=== PATIENT | male | born 1955 | race Caucasian/White ===

== ENCOUNTER → 2020-06-27 10:02 | Outpatient (BNVA) | payer MEDICARE, OTHER, SELFPAY | PROVIDERS: PCP Internal Medicine; Referring Provider Internal Medicine; Visit Provider Internal Medicine Gastroenterology | DX: K21.9 Gastro-esophageal reflux disease without esophagitis (principal); K76.0 Fatty (change of) liver, not elsewhere classified; R13.10 Dysphagia, unspecified; K59.09 Other constipation; Z79.899 Other long term (current) drug therapy; Z86.010 Personal history of colon polyps | CPT/HCPCS: 99213; Q3014 ==

== ENCOUNTER → 2020-07-24 10:26 | Outpatient (BNVA) | payer MEDICARE, OTHER, SELFPAY | PROVIDERS: PCP Internal Medicine; Referring Provider Internal Medicine; Visit Provider Internal Medicine | DX: R07.2 Precordial pain (principal); R42 Dizziness and giddiness; R06.02 Shortness of breath; F17.210 Nicotine dependence, cigarettes, uncomplicated; Z88.8 Allergy status to other drugs, medicaments and biological substances; Z79.899 Other long term (current) drug therapy | CPT/HCPCS: 93005; 99202 ==

== ENCOUNTER 2020-07-30 13:02 | Emergency (ER) | payer OTHER, MEDICARE, MEDICAID, SELFPAY ==
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
[2020-07-30 13:13] VITALS: BP 114/66; BP 120/80; PULSE 80; PULSE 94; RESP 19; TEMP 36.6; O2SAT 97; BMI 31.6
--- NOTE | 2020-07-30 13:40 | XR_ITS ---
EXAMINATION: XR KNEE, RIGHT CLINICAL INFORMATION: Pain. COMPARISON: None TECHNIQUE: Four views of the right knee. FINDINGS: There is a comminuted intra-articular fracture of the patella. There is mild distraction/displacement at the fracture planes. Joint spaces are maintained. Moderate joint effusion. XR/XR knee RT 4V IMPRESSION: Comminuted intra-articular patellar fracture, with mild distraction/displacement. Moderate knee joint effusion.
[2020-07-30] MEDS: ondansetron HCL 4 MG/2 ML VIAL IVPUSH (13:46)
[2020-07-30] MEDS: Morphine Sulfate 4 MG/ML CARTRIDGE IVPUSH (13:47)
[2020-07-30 13:56] VITALS: BP 114/81; RESP 18
[2020-07-30 14:04] LABS: MANUAL DIFF FLAG NO
[2020-07-30 14:07] LABS: Basophils Absolute Auto 0.1 X10*3/uL (0.0-0.2); Basophils Percent Auto 0.4 % (0-2); Eosinophils Absolute Auto 0.2 X10*3/uL (0.0-0.4); Eosinophils Percent Auto 1.6 % (0-4); Hemoglobin 12.3 g/dl (14.0-18.0); Imm Gran Abs Auto 0.16 X10*3/uL (0.00-0.03); Imm Gran Pct Auto 1.1 % (0.0-0.4); Lymphocytes Absolute Auto 4.2 X10*3/uL (1.2-4.9); Lymphocytes Percent Auto 28.9 % (20-40); Mean Corpuscular HGB Conc 31.5 g/dl (31.0-36.0); Mean Corpuscular Hemoglobin 29.4 pg (27.0-33.0); Mean Corpuscular Volume 93.3 fL (80-98); Mean Platelet Volume 9.8 fL (9.4-12.4); Monocytes Absolute Auto 1.4 X10*3/uL (0.1-1.2); Monocytes Percent Auto 9.5 % (2-11); Neutrophils Absolute Auto 8.4 X10*3/uL (2.0-8.3); Neutrophils Percent Auto 58.5 % (45-73); Platelet Count 318 X10*3/uL (160-400); Red Blood Count 4.18 X10*6/uL (4.60-5.80); Red Cell Distribution Width 17.8 % (11.0-16.0); White Blood Count 14.4 X10*3/uL (4.8-10.8)
[2020-07-30 15:33] VITALS: TEMP 36.7; O2SAT 98
[2020-07-30 16:09] LABS: Alanine Aminotransferase 27 U/L (0-40); Albumin Level 3.9 g/dL (3.5-5.0); Alkaline Phosphatase 64 U/L (39-117); Anion Gap 17 (12-20); Aspartate Amino Transferase 25 U/L (5-37); Bilirubin Direct 0.2 mg/dL (0.0-0.5); Bilirubin Total 0.7 mg/dL (0.0-1.0); Blood Urea Nitrogen 14 mg/dL (9-16); Calcium 8.2 mg/dL (8.4-10.2); Carbon Dioxide 23 mmol/L (22-29); Chloride 106 mmol/L (96-108); Creatinine Clr Calc Pharmacy 100.4; Estimated Glomerular Filt Rate > 60; Glucose Random 109 mg/dL (60-115); Lipase 52 U/L (8-78); Potassium 4.3 mmol/l (3.3-5.1); Sodium 142 mmol/L (135-145); Total Protein 6.5 g/dL (6.5-8.0)
--- NOTE | 2020-07-30 16:51 | PC.NURSE ---
CRUTCHES WAS GIVEN TO PATIENT .
== END 2020-07-30 17:33 | disposition home or self-care (01) ==
PROVIDERS: Emergency Provider Emergency Medicine; PCP Internal Medicine
DX: S82.041A Displaced comminuted fracture of right patella, initial encounter for closed fracture (principal); S20.213A Contusion of bilateral front wall of thorax, initial encounter; R07.89 Other chest pain; M79.604 Pain in right leg; M54.2 Cervicalgia; M54.5 Low back pain; V43.52XA Car driver injured in collision with other type car in traffic accident, initial encounter; Y93.9 Activity, unspecified; Y92.9 Unspecified place or not applicable; Y99.9 Unspecified external cause status; Z79.899 Other long term (current) drug therapy; F17.210 Nicotine dependence, cigarettes, uncomplicated; Z71.6 Tobacco abuse counseling
CPT/HCPCS: 29505; 36415; 70450; 71250; 72125; 73564; 74176; 80048; 80076; 83690; 85025; 96374; 96375; 99284; J2270; J2405

== ENCOUNTER → 2020-08-05 13:45 | Outpatient (BNVA) | payer OTHER, MEDICARE, MEDICAID, SELFPAY | PROVIDERS: PCP Internal Medicine; Referring Provider Internal Medicine; Visit Provider Physician Assistant | DX: Z76.89 Persons encountering health services in other specified circumstances (principal) ==

== ENCOUNTER 2020-08-21 09:21 | Outpatient (REF) | payer MEDICARE, MEDICAID, SELFPAY ==
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
== END 2020-08-21 09:22 | disposition home or self-care (01) ==
LOC: HO.HOSX 09:21
PROVIDERS: Visit Provider Physician Assistant
DX: S82.009A Unspecified fracture of unspecified patella, initial encounter for closed fracture (principal)
CPT/HCPCS: 73560; 99212

== ENCOUNTER → 2020-08-26 15:10 | Outpatient (BNVA) | payer MEDICARE, MEDICAID, SELFPAY | PROVIDERS: PCP Internal Medicine; Referring Provider Internal Medicine; Visit Provider Internal Medicine | DX: Z76.89 Persons encountering health services in other specified circumstances (principal) ==

== ENCOUNTER 2020-09-09 08:31 | Outpatient (REF) | payer MEDICARE, MEDICAID, SELFPAY ==
--- NOTE | 2020-09-09 09:07 | XR_ITS ---
EXAMINATION: XR KNEE, RIGHT CLINICAL INFORMATION: Pain COMPARISON: Previous x-ray 08/21/2020 TECHNIQUE: 2 views of the right knee. FINDINGS: There is a comminuted nondisplaced transverse fracture of the patella. This is unchanged from previous exam. No other fracture is seen. Joint spaces are normal. There is a joint effusion. XR/XR knee RT 2V IMPRESSION: No change in the patella fracture.
== END 2020-09-09 08:32 | disposition home or self-care (01) ==
LOC: HO.HOSX 08:31
PROVIDERS: Visit Provider Physician Assistant
DX: S82.009A Unspecified fracture of unspecified patella, initial encounter for closed fracture (principal); M25.569 Pain in unspecified knee
CPT/HCPCS: 73560; 99212

== ENCOUNTER 2020-10-22 08:51 | Outpatient (REF) | payer MEDICARE, SELFPAY | END 2020-10-22 08:52 | disposition home or self-care (01) | LOC: HO.HOSX 08:51 | PROVIDERS: Visit Provider Physician Assistant | DX: Z13.89 Encounter for screening for other disorder (principal) ==

== ENCOUNTER 2020-10-24 10:00 | Outpatient (RCR) | payer OTHER, MEDICARE, MEDICAID, SELFPAY ==
--- NOTE | 2020-09-17 09:59 | MHC.PT.EP ---
[facility] [place] Office [place] [facility] [place] Office [address] Richi Ramos 140 [facility] [phone] F: [phone] F: [phone] F: [phone] F: [phone] Physical Therapy Plan of Care Date of Evaluation: 09/17/20 Date of Surgery: Diagnosis: unspecified fracture of the knee Assessment: The patient arrived reporting minimal knee pain. His ROM was actually better on his painful side compared to his bilateral leg. His ROM is WNL. He has some decreased strength that is pain limited. The patient was given an initial HEP to address quad strength. We will work on improving his gait pattern. Frequency and Duration: The patient will be seen 2x/week x 4 weeks Short Term Goals: 1. Pt to be able to walk with a heel to toe reciprocal gait pattern. Halfway Goals: 4 weeks - the patient will have no limiting pain in her knees during gait with community ambulation to show improved activity tolerance. 4 weeks - pt will have more quad control with TKE demonstrated by no medial collapse during a curb height step. 4 weeks -patient to be able to return to all functional movements and ADL's without limiting knee pain to show return to PLOF. Treatment Plan: Modalities to reduce pain, spasms and effusion. Manual therapy to restore motion and function. Therapeutic exercise to improve strength and flexibility. Neuromuscular re-education for posture and balance. Therapeutic activities to return to functional activities of daily living. Electronically signed by: Christa Rodríguez PT DPT Please sign and return to therapist. Thank you for your referral.
== END 2020-12-31 07:42 | disposition other institution (70) ==
LOC: HO.PT 10:00
PROVIDERS: Visit Provider Physician Assistant
DX: S82.009D Unspecified fracture of unspecified patella, subsequent encounter for closed fracture with routine healing (principal)
CPT/HCPCS: 97110; 97116; 97140; 97162; 97530

== ENCOUNTER 2020-11-28 09:27 | Outpatient (REF) | payer MEDICARE, SELFPAY | END 2020-11-28 09:28 | disposition home or self-care (01) | LOC: HO.LAB 09:27 | PROVIDERS: Visit Provider Internal Medicine | DX: Z20.822 Contact with and (suspected) exposure to COVID-19 (principal) | CPT/HCPCS: 36415; C9803; U0003; U0005 ==

== ENCOUNTER → 2020-12-11 13:13 | Outpatient (BNVA) | payer MEDICARE, MEDICAID, SELFPAY | PROVIDERS: PCP Internal Medicine; Referring Provider Internal Medicine; Visit Provider Internal Medicine Gastroenterology | DX: R13.10 Dysphagia, unspecified (principal); K21.9 Gastro-esophageal reflux disease without esophagitis; K76.0 Fatty (change of) liver, not elsewhere classified; Z86.010 Personal history of colon polyps | CPT/HCPCS: 99212 ==

== ENCOUNTER → 2020-12-16 14:06 | Outpatient (REF) | payer MEDICARE, MEDICAID, SELFPAY ==
--- NOTE | 2020-12-16 14:11 | CA_ITS ---
Transthoracic Echocardiogram Patient (Last, First, Middle): Sekou Lombardo E Gender: Male Date of : 1955 Age: 65 Procedure Date: 12/16/2020 Procedure Type: Transthoracic Echocardiogram Location: OP Height: 167.64 cm Weight: 90.72 kg BSA: 2.00 m2 Heart Rate: bpm BP: 128 / 80 mmHg Fur Nailer: Referring MD: Gonzalo Roman MD Symptoms: I25.10 - Atherosclerotic heart disease of [place] coronary artery without angina pectoris Study Quality: Fair ECG Rhythm: Sinus Conclusions: - The left ventricular systolic function is normal. The visually estimated ejection fraction is between 65-70%. - No obvious valvular pathology seen on this study. Findings Left Ventricle Normal left ventricular cavity size. There is mildly increased left ventricular wall thickness. The left ventricular systolic function is normal. The visually estimated ejection fraction is between 65-70%. Diastolic function is normal for age. There is mild septal asymmetric hypertrophy. Right Ventricle Normal right ventricular cavity size and systolic function. Atria The left atrium is normal in size. The right atrium is normal in size. Aortic Valve The aortic valve was not well visualized. There is a normal trileaflet aortic valve. There is no aortic valve stenosis. There is no aortic valve regurgitation. Mitral Valve The mitral valve appears normal. There is no mitral valve regurgitation. There is no mitral valve stenosis. Pulmonic Valve The pulmonic valve was not well visualized. Tricuspid Valve There is trace tricuspid valve regurgitation. The pulmonary artery systolic pressure is normal. Great Vessels The aortic annulus, sinuses of valsalva, and asc aorta are normal in size. Venous The inferior vena cava is normal in size and collapses greater than 50% with inspiration. Pericardium/Pleural There is no evidence of pericardial effusion. Prior Study Comparison No significant change compared to prior study dated: 08/07/2014. Recommendations, Care & Conclusions No obvious valvular pathology seen on this study. Measurements 2D Linear Measurements IVSd: 1.44 0.6-0.9/0.6-1.0 cm LVIDd: 4.17 3.9-5.3/4.2-5.9 cm LVIDd Index: 2.09 2.4-3.2/2.2-3.1 cm/m2 LVIDs: 2.85 2.0-3.6 cm LVPWd: 1.41 0.7-1.1 cm Ao Root: 3.80 2.1-3.5 cm LA Diam: 3.50 2.7-3.8/3.0-4.0 cm LAIDs Index: 1.75 1.5-2.3 cm/m2 LV Mass: 284.37 67-162/88-224 g LV Mass Index: 142.19 43-95/49-115 g/m2 LVOT Diam: 2.10 3.0+(-)1.3 cm Mitral Valve MV Pk E: 0.50 MV PK A: 0.72 MV Decel Time: 169.00 E/A: 0.70 E'Lateral: 11.10 E'Medial: 7.35 E/E' Med: 6.90 E/E' Lat: 4.50 PHT: 50.00 MVA PHT: 4.40 Decel [place]: 2.98 Aortic Valve AoV Pk Levi: 1.33 AoV Mn Levi: 0.92 AoV VTI: 0.26 AoV Pk Grad: 7.00 Aov Mn Grad: 4.00 ZELDA Cont.VTI: 2.74 LVOT LVOT Pk Levi: 1.15 LVOT Mn Levi: 0.83 LVOT VTI: 0.21 LVOT Pk Grad: 5.00 LVOT Mn Grad: 3.00 LVOT Diam: 2.10 LVOT Area: 3.46 Diastolic Function MV Pk E: 0.50 MV Pk A: 0.72 E/A: 0.70 E'Medial: 7.35 E/E' Med: 6.90 E' Laterial: 11.10 E/E' Lat: 4.50 Tricuspid Valve TR Pk Levi: 2.03 TR Pk Grad: 16.00 RA Press: 3.00 RVSP: 19.00 Great Vessels Aorta Ao Root-2D: 3.80 2.0-3.7 cm Ao Asc: 3.50 2.1-3.4 cm Pulmonary Valve PV Pk Levi: 1.03 Peak PV Grad: 4.00 Updated in Other Vendor System with Status of Final Gonzalo Roman MD electronically signed on 12/16/2020 5:01:34 PM with status of Final
== END ==
LOC: HO.CARD 14:06
PROVIDERS: Visit Provider Internal Medicine
DX: R07.2 Precordial pain (principal); I25.10 Atherosclerotic heart disease of native coronary artery without angina pectoris
CPT/HCPCS: 93306

== ENCOUNTER 2020-12-23 18:54 | Inpatient (IN) | payer MEDICARE, MEDICAID, SELFPAY ==
--- NOTE | ~2020-12-23 | XR_ITS ---
EXAMINATION: XR CHEST CLINICAL INFORMATION: Follow-up. COMPARISON: Chest 01/01/2021 TECHNIQUE: Frontal view of the chest was obtained. FINDINGS: There are patchy groundglass opacities seen throughout both lungs, stable. Position of right jugular central line, enteric tube and endotracheal tube are in satisfactory position. The heart size is normal. The subcutaneous emphysema has improved in the neck region no visible pneumothorax. No gross bony abnormality. XR/XR chest 1V IMPRESSION: Diffuse patchy airspace disease is stable. Support lines and catheters are stable. Subcutaneous emphysema in the neck appears improved.
--- NOTE | ~2020-12-23 | XR_ITS ---
EXAMINATION: PORTABLE CHEST 1 VIEW CLINICAL INFORMATION: sob . COMPARISON: 01/06/2020. TECHNIQUE: Portable frontal view of the chest was obtained. FINDINGS: Lungs are hypoexpanded with patchy bilateral airspace disease left more so the right. Atypical infectious etiology versus asymmetric edema could have overlapping appearance. Clinical correlation recommended. No effusion or pneumothorax. Cardiac and mediastinal silhouettes within normal limits for size. Vascular calcification in aorta XR/XR chest 1V IMPRESSION: Patchy bilateral airspace disease seen possibly representing atypical or viral infectious etiology. Asymmetric edema would be considered less likely. Lungs are hypoexpanded
--- NOTE | ~2020-12-23 | XR_ITS ---
EXAMINATION: XR CHEST CLINICAL INFORMATION: ETT cuff leak COMPARISON: Previous chest x-ray most recent 01/11/2021 TECHNIQUE: Frontal view of the chest was obtained. FINDINGS: There is an endotracheal tube with tip 3.4 cm above the gio. There is a Dobbhoff feeding tube that projects over the stomach. The tip is not seen. There is a right jugular line with tip projecting over the cavoatrial junction. The cardiac and mediastinal contours are stable. There is pneumomediastinum. There is subcutaneous emphysema seen in the bilateral neck and left upper chest. This does not appear appreciably changed. There is bilateral diffuse airspace disease. This does not appear appreciably changed. There is no pleural effusion. There is no pneumothorax. XR/XR chest 1V IMPRESSION: Satisfactory position of endotracheal tube and right jugular line. Feeding tube projects over the stomach. The tip is not seen. Pneumomediastinum and subcutaneous emphysema in the bilateral neck. This does not appear appreciably changed from previous exam 01/11/2021. Bilateral diffuse airspace disease also unchanged. No pneumothorax. Findings were communicated to ICU nurse Louisa by telephone on 01/07/2021 at 2:00 PM.
--- NOTE | ~2020-12-23 | XR_ITS ---
EXAMINATION: XR CHEST CLINICAL INFORMATION: Covid follow-up COMPARISON: December 31, 2020 and December 27, 2020 TECHNIQUE: AP portable view of the chest was obtained. FINDINGS: There is again noted to be bilateral regions of patchy groundglass opacity as well as more confluent disease in the left lower lung but which appears to be somewhat improved from previous day's study. Patient has developed subcutaneous emphysema without definite pneumothorax or pneumomediastinum appreciated. Right internal jugular central venous catheter seen with tip in the region of the cavoatrial junction. Endotracheal tube tip is approximately 3 cm above the gio. Enteric tube seen traversing to the stomach. There is an old healed left rib fracture present. XR/XR chest 1V IMPRESSION: Development of subcutaneous emphysema without definite pneumothorax. No significant change in support catheters. Mild improvement in airspace disease left lower lung.
--- NOTE | ~2020-12-23 | XR_ITS ---
EXAMINATION: XR CHEST CLINICAL INFORMATION: Correlate. Follow-up. COMPARISON: Chest 01/03/2021 TECHNIQUE: Frontal view of the chest was obtained. FINDINGS: The lungs are well-expanded with patchy opacity seen in right midlung and both lung bases. The heart size and pulmonary vascularity is normal. Pneumomediastinum is unchanged. Subcutaneous emphysema in the neck appears improved. There is a right jugular central catheter with tip in the distal SVC. There is an endotracheal tube with its tip 3.8 cm above the gio. Endotracheal tube tip is in the stomach is an old just below the GE junction. No gross bony abnormality. XR/XR chest 1V IMPRESSION: No change in support lines and catheters. There is diffuse airspace opacity throughout both lungs slightly worsening in the left upper lobe and right parahilar regions. No change in pneumomediastinum. The subcutaneous emphysema in the neck has improved.
--- NOTE | ~2020-12-23 | US_ITS ---
EXAMINATION: US VENOUS ULTRASOUND WITH DOPPLER LOWER EXTREMITY, BILATERAL CLINICAL INFORMATION: Increased d-dimer COMPARISON: None TECHNIQUE: Ultrasound of the deep veins is performed from the hip to the calf with compression sonography and color and pulse Doppler assessment. Spectral analysis with color-flow imaging is performed. FINDINGS: RIGHT: There is normal venous compression and respiratory variation and augmented flow. The visualized common femoral vein, superficial femoral vein, profunda femoral vein, popliteal vein, and the trifurcation region shows no evidence of deep venous thrombosis. There is no significant popliteal fossa cyst. LEFT: There is normal venous compression and respiratory variation and augmented flow. The visualized common femoral vein, superficial femoral vein, profunda femoral vein, popliteal vein, and the trifurcation region shows no evidence of deep venous thrombosis. There is no significant popliteal fossa cyst. If the patient's symptoms persist, followup ultrasound in 5 days 7 days might be of value to exclude proximal propagation from a non-visualized calf vein. US/US venous duplex LE BI IMPRESSION: No DVT demonstrated in the bilateral lower extremities.
--- NOTE | ~2020-12-23 | XR_ITS ---
EXAMINATION: XR CHEST CLINICAL INFORMATION: Status post nasogastric tube placement. COMPARISON: 01/10/2021 chest radiograph. TECHNIQUE: Frontal view of the chest was obtained. FINDINGS: Support devices: Interval placement of nasogastric tube with tip not included on the study, but seen below the left hemidiaphragm. An endotracheal tube is seen with tip terminating approximately 4 cm proximal to gio. The right-sided internal jugular catheter seen with tip terminating at the cavoatrial junction. Bilateral diffuse airspace opacities are again seen without significant change. Consolidation with air bronchograms is seen at the left lung base. The heart and mediastinal structures are unremarkable. XR/XR chest 1V IMPRESSION: 1. Nasogastric tube tip is not included on the study but is seen below the left hemidiaphragm, likely within the stomach. 2. No significant change in bilateral diffuse airspace opacities.
--- NOTE | ~2020-12-23 | XR_ITS ---
EXAMINATION: XR CHEST CLINICAL INFORMATION: Reintubation COMPARISON: 01/15/2021 at 1:18 PM TECHNIQUE: Frontal view of the chest was obtained at 2:07 PM. FINDINGS: New endotracheal tube is seen with tip 4 cm above the gio. Enteric tube again noted, descending the esophagus into the stomach with the tip not seen. Right internal jugular approach central venous catheter seen with tip in the right atrium. Again seen are diffuse bilateral airspace opacities with more dense focal consolidation and air bronchograms at the left lung base, silhouetting the left hemidiaphragm. Subcutaneous emphysema of the upper chest and neck again seen. No definite pleural effusion or pneumothorax. Pneumomediastinum is present, better seen on prior studies. XR/XR chest 1V IMPRESSION: Endotracheal tube again seen with tip 4 cm above the gio. Additional tubes and lines are similarly positioned to the prior study less than one hour earlier. Similar appearance of extensive airspace opacity consistent with multifocal infection. Persistent pneumomediastinum and subcutaneous emphysema.
--- NOTE | ~2020-12-23 | XR_ITS ---
EXAMINATION: XR CHEST CLINICAL INFORMATION: Hypoxia COMPARISON: 01/04/2021 TECHNIQUE: Frontal view of the chest was obtained. FINDINGS: Endotracheal tube terminates approximately 2 cm above the gio. Enteric tube extends into the stomach. Right internal jugular central venous catheter remains in place. Cardiac leads overlie the chest. Lung volumes are low. Persistent patchy bilateral airspace opacities diffusely. Comparing to prior, there may be slightly improved aeration. No significant pleural effusion. No pneumothorax. There is pneumomediastinum again noted, with persistent gas in the right chest wall extending into the neck. Mediastinal contours are unchanged. XR/XR chest 1V IMPRESSION: Endotracheal tube terminates approximately 2 cm above the gio. Low lung volumes with persistent bilateral airspace opacities. There is likely partial improvement from prior. Persistent pneumomediastinum with soft tissue gas.
--- NOTE | ~2020-12-23 | XR_ITS ---
EXAMINATION: XR CHEST CLINICAL INFORMATION: Endotracheal tube COMPARISON: 01/06/2021 TECHNIQUE: Frontal view of the chest was obtained. FINDINGS: The endotracheal tube terminates 3 cm above the gio. Right internal jugular central venous catheter is unchanged. Cardiac leads overlie the chest. Lung volumes are low. Patchy bilateral airspace opacities are present. This is similar to the recent prior. No pneumothorax. The cardiomediastinal silhouette is unchanged with pneumomediastinum again noted. Subcutaneous emphysema of the right chest wall into the neck. XR/XR chest 1V IMPRESSION: Endotracheal tube terminates 3 cm above the gio. Similar appearance of the lungs with bilateral opacities.
--- NOTE | ~2020-12-23 | XR_ITS ---
EXAMINATION: XR CHEST CLINICAL INFORMATION: OG tube and ET tube placement. Central line placement. COMPARISON: Chest done on 12/23/2020. TECHNIQUE: Frontal view of the chest was obtained. FINDINGS: Interval placement of endotracheal tube is noted with its tip seen projecting approximately 4.3 cm above the level of the gio. Interval placement of right IJ central line is present with its tip seen projecting within the right atrium. Interval placement of OG tube is noted with its tip seen projecting below the level of the diaphragm with the proximal most sidehole also below the diaphragm. Previously documented bilateral patchy airspace disease appear unchanged. The cardiomediastinal silhouette is within normal limit. No evidence of any pleural effusion or pneumothorax. XR/XR chest 1V IMPRESSION: 1. Stable radiographic appearance of the lung galvan since the prior study dated 12/23/2020. 2. Interval placement of tubes and catheters showing satisfactory position, as described above. No evidence of any right-sided pneumothorax.
--- NOTE | ~2020-12-23 | XR_ITS ---
EXAMINATION: XR CHEST CLINICAL INFORMATION: Hypoxia COMPARISON: 01/06/2021 TECHNIQUE: Frontal view of the chest was obtained. FINDINGS: The endotracheal tube terminates 4.5 cm above the gio. Cardiac leads overlie the chest. Right internal jugular central venous catheter terminates near the cavoatrial junction. The lungs are well expanded. Bilateral diffuse airspace opacities are again noted, similar to prior. No pleural effusion. No pneumothorax. The cardiomediastinal silhouette is unchanged. Cannot exclude pneumomediastinum with this appearance. Improvement of the subcutaneous emphysema seen on prior. XR/XR chest 1V IMPRESSION: Endotracheal tube terminating 4.5 cm above the gio. Persistent bilateral airspace opacities. This is similar to prior. Cannot exclude pneumomediastinum with this appearance.
--- NOTE | ~2020-12-23 | XR_ITS ---
EXAMINATION: XR CHEST CLINICAL INFORMATION: No sufficiently improved COMPARISON: 01/15/2021 TECHNIQUE: Frontal view of the chest was obtained. FINDINGS: Endotracheal tube terminates 4.1 cm above the gio. Enteric tube terminates within the stomach. Right internal jugular central venous catheter terminates within the superior right atrium. Similar appearing extensive interstitial and airspace opacity present bilaterally. No large pleural effusion. No appreciable pneumothorax. Persistent pneumomediastinum and chest wall emphysema, the latter having increased since the prior exam. XR/XR chest 1V IMPRESSION: * Stable airspace disease. * Stable pneumomediastinum. * No pneumothorax. * Increasing chest wall emphysema.
--- NOTE | ~2020-12-23 | XR_ITS ---
EXAMINATION: XR CHEST CLINICAL INFORMATION: OG-tube COMPARISON: Chest x-ray 01/06/2021, 3:56 AM TECHNIQUE: Frontal portable view of the chest was obtained. 8:17 PM FINDINGS: Patient rotated to left. Tubes and lines: 1. Right IJ catheter tip in right atrium unchanged position since prior study. 2. Endotracheal tube catheter tip about 2 cm above the gio. 3. Orogastric tube passes below diaphragm into the upper abdomen. The sidehole is below the diaphragm. The catheter tip itself is below the lower margin of the film. There is subcutaneous air along the right neck and right lateral chest wall. No pneumothorax or pneumomediastinum. There is persistent extensive bilateral airspace opacities similar prior chest x-ray. Surgical clips left upper quadrant of abdomen. XR/XR chest 1V IMPRESSION: 1. Right IJ catheter tip in right atrium unchanged position since prior study. 2. Endotracheal tube catheter tip about 2 cm above the gio. 3. Orogastric tube passes below diaphragm into the upper abdomen. The sidehole is below the diaphragm. The catheter tip itself is below the lower margin of the film. 4. Subcutaneous emphysema right side of the chest and neck. 5. Persistent extensive bilateral airspace disease.
--- NOTE | ~2020-12-23 | CT_ITS ---
EXAMINATION: CT ANGIOGRAM OF THE CHEST WITH AND WITHOUT CONTRAST (CT PULMONARY ANGIOGRAM FOR PE) CLINICAL INFORMATION: Reason for Exam ?covid positive, PE COMPARISON: CT chest 07/30/2020 TECHNIQUE: Prior to contrast administration, noncontrast localization images were obtained. Subsequently, multidetector volumetric imaging was performed from the thoracic inlet to below the diaphragms following the administration of 65 mL Omnipaque 350 intravenous contrast. No contrast reaction reported Sagittal, coronal, and MIP oblique sagittal reformatted images were obtained on the CT workstation, uploaded to PACS, and reviewed. This CT examination was performed using dose optimization techniques as appropriate, variously including the following: *Automated exposure control *Adjustment of mA and/or kV according to patient size (this includes techniques or standardized protocols for targeted exams where dose is matched to indication/reason for exam; i.e. extremities or head) *Use of iterative reconstruction technique Total exam dose-length product 359 mGy-cm FINDINGS: QUALITY OF STUDY/CONTRAST BOLUS: Satisfactory. PULMONARY ARTERIES: No central or segmental pulmonary emboli. THORACIC AORTA: No aneurysm or dissection. LUNG: Extensive multifocal groundglass infiltrates are present throughout the lungs. There is baseline emphysema and bronchiectasis present in the lower lobes that was seen on the 07/30/2020 study. PLEURA: No pleural effusion or pneumothorax. MEDIASTINUM: Normal heart size. No pericardial effusion. Small mediastinal nodes are present likely reactive but no gross hilar or mediastinal lymphadenopathy is seen. No evidence of septal bowing or right heart strain. CHEST WALL/AXILLA: No axillary or internal mammary lymphadenopathy. OSSEOUS STRUCTURES: Degenerative changes are present in the spine. There is fusion of what appears to be T8 and T9 with anterior wedging. UPPER ABDOMEN: Status post splenectomy and cholecystectomy. I suspect there is hepatic steatosis present. No reflux of contrast into the hepatic veins to suggest elevated right heart pressures. CT/CT angio chest PE protocol IMPRESSION: 1. No evidence of pulmonary emboli 2. Commonly reported imaging features of Covid 19 or viral pneumonia are present with multifocal extensive groundglass infiltrates. Other processes such as influenza pneumonia or organizing pneumonia, as can be seen with drug toxicity and connective tissue disease, can cause a similar imaging pattern. 3. Other incidental findings as described above including small reactive mediastinal lymph nodes, degenerative changes in the spine with fusion at T8 and T9, splenectomy and cholecystectomy VTE: negative
--- NOTE | ~2020-12-23 | XR_ITS ---
EXAMINATION: XR CHEST CLINICAL INFORMATION: Hypoxia COMPARISON: Chest 01/18/2021 TECHNIQUE: Frontal view of the chest was obtained. FINDINGS: Both lungs are hypoexpanded with patchy opacity. The heart size and pulmonary vascularity is normal. There is likely small pneumomediastinum, improved since the last study. Position of right central catheter, endotracheal tube and enteric tube are in satisfactory position. No gross bony abnormality. XR/XR chest 1V IMPRESSION: Stable airspace disease. No change in support lines and catheters. Improved pneumomediastinum.
--- NOTE | ~2020-12-23 | XR_ITS ---
EXAMINATION: XR CHEST CLINICAL INFORMATION: Pneumothorax assessment COMPARISON: 01/03/2011 at 7:09 AM TECHNIQUE: Portable 2:40 PM view of the chest was obtained. FINDINGS: Similar pneumomediastinum and subcutaneous emphysema extending to the base of neck. ET tube central line NG tube remains satisfactory. Low lung volumes with diffuse infiltration similar to baseline. No measurable pneumothorax. XR/XR chest 1V IMPRESSION: Pneumomediastinum and significant is emphysema. Bilateral extensive airspace disease similar. No pneumothorax and there are no any new findings.
--- NOTE | ~2020-12-23 | XR_ITS ---
EXAMINATION: XR CHEST CLINICAL INFORMATION: Follow-up Covid pneumonia COMPARISON: Chest 12/27/2020 TECHNIQUE: Frontal view of the chest was obtained. FINDINGS: Again visualized are hypoexpanded lungs with bilateral airspace opacity. There is a right jugular central catheters tip in right atrium. Endotracheal tube tip is 3.12 cm above the gio. Enteric tube tip is below diaphragm in the stomach. Heart size and the great vessels are normal caliber. XR/XR chest 1V IMPRESSION: Expanded lungs with stable bilateral patchy airspace disease. Support lines and catheters are stable as well.
[2020-12-23 19:00] VITALS: BP 100/72; BP 105/65; PULSE 73; PULSE 98; RESP 23; TEMP 37; O2SAT 90; O2SAT 96; BMI 30.2
--- NOTE | 2020-12-23 19:03 | ED_ITS ---
HPI - SOB/Dyspnea General Chief Complaint: Dyspnea Stated Complaint: DIFF BREATHING X 1 WEEK,CP Time Seen by Provider: 12/23/20 19:02 Source: patient and EMS Mode of arrival: EMS Limitations: no limitations History of Present Illness HPI Narrative: Patient with no history of COPD or asthma in the past on hydroxychloroquine methotrexate and prednisone for WHITNYE comes here for increased shortness of breath for last 1 week feels chest tight was saturating 70% at room air when EMS reached and in the ER also on 100% non-rebreather saturating 92% drops to 70% when tried nebulizing treatment patient been coughing a lot without any phlegm no fever feel body ache tired especially for last 1 week. Nobody at home positive for COVID patient has not received any vaccination year MD elicited complaint: shortness of breath, cough and pain with inspiration Onset (ago): week(s) (1) Timing: constant Severity: severe Related Data Home Medications Medication Instructions Recorded Confirmed calcium carbonate 600 mg (1,500 1 tab PO BID 06/27/20 12/23/20 mg)-vitamin D3 400 unit tablet folic acid 1 mg tablet 1 mg PO DAILY 06/27/20 12/23/20 hydroxychloroquine 200 mg tablet 200 mg PO BID 06/27/20 12/23/20 sennosides 8.6 mg tablet 17.2 mg PO BEDTIME PRN 06/27/20 12/23/20 albuterol sulfate 90 mcg/actuation 1 puff INHALATION Q4H PRN 07/15/20 12/23/20 aerosol inhaler alendronate 70 mg tablet 70 mg PO QWEEK 11/17/20 12/23/20 aspirin 81 mg tablet,delayed 81 mg PO DAILY 12/11/20 12/23/20 release diclofenac sodium 2 g TOPICAL QID PRN 12/23/20 12/23/20 methotrexate sodium (PF) 25 mg QWEEK 12/23/20 12/23/20 oxycodone-acetaminophen 1 tab PO QID PRN 12/23/20 12/23/20 pantoprazole 40 mg PO BID@0630,1630 12/23/20 12/23/20 prednisone 1 tab PO DAILY 12/23/20 12/23/20 sarilumab [Kevzara] 200 mg SUBCUT Q2W 12/23/20 12/23/20 sucralfate [Carafate] 10 ml PO BID 12/23/20 12/23/20 Previous Rx's Medication Instructions Recorded zolpidem 10 mg tablet 10 mg PO BEDTIME PRN #90 tab 08/01/20 linaclotide 145 mcg capsule 145 mcg PO QAM 30 Days #30 cap 09/01/20 lorazepam 1 mg tablet 1 mg PO BID #60 tab 12/16/20 Allergies Allergy/AdvReac Type Severity Reaction Status Date / Time rituximab [From RITUXAN] Allergy Severe RASH Verified 12/16/20 11:01 Review of Systems Review of Systems: Constitutional : No Weight loss, No Fever, No Chills ENT/Mouth : No sore throat, No Rhinorrhea Eyes: No Eye Pain, No Swelling Cardiovascular : No Chest Pain, no palpitations Respiratory :+Cough, No Sputum, ++shortness of breath Gastrointestinal : no Nausea, No Vomiting, No Diarrhea, No abdominal Pain, no black stools Genitourinary : No Dysuria, No Urinary Frequency Musculoskeletal : No joint pain, No Myalgias, No Joint Swelling Skin : No Skin Lesions, No rash Neuro : No Weakness, No Numbness, No Dizziness, No Headache Psych : No Anxiety/Panic, No Depression Heme/Lymph: No Bruising, No Lymphadenopathy Endocrine : No Polyuria, No Polydipsia All other systems reviewed and are negative FOR[facility]LY [facility] Past Medical History Medical History Antiphospholipid antibody positive Anxiety BPH (benign prostatic hyperplasia) Chest pain Depression Dysphagia GERD (gastroesophageal reflux disease) Hemolytic anemia History of adenomatous polyp of colon Lumbar degenerative disc disease Lupus MCTD (mixed connective tissue disease) NAFL (nonalcoholic fatty liver) Osteomyelitis of thoracic region Osteopenia Overlap syndrome Pain management Psoriasis Surgical History History of cholecystectomy History of colonoscopy Hx of endoscopy (~2004) Status post splenectomy Family History Family History Father No problems noted. Mother Arthritis Brother No problems noted. Brother No problems noted. Brother No problems noted. Sister No problems noted. Sister No problems noted. Son No problems noted. Social History Social History Alcohol intake: never Smoking Status: Current every day smoker Tobacco Type: Cigarette Cigarettes Per Day: 3 Smoked in Last 30 Days: No Use of substances other than those prescribed or required for medical reasons: No Advance Directives: No Advance Directives Information Provided: Yes Current occupational status: retired Physical Exam Vital Signs: Vital Signs: Last Vital Signs Temp 98.6 F 12/23/20 19:00 Pulse 98 12/23/20 19:00 Resp 18 12/24/20 00:48 BP 100/72 12/23/20 19:00 Pulse Ox 91 L 12/23/20 21:00 Body Mass Index 30.2 Const: General: well developed, in distress and ill appearing Nutritional Appearance: average body habitus Orientation/consciousness: patient oriented x3 Limitations: no limitations HENMT: Head: Yes normocephalic and Yes atraumatic Ears: hearing grossly normal bilaterally General nose exam: Normal external nose present Mouth: Normal oral and palatal mucosa present Eyes: General: appearance normal, both eyes and all related structures Neck: Neck: Yes normal visual inspection, Yes full ROM, Yes no lymphadenopathy and No midline deformity Chest: Chest palpation & inspection: normal palpation of entire chest wall Resp: Effort & Inspection: labored, tachypneic, uses accessory muscles and prolonged expiratory phase Auscultation: crackles, rales, no rhonchi and no wheezes Cardio: Jugular venous distension: no JVD Palpation: normal PMI Rate: regular rate Rhythm: regular rhythm Heart sounds: S1 normal heart sound present and S2 normal heart sound present Peripheral pulses: Peripheral pulses 2+ throughout GI: Inspection: Yes normal to inspection Palpation (GI): Soft to palpation and nontender Auscultation: normal bowel sounds : General: Yes no CVA tenderness Back/Spine/Pelvis: Back: no CVA tenderness Thoracic/Lumbar Spine: thoracic and lumbar spine normal to inspection Skin: General skin exam: no rashes or lesions noted Neuro: General: patient oriented x3 and no focal motor deficits Extrem: General: Yes normal to inspection, Yes no calf tenderness and No pedal edema MDM - SOB/Dyspnea MDM Narrative Medical decision making narrative: Patient with COVID-19 pneumonia status post splenectomy immunocompromised CT chest is negative for PE but showed extensive multifocal ground-glass infiltrate very high risk for acute inflammatory response patient received prophylactic antibiotics IV Decadron at this time per protocol. On high-flow oxygen 55 L 100% saturating 94% awake alert and speaking. Will admit patient for further evaluation and management for COVID-19 pneumonia with hypoxia Differential Diagnosis Differential diagnosis: Likely pneumonia Lab Data Attestation: I reviewed the patient's lab results. Result diagrams: 12/23/20 20:10 12/23/20 20:10 Labs: Lab Results 12/23/20 12/23/20 12/23/20 Range/Units 19:46 20:10 20:10 WBC 12.0 H (4.8-10.8) X10*3/uL RBC 4.60 (4.60-5.80) X10*6/uL Hgb 13.4 L (14.0-18.0) g/dl Hct 41.8 L (42-52) % MCV 90.9 (80-98) fL MCH 29.1 (27.0-33.0) pg MCHC 32.1 (31.0-36.0) g/dl RDW 18.3 H (11.0-16.0) % Plt Count 255 (160-400) X10*3/uL MPV 10.5 (9.4-12.4) fL Immature Gran % (Auto) 0.9 H (0.0-0.4) % Neut % (Auto) 80.4 H (45-73) % Lymph % (Auto) 15.4 L (20-40) % [place] % (Auto) 2.9 (2-11) % Eos % (Auto) 0.3 (0-4) % Baso % (Auto) 0.1 (0-2) % Lymph # (Auto) 1.8 (1.2-4.9) X10*3/uL [place] # (Auto) 0.4 (0.1-1.2) X10*3/uL Eos # (Auto) 0.0 (0.0-0.4) X10*3/uL Baso # (Auto) 0.0 (0.0-0.2) X10*3/uL Abs Immat Gran (auto) 0.11 H (0.00-0.03) X10*3/uL Absolute Neuts (auto) 9.6 H (2.0-8.3) X10*3/uL Absolute Nucleated RBC 0.060 H (0.0-0.012) X10*3/uL Nucleated RBC % (auto) 0.5 H (0.0-0.2) /100WBC PT 12.3 (10.8-13.0) SEC INR 1.0 (0.9-1.1) APTT 30.1 (24.1-38.0) SEC Sodium (135-145) mmol/L Potassium (3.3-5.1) mmol/L Chloride (96-108) mmol/L Carbon Dioxide (22-29) mmol/L Anion Gap (12-20) BUN (9-16) mg/dL Creatinine (0.5-1.4) mg/dL Estim Creat Clear Calc Estimated GFR Random Glucose (60-115) mg/dL Lactic Acid (0.5-2.0) mmol/L Calcium (8.4-10.2) mg/dL Total Bilirubin (0.0-1.0) mg/dL Direct Bilirubin (0.0-0.5) mg/dL AST (5-37) U/L ALT (0-40) U/L Alkaline Phosphatase (39-117) U/L Troponin I High Sens (<3.5-35.0) ng/L B-Natriuretic Peptide (<100) pg/mL Total Protein (6.5-8.0) g/dL Albumin (3.5-5.0) g/dL COVID-19 (TAVIA) Positive A (Negative) COVID-19 Clin Com See Note 12/23/20 12/23/20 12/23/20 Range/Units 20:10 20:10 20:10 WBC (4.8-10.8) X10*3/uL RBC (4.60-5.80) X10*6/uL Hgb (14.0-18.0) g/dl Hct (42-52) % MCV (80-98) fL MCH (27.0-33.0) pg MCHC (31.0-36.0) g/dl RDW (11.0-16.0) % Plt Count (160-400) X10*3/uL MPV (9.4-12.4) fL Immature Gran % (Auto) (0.0-0.4) % Neut % (Auto) (45-73) % Lymph % (Auto) (20-40) % [place] % (Auto) (2-11) % Eos % (Auto) (0-4) % Baso % (Auto) (0-2) % Lymph # (Auto) (1.2-4.9) X10*3/uL [place] # (Auto) (0.1-1.2) X10*3/uL Eos # (Auto) (0.0-0.4) X10*3/uL Baso # (Auto) (0.0-0.2) X10*3/uL Abs Immat Gran (auto) (0.00-0.03) X10*3/uL Absolute Neuts (auto) (2.0-8.3) X10*3/uL Absolute Nucleated RBC (0.0-0.012) X10*3/uL Nucleated RBC % (auto) (0.0-0.2) /100WBC PT (10.8-13.0) SEC INR (0.9-1.1) APTT (24.1-38.0) SEC Sodium 141 (135-145) mmol/L Potassium 4.1 (3.3-5.1) mmol/L Chloride 107 (96-108) mmol/L Carbon Dioxide 23 (22-29) mmol/L Anion Gap 15 (12-20) BUN 23 H D (9-16) mg/dL Creatinine 0.75 (0.5-1.4) mg/dL Estim Creat Clear Calc 101.7 Estimated GFR > 60 Random Glucose 128 H (60-115) mg/dL Lactic Acid 2.0 (0.5-2.0) mmol/L Calcium 8.2 L (8.4-10.2) mg/dL Total Bilirubin 0.4 (0.0-1.0) mg/dL Direct Bilirubin 0.2 (0.0-0.5) mg/dL AST 104 H (5-37) U/L ALT 49 H (0-40) U/L Alkaline Phosphatase 80 D (39-117) U/L Troponin I High Sens < 3.5 (<3.5-35.0) ng/L B-Natriuretic Peptide 19 (<100) pg/mL Total Protein 6.8 (6.5-8.0) g/dL Albumin 4.0 (3.5-5.0) g/dL COVID-19 (TAVIA) (Negative) COVID-19 Clin Com Imaging Data CT scan - chest: Radiologist's impression: [id number] [place], [place] [id number] Scan ReportSigned Patient: Sekou Lombardo EMR#: [id number]: 6Acct:[id number]/Sex: 65 / MADM Date: 12/23/20Loc: .[id number] Dr: Zari Ayala MD Ordering Physician: Miguel Garcia MD Date of Service: 12/23/20 Procedure(s): CT angio chest PE protocol Accession Number(s): [id number] cc: Miguel Garcia MD~ EXAMINATION: CT ANGIOGRAM OF THE CHEST WITH AND WITHOUT CONTRAST (CT PULMONARY ANGIOGRAM FOR PE) CLINICAL INFORMATION: Reason for Exam ?covid positive, PE COMPARISON: CT chest 07/30/2020 TECHNIQUE: Prior to contrast administration, noncontrast localization images were obtained. Subsequently, multidetector volumetric imaging was performed from the thoracic inlet to below the diaphragms following the administration of 65 mL Omnipaque 350 intravenous contrast. No contrast reaction reported Sagittal, coronal, and MIP oblique sagittal reformatted images were obtained on the CT workstation, uploaded to PACS, and reviewed. This CT examination was performed using dose optimization techniques as appropriate, variously including the following: *Automated exposure control *Adjustment of mA and/or kV according to patient size (this includes techniques or standardized protocols for targeted exams where dose is matched to indication/reason for exam; i.e. extremities or head) *Use of iterative reconstruction technique Total exam dose-length product 359 mGy-cm FINDINGS: QUALITY OF STUDY/CONTRAST BOLUS: Satisfactory. PULMONARY ARTERIES: No central or segmental pulmonary emboli. THORACIC AORTA: No aneurysm or dissection. LUNG: Extensive multifocal groundglass infiltrates are present throughout the lungs. There is baseline emphysema and bronchiectasis present in the lower lobes that was seen on the 07/30/2020 study. PLEURA: No pleural effusion or pneumothorax. MEDIASTINUM: Normal heart size. No pericardial effusion. Small mediastinal nodes are present likely reactive but no gross hilar or mediastinal lymphadenopathy is seen. No evidence of septal bowing or right heart strain. CHEST WALL/AXILLA: No axillary or internal mammary lymphadenopathy. OSSEOUS STRUCTURES: Degenerative changes are present in the spine. There is fusion of what appears to be T8 and T9 with anterior wedging. UPPER ABDOMEN: Status post splenectomy and cholecystectomy. I suspect there is hepatic steatosis present. No reflux of contrast into the hepatic veins to suggest elevated right heart pressures. CT/CT angio chest PE protocol IMPRESSION: 1. No evidence of pulmonary emboli 2. Commonly reported imaging features of Covid 19 or viral pneumonia are present with multifocal extensive groundglass infiltrates. Other processes such as influenza pneumonia or organizing pneumonia, as can be seen with drug toxicity and connective tissue disease, can cause a similar imaging pattern. 3. Other incidental findings as described above including small reactive mediastinal lymph nodes, degenerative changes in the spine with fusion at T8 and T9, splenectomy and cholecystectomy VTE: negative ECG Data Attestation: I personally reviewed and interpreted this ECG as follows: Interpretation: Rhythm heart rate 99 beats per minute normal intervals normal axis no acute ST T wave changes impression no acute ischemia Critical Care Time Critical Care Time Critical Care Time: Yes Total Critical Care Time: 40 Attestation: I spent 40 minutes of critical care, with interventions, assessments, speaking to patient, consultants, and family. Discharge Plan Discharge Clinical Impression: Pneumonia due to 2019-nCoV, Hypoxia Patient Disposition: Admitted As Inpatient
--- NOTE | 2020-12-23 19:03 | ECG_ITS ---
Test Reason : SOB Blood Pressure : / mmHG Vent. 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
[2020-12-23] MEDS: dexAMETHasone sod phosphate 4 MG/ML VIAL 6 MG IVPUSH (20:00)
--- NOTE | 2020-12-23 20:10 | PC.NURSE ---
patient a&ox3, pt speaks in broken sentences due to dyspnea, cxr performed, ekg performed, quality assurance monitor chassis applied, covid swab performed, labs drawn, pt on NRB mask and desats to 70s noted while changing patient to hospital attire, medicated per order, pt being moved to covid section
[2020-12-23 20:12] LABS: COVID-19 Test Positive (Negative)
[2020-12-23 20:18] LABS: MANUAL DIFF FLAG NO
[2020-12-23 20:40] LABS: Prothrombin Time 12.3 SEC (10.8-13.0)
[2020-12-23 20:41] LABS: Basophils Percent Auto 0.1 % (0-2); Eosinophils Percent Auto 0.3 % (0-4); Hematocrit 41.8 % (42-52); Hemoglobin 13.4 g/dl (14.0-18.0); Imm Gran Abs Auto 0.11 X10*3/uL (0.00-0.03); Imm Gran Pct Auto 0.9 % (0.0-0.4); Lymphocytes Absolute Auto 1.8 X10*3/uL (1.2-4.9); Lymphocytes Percent Auto 15.4 % (20-40); Mean Corpuscular HGB Conc 32.1 g/dl (31.0-36.0); Mean Corpuscular Hemoglobin 29.1 pg (27.0-33.0); Mean Corpuscular Volume 90.9 fL (80-98); Mean Platelet Volume 10.5 fL (9.4-12.4); Monocytes Absolute Auto 0.4 X10*3/uL (0.1-1.2); Monocytes Percent Auto 2.9 % (2-11); NRBC Pct Auto 0.5 /100WBC (0.0-0.2); Neutrophils Absolute Auto 9.6 X10*3/uL (2.0-8.3); Neutrophils Percent Auto 80.4 % (45-73); Platelet Count 255 X10*3/uL (160-400); Red Cell Distribution Width 18.3 % (11.0-16.0)
[2020-12-23 20:43] LABS: Partial Thromboplastin Time 30.1 SEC (24.1-38.0)
[2020-12-23 21:00] VITALS: O2SAT 91
[2020-12-23] MEDS: cefTRIAXone sodium 1 GM in 0.9 % Sodium Chloride 50 ML IV (21:01)
[2020-12-23] MEDS: Albuterol/Iprat 2.5/0.5MG 3 ML AMPUL.NEB INHALE (21:02)
[2020-12-23 21:03] LABS: B Type Natriuretic Peptide 19 pg/mL (<100); Troponin-I High Sensitivity < 3.5 ng/L (<3.5-35.0)
[2020-12-23 21:13] LABS: Alanine Aminotransferase 49 U/L (0-40); Alkaline Phosphatase 80 U/L (39-117); Anion Gap 15 (12-20); Aspartate Amino Transferase 104 U/L (5-37); Bilirubin Direct 0.2 mg/dL (0.0-0.5); Bilirubin Total 0.4 mg/dL (0.0-1.0); Blood Urea Nitrogen 23 mg/dL (9-16); Calcium 8.2 mg/dL (8.4-10.2); Carbon Dioxide 23 mmol/L (22-29); Chloride 107 mmol/L (96-108); Creatinine Clr Calc Pharmacy 101.7; Estimated Glomerular Filt Rate > 60; Glucose Random 128 mg/dL (60-115); Potassium 4.1 mmol/L (3.3-5.1); Sodium 141 mmol/L (135-145); Total Protein 6.8 g/dL (6.5-8.0)
[2020-12-23 21:50] VITALS: PULSE 85; RESP 22; O2SAT 95
--- NOTE | 2020-12-23 21:57 | PC.NURSE ---
patient is being placed on highflow 02 at this time per Dr Garcia and Respiratory therapy.
[2020-12-23 22:00] VITALS: BP 117/71; PULSE 84; RESP 25; O2SAT 94
[2020-12-23] MEDS: Doxycycline Hyclate 100 MG in 0.9 % Sodium Chloride 250 ML 166.67 MG IV (22:34)
[2020-12-24] VITALS (16 sets, daily range): BP systolic 103–127; BP diastolic 38–81; PULSE 72–94; RESP 18–35; TEMP 35.9–36.7; O2SAT 89–98
[2020-12-24] MEDS: iohexoL 350 MG/ML 75 ML INFUS..BTL IV (00:05)
--- NOTE | 2020-12-24 00:45 | PC.NURSE ---
patients sp02 on high flow at 55Lpm was 89-91, per respiratory to placed the patien on the non rebreather leaving him on the highflow, sp02 increased to 98%
[2020-12-24 01:05] LABS: D Dimer 12185 NG/ML
[2020-12-24 01:40] LABS: C Reactive Protein 3.69 mg/dL (< or = 0.50); Lactate Dehydrogenase 907 U/L (118-273)
[2020-12-24 02:01] LABS: Ferritin 246 ng/mL (20-250)
[2020-12-24] MEDS: Heparin Sodium,Porcine 5,000 UNIT/ML VIAL 5000 UNIT SUBCUT ×2 (04:59→13:44)
--- NOTE | 2020-12-24 05:15 | PC.NURSE ---
report was given to ANIKA López on [facility]
--- NOTE | 2020-12-24 05:49 | P.HPHOSP_ITS ---
History of Present Illness Date of Service: 12/23/20 Chief Complaint: Shortness of breath This is a 65-year-old male with a extensive past medical history that includes mixed connective tissue disease among others who presents to the hospital with complaints of shortness of breath and cough for the past 1 week. Patient reports contact with COVID patient his family, reports no fever but chills, reports no nausea vomiting but loss of appetite, no loss of smell or sense of taste, he has no chest pain, no abdominal pain, no diarrhea constipation, no urinary symptoms and no lower extremity edema. On arrival of EMS found to have O2 of 70% on room air. On arrival to the ED patient was placed on high-flow, currently satting 95-90%. Other vitals are significant for temp of 98.6?, heart rate of 98, respiratory r ate of 23, blood pressure of about 100/72, 96% on high-flow oxygen Labs are significant for, hemoglobin of 13.4, hematocrit of 41.8, sodium of 141, potassium 4.1, BUN of 23, creatinine 0.75, AST of 104, ALT of 49, LDH of 907, CRP of 3.69, COVID-[address] angiogram shows no evidence of PE, commonly reported imaging feature of COVID-19 or viral pneumonia. With multifocal extensive ground-glass infiltrates. Past medical history as below on confirm with patient Review of Systems Review of Systems: Yes all other systems are reviewed and are negative [facility] Medical History Antiphospholipid antibody positive Anxiety BPH (benign prostatic hyperplasia) Chest pain Depression Dysphagia GERD (gastroesophageal reflux disease) Hemolytic anemia History of adenomatous polyp of colon Lumbar degenerative disc disease Lupus MCTD (mixed connective tissue disease) NAFL (nonalcoholic fatty liver) Osteomyelitis of thoracic region Osteopenia Overlap syndrome Pain management Psoriasis Family History Father No problems noted. Mother Arthritis Brother No problems noted. Brother No problems noted. Brother No problems noted. Sister No problems noted. Sister No problems noted. Son No problems noted. Surgical History History of cholecystectomy History of colonoscopy Hx of endoscopy (~2004) Status post splenectomy Social History Alcohol intake: never Smoking Status: Current every day smoker Tobacco Type: Cigarette Cigarettes Per Day: 3 Smoked in Last 30 Days: No Use of substances other than those prescribed or required for medical reasons: No Advance Directives: No Advance Directives Information Provided: Yes Current occupational status: retired Meds Allergies Allergy/AdvReac Type Severity Reaction Status Date / Time rituximab [From RITUXAN] Allergy Severe RASH Verified 12/16/20 11:01 Active Medications: Current Medications Generic Name Dose Route Start Last Admin Trade Name Freq PRN Reason Stop Dose Admin Acetaminophen 650 mg 12/24/20 01:35 Acetaminophen 325 Mg Tablet PO Q6H PRN Pain, Mild (Pain Scale 1-3) Albuterol/Ipratropium 3 ml 12/24/20 01:35 Albuterol/Iprat 2.5/0.5mg 3 Ml Ampul.Neb INHALE RQ4H PRN Shortness of Breath/Wheezing Alendronate Sodium 70 mg 12/24/20 01:35 Alendronate Sodium 70 Mg Tablet PO QWEEK [facility] Aspirin 81 mg 12/24/20 09:00 Aspirin Enteric Coated 81 Mg Tablet.Dr PO DAILY [facility] Dexamethasone Sodium Phosphate 6 mg 12/24/20 09:00 Dexamethasone Sod Phosphate 4 Mg/Ml Vial IVPUSH DAILY [facility] Docusate Sodium 100 mg 12/24/20 01:35 Docusate Sodium 100 Mg Capsule PO DAILY PRN Constipation Folic Acid 1 mg 12/24/20 09:00 Folic Acid 1 Mg Tablet PO DAILY [facility] Heparin Sodium (Porcine) 5,000 unit 12/24/20 02:00 12/24/20 04:59 Heparin Sodium,Porcine 5,000 Unit/Ml Vial SUBCUT 5,000 unit Q12H RAQUEL Administration Hydroxychloroquine Sulfate 200 mg 12/24/20 09:00 Hydroxychloroquine Sulfate 200 Mg Tablet PO BID RAQUEL Iohexol 75 ml 12/24/20 00:04 12/24/20 00:05 Iohexol 350 Mg/Ml 75 Ml Infus..Btl IV 12/24/20 00:05 75 ml ONCE ONE Administration Lorazepam 1 mg 12/24/20 09:00 Lorazepam 1 Mg Tablet PO BID [facility] Non-Formulary Medication 145 mcg 12/24/20 09:00 Linaclotide [Linzess] PO DAILY [facility] Non-Formulary Medication 1 tab 12/24/20 01:35 Oxycodone-Acetaminophen PO QID PRN Pain (Scale Score 4-6) Non-Formulary Medication 200 mg 12/24/20 01:35 Sarilumab [Kevzara] SUBCUT Q14D [facility] Omeprazole 20 mg 12/24/20 06:30 Omeprazole 20 Mg Capsule.Dr PO BID@0630,1630 [facility] Ondansetron HCl 4 mg 12/24/20 01:35 Ondansetron Hcl 4 Mg/2 Ml Vial IVPUSH Q8H PRN Nausea and Vomiting Pharmacy Consult 1 each 12/23/20 19:53 Consult Rx Perform Med Rec MISCELLANE ONCE PRN Consult order Senna 17.2 mg 12/24/20 01:35 Sennosides 8.6 Mg Tablet PO BEDTIME PRN Constipation Sucralfate 1 gm 12/24/20 09:00 Sucralfate Oral Suspension 1 Gm/10 Ml Oral.Susp PO BID [facility] Zolpidem Tartrate 10 mg 12/24/20 01:35 Zolpidem Tartrate 5 Mg Tablet PO BEDTIME PRN insomnia Home Medications Medication Instructions Recorded Confirmed Last Taken Type calcium carbonate 600 mg (1,500 1 tab PO BID 06/27/20 12/23/20 Unknown History mg)-vitamin D3 400 unit tablet folic acid 1 mg tablet 1 mg PO DAILY 06/27/20 12/23/20 Unknown History hydroxychloroquine 200 mg tablet 200 mg PO BID 06/27/20 12/23/20 Unknown History sennosides 8.6 mg tablet 17.2 mg PO BEDTIME PRN 06/27/20 12/23/20 Unknown History albuterol sulfate 90 mcg/actuation 1 puff INHALATION Q4H PRN 07/15/20 12/23/20 Unknown History aerosol inhaler alendronate 70 mg tablet 70 mg PO QWEEK 11/17/20 12/23/20 Unknown History aspirin 81 mg tablet,delayed 81 mg PO DAILY 12/11/20 12/23/20 Unknown History release diclofenac sodium 2 g TOPICAL QID PRN 12/23/20 12/23/20 Unknown History methotrexate sodium (PF) 25 mg QWEEK 12/23/20 12/23/20 Unknown History oxycodone-acetaminophen 1 tab PO QID PRN 12/23/20 12/23/20 Unknown History pantoprazole 40 mg PO BID@0630,1630 12/23/20 12/23/20 Unknown History prednisone 1 tab PO DAILY 12/23/20 12/23/20 Unknown History sarilumab [Kevzara] 200 mg SUBCUT Q2W 12/23/20 12/23/20 Unknown History sucralfate [Carafate] 10 ml PO BID 12/23/20 12/23/20 Unknown History Physical Exam Vital Signs and Narrative: Vital Signs: Last Vital Signs Temp 98.6 F 12/23/20 19:00 Pulse 74 12/24/20 05:05 Resp 30 H 12/24/20 05:05 BP 105/38 L 12/24/20 05:05 Pulse Ox 97 12/24/20 05:05 Body Mass Index 30.2 Const: General: cooperative, no acute distress and ill appearing Orientation/consciousness: patient oriented x3 Eyes: General: appearance normal, both eyes and all related structures Resp: Other: on high flow Effort & Inspection: able to speak in complete sentences Cardio: Rate: regular rate Rhythm: regular rhythm GI: Palpation (GI): Soft to palpation Auscultation: normal bowel sounds Skin: General skin exam: no rashes or lesions noted Neuro: General: patient oriented x3 Cognition (Neuro): normal cognition Extrem: General: Yes normal to inspection and Yes no pedal edema Results Labs CBC and Chem 7: 12/23/20 20:10 12/23/20 20:10 Labs: Laboratory Results - last 24 hr 12/23/20 12/23/20 12/23/20 19:46 20:10 20:10 MCV 90.9 MCH 29.1 MCHC 32.1 RDW 18.3 H Plt Count 255 MPV 10.5 Immature Gran % (Auto) 0.9 H Neut % (Auto) 80.4 H Lymph % (Auto) 15.4 L [place] % (Auto) 2.9 Eos % (Auto) 0.3 Baso % (Auto) 0.1 Lymph # (Auto) 1.8 [place] # (Auto) 0.4 Eos # (Auto) 0.0 Baso # (Auto) 0.0 Abs Immat Gran (auto) 0.11 H Absolute Neuts (auto) 9.6 H Absolute Nucleated RBC 0.060 H Nucleated RBC % (auto) 0.5 H PT 12.3 INR 1.0 APTT 30.1 D-Dimer Cancelled Anion Gap Estim Creat Clear Calc Estimated GFR Random Glucose Lactic Acid Calcium Ferritin Total Bilirubin Direct Bilirubin AST ALT Alkaline Phosphatase Lactate Dehydrogenase Troponin I High Sens C-Reactive Protein B-Natriuretic Peptide Total Protein Albumin COVID-19 ([facility]IA) Positive A COVID-19 Clin Com See Note 12/23/20 12/23/20 12/23/20 20:10 20:10 20:10 MCV MCH MCHC RDW Plt Count MPV Immature Gran % (Auto) Neut % (Auto) Lymph % (Auto) [place] % (Auto) Eos % (Auto) Baso % (Auto) Lymph # (Auto) [place] # (Auto) Eos # (Auto) Baso # (Auto) Abs Immat Gran (auto) Absolute Neuts (auto) Absolute Nucleated RBC Nucleated RBC % (auto) PT INR APTT D-Dimer Anion Gap 15 Estim Creat Clear Calc 101.7 Estimated GFR > 60 Random Glucose 128 H Lactic Acid 2.0 Calcium 8.2 L Ferritin 246 Total Bilirubin 0.4 Direct Bilirubin 0.2 AST 104 H ALT 49 H Alkaline Phosphatase 80 D Lactate Dehydrogenase 907 H Troponin I High Sens < 3.5 C-Reactive Protein 3.69 H B-Natriuretic Peptide 19 Total Protein 6.8 Albumin 4.0 COVID-19 ([facility]IA) COVID-19 [facility] Com 12/23/20 23:03 MCV MCH MCHC RDW Plt Count MPV Immature Gran % (Auto) Neut % (Auto) Lymph % (Auto) [place] % (Auto) Eos % (Auto) Baso % (Auto) Lymph # (Auto) [place] # (Auto) Eos # (Auto) Baso # (Auto) Abs Immat Gran (auto) Absolute Neuts (auto) Absolute Nucleated RBC Nucleated RBC % (auto) PT INR APTT D-Dimer [id number] Anion Gap Estim Creat Clear Calc Estimated GFR Random Glucose Lactic Acid Calcium Ferritin Total Bilirubin Direct Bilirubin AST ALT Alkaline Phosphatase Lactate Dehydrogenase Troponin I High Sens C-Reactive Protein B-Natriuretic Peptide Total Protein Albumin COVID-19 ([facility]) COVID-19 Clin Com Imaging Radiologist's Impressions: Impressions Chest X-Ray 12/23/20 19:03 IMPRESSION: Patchy bilateral airspace disease seen possibly representing atypical or viral infectious etiology. Asymmetric edema would be considered less likely. Lungs are hypoexpanded Chest CTA 12/23/20 21:22 IMPRESSION: 1. No evidence of pulmonary emboli 2. Commonly reported imaging features of Covid 19 or viral pneumonia are present with multifocal extensive groundglass infiltrates. Other processes such as influenza pneumonia or organizing pneumonia, as can be seen with drug toxicity and connective tissue disease, can cause a similar imaging pattern. 3. Other incidental findings as described above including small reactive mediastinal lymph nodes, degenerative changes in the spine with fusion at T8 and T9, splenectomy and cholecystectomy VTE: negative Assessment and Plan (1) Acute respiratory failure with hypoxia: Status: Acute (2) Pneumonia due to 2019-nCoV: Status: Acute This 65-year-old male with past medical history of connective tissue disease, lupus, BPH, anxiety, antiphospholipid antibody positive presents to the hospital with complaints of shortness of breath and cough found to be hypoxic, with COVID-19 positive # acute hypoxic respiratory failure - secondary to COVID-19 pneumonia versus bacterial less likely versus PE unlikely - CT angiogram negative for PE, shows evidence of cord 19 infiltrates - will start him on Decadron given his hypoxia - will consult ID for any other alternative treatment - O2 as required - will monitor respiratory status # pneumonia due COVID-19 - COVID-19 PCR positive - will start patient on Decadron - follow blood cultures - infectious disease consult - O2 as required # mixed connective tissue disease - continue home regimen of hydroxychloroquine, methotrexate, on baseline prednisone; will be held as he will be on Decadron # anxiety - continue zolpidem, Ativan DVT prophylaxis: Heparin subQ
[2020-12-24] MEDS: Omeprazole 20 MG CAPSULE.DR PO ×2 (06:15→17:17)
[2020-12-24] MEDS: dexAMETHasone sod phosphate 4 MG/ML VIAL 6 MG IVPUSH (08:55)
[2020-12-24] MEDS: Aspirin Enteric Coated 81 MG TABLET.DR PO (08:56)
[2020-12-24] MEDS: Folic Acid 1 MG TABLET PO (08:56)
[2020-12-24] MEDS: Hydroxychloroquine Sulfate 200 MG TABLET PO (08:56)
[2020-12-24] MEDS: Acetaminophen 325 MG TABLET 650 MG PO (08:56)
[2020-12-24] MEDS: LORazepam 1 MG TABLET PO ×2 (08:56→21:12)
[2020-12-24] MEDS: Sucralfate Oral Suspension 1 GM/10 ML ORAL.SUSP PO ×2 (08:56→21:12)
[2020-12-24 09:12] LABS: Anion Gap 17 (12-20); Blood Urea Nitrogen 20 mg/dL (9-16); Calcium 8.2 mg/dL (8.4-10.2); Carbon Dioxide 19 mmol/L (22-29); Chloride 109 mmol/L (96-108); Creatinine Clr Calc Pharmacy 112.1; Estimated Glomerular Filt Rate > 60; Glucose Random 126 mg/dL (60-115); Potassium 4.4 mmol/L (3.3-5.1); Sodium 141 mmol/L (135-145)
--- NOTE | 2020-12-24 09:55 | MHC.CM.PN ---
CM attempted to reach Patient via phone but was unable to. Patient has Covid; CM spoke with /Haleigh over the phone at [phone]. Patient lives in an apartment with his and adult Son and he uses a cane at times to assist with mobility. Patient's goal is to return home and CM has initiated and will follow for dc planning. IMM addressed with Haleigh and the original is being mailed certified letter to her and a copy has been placed on the chart. Haleigh is unsure of the name of Patient's PCP.
--- NOTE | 2020-12-24 12:47 | MHC.CM.PN ---
Patient is not yet medically cleared for dc (IV Decadron and high flow O2. Home is the goal for dc and CM will follow for possible need to adjust the dc plan.
[2020-12-24] MEDS: oxyCODONE HCl Immed Release 5 MG TABLET 10 MG PO ×2 (13:42→21:12)
--- NOTE | 2020-12-24 14:24 | HO.PM.IMPN ---
Subjective Subjective Date of Service: 12/24/20 Interval History: the patient was seen and evaluated this morning Laying in bed, feels tired overall , increased oxygen requirement to high-flow and non-rebreather Denies any fever, chills but feels shortness of breath with minimal exertion No reported other overnight events. Systemic review: No fever, chills or weakness No chest pain, palpitation Exertional shortness of breath or coughing No abdominal pain, nausea or vomiting No urinary symptoms No any rash or wounds Physical Exam Vital Signs: Vital Signs: Last Vital Signs Temp 98.0 F 12/24/20 12:00 Pulse 82 12/24/20 12:00 Resp 20 12/24/20 12:19 BP 127/81 12/24/20 12:00 Pulse Ox 95 12/24/20 12:00 Body Mass Index 30.2 Const: Other: Constitutional : Alert, oriented, not in distress Neck : Normal inspection, Supple Cardiovascular : RRR, S1 S2, no lower extremity edema Respiratory : Fair bilateral air entry, no crackles, wheezes or rhonchi, on oxygen supplement of high-flow and non-rebreather mask Gastrointestinal: soft, lax, Normal bowel sounds, Non tender Skin : Warm/Dry, No rash Neurological : Alert & oriented x3, No focal deficit Objective Data Current Medications Generic Name Dose Route Start Last Admin Trade Name Genaroq PRN Reason Stop Dose Admin Acetaminophen 650 mg 12/24/20 01:35 12/24/20 08:56 Acetaminophen 325 Mg Tablet PO 650 mg Q6H PRN Administration Pain, Mild (Pain Scale 1-3) Albuterol/Ipratropium 3 ml 12/24/20 01:35 Albuterol/Iprat 2.5/0.5mg 3 Ml Ampul.Neb INHALE RQ4H PRN Shortness of Breath/Wheezing Aspirin 81 mg 12/24/20 09:00 12/24/20 08:56 Aspirin Enteric Coated 81 Mg Tablet. PO 81 mg DAILY RAQUEL Administration Dexamethasone Sodium Phosphate 6 mg 12/24/20 09:00 12/24/20 08:55 Dexamethasone Sod Phosphate 4 Mg/Ml Vial IVPUSH 6 mg DAILY RAQUEL Administration Docusate Sodium 100 mg 12/24/20 01:35 Docusate Sodium 100 Mg Capsule PO DAILY PRN Constipation Folic Acid 1 mg 12/24/20 09:00 12/24/20 08:56 Folic Acid 1 Mg Tablet PO 1 mg DAILY RAQUEL Administration Heparin Sodium (Porcine) 5,000 unit 12/24/20 02:00 12/24/20 13:44 Heparin Sodium,Porcine 5,000 Unit/Ml Vial SUBCUT 5,000 unit Q12H RAQUEL Administration Hydroxychloroquine Sulfate 200 mg 12/24/20 09:00 12/24/20 08:56 Hydroxychloroquine Sulfate 200 Mg Tablet PO 200 mg BID RAQUEL Administration Lorazepam 1 mg 12/24/20 09:00 12/24/20 08:56 Lorazepam 1 Mg Tablet PO 1 mg BID RAQUEL Administration Non-Formulary Medication 145 mcg 12/24/20 09:00 Linaclotide [Linzess] PO DAILY RAQUEL Non-Formulary Medication 200 mg 12/24/20 01:35 Sarilumab [Kevzara] SUBCUT Q14D RAQUEL Omeprazole 20 mg 12/24/20 06:30 12/24/20 06:15 Omeprazole 20 Mg Capsule.Dr PO 20 mg BID@8237,2066 RAQUEL Administration Ondansetron HCl 4 mg 12/24/20 01:35 Ondansetron Hcl 4 Mg/2 Ml Vial IVPUSH Q8H PRN Nausea and Vomiting Oxycodone HCl 10 mg 12/24/20 06:38 12/24/20 13:42 Oxycodone Hcl Immed Release 5 Mg Tablet PO 10 mg QID PRN Administration Pain (Scale Score 4-6) Pharmacy Consult 1 each 12/23/20 19:53 Consult Rx Perform Med Rec MISCELLANE ONCE PRN Consult order Senna 17.2 mg 12/24/20 01:35 Sennosides 8.6 Mg Tablet PO BEDTIME PRN Constipation Sucralfate 1 gm 12/24/20 09:00 12/24/20 08:56 Sucralfate Oral Suspension 1 Gm/10 Ml Oral.Susp PO 1 gm BID RAQUEL Administration Zolpidem Tartrate 10 mg 12/24/20 01:35 Zolpidem Tartrate 5 Mg Tablet PO BEDTIME PRN insomnia Labs CBC & Chem 7: 12/23/20 20:10 12/24/20 08:21 Assessment and Plan (1) Acute respiratory failure with hypoxia: Status: Acute (2) Pneumonia due to 2019-nCoV: Status: Acute Assessment and Plan: This 65-year-old male with past medical history of connective tissue disease, lupus, BPH, anxiety, antiphospholipid antibody positive presents to the hospital with complaints of shortness of breath and cough found to be hypoxic, with COVID-19 positive acute hypoxic respiratory failure secondary to COVID-[address] angiogram negative for PE, shows evidence of cord 19 infiltrates Continue Decadron given his hypoxia D2 consult ID for any other alternative treatment O2 as required will monitor respiratory status mixed connective tissue disease continue home regimen of hydroxychloroquine, methotrexate, on baseline prednisone; will be held as he will be on Decadron anxiety continue zolpidem, Ativan DVT prophylaxis: Heparin subQ
--- NOTE | 2020-12-24 15:42 | W.PM.IDCN ---
History of Present Illness Data of Consult Service Date: 12/24/20 Requesting physician: Rosaura Byers Primary Care Provider: Unknown Physician HPI Reason for consult: COVID He presents with shortness of breath for a week He is hypoxic on nonbreather He has who has been ill He is COVID positive Review of Systems Review of Systems: Yes all other systems are reviewed and are negative PMFSH Past Medical History Medical History Antiphospholipid antibody positive Anxiety BPH (benign prostatic hyperplasia) Chest pain Depression Dysphagia GERD (gastroesophageal reflux disease) Hemolytic anemia History of adenomatous polyp of colon Lumbar degenerative disc disease Lupus MCTD (mixed connective tissue disease) NAFL (nonalcoholic fatty liver) Osteomyelitis of thoracic region Osteopenia Overlap syndrome Pain management Psoriasis Family History Family History Father No problems noted. Mother Arthritis Brother No problems noted. Brother No problems noted. Brother No problems noted. Sister No problems noted. Sister No problems noted. Son No problems noted. Family history: reviewed and not pertinent Surgical History Surgical History History of cholecystectomy History of colonoscopy Hx of endoscopy (~2004) Status post splenectomy Social History Social History Household Members: Spouse Housing: Apartment Alcohol intake: never Smoking Status: Unknown if ever smoked Tobacco Type: Cigarette Cigarettes Per Day: 3 Smoked in Last 30 Days: No Patient Interested in Nicotine Replacement: No Patient Given Instructions on How to Stop Smoking: No Second Hand Smoke Exposure: No Use of substances other than those prescribed or required for medical reasons: No Currently Displaying Signs/Symptoms of Drug Intoxication Withdrawal: No Have you been hit, kicked, punched, or otherwise hurt by someone within the past year? If so, by whom?: No Do you feel safe in your current relationship?: No Is there a partner from a previous relationship who is making you feel unsafe now?: No Are you made to feel afraid or neglected: No Advance Directives: No Advance Directives Information Provided: Yes Do you have thoughts of harming others: None Do you have a plan to hurt others: No Plan Recently lost weight without trying: No service: No Current occupational status: retired Meds Allergies Allergy/AdvReac Type Severity Reaction Status Date / Time rituximab [From RITUXAN] Allergy Severe RASH Verified 12/16/20 11:01 Active Medications: Current Medications Generic Name Dose Route Start Last Admin Trade Name Freq PRN Reason Stop Dose Admin Acetaminophen 650 mg 12/24/20 01:35 12/24/20 08:56 Acetaminophen 325 Mg Tablet PO 650 mg Q6H PRN Administration Pain, Mild (Pain Scale 1-3) Albuterol/Ipratropium 3 ml 12/24/20 01:35 Albuterol/Iprat 2.5/0.5mg 3 Ml Ampul.Neb INHALE RQ4H PRN Shortness of Breath/Wheezing Aspirin 81 mg 12/24/20 09:00 12/24/20 08:56 Aspirin Enteric Coated 81 Mg Tablet. PO 81 mg DAILY RAQUEL Administration Dexamethasone Sodium Phosphate 6 mg 12/24/20 09:00 12/24/20 08:55 Dexamethasone Sod Phosphate 4 Mg/Ml Vial IVPUSH 6 mg DAILY RAQUEL Administration Docusate Sodium 100 mg 12/24/20 01:35 Docusate Sodium 100 Mg Capsule PO DAILY PRN Constipation Folic Acid 1 mg 12/24/20 09:00 12/24/20 08:56 Folic Acid 1 Mg Tablet PO 1 mg DAILY RAQUEL Administration Heparin Sodium (Porcine) 5,000 unit 12/24/20 02:00 12/24/20 13:44 Heparin Sodium,Porcine 5,000 Unit/Ml Vial SUBCUT 5,000 unit Q12H RAQUEL Administration Hydroxychloroquine Sulfate 200 mg 12/24/20 09:00 12/24/20 08:56 Hydroxychloroquine Sulfate 200 Mg Tablet PO 200 mg BID RAQUEL Administration Lorazepam 1 mg 12/24/20 09:00 12/24/20 08:56 Lorazepam 1 Mg Tablet PO 1 mg BID RAQUEL Administration Non-Formulary Medication 145 mcg 12/24/20 09:00 Linaclotide [Linzess] PO DAILY RAQUEL Non-Formulary Medication 200 mg 12/24/20 01:35 Sarilumab [Kevzara] SUBCUT Q14D RAQUEL Omeprazole 20 mg 12/24/20 06:30 12/24/20 06:15 Omeprazole 20 Mg Capsule. PO 20 mg BID@0630,0930 RAQUEL Administration Ondansetron HCl 4 mg 12/24/20 01:35 Ondansetron Hcl 4 Mg/2 Ml Vial IVPUSH Q8H PRN Nausea and Vomiting Oxycodone HCl 10 mg 12/24/20 06:38 12/24/20 13:42 Oxycodone Hcl Immed Release 5 Mg Tablet PO 10 mg QID PRN Administration Pain (Scale Score 4-6) Pharmacy Consult 1 each 12/23/20 19:53 Consult Rx Perform Med Rec MISCELLANE ONCE PRN Consult order Senna 17.2 mg 12/24/20 01:35 Sennosides 8.6 Mg Tablet PO BEDTIME PRN Constipation Sucralfate 1 gm 12/24/20 09:00 12/24/20 08:56 Sucralfate Oral Suspension 1 Gm/10 Ml Oral.Susp PO 1 gm BID RAQUEL Administration Zolpidem Tartrate 10 mg 12/24/20 01:35 Zolpidem Tartrate 5 Mg Tablet PO BEDTIME PRN insomnia Home Medications Medication Instructions Recorded Confirmed Last Taken Type calcium carbonate 600 mg (1,500 1 tab PO BID 06/27/20 12/23/20 Unknown History mg)-vitamin D3 400 unit tablet folic acid 1 mg tablet 1 mg PO DAILY 06/27/20 12/23/20 Unknown History hydroxychloroquine 200 mg tablet 200 mg PO BID 06/27/20 12/23/20 Unknown History sennosides 8.6 mg tablet 17.2 mg PO BEDTIME PRN 06/27/20 12/23/20 Unknown History albuterol sulfate 90 mcg/actuation 1 puff INHALATION Q4H PRN 07/15/20 12/23/20 Unknown History aerosol inhaler alendronate 70 mg tablet 70 mg PO QWEEK 11/17/20 12/23/20 Unknown History aspirin 81 mg tablet,delayed 81 mg PO DAILY 12/11/20 12/23/20 Unknown History release diclofenac sodium 2 g TOPICAL QID PRN 12/23/20 12/23/20 Unknown History methotrexate sodium (PF) 25 mg QWEEK 12/23/20 12/23/20 Unknown History oxycodone-acetaminophen 1 tab PO QID PRN 12/23/20 12/23/20 Unknown History pantoprazole 40 mg PO BID@0630,1630 12/23/20 12/23/20 Unknown History prednisone 1 tab PO DAILY 12/23/20 12/23/20 Unknown History sarilumab [Kevzara] 200 mg SUBCUT Q2W 12/23/20 12/23/20 Unknown History sucralfate [Carafate] 10 ml PO BID 12/23/20 12/23/20 Unknown History Physical Exam Vital Signs: Vital Signs: Last Vital Signs Temp 96.8 F 12/24/20 15:18 Pulse 80 12/24/20 15:18 Resp 22 H 12/24/20 15:36 BP 111/60 12/24/20 15:18 Pulse Ox 90 L 12/24/20 15:18 Body Mass Index 30.2 Const: General: cooperative HENMT: Head: Yes normal to inspection Mouth: Normal oral and palatal mucosa present Resp: Effort & Inspection: abnormal respiratory pattern Cardio: Rate: regular rate Rhythm: regular rhythm GI: Palpation (GI): Soft to palpation and nontender Skin: General skin exam: no rashes or lesions noted Results Labs CBC & Chem 7: 12/23/20 20:10 12/24/20 08:21 Labs: Short CBC 12/23/20 Range/Units 20:10 WBC 12.0 H (4.8-10.8) X10*3/uL Hgb 13.4 L (14.0-18.0) g/dl Hct 41.8 L (42-52) % Plt Count 255 (160-400) X10*3/uL BMP 12/23/20 12/24/20 20:10 08:21 Sodium 141 141 Potassium 4.1 4.4 Chloride 107 109 H Carbon Dioxide 23 19 L BUN 23 H D 20 H Creatinine 0.75 0.68 Calcium 8.2 L 8.2 L Liver Function 12/23/20 Range/Units 20:10 Total Bilirubin 0.4 (0.0-1.0) mg/dL Direct Bilirubin 0.2 (0.0-0.5) mg/dL AST 104 H (5-37) U/L ALT 49 H (0-40) U/L Alkaline Phosphatase 80 D (39-117) U/L Albumin 4.0 (3.5-5.0) g/dL Assessment and Plan (1) Acute respiratory failure with hypoxia: Problem details: He is hypoxic He has COVID within one week Status: Acute Would give Remdesivir and hold hydroxychloroquine for now as decreases effectiveness Continue steroids Continue oxygen.
[2020-12-24] MEDS: Remdesivir 200 MG in 0.9 % Sodium Chloride 210 ML 105 MG IV (17:16)
[2020-12-25] VITALS (13 sets, daily range): BP systolic 108–145; BP diastolic 56–80; PULSE 63–90; RESP 18–30; TEMP 36.1–37.1; O2SAT 85–93
[2020-12-25] MEDS: Heparin Sodium,Porcine 5,000 UNIT/ML VIAL 5000 UNIT SUBCUT (03:22)
[2020-12-25 06:07] LABS: Hematocrit 39.9 % (42-52); Hemoglobin 12.9 g/dl (14.0-18.0); Mean Corpuscular HGB Conc 32.3 g/dl (31.0-36.0); Mean Corpuscular Hemoglobin 29.1 pg (27.0-33.0); Mean Corpuscular Volume 89.9 fL (80-98); Mean Platelet Volume 11.1 fL (9.4-12.4); NRBC Pct Auto 0.6 /100WBC (0.0-0.2); Platelet Count 273 X10*3/uL (160-400); Red Blood Count 4.44 X10*6/uL (4.60-5.80); Red Cell Distribution Width 18.1 % (11.0-16.0); White Blood Count 14.1 X10*3/uL (4.8-10.8)
[2020-12-25] MEDS: Omeprazole 20 MG CAPSULE.DR PO ×2 (06:18→17:00)
[2020-12-25 06:32] LABS: Anion Gap 17 (12-20); Blood Urea Nitrogen 22 mg/dL (9-16); Calcium 8.3 mg/dL (8.4-10.2); Carbon Dioxide 20 mmol/L (22-29); Chloride 109 mmol/L (96-108); Creatinine Clr Calc Pharmacy 129.3; Estimated Glomerular Filt Rate > 60; Glucose Random 98 mg/dL (60-115); Potassium 4.6 mmol/L (3.3-5.1); Sodium 141 mmol/L (135-145)
[2020-12-25] MEDS: oxyCODONE HCl Immed Release 5 MG TABLET 10 MG PO ×3 (06:41→17:57)
[2020-12-25] MEDS: Sucralfate Oral Suspension 1 GM/10 ML ORAL.SUSP PO ×2 (07:55→20:02)
[2020-12-25] MEDS: LORazepam 1 MG TABLET PO ×2 (07:55→20:02)
[2020-12-25] MEDS: Aspirin Enteric Coated 81 MG TABLET.DR PO (07:56)
[2020-12-25] MEDS: Folic Acid 1 MG TABLET PO (07:56)
[2020-12-25] MEDS: dexAMETHasone sod phosphate 4 MG/ML VIAL 6 MG IVPUSH (07:56)
[2020-12-25] MEDS: Enoxaparin Sodium 40 MG/0.4 ML SYRINGE SUBCUT (10:04)
--- NOTE | 2020-12-25 15:05 | HO.PM.IMPN ---
Subjective Subjective Date of Service: 12/25/20 Interval History: the patient was seen and evaluated this morning Laying in bed, feels tired overall but not in distress , increased oxygen requirement to high-flow and non-rebreather almost maxed Denies any fever, chills but feels shortness of breath with minimal exertion No reported other overnight events. Systemic review: No fever, chills or weakness No chest pain, palpitation Exertional shortness of breath or coughing No abdominal pain, nausea or vomiting No urinary symptoms No any rash or wounds Physical Exam Vital Signs: Vital Signs: Last Vital Signs Temp 97.6 F 12/25/20 15:02 Pulse 78 12/25/20 15:02 Resp 20 12/25/20 15:02 BP 145/80 H 12/25/20 15:02 Pulse Ox 93 12/25/20 15:02 Body Mass Index 30.2 Const: Other: Constitutional : Alert, oriented, not in distress Neck : Normal inspection, Supple Cardiovascular : RRR, S1 S2, no lower extremity edema Respiratory : Fair bilateral air entry, no crackles, wheezes or rhonchi, on oxygen supplement of high-flow and non-rebreather mask Gastrointestinal: soft, lax, Normal bowel sounds, Non tender Skin : Warm/Dry, No rash Neurological : Alert & oriented x3, No focal deficit Objective Data Current Medications Generic Name Dose Route Start Last Admin Trade Name Freq PRN Reason Stop Dose Admin Acetaminophen 650 mg 12/24/20 01:35 12/24/20 08:56 Acetaminophen 325 Mg Tablet PO 650 mg Q6H PRN Administration Pain, Mild (Pain Scale 1-3) Albuterol/Ipratropium 3 ml 12/24/20 01:35 Albuterol/Iprat 2.5/0.5mg 3 Ml Ampul.Neb INHALE RQ4H PRN Shortness of Breath/Wheezing Aspirin 81 mg 12/24/20 09:00 12/25/20 07:56 Aspirin Enteric Coated 81 Mg Tablet. PO 81 mg DAILY RAQUEL Administration Dexamethasone Sodium Phosphate 6 mg 12/24/20 09:00 12/25/20 07:56 Dexamethasone Sod Phosphate 4 Mg/Ml Vial IVPUSH 6 mg DAILY RAQUEL Administration Docusate Sodium 100 mg 12/24/20 01:35 Docusate Sodium 100 Mg Capsule PO DAILY PRN Constipation Enoxaparin Sodium 40 mg 12/25/20 09:00 12/25/20 10:04 Enoxaparin Sodium 40 Mg/0.4 Ml Syringe SUBCUT 40 mg Q24H RAQUEL Administration Folic Acid 1 mg 12/24/20 09:00 12/25/20 07:56 Folic Acid 1 Mg Tablet PO 1 mg DAILY RAQUEL Administration Hydroxychloroquine Sulfate 200 mg 12/24/20 09:00 12/24/20 08:56 Hydroxychloroquine Sulfate 200 Mg Tablet PO 200 mg BID RAQUEL Administration Remdesivir 100 mg/ Sodium 230 mls @ 115 mls/hr 12/25/20 16:00 Chloride IV 12/28/20 17:59 Q24H RAQUEL Lorazepam 1 mg 12/24/20 09:00 12/25/20 07:55 Lorazepam 1 Mg Tablet PO 1 mg BID RAQUEL Administration Non-Formulary Medication 145 mcg 12/24/20 09:00 Linaclotide [Linzess] PO DAILY RAQUEL Non-Formulary Medication 200 mg 12/24/20 01:35 Sarilumab [Kevzara] SUBCUT Q14D RAQUEL Omeprazole 20 mg 12/24/20 06:30 12/25/20 06:18 Omeprazole 20 Mg Capsule. PO 20 mg BID@0630,1630 RAQUEL Administration Ondansetron HCl 4 mg 12/24/20 01:35 Ondansetron Hcl 4 Mg/2 Ml Vial IVPUSH Q8H PRN Nausea and Vomiting Oxycodone HCl 10 mg 12/24/20 06:38 12/25/20 11:56 Oxycodone Hcl Immed Release 5 Mg Tablet PO 10 mg QID PRN Administration Pain (Scale Score 4-6) Pharmacy Consult 1 each 12/23/20 19:53 Consult Rx Perform Med Rec MISCELLANE ONCE PRN Consult order Senna 17.2 mg 12/24/20 01:35 Sennosides 8.6 Mg Tablet PO BEDTIME PRN Constipation Sucralfate 1 gm 12/24/20 09:00 12/25/20 07:55 Sucralfate Oral Suspension 1 Gm/10 Ml Oral.Susp PO 1 gm BID RAQUEL Administration Zolpidem Tartrate 10 mg 12/24/20 01:35 Zolpidem Tartrate 5 Mg Tablet PO BEDTIME PRN insomnia Labs CBC & Chem 7: 12/25/20 05:25 12/25/20 05:25 Microbiology Microbiology Results: Microbiology 12/23/20 20:10 Blood - Venous Blood Culture - Preliminary No growth after 24 hours. 12/23/20 19:46 Blood - Venous Blood Culture - Preliminary No growth after 24 hours. Assessment and Plan (1) Acute respiratory failure with hypoxia: Status: Acute (2) Pneumonia due to 2019-nCoV: Status: Acute Assessment and Plan: This 65-year-old male with past medical history of connective tissue disease, lupus, BPH, anxiety, antiphospholipid antibody positive presents to the hospital with complaints of shortness of breath and cough found to be hypoxic, with COVID-19 positive acute hypoxic respiratory failure secondary to COVID-[address] angiogram negative for PE, shows evidence of cord 19 infiltrates Continue Decadron given his hypoxia D3 Started on Remdesivir D2 Id input appreciated O2 as required will monitor respiratory status, discussed with ICU for transferred he continues to worsen for mixed connective tissue disease continue home regimen of hydroxychloroquine, methotrexate, on baseline prednisone; will be held as he will be on Decadron anxiety continue zolpidem, Ativan DVT prophylaxis Heparin subQ
[2020-12-25] MEDS: Remdesivir 100 MG in 0.9 % Sodium Chloride 230 ML 115 MG IV (16:47)
--- NOTE | 2020-12-25 21:19 | W.PM.CCCN ---
History of Present Illness Data of Consult Service Date: 12/25/20 Requesting physician: Rosaura Byers Primary Care Provider: Unknown Physician HPI Reason for consult: hypoxia Dr Jimenez evaluated pt earlier today, requests I assess him tonight. RN called me to check on pt as he was desatting to the low 80's. Upon my arrival, pt was placed on his side and O2sat went up to 91%. With the interpretor, I spoke with the pt, he was alert and oriented x3, he endorses sob and chest pain as well as fatigue. We discussed intubation and he agreed it it if necessary. Review of Systems Review of Systems: Yes all other systems are reviewed and are negative [facility] Past Medical History Medical History Antiphospholipid antibody positive Anxiety BPH (benign prostatic hyperplasia) Chest pain Depression Dysphagia GERD (gastroesophageal reflux disease) Hemolytic anemia History of adenomatous polyp of colon Lumbar degenerative disc disease Lupus MCTD (mixed connective tissue disease) NAFL (nonalcoholic fatty liver) Osteomyelitis of thoracic region Osteopenia Overlap syndrome Pain management Psoriasis Family History Family History Father No problems noted. Mother Arthritis Brother No problems noted. Brother No problems noted. Brother No problems noted. Sister No problems noted. Sister No problems noted. Son No problems noted. Family history: reviewed and not pertinent Surgical History Surgical History History of cholecystectomy History of colonoscopy Hx of endoscopy (~2004) Status post splenectomy Social History Social History Household Members: Spouse Housing: Apartment Alcohol intake: never Smoking Status: Unknown if ever smoked Tobacco Type: Cigarette Cigarettes Per Day: 3 Smoked in Last 30 Days: No Patient Interested in Nicotine Replacement: No Patient Given Instructions on How to Stop Smoking: No Second Hand Smoke Exposure: No Use of substances other than those prescribed or required for medical reasons: No Currently Displaying Signs/Symptoms of Drug Intoxication Withdrawal: No Have you been hit, kicked, punched, or otherwise hurt by someone within the past year? If so, by whom?: No Do you feel safe in your current relationship?: No Is there a partner from a previous relationship who is making you feel unsafe now?: No Are you made to feel afraid or neglected: No Advance Directives: No Advance Directives Information Provided: Yes Do you have thoughts of harming others: None Do you have a plan to hurt others: No Plan Recently lost weight without trying: No service: No Current occupational status: retired Meds Allergies Allergy/AdvReac Type Severity Reaction Status Date / Time rituximab [From RITUXAN] Allergy Severe RASH Verified 12/16/20 11:01 Active Medications: Current Medications Generic Name Dose Route Start Last Admin Trade Name Freq PRN Reason Stop Dose Admin Acetaminophen 650 mg 12/24/20 01:35 12/24/20 08:56 Acetaminophen 325 Mg Tablet PO 650 mg Q6H PRN Administration Pain, Mild (Pain Scale 1-3) Albuterol/Ipratropium 3 ml 12/24/20 01:35 Albuterol/Iprat 2.5/0.5mg 3 Ml Ampul.Neb INHALE RQ4H PRN Shortness of Breath/Wheezing Aspirin 81 mg 12/24/20 09:00 12/25/20 07:56 Aspirin Enteric Coated 81 Mg Tablet. PO 81 mg DAILY [facility] Administration Dexamethasone Sodium Phosphate 6 mg 12/24/20 09:00 12/25/20 07:56 Dexamethasone Sod Phosphate 4 Mg/Ml Vial IVPUSH 6 mg DAILY [facility] Administration Docusate Sodium 100 mg 12/24/20 01:35 Docusate Sodium 100 Mg Capsule PO DAILY PRN Constipation Enoxaparin Sodium 40 mg 12/25/20 09:00 12/25/20 10:04 Enoxaparin Sodium 40 Mg/0.4 Ml Syringe SUBCUT 40 mg Q24H [facility] Administration Folic Acid 1 mg 12/24/20 09:00 12/25/20 07:56 Folic Acid 1 Mg Tablet PO 1 mg DAILY [facility] Administration Hydroxychloroquine Sulfate 200 mg 12/24/20 09:00 12/24/20 08:56 Hydroxychloroquine Sulfate 200 Mg Tablet PO 200 mg BID [facility] Administration Remdesivir 100 mg/ Sodium 230 mls @ 115 mls/hr 12/25/20 16:00 12/25/20 16:47 Chloride IV 12/28/20 17:59 115 mls/hr Q24H [facility] Administration Lorazepam 1 mg 12/24/20 09:00 12/25/20 20:02 Lorazepam 1 Mg Tablet PO 1 mg BID [facility] Administration Non-Formulary Medication 145 mcg 12/24/20 09:00 Linaclotide [Linzess] PO DAILY [facility] Non-Formulary Medication 200 mg 12/24/20 01:35 Sarilumab [Kevzara] SUBCUT Q14D [facility] Omeprazole 20 mg 12/24/20 06:30 12/25/20 17:00 Omeprazole 20 Mg Capsule. PO 20 mg BID@0630,1630 [facility] Administration Ondansetron HCl 4 mg 12/24/20 01:35 Ondansetron Hcl 4 Mg/2 Ml Vial IVPUSH Q8H PRN Nausea and Vomiting Oxycodone HCl 10 mg 12/24/20 06:38 12/25/20 17:57 Oxycodone Hcl Immed Release 5 Mg Tablet PO 10 mg QID PRN Administration Pain (Scale Score 4-6) Pharmacy Consult 1 each 12/23/20 19:53 Consult Rx Perform Med Rec MISCELLANE ONCE PRN Consult order Senna 17.2 mg 12/24/20 01:35 Sennosides 8.6 Mg Tablet PO BEDTIME PRN Constipation Sucralfate 1 gm 12/24/20 09:00 12/25/20 20:02 Sucralfate Oral Suspension 1 Gm/10 Ml Oral.Susp PO 1 gm BID [facility] Administration Zolpidem Tartrate 10 mg 12/24/20 01:35 Zolpidem Tartrate 5 Mg Tablet PO BEDTIME PRN insomnia Home Medications Medication Instructions Recorded Confirmed Last Taken Type calcium carbonate 600 mg (1,500 1 tab PO BID 06/27/20 12/23/20 Unknown History mg)-vitamin D3 400 unit tablet folic acid 1 mg tablet 1 mg PO DAILY 06/27/20 12/23/20 Unknown History hydroxychloroquine 200 mg tablet 200 mg PO BID 06/27/20 12/23/20 Unknown History sennosides 8.6 mg tablet 17.2 mg PO BEDTIME PRN 06/27/20 12/23/20 Unknown History albuterol sulfate 90 mcg/actuation 1 puff INHALATION Q4H PRN 07/15/20 12/23/20 Unknown History aerosol inhaler alendronate 70 mg tablet 70 mg PO QWEEK 11/17/20 12/23/20 Unknown History aspirin 81 mg tablet,delayed 81 mg PO DAILY 12/11/20 12/23/20 Unknown History release diclofenac sodium 2 g TOPICAL QID PRN 12/23/20 12/23/20 Unknown History methotrexate sodium (PF) 25 mg QWEEK 12/23/20 12/23/20 Unknown History oxycodone-acetaminophen 1 tab PO QID PRN 12/23/20 12/23/20 Unknown History pantoprazole 40 mg PO BID@0630,1630 12/23/20 12/23/20 Unknown History prednisone 1 tab PO DAILY 12/23/20 12/23/20 Unknown History sarilumab [Kevzara] 200 mg SUBCUT Q2W 12/23/20 12/23/20 Unknown History sucralfate [Carafate] 10 ml PO BID 12/23/20 12/23/20 Unknown History Physical Exam Vital Signs: Vital Signs: Last Vital Signs Temp 97.0 F 12/25/20 18:57 Pulse 76 12/25/20 20:49 Resp 20 12/25/20 19:21 BP 108/57 L 12/25/20 20:49 Pulse Ox 86 L 12/25/20 20:49 Body Mass Index 30.2 Const: Other: Pt laying on right side, breathing comfortably on highflow and NRB. General: cooperative, comfortable and no acute distress Orientation/consciousness: patient oriented x3 Limitations: language barrier (interpretor present as pt is Brazilian speaking) HENMT: Head: Yes normal to inspection and Yes atraumatic Eyes: General: appearance normal, both eyes and all related structures EOM: EOMs intact bilaterally Neck: Neck: Yes normal visual inspection, Yes full ROM and Yes supple Chest: Chest palpation & inspection: abnormal palpation of chest wall (reproducible chest pain as TTP) Resp: Effort & Inspection: able to speak in complete sentences, no grunting, not labored, no nasal flaring, no pursed lip breathing, no respiratory distress, no stridor, tachypneic and no tripod positioning Auscultation: no crackles, no rales, no rhonchi and no wheezes Cardio: Rate: regular rate Rhythm: regular rhythm GI: Inspection: Yes obesity Palpation (GI): Soft to palpation Skin: Other: not diaphoretic General skin exam: no mottling and no pallor Neuro: General: patient oriented x3 Results Labs CBC & Chem 7: 12/25/20 05:25 12/25/20 05:25 Labs: Short CBC 12/25/20 Range/Units 05:25 WBC 14.1 H (4.8-10.8) X10*3/uL Hgb 12.9 L (14.0-18.0) g/dl Hct 39.9 L (42-52) % Plt Count 273 (160-400) X10*3/uL BMP 12/25/20 05:25 Sodium 141 Potassium 4.6 Chloride 109 H Carbon Dioxide 20 L BUN 22 H Creatinine 0.59 Calcium 8.3 L Microbiology Microbiology Results: Microbiology 12/23/20 20:10 Blood - Venous Blood Culture - Preliminary No growth after 24 hours. 12/23/20 19:46 Blood - Venous Blood Culture - Preliminary No growth after 24 hours. Assessment and Plan (1) Acute respiratory failure with hypoxia: Status: Acute Advised RN to regularly (every 2-3 hours) monitor mental status, if any changes, please notify ICU and it support manager YESENIA. Get an ABG as well. (2) SOB (shortness of breath): Status: Acute Continue on high flow with NRB, pt currently maxxed out but on his side, keep rotating, side, prone, side, as tolerated to maintain acceptable O2 saturation. If unable to maintain over mid 80's, please notify ICU and let it support manager. (3) Chest pain: Qualifiers: Chest pain type: unspecified Qualified Code(s): R07.9 - Chest pain, unspecified Status: Acute Get EKG and Troponins however was reproducible so likely not cardiac in nature.
[2020-12-25 22:47] LABS: Troponin-I High Sensitivity < 3.5 ng/L (<3.5-35.0)
[2020-12-26] VITALS (13 sets, daily range): BP systolic 95–120; BP diastolic 51–63; PULSE 71–91; RESP 19–26; TEMP 35.8–36.3; O2SAT 87–95
[2020-12-26 01:22] LABS: ABG Refer to POC result
[2020-12-26 01:22] LABS: ABG Base Excess -1.2 mmol/L; ABG HCO3 21 mmol/L (22-26); ABG pCO2 31 mmHg (32-45); ABG pCO2 TC 30 mmHg (32-45); ABG pH 7.45 (7.35-7.45); ABG pH TC 7.46 (7.35-7.45); ABG pO2 59 mmHg (83-108); ABG pO2 TC 55 (83-108)
[2020-12-26] MEDS: oxyCODONE HCl Immed Release 5 MG TABLET 10 MG PO ×2 (03:20→10:17)
[2020-12-26] MEDS: Omeprazole 20 MG CAPSULE.DR PO ×2 (05:59→16:01)
[2020-12-26 06:45] LABS: Hematocrit 38.1 % (42-52); Hemoglobin 12.2 g/dl (14.0-18.0); Mean Corpuscular Hemoglobin 28.6 pg (27.0-33.0); Mean Corpuscular Volume 89.4 fL (80-98); Mean Platelet Volume 10.5 fL (9.4-12.4); NRBC Pct Auto 0.7 /100WBC (0.0-0.2); Platelet Count 304 X10*3/uL (160-400); Red Blood Count 4.26 X10*6/uL (4.60-5.80); Red Cell Distribution Width 17.9 % (11.0-16.0); White Blood Count 14.6 X10*3/uL (4.8-10.8)
[2020-12-26 06:58] LABS: Anion Gap 13 (12-20); Blood Urea Nitrogen 22 mg/dL (9-16); Calcium 8.1 mg/dL (8.4-10.2); Carbon Dioxide 23 mmol/L (22-29); Chloride 109 mmol/L (96-108); Creatinine Clr Calc Pharmacy 133.8; Estimated Glomerular Filt Rate > 60; Glucose Random 98 mg/dL (60-115); Potassium 4.1 mmol/L (3.3-5.1); Sodium 141 mmol/L (135-145)
[2020-12-26] MEDS: dexAMETHasone sod phosphate 4 MG/ML VIAL 6 MG IVPUSH (08:36)
[2020-12-26] MEDS: Aspirin Enteric Coated 81 MG TABLET.DR PO (08:36)
[2020-12-26] MEDS: Sucralfate Oral Suspension 1 GM/10 ML ORAL.SUSP PO ×2 (08:36→20:38)
[2020-12-26] MEDS: Enoxaparin Sodium 40 MG/0.4 ML SYRINGE SUBCUT (08:36)
[2020-12-26] MEDS: LORazepam 1 MG TABLET PO (08:36)
[2020-12-26] MEDS: Folic Acid 1 MG TABLET PO (08:36)
[2020-12-26] MEDS: Acetaminophen 325 MG TABLET 650 MG PO (08:55)
--- NOTE | 2020-12-26 10:14 | MHC.CM.PN ---
Per MD, Patient is not yet medically cleared for dc (IV Remdesivir, IV Decadron, Non rebreather/Venturi mask). Home is the goal for dc and CM will follow for possible need to adjust the dc plan.
--- NOTE | 2020-12-26 15:11 | HO.PM.IMPN ---
Subjective Subjective Date of Service: 12/26/20 Interval History: the patient was seen and evaluated this morning Laying in bed, feels tired and looks more exhausted than yesterday still requiring oxygen requirement to high-flow and non-rebreather which were maxed Denies any fever, chills but feels shortness of breath with minimal exertion Evaluated by ICU team yesterday during nighttime for increased work of breathing No reported other overnight events. Systemic review: No fever, chills but has worsening generalized weakness No chest pain, palpitation Reporting shortness of breath or coughing No abdominal pain, nausea or vomiting No urinary symptoms No any rash or wounds Physical Exam Vital Signs: Vital Signs: Last Vital Signs Temp 97.3 F 12/26/20 12:00 Pulse 91 12/26/20 12:43 Resp 22 H 12/26/20 12:43 BP 100/54 L 12/26/20 12:43 Pulse Ox 90 L 12/26/20 12:43 Body Mass Index 30.2 Const: Other: Constitutional : Alert, oriented, looks lethargic and tired Neck : Normal inspection, Supple Cardiovascular : RRR, S1 S2, no lower extremity edema Respiratory : Fair bilateral air entry, no crackles, wheezes or rhonchi, on oxygen supplement of high-flow and non-rebreather mask Gastrointestinal: soft, lax, Normal bowel sounds, Non tender Skin : Warm/Dry, No rash Neurological : Alert & oriented x3, No focal deficit Objective Data Current Medications Generic Name Dose Route Start Last Admin Trade Name Freq PRN Reason Stop Dose Admin Acetaminophen 650 mg 12/24/20 01:35 12/26/20 08:55 Acetaminophen 325 Mg Tablet PO 650 mg Q6H PRN Administration Pain, Mild (Pain Scale 1-3) Albuterol/Ipratropium 3 ml 12/24/20 01:35 Albuterol/Iprat 2.5/0.5mg 3 Ml Ampul.Neb INHALE RQ4H PRN Shortness of Breath/Wheezing Aspirin 81 mg 12/24/20 09:00 12/26/20 08:36 Aspirin Enteric Coated 81 Mg Tablet. PO 81 mg DAILY [facility] Administration Dexamethasone Sodium Phosphate 6 mg 12/24/20 09:00 12/26/20 08:36 Dexamethasone Sod Phosphate 4 Mg/Ml Vial IVPUSH 6 mg DAILY [facility] Administration Docusate Sodium 100 mg 12/24/20 01:35 Docusate Sodium 100 Mg Capsule PO DAILY PRN Constipation Enoxaparin Sodium 40 mg 12/25/20 09:00 12/26/20 08:36 Enoxaparin Sodium 40 Mg/0.4 Ml Syringe SUBCUT 40 mg Q24H [facility] Administration Folic Acid 1 mg 12/24/20 09:00 12/26/20 08:36 Folic Acid 1 Mg Tablet PO 1 mg DAILY [facility] Administration Hydroxychloroquine Sulfate 200 mg 12/24/20 09:00 12/24/20 08:56 Hydroxychloroquine Sulfate 200 Mg Tablet PO 200 mg BID [facility] Administration Remdesivir 100 mg/ Sodium 230 mls @ 115 mls/hr 12/25/20 16:00 12/25/20 21:49 Chloride IV 12/28/20 17:59 Infused Q24H [facility] Infusion Lorazepam 1 mg 12/24/20 09:00 12/26/20 08:36 Lorazepam 1 Mg Tablet PO 1 mg BID [facility] Administration Non-Formulary Medication 145 mcg 12/24/20 09:00 Linaclotide [Linzess] PO DAILY [facility] Non-Formulary Medication 200 mg 12/24/20 01:35 Sarilumab [Kevzara] SUBCUT Q14D [facility] Omeprazole 20 mg 12/24/20 06:30 12/26/20 05:59 Omeprazole 20 Mg Capsule. PO 20 mg BID@0630,1630 [facility] Administration Ondansetron HCl 4 mg 12/24/20 01:35 Ondansetron Hcl 4 Mg/2 Ml Vial IVPUSH Q8H PRN Nausea and Vomiting Oxycodone HCl 10 mg 12/24/20 06:38 12/26/20 10:17 Oxycodone Hcl Immed Release 5 Mg Tablet PO 10 mg QID PRN Administration Pain (Scale Score 4-6) Pharmacy Consult 1 each 12/23/20 19:53 Consult Rx Perform Med Rec MISCELLANE ONCE PRN Consult order Senna 17.2 mg 12/24/20 01:35 Sennosides 8.6 Mg Tablet PO BEDTIME PRN Constipation Sucralfate 1 gm 12/24/20 09:00 12/26/20 08:36 Sucralfate Oral Suspension 1 Gm/10 Ml Oral.Susp PO 1 gm BID [facility] Administration Zolpidem Tartrate 10 mg 12/24/20 01:35 Zolpidem Tartrate 5 Mg Tablet PO BEDTIME PRN insomnia Labs CBC & Chem 7: 12/26/20 05:28 12/26/20 05:28 Microbiology Microbiology Results: Microbiology 12/23/20 20:10 Blood - Venous Blood Culture - Preliminary No growth after 48 hours. 12/23/20 19:46 Blood - Venous Blood Culture - Preliminary No growth after 48 hours. Assessment and Plan (1) Acute respiratory failure with hypoxia: Status: Acute (2) Pneumonia due to 2019-nCoV: Status: Acute Assessment and Plan: This 65-year-old male with past medical history of connective tissue disease, lupus, BPH, anxiety, antiphospholipid antibody positive presents to the hospital with complaints of shortness of breath and cough found to be hypoxic, with COVID-19 positive acute hypoxic respiratory failure secondary to COVID-[address] angiogram negative for PE, shows evidence of cord 19 infiltrates Continue Decadron given his hypoxia D4 on Remdesivir D3 Id input appreciated To wean oxygen down as tolerated will monitor respiratory status, discussed with ICU for transferred he continues to worsen for mixed connective tissue disease continue home regimen of methotrexate, Hold Plaquenil on baseline prednisone; will be held as he will be on Decadron anxiety continue zolpidem, Ativan DVT prophylaxis Heparin subQ
[2020-12-26] MEDS: Remdesivir 100 MG in 0.9 % Sodium Chloride 230 ML 115 MG IV (16:01)
[2020-12-26] MEDS: oxyCODONE HCl Immed Release 5 MG TABLET PO ×2 (16:04→21:28)
[2020-12-26] MEDS: LORazepam 0.5 MG TABLET 0.25 MG PO (21:29)
[2020-12-27] VITALS (23 sets, daily range): BP systolic 86–164; BP diastolic 47–102; PULSE 52–164; RESP 18–40; TEMP -3.8–38.5; O2SAT 88–97
[2020-12-27] MEDS: Zolpidem Tartrate 5 MG TABLET 10 MG PO (00:23)
[2020-12-27 02:21] LABS: Venous Blood Gas Refer to POC result
[2020-12-27 02:23] LABS: VBG Base Excess -3.1 mmol/L; VBG HCO3 19 mmol/L (22-26); VBG pCO2 29 mmHg; VBG pH 7.43 (7.32-7.43); VBG pO2 81 mmHg
[2020-12-27] MEDS: Omeprazole 20 MG CAPSULE.DR PO (06:27)
[2020-12-27 07:06] LABS: Hematocrit 40.9 % (42-52); Hemoglobin 13.2 g/dl (14.0-18.0); Mean Corpuscular HGB Conc 32.3 g/dl (31.0-36.0); Mean Corpuscular Hemoglobin 28.6 pg (27.0-33.0); Mean Corpuscular Volume 88.7 fL (80-98); Mean Platelet Volume 11.4 fL (9.4-12.4); NRBC Pct Auto 0.8 /100WBC (0.0-0.2); Platelet Count 322 X10*3/uL (160-400); Red Blood Count 4.61 X10*6/uL (4.60-5.80); Red Cell Distribution Width 18.1 % (11.0-16.0); White Blood Count 19.1 X10*3/uL (4.8-10.8)
[2020-12-27 07:40] LABS: Anion Gap 17 (12-20); Blood Urea Nitrogen 20 mg/dL (9-16); Calcium 8.7 mg/dL (8.4-10.2); Carbon Dioxide 18 mmol/L (22-29); Chloride 109 mmol/L (96-108); Creatinine Clr Calc Pharmacy 131.5; Estimated Glomerular Filt Rate > 60; Glucose Random 105 mg/dL (60-115); Potassium 4.1 mmol/L (3.3-5.1); Sodium 140 mmol/L (135-145)
[2020-12-27] MEDS: dexAMETHasone sod phosphate 4 MG/ML VIAL 6 MG IVPUSH (08:13)
[2020-12-27] MEDS: Enoxaparin Sodium 40 MG/0.4 ML SYRINGE SUBCUT (08:14)
--- NOTE | 2020-12-27 08:20 | HO.PM.IMPN ---
Subjective Subjective Date of Service: 12/27/20 Interval History: the patient was seen and evaluated this morning Laying in bed, feels tired and looks more exhausted and short of breath with increased respiratory rate and lethargy still requiring oxygen requirement to high-flow and non-rebreather which were maxed Denies any fever, chills but feels shortness of breath with minimal exertion Evaluated by ICU team yesterday during nighttime for increased work of breathing No reported other overnight events. Systemic review: No fever, chills but has worsening generalized weakness, feels tired and exhausted No chest pain, palpitation Reporting shortness of breath or coughing No abdominal pain, nausea or vomiting No urinary symptoms No any rash or wounds Physical Exam Vital Signs: Vital Signs: Last Vital Signs Temp 97.3 F 12/27/20 04:00 Pulse 97 12/27/20 04:00 Resp 35 H 12/27/20 07:49 BP 119/65 12/27/20 04:00 Pulse Ox 88 L 12/27/20 04:00 Body Mass Index 30.2 Const: Other: Constitutional : Alert, oriented, looks lethargic and tired Neck : Normal inspection, Supple Cardiovascular : RRR, S1 S2, no lower extremity edema Respiratory : Fair bilateral air entry, no crackles, wheezes or rhonchi, on oxygen supplement of high-flow and non-rebreather mask Gastrointestinal: soft, lax, Normal bowel sounds, Non tender Skin : Warm/Dry, No rash Neurological : Alert & oriented x3, No focal deficit Objective Data Current Medications Generic Name Dose Route Start Last Admin Trade Name Freq PRN Reason Stop Dose Admin Acetaminophen 650 mg 12/24/20 01:35 12/26/20 08:55 Acetaminophen 325 Mg Tablet PO 650 mg Q6H PRN Administration Pain, Mild (Pain Scale 1-3) Albuterol/Ipratropium 3 ml 12/24/20 01:35 Albuterol/Iprat 2.5/0.5mg 3 Ml Ampul.Neb INHALE RQ4H PRN Shortness of Breath/Wheezing Aspirin 81 mg 12/24/20 09:00 12/26/20 08:36 Aspirin Enteric Coated 81 Mg Tablet. PO 81 mg DAILY [facility] Administration Dexamethasone Sodium Phosphate 6 mg 12/24/20 09:00 12/26/20 08:36 Dexamethasone Sod Phosphate 4 Mg/Ml Vial IVPUSH 6 mg DAILY [facility] Administration Docusate Sodium 100 mg 12/24/20 01:35 Docusate Sodium 100 Mg Capsule PO DAILY PRN Constipation Enoxaparin Sodium 40 mg 12/25/20 09:00 12/26/20 08:36 Enoxaparin Sodium 40 Mg/0.4 Ml Syringe SUBCUT 40 mg Q24H [facility] Administration Folic Acid 1 mg 12/24/20 09:00 12/26/20 08:36 Folic Acid 1 Mg Tablet PO 1 mg DAILY [facility] Administration Hydroxychloroquine Sulfate 200 mg 12/24/20 09:00 12/24/20 08:56 Hydroxychloroquine Sulfate 200 Mg Tablet PO 200 mg BID [facility] Administration Remdesivir 100 mg/ Sodium 230 mls @ 115 mls/hr 12/25/20 16:00 12/26/20 18:22 Chloride IV 12/28/20 17:59 Infused Q24H [facility] Infusion Lorazepam 0.25 mg 12/26/20 15:55 12/26/20 21:29 Lorazepam 0.5 Mg Tablet PO 0.25 mg Q8H PRN Administration anxiety/restlessness Non-Formulary Medication 145 mcg 12/24/20 09:00 Linaclotide [Linzess] PO DAILY [facility] Non-Formulary Medication 200 mg 12/24/20 01:35 Sarilumab [Kevzara] SUBCUT Q14D [facility] Omeprazole 20 mg 12/24/20 06:30 12/27/20 06:27 Omeprazole 20 Mg Capsule. PO 20 mg BID@0630,1630 [facility] Administration Ondansetron HCl 4 mg 12/24/20 01:35 Ondansetron Hcl 4 Mg/2 Ml Vial IVPUSH Q8H PRN Nausea and Vomiting Oxycodone HCl 5 mg 12/26/20 15:55 12/26/20 21:28 Oxycodone Hcl Immed Release 5 Mg Tablet PO 5 mg QID PRN Administration Pain (Scale Score 4-6) Pharmacy Consult 1 each 12/23/20 19:53 Consult Rx Perform Med Rec MISCELLANE ONCE PRN Consult order Senna 17.2 mg 12/24/20 01:35 Sennosides 8.6 Mg Tablet PO BEDTIME PRN Constipation Sucralfate 1 gm 12/24/20 09:00 12/26/20 20:38 Sucralfate Oral Suspension 1 Gm/10 Ml Oral.Susp PO 1 gm BID [facility] Administration Labs CBC & Chem 7: 12/27/20 06:36 12/27/20 06:36 Microbiology Microbiology Results: Microbiology 12/23/20 20:10 Blood - Venous Blood Culture - Preliminary No growth after 48 hours. 12/23/20 19:46 Blood - Venous Blood Culture - Preliminary No growth after 48 hours. Assessment and Plan (1) Acute respiratory failure with hypoxia: Status: Acute (2) Pneumonia due to 2019-nCoV: Status: Acute Assessment and Plan: This 65-year-old male with past medical history of connective tissue disease, lupus, BPH, anxiety, antiphospholipid antibody positive presents to the hospital with complaints of shortness of breath and cough found to be hypoxic, with COVID-19 positive acute hypoxic respiratory failure secondary to COVID-[address] angiogram negative for PE, shows evidence of cord 19 infiltrates Continue Decadron given his hypoxia D5 on Remdesivir D4 Id input appreciated Transferred to ICU for intubation after discussing with the patient mixed connective tissue disease continue home regimen of methotrexate, Hold Plaquenil on baseline prednisone; will be held as he will be on Decadron anxiety continue zolpidem, Ativan DVT prophylaxis Heparin subQ
[2020-12-27] MEDS: LORazepam 0.5 MG TABLET 0.25 MG PO (08:25)
[2020-12-27] MEDS: Rocuronium Bromide 50 MG/5 ML VIAL IVPUSH (08:52)
[2020-12-27] MEDS: propofoL 200 MG/20 ML VIAL 100 MG IVPUSH (08:52)
[2020-12-27] MEDS: propofoL 1,000 MG/100 ML VIAL 10.2 MG IVCONT ×2 (08:55→23:41)
--- NOTE | 2020-12-27 09:38 | W.PM.CCHP ---
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 and apparently despite maximum noninvasive support work of breathing became overwhelming developed altered mental status much more profound hypoxemia clearly tiring and transferred emergently in need of intubation and intubation to place within seconds very quickly good bilateral breath sounds and excellent end-tidal CO2 response utilizing IV propofol and 50 mg of rocuronium addend placed his OG tube and then turned my attention to central line After sterile preparation and draping utilizing the right internal jugular vein under ultrasound guidance gained easy quick access to his internal jugular vein passing retrograde with Seldinger technique AJ tipped guidewire over which triple-lumen 20 cm central venous pressure catheter was passed to the right atrium without complication secured and sterilely dressed and chest x-ray confirmed excellent position in the right atrium with no pneumothorax excellent position of the endotracheal tube 2 cm above the gio and OG tube in the stomach Consent for Procedure: Emergent-no informed consent obtained Time out performed: Yes Sterile Technique Used: Yes Patient placed on monitor/pulse ox: Yes MD prep: mask, gown and gloves Central line prep: Chlorhexidine scrub Ultrasound used for placement: Yes Central line lumen inserted: triple Post procedure: sutured in place, good blood return, all ports aspirated, flushed, capped and sterile dressing applied Post procedure x-ray: tip of catheter in good position and no pneumothorax seen Patient tolerated procedure: well and no complications Complications: none
--- NOTE | 2020-12-27 09:42 | P.PCNCC_ITS ---
Procedures Intubation Intubation Comments: Emergent intubation for acute hypoxemic respiratory failure without complication Utilized glide scope visualization and 8. Endotracheal tube clearly seen to pass through the vocal cords with good bilateral breath sounds and excellent end- tidal CO2 response and chest x-ray confirming tip of 2 cm above the gio Consent for Procedure: Emergent-no informed consent obtained Time out performed: Yes Sedative: propofol Paralytic: rocuronium Laryngoscope: fiber optic video scope ET tube size: 8 ET tube uncuffed: No Tube secured depth (cm): 26 Tube placement confirmation: visualized tube passing through cords, equal breath sounds bilaterally, no breath sounds over epigastrium and confirmation by capnometry Patient tolerated procedure: well and no complications Intubation complications: none
--- NOTE | 2020-12-27 09:44 | P.CONCC_ITS ---
History of Present Illness Data of Consult Service Date: 12/27/20 Requesting physician: Rosaura Byers Primary Care Provider: Unknown Physician HPI Reason for consult: Hypoxemic respiratory failure 65-year-old male with mixed connective tissue disease and antiphospholipid antibody on a monoclonal antibody, sarilumab, as well as methotrexate and hydroxychloroquine presented with acute bilateral COVID-19 pneumonitis with hypoxemic respiratory failure and today he failed on maximum noninvasive support and had to be transferred emergently In addition he is surgically a splenic as well renal so clearly has significant immune system compromise Review of Systems Review of Systems: Yes Unobtainable due to mental status [facility] Past Medical History Medical History (Updated 12/27/20 @ 09:53 by Milad Jimenez MD) Antiphospholipid antibody positive Antiphospholipid antibody positive Anxiety Asplenia after surgical procedure BPH (benign prostatic hyperplasia) Chest pain Depression Dysphagia GERD (gastroesophageal reflux disease) Hemolytic anemia History of adenomatous polyp of colon Lumbar degenerative disc disease Lupus MCTD (mixed connective tissue disease) Mixed connective tissue disease NAFL (nonalcoholic fatty liver) Osteomyelitis of thoracic region Osteopenia Overlap syndrome Pain management Psoriasis Family History Family History Father No problems noted. Mother Arthritis Brother No problems noted. Brother No problems noted. Brother No problems noted. Sister No problems noted. Sister No problems noted. Son No problems noted. Family history: reviewed and not pertinent Surgical History Surgical History History of cholecystectomy History of colonoscopy Hx of endoscopy (~2004) Status post splenectomy Social History Social History Household Members: Spouse Housing: Apartment Alcohol intake: never Smoking Status: Unknown if ever smoked Tobacco Type: Cigarette Cigarettes Per Day: 3 Smoked in Last 30 Days: No Patient Interested in Nicotine Replacement: No Patient Given Instructions on How to Stop Smoking: No Second Hand Smoke Exposure: No Use of substances other than those prescribed or required for medical reasons: No Currently Displaying Signs/Symptoms of Drug Intoxication Withdrawal: No Have you been hit, kicked, punched, or otherwise hurt by someone within the past year? If so, by whom?: No Do you feel safe in your current relationship?: No Is there a partner from a previous relationship who is making you feel unsafe now?: No Are you made to feel afraid or neglected: No Advance Directives: No Advance Directives Information Provided: Yes Do you have thoughts of harming others: None Do you have a plan to hurt others: No Plan Recently lost weight without trying: No service: No Current occupational status: retired Meds Allergies Allergy/AdvReac Type Severity Reaction Status Date / Time rituximab [From RITUXAN] Allergy Severe RASH Verified 12/16/20 11:01 Active Medications: Current Medications Generic Name Dose Route Start Last Admin Trade Name Freq PRN Reason Stop Dose Admin Acetaminophen 650 mg 12/24/20 01:35 12/26/20 08:55 Acetaminophen 325 Mg Tablet PO 650 mg Q6H PRN Administration Pain, Mild (Pain Scale 1-3) Albuterol/Ipratropium 3 ml 12/24/20 01:35 Albuterol/Iprat 2.5/0.5mg 3 Ml Ampul.Neb INHALE RQ4H PRN Shortness of Breath/Wheezing Aspirin 81 mg 12/24/20 09:00 12/26/20 08:36 Aspirin Enteric Coated 81 Mg Tablet. PO 81 mg DAILY RAQUEL Administration Dexamethasone Sodium Phosphate 6 mg 12/24/20 09:00 12/27/20 08:13 Dexamethasone Sod Phosphate 4 Mg/Ml Vial IVPUSH 6 mg DAILY RAQUEL Administration Docusate Sodium 100 mg 12/24/20 01:35 Docusate Sodium 100 Mg Capsule PO DAILY PRN Constipation Enoxaparin Sodium 40 mg 12/25/20 09:00 12/27/20 08:14 Enoxaparin Sodium 40 Mg/0.4 Ml Syringe SUBCUT 40 mg Q24H RAQUEL Administration Folic Acid 1 mg 12/24/20 09:00 12/26/20 08:36 Folic Acid 1 Mg Tablet PO 1 mg DAILY RAQUEL Administration Hydroxychloroquine Sulfate 200 mg 12/24/20 09:00 12/24/20 08:56 Hydroxychloroquine Sulfate 200 Mg Tablet PO 200 mg BID RAQUEL Administration Remdesivir 100 mg/ Sodium 230 mls @ 115 mls/hr 12/25/20 16:00 12/26/20 18:22 Chloride IV 12/28/20 17:59 Infused Q24H RAQUEL Infusion Lorazepam 0.25 mg 12/26/20 15:55 12/27/20 08:25 Lorazepam 0.5 Mg Tablet PO 0.25 mg Q8H PRN Administration anxiety/restlessness Non-Formulary Medication 145 mcg 12/24/20 09:00 Linaclotide [Linzess] PO DAILY [facility] Non-Formulary Medication 200 mg 12/24/20 01:35 Sarilumab [Kevzara] SUBCUT Q14D [facility] Omeprazole 20 mg 12/24/20 06:30 12/27/20 06:27 Omeprazole 20 Mg Capsule. PO 20 mg BID@0630,1630 [facility] Administration Ondansetron HCl 4 mg 12/24/20 01:35 Ondansetron Hcl 4 Mg/2 Ml Vial IVPUSH Q8H PRN Nausea and Vomiting Oxycodone HCl 5 mg 12/26/20 15:55 12/26/20 21:28 Oxycodone Hcl Immed Release 5 Mg Tablet PO 5 mg QID PRN Administration Pain (Scale Score 4-6) Pharmacy Consult 1 each 12/23/20 19:53 Consult Rx Perform Med Rec MISCELLANE ONCE PRN Consult order Senna 17.2 mg 12/24/20 01:35 Sennosides 8.6 Mg Tablet PO BEDTIME PRN Constipation Sucralfate 1 gm 12/24/20 09:00 12/26/20 20:38 Sucralfate Oral Suspension 1 Gm/10 Ml Oral.Susp PO 1 gm BID [facility] Administration Home Medications Medication Instructions Recorded Confirmed Last Taken Type calcium carbonate 600 mg (1,500 1 tab PO BID 06/27/20 12/23/20 Unknown History mg)-vitamin D3 400 unit tablet folic acid 1 mg tablet 1 mg PO DAILY 06/27/20 12/23/20 Unknown History hydroxychloroquine 200 mg tablet 200 mg PO BID 06/27/20 12/23/20 Unknown History sennosides 8.6 mg tablet 17.2 mg PO BEDTIME PRN 06/27/20 12/23/20 Unknown History albuterol sulfate 90 mcg/actuation 1 puff INHALATION Q4H PRN 07/15/20 12/23/20 Unknown History aerosol inhaler alendronate 70 mg tablet 70 mg PO QWEEK 11/17/20 12/23/20 Unknown History aspirin 81 mg tablet,delayed 81 mg PO DAILY 12/11/20 12/23/20 Unknown History release diclofenac sodium 2 g TOPICAL QID PRN 12/23/20 12/23/20 Unknown History methotrexate sodium (PF) 25 mg QWEEK 12/23/20 12/23/20 Unknown History oxycodone-acetaminophen 1 tab PO QID PRN 12/23/20 12/23/20 Unknown History pantoprazole 40 mg PO BID@0630,1630 12/23/20 12/23/20 Unknown History prednisone 1 tab PO DAILY 12/23/20 12/23/20 Unknown History sarilumab [Kevzara] 200 mg SUBCUT Q2W 12/23/20 12/23/20 Unknown History sucralfate [Carafate] 10 ml PO BID 12/23/20 12/23/20 Unknown History Physical Exam Vital Signs: Vital Signs: Last Vital Signs Temp 97.1 F 12/27/20 08:00 Pulse 106 H 12/27/20 08:00 Resp 26 H 12/27/20 08:00 BP 118/68 12/27/20 08:00 Pulse Ox 92 12/27/20 08:00 Body Mass Index 30.2 Patient was in an agitated delirium very combative we had to emergently give him 70 mg of propofol which created a calm and then the 50 mg of rocuronium and were able to easily intubate but moving all 4 extremities no focal issues simply encephalopathy and he was clearly hypoxic His skin is no cellulitis but he is covered with these healed and what looked to be subcutaneous necrotic lesions are not in of these are injection sites or if this is like healed E nodosum Chest with the extensive bilateral rales Cardiac exam with normal S1 normal S2 with no gallops or murmurs Abdomen soft with no organomegaly and no evidence of peripheral edema Results Labs CBC & Chem 7: 12/27/20 06:36 12/27/20 06:36 Labs: Short CBC 12/27/20 Range/Units 06:36 WBC 19.1 H (4.8-10.8) X10*3/uL Hgb 13.2 L (14.0-18.0) g/dl Hct 40.9 L (42-52) % Plt Count 322 (160-400) X10*3/uL BMP 12/27/20 06:36 Sodium 140 Potassium 4.1 Chloride 109 H Carbon Dioxide 18 L BUN 20 H Creatinine 0.58 Calcium 8.7 D Microbiology Microbiology Results: Microbiology 12/23/20 20:10 Blood - Venous Blood Culture - Preliminary No growth after 48 hours. 12/23/20 19:46 Blood - Venous Blood Culture - Preliminary No growth after 48 hours. Assessment and Plan (1) Acute respiratory failure with hypoxia: Status: Acute (2) Precordial chest pain: Status: Acute (3) SOB (shortness of breath): Status: Acute (4) Pneumonia due to 2019-nCoV: Status: Acute (5) Dysphagia: Status: Acute (6) History of adenomatous polyp of colon: Problem details: Five adenomatous colon polyps were removed during last colonoscopy in [place] [address] Mary. Repeat colonoscopy is advised in 3 years and will be due in September 2020. Status: Acute (7) GERD (gastroesophageal reflux disease): Problem details: on pantoprazole 40 mg twice daily Status: Acute (8) NAFL (nonalcoholic fatty liver): Status: Acute (9) Mixed connective tissue disease: Status: Acute (10) Antiphospholipid antibody positive: Status: Acute (11) Asplenia after surgical procedure: Status: Acute So 65-year-old male with severe compromise of his immune system by virtue of 3 immune suppressing drugs and of course being functionally asplenic so he must be on guard for sit secondary infection issues and the other concern of course is any potential complicate K ly such as hypersensitivity pneumonitis possibly contributed to and not just by his collagen vascular disease but by his drug such as methotrexate and so I will keep him on the steroid for now but hold his methotrexate and we might need to do a quick be AL via bronchoscopy looking for mycobacterial disease as well as certain bacteria and and fungal issues
[2020-12-27] MEDS: fentaNYL citrate/NS 1,000 MCG/100 ML PLAST..BAG 5 MCG IVCONT (10:28)
--- NOTE | 2020-12-27 10:58 | PC.NURSE ---
Upon assessment of patient after receiving report from overnight RN pt noted to have continued increased work of breathing with use of accessory muscles and appears very fatigued. moaning and restless frequently removing nonrebreather mask. sao2 in the low 90's while maxed out on highflow and nonrebreather. medicated with prn po ativan and iv decadron. Hospitalist notified to come evaluate patient immediately for concern of further decompensation. transfer to icu in place. nursing delivery department supervisor and respiratory called stat for assistance with transfer. Pt previously agreed to intubation with full explanation via hospitalist and this RN at bedside.Belongings including cellphone sent down with patient.
[2020-12-27] MEDS: propofoL 1,000 MG/100 ML VIAL 25.5 MG IVCONT ×2 (12:00→15:45)
--- NOTE | 2020-12-27 14:55 | PC.NURSE ---
Pt arrived to ICU with IMC RN and ZOLL, pt confused/restless/ pulling off oxygen/ combative/ o2 sat when attached to monitor 40s with resp rate in the 30s, breathing labored,MD called stat at bedside, being bagged via ambu by RT, HR 140s and BPS 160s systollically, o2 sat up to 60s while being bagged, continues to be restless/agitated, stat propofol given and luis given, pt intubated with size 8 et tube at 25cm, o2 sat up to 90s when placed on vent, on AC settings with peep of 10, able to titrate fio2 down to 60%, restraints in place for patient safety. pt fighting vent, not synchronus, rr up to 40s, propofol titrated to max and fentanyl drip ordered and titrated for vent synchrony booth placed, 350 of aisha urine out this shift temp initially up to 101.5 via core booth probe, down to 100.0 this shift, bp trending down to 80s systollically with sedation, md aware, awaiting levophed order ada (Carmita) updated by this RN
--- NOTE | 2020-12-27 16:08 | W.PM.CCHP ---
Procedures Bronchoscopy Bronchoscopy Comments: Bedside bronchoscopy utilizing a 6. Disposable bronchoscope samples were obtained utilizing sterile saline flushes from both the right and left mainstem bronchi without complication and the lining of the bronchi on both sides actually look pretty good normal mucosa no evidence of any blood certainly no significant secretions samples were sent for AFB fungus PJP Legionella and standard culture Consent for Procedure: Elective - informed consent obtained Indication: other Procedure: The glide scope device was was used with easy visualization maintenance of oxygen saturation by turning up the FiO2 to 100% and sterile saline flushes approximately 30 cc on each side with suction retrieval Route: endotracheal tube Sedation/Analgesia: other Monitor: EKG and pulse oximetry Findings: Clean bronchial mucosa throughout no significant secretions no bleeding Complications: none
[2020-12-27] MEDS: fentaNYL citrate/NS 1,000 MCG/100 ML PLAST..BAG 10 MCG IVCONT (17:46)
--- NOTE | 2020-12-27 18:29 | PC.NURSE ---
BEDSIDE BRONCH PERFORMED WITH SAMPLES SENT TO LAB. FI02 INCREASED TO 75% TO MAINTAIN 02 > 90% PER MD. TUBE FEEDS STARTED AT 1825. OSMOLITE 1.5 AT 20 ML/HR AND FWF 120 ML GIVEN. WILL PASS ON IN REPORT WHEN THE NEXT INCREASE TO TUBE FEEDS WITH BE.
[2020-12-27] MEDS: propofoL 1,000 MG/100 ML VIAL 20.4 MG IVCONT (20:13)
[2020-12-27] MEDS: cefEPime HCl 2 GM in 0.9 % Sodium Chloride 50 ML IV (20:16)
[2020-12-27] MEDS: Doxycycline Hyclate 100 MG in 0.9 % Sodium Chloride 250 ML 166.67 MG IV (20:18)
[2020-12-27] MEDS: Chlorhexidine Gluc Oral Rinse 15 ML MOUTHWASH BUCCAL (20:18)
--- NOTE | 2020-12-27 21:10 | PM.IDPN ---
Subjective Subjective Date of Service: 12/27/20 Interval History: he has been intubated overnight he is on 100%FiO2 and PEEP 16, TV 650 and AC 22 he is off Methotrexate and on Sirolimuas and Plaquenil he continues on Remdesivir Objective Data Labs CBC & Chem 7: 12/27/20 06:36 12/27/20 06:36 Labs: Laboratory Results - last 24 hr 12/27/20 12/27/20 12/27/20 02:15 06:36 06:36 WBC 19.1 H RBC 4.61 Hgb 13.2 L Hct 40.9 L MCV 88.7 MCH 28.6 MCHC 32.3 RDW 18.1 H Plt Count 322 MPV 11.4 Absolute Nucleated RBC 0.160 H Nucleated RBC % (auto) 0.8 H VBG pH 7.43 VBG pCO2 29 VBG pO2 81 VBG HCO3 19 L VBG O2 Saturation 95.0 VBG Base Excess -3.1 Sodium 140 Potassium 4.1 Chloride 109 H Carbon Dioxide 18 L Anion Gap 17 BUN 20 H Creatinine 0.58 Estim Creat Clear Calc 131.5 Estimated GFR > 60 Random Glucose 105 Calcium 8.7 D Microbiology Microbiology Results: Microbiology 12/23/20 20:10 Blood - Venous Blood Culture - Preliminary No growth after 48 hours. 12/23/20 19:46 Blood - Venous Blood Culture - Preliminary No growth after 48 hours. Physical Exam Vital Signs: Vital Signs: Last Vital Signs Temp 99.9 F 12/27/20 20:00 Pulse 66 12/27/20 20:13 Resp 26 H 12/27/20 20:00 BP 109/68 12/27/20 20:13 Pulse Ox 94 12/27/20 20:00 Body Mass Index 30.2 Const: General: cooperative HENMT: Head: Yes normal to inspection Mouth: Normal oral and palatal mucosa present Eyes: General: appearance normal, both eyes and all related structures Resp: Effort & Inspection: normal respiratory effort Cardio: Rate: regular rate Rhythm: regular rhythm GI: Palpation (GI): Soft to palpation and not firm Assessment and Plan Assessment and plan (1) Asplenia after surgical procedure: Status: Acute (2) Antiphospholipid antibody positive: Status: Acute (3) Mixed connective tissue disease: Status: Acute (4) Acute respiratory failure with hypoxia: Problem details: He has mixed connective tissue disease and antiphospholipid antibody syndrome and asplenia He is on Remdesivir He has worsening pneumonia,possible atypical or opportunistic infection and also COVID Status: Acute Assessment and Plan: Check bronch for PJP,fungus ,AFB ,Legionella and culture Continue Remdesivir Continue ventilation May continue off Methotrexate and on Sirolimus and Plaquenil Give Cefepime and Doxycycline for possible pneumonia (5) Pneumonia due to 2019-nCoV: Status: Acute Time Spent With Patient Time: Total time spent is greater than 50% in coordination of care (as documented) at patient's floor/unit and/or counseling patient: Time with patient: 15 - 24 minutes
[2020-12-27] MEDS: fentaNYL citrate/NS 1,000 MCG/100 ML PLAST..BAG 20 MCG IVCONT (23:40)
[2020-12-28] VITALS (32 sets, daily range): BP systolic 98–126; BP diastolic 40–69; PULSE 52–114; RESP 21–28; TEMP 37.7–38.3; O2SAT 87–97
[2020-12-28] MEDS: fentaNYL citrate/NS 1,000 MCG/100 ML PLAST..BAG 30 MCG IVCONT ×2 (03:51→06:16)
[2020-12-28] MEDS: propofoL 1,000 MG/100 ML VIAL 25.5 MG IVCONT ×7 (03:51→23:50)
[2020-12-28] MEDS: cefEPime HCl 2 GM in 0.9 % Sodium Chloride 50 ML IV ×3 (04:13→19:58)
[2020-12-28 05:49] LABS: VBG HCO3 20 mmol/L (22-26); VBG pCO2 35 mmHg; VBG pH 7.37 (7.32-7.43); VBG pO2 53 mmHg
[2020-12-28 06:31] LABS: Anion Gap 18 (12-20); Blood Urea Nitrogen 26 mg/dL (9-16); Calcium 8.1 mg/dL (8.4-10.2); Carbon Dioxide 20 mmol/L (22-29); Chloride 109 mmol/L (96-108); Creatinine Clr Calc Pharmacy 113.8; Estimated Glomerular Filt Rate > 60; Glucose Random 196 mg/dL (60-115); Magnesium 2.5 mg/dL (1.6-2.6); Phosphorus 3.4 mg/dL (2.7-4.5); Potassium 4.6 mmol/L (3.3-5.1); Sodium 142 mmol/L (135-145)
[2020-12-28 06:58] LABS: Basophils Absolute Auto 0.1 X10*3/uL (0.0-0.2); Basophils Percent Auto 0.3 % (0-2); Eosinophils Percent Auto 0.1 % (0-4); Hematocrit 38.6 % (42-52); Imm Gran Abs Auto 0.47 X10*3/uL (0.00-0.03); Imm Gran Pct Auto 2.6 % (0.0-0.4); Lymphocytes Absolute Auto 2.2 X10*3/uL (1.2-4.9); Lymphocytes Percent Auto 12.2 % (20-40); MANUAL DIFF FLAG SCAN; Mean Corpuscular HGB Conc 31.1 g/dl (31.0-36.0); Mean Corpuscular Hemoglobin 28.8 pg (27.0-33.0); Mean Corpuscular Volume 92.6 fL (80-98); Mean Platelet Volume 11.1 fL (9.4-12.4); Monocytes Absolute Auto 1.3 X10*3/uL (0.1-1.2); Monocytes Percent Auto 7.1 % (2-11); Neutrophils Absolute Auto 13.9 X10*3/uL (2.0-8.3); Neutrophils Percent Auto 77.7 % (45-73); Platelet Count 317 X10*3/uL (160-400); Red Blood Count 4.17 X10*6/uL (4.60-5.80); Red Cell Distribution Width 18.2 % (11.0-16.0); SCAN SMEAR FLAG 1; White Blood Count 17.9 X10*3/uL (4.8-10.8)
[2020-12-28 06:59] LABS: SLIDE REVIEW VERIFIED
[2020-12-28 07:01] LABS: Venous Blood Gas Refer to POC result
[2020-12-28 08:00] LABS: INTERNATIONAL NORM RATIO 1.1 (0.9-1.1); Prothrombin Time 12.6 SEC (10.8-13.0)
[2020-12-28 08:05] LABS: Partial Thromboplastin Time 25.5 SEC (24.1-38.0)
[2020-12-28] MEDS: dexAMETHasone sod phosphate 4 MG/ML VIAL 6 MG IVPUSH (08:09)
[2020-12-28] MEDS: Chlorhexidine Gluc Oral Rinse 15 ML MOUTHWASH BUCCAL ×3 (08:10→19:58)
[2020-12-28] MEDS: Doxycycline Hyclate 100 MG in 0.9 % Sodium Chloride 250 ML 166.67 MG IV ×2 (08:10→19:58)
[2020-12-28] MEDS: Enoxaparin Sodium 40 MG/0.4 ML SYRINGE SUBCUT (08:11)
[2020-12-28 08:32] LABS: D Dimer 11800 NG/ML
[2020-12-28] MEDS: fentaNYL citrate/NS 1,000 MCG/100 ML PLAST..BAG 20 MCG IVCONT ×3 (11:00→19:58)
--- NOTE | 2020-12-28 12:24 | PC.NURSE ---
0912 pt satting 85-87% consistency. increased FIO2 to 80%. Pt satting 90%+. Md and respiratory aware
--- NOTE | 2020-12-28 14:07 | PM.CCPN ---
Subjective Subjective Date of Service: 12/28/20 Interval History: 65-year-old male with significant background disease which is mixed connective tissue with features of lupus on 3 immunosuppressive drugs including hydroxychloroquine and methotrexate and an anti IL 6 monoclonal antibody and I only held methotrexate DM because he came in with COVID-19 bilateral pneumonitis with ARDS and hypoxic respiratory failure and yesterday saturations fell into the 30s the became highly agitated with his delirium and then he was sedated intubated easily since the no still requiring high FiO2 modest minute ventilation of about 12 liters/minute doing stably well and currently has an oxygen saturation of 95% heart rate of 60 and has blood pressure of 110/50 with respiratory rate of 24 Physical Exam Vital Signs: Vital Signs: Last Vital Signs Temp 100.8 F H 12/28/20 14:00 Pulse 61 12/28/20 14:00 Resp 24 H 12/28/20 14:00 BP 109/50 L 12/28/20 14:00 Pulse Ox 95 12/28/20 14:00 Body Mass Index 30.2 Const: Other: Sedated and intubated Skin does not have active cellulitis or open wound but many healed in brown necrotic areas which could be healed and erythemic nodosum Abdomen is benign with good bowel sounds and soft with no organomegaly and he is asplenic Chest percussed equally and with no adventitious sounds Cardiac exam with no gallops or murmurs no neck vein distension and a normal CVP and good bilateral carotid upstrokes Objective Data Labs CBC & Chem 7: 12/28/20 05:00 12/28/20 05:40 Labs: Laboratory Results - last 24 hr 12/28/20 12/28/20 12/28/20 05:00 05:00 05:40 WBC 17.9 H RBC 4.17 L Hgb 12.0 L Hct 38.6 L MCV 92.6 MCH 28.8 MCHC 31.1 RDW 18.2 H Plt Count 317 MPV 11.1 Immature Gran % (Auto) 2.6 H Neut % (Auto) 77.7 H Lymph % (Auto) 12.2 L [place] % (Auto) 7.1 Eos % (Auto) 0.1 Baso % (Auto) 0.3 Lymph # (Auto) 2.2 [place] # (Auto) 1.3 H Eos # (Auto) 0.0 Baso # (Auto) 0.1 Abs Immat Gran (auto) 0.47 H Absolute Neuts (auto) 13.9 H Absolute Nucleated RBC 0.180 H Nucleated RBC % (auto) 1.0 H Smear Tech's Comments VERIFIED PT Cancelled INR Cancelled APTT Cancelled D-Dimer Cancelled VBG pH VBG pCO2 VBG pO2 VBG HCO3 VBG O2 Saturation VBG Base Excess Sodium 142 Potassium 4.6 Chloride 109 H Carbon Dioxide 20 L Anion Gap 18 BUN 26 H Creatinine 0.67 Estim Creat Clear Calc 113.8 Estimated GFR > 60 Random Glucose 196 H D Calcium 8.1 L D Phosphorus 3.4 Magnesium 2.5 12/28/20 12/28/20 05:43 07:43 WBC RBC Hgb Hct MCV MCH MCHC RDW Plt Count MPV Immature Gran % (Auto) Neut % (Auto) Lymph % (Auto) [place] % (Auto) Eos % (Auto) Baso % (Auto) Lymph # (Auto) [place] # (Auto) Eos # (Auto) Baso # (Auto) Abs Immat Gran (auto) Absolute Neuts (auto) Absolute Nucleated RBC Nucleated RBC % (auto) Smear Tech's Comments PT 12.6 INR 1.1 APTT 25.5 D-Dimer 35045 VBG pH 7.37 VBG pCO2 35 VBG pO2 53 VBG HCO3 20 L VBG O2 Saturation 81.0 VBG Base Excess TNP Sodium Potassium Chloride Carbon Dioxide Anion Gap BUN Creatinine Estim Creat Clear Calc Estimated GFR Random Glucose Calcium Phosphorus Magnesium Microbiology Microbiology Results: Microbiology 12/27/20 15:58 Bronch, Not Specified Gram Stain - Final 12/27/20 15:58 Bronch, Not Specified - Preliminary Staphylococcus aureus 12/23/20 20:10 Blood - Venous Blood Culture - Preliminary No growth after 48 hours. 12/23/20 19:46 Blood - Venous Blood Culture - Preliminary No growth after 48 hours. Progress Note: A&P Assessment and plan (1) Asplenia after surgical procedure: Status: Acute (2) Antiphospholipid antibody positive: Status: Acute (3) Mixed connective tissue disease: Status: Acute (4) Acute respiratory failure with hypoxia: Problem details: He has mixed connective tissue disease and antiphospholipid antibody syndrome and asplenia He is on Remdesivir He has worsening pneumonia,possible atypical or opportunistic infection and also COVID Status: Acute (5) Precordial chest pain: Status: Acute (6) SOB (shortness of breath): Status: Acute (7) Patella fracture: Status: Acute (8) Pneumonia due to 2019-nCoV: Status: Acute (9) Hypoxia: Status: Acute (10) Chest pain: Status: Acute (11) Pain management: Problem details: cont current regimen; 20 min reviewing chart evaluating patient and documenting Status: Acute (12) Dysphagia: Status: Acute (13) History of adenomatous polyp of colon: Problem details: Five adenomatous colon polyps were removed during last colonoscopy in [place] [address] Mary. Repeat colonoscopy is advised in 3 years and will be due in September 2020. Status: Acute (14) GERD (gastroesophageal reflux disease): Problem details: on pantoprazole 40 mg twice daily Status: Acute (15) NAFL (nonalcoholic fatty liver): Status: Acute Assessment and Plan: So yesterday because of the multiple immune suppressing issues and of course he remains on hydroxychloroquine now with the addition of Decadron and the anti IL 6 antibody I did a bronchoscopy with lavage and sent samples off for Pneumocystis Legionella mycobacterial disease and fungal bacterial etc. all of which is pending and he is being covered with cefepime and doxycycline for now per Infectious Disease Time Spent With Patient Time: Total time spent is greater than 50% in coordination of care (as documented) at patient's floor/unit and/or counseling patient: Total time spent with greater than 50% in coordination of care (as documented) at patient's floor/unit and/or counseling patient:: 35
--- NOTE | 2020-12-28 16:36 | MHC.CM.PN ---
Pt transfered to ICU on 12/27 d/t worsening respiratory function r/t COVID: Now on ventilatory support with pending blood and sputum cx. Pt was independent prior to admission. CM will follow for determination of d/c needs based on his clinical progress
--- NOTE | 2020-12-28 19:04 | PC.NURSE ---
PTS IS COVID+ AND ADMITTED TO THE HOSPTIAL. PTS GRANDDAUGHTER ARTEMIO CALLED AND UPDATE GIVEN. PHONE NUMBER ADDED TO CONTACT LIST.
--- NOTE | 2020-12-28 19:27 | PC.NURSE ---
Pt sedated with Fentanyl and Propofol per emar. Pt has positive cough/gag. T Max 100.9, VSS on levophed per emar for support. Increased FIO2 from 75% to 80%, pt satting 90-95%, AC rate 24, TV 500, peep 10, scant secretions inline. U/O wnl, smear of BM, tube feedings at max rate with 120ml of water flushes q4hr. Pt had multiple scabs all over body, bath given, barrier cream applied, repo q2hr, prevalon mattress, airloss bed used. Family updated by other RN.
[2020-12-28] MEDS: Midazolam HCl/NS 50 MG/50 ML PLAST..BAG IVCONT (21:56)
[2020-12-29] VITALS (30 sets, daily range): BP systolic 89–148; BP diastolic 28–74; PULSE 53–120; RESP 10–28; TEMP 37.6–38.4; O2SAT 88–98; BMI 30.2
--- NOTE | 2020-12-29 | ECG_ITS ---
Test Reason : arythmia Blood Pressure : / mmHG Vent. Rate : 067 BPM Atrial Rate : 067 BPM P-R Int : 118 ms QRS Dur : 084 ms QT Int : 438 ms P-R-T Axes : -01 007 041 degrees QTc Int : 462 ms Sinus rhythm with Premature atrial complexes Borderline ECG When compared with ECG of 23-DEC-2020 19:28, Premature atrial complexes are now Present Referred By: Joshua Bauer Electronically Signed By:SHAWN RAY
[2020-12-29] MEDS: fentaNYL citrate/NS 1,000 MCG/100 ML PLAST..BAG 20 MCG IVCONT (02:24)
[2020-12-29] MEDS: propofoL 1,000 MG/100 ML VIAL 25.5 MG IVCONT ×3 (02:58→10:53)
[2020-12-29] MEDS: cefEPime HCl 2 GM in 0.9 % Sodium Chloride 50 ML IV ×2 (02:58→12:16)
[2020-12-29 05:42] LABS: Venous Blood Gas Refer to POC result
[2020-12-29 05:50] LABS: VBG Base Excess 1.2 mmol/L; VBG HCO3 27 mmol/L (22-26); VBG pCO2 47 mmHg; VBG pH 7.36 (7.32-7.43); VBG pO2 67 mmHg
--- NOTE | 2020-12-29 06:39 | PC.NURSE ---
Addendum entered by Octavia Raya RN 12/29/20 06:42: Versed gtt started at set rate 2mg/hr. Patient remains restrained for line and tube safety. Original Note: Around 1999, patient's propofol pump alarming. Patient found with both legs out of bed on the floor, agitated, attempting to get out of bed. RR 40's. Satting in the 60's. Patient recovered quickly once sedation restarted.
[2020-12-29 06:48] LABS: Basophils Absolute Auto 0.1 X10*3/uL (0.0-0.2); Basophils Percent Auto 0.3 % (0-2); Eosinophils Absolute Auto 0.1 X10*3/uL (0.0-0.4); Eosinophils Percent Auto 0.3 % (0-4); Hematocrit 35.3 % (42-52); Imm Gran Abs Auto 0.81 X10*3/uL (0.00-0.03); Imm Gran Pct Auto 4.5 % (0.0-0.4); Lymphocytes Absolute Auto 2.2 X10*3/uL (1.2-4.9); MANUAL DIFF FLAG SCAN; Mean Corpuscular HGB Conc 31.2 g/dl (31.0-36.0); Mean Corpuscular Hemoglobin 29.2 pg (27.0-33.0); Mean Corpuscular Volume 93.6 fL (80-98); Mean Platelet Volume 11.6 fL (9.4-12.4); Monocytes Absolute Auto 1.3 X10*3/uL (0.1-1.2); Neutrophils Absolute Auto 13.7 X10*3/uL (2.0-8.3); Neutrophils Percent Auto 75.9 % (45-73); Platelet Count 279 X10*3/uL (160-400); Red Blood Count 3.77 X10*6/uL (4.60-5.80); Red Cell Distribution Width 18.5 % (11.0-16.0); SCAN SMEAR FLAG 1
[2020-12-29 06:50] LABS: NRBC Pct Auto 1.1 /100WBC (0.0-0.2)
[2020-12-29 07:08] LABS: Anion Gap 13 (12-20); Blood Urea Nitrogen 15 mg/dL (9-16); Calcium 7.5 mg/dL (8.4-10.2); Carbon Dioxide 25 mmol/L (22-29); Chloride 110 mmol/L (96-108); Creatinine Clr Calc Pharmacy 133.8; Estimated Glomerular Filt Rate > 60; Glucose Random 213 mg/dL (60-115); Magnesium 2.2 mg/dL (1.6-2.6); Potassium 4.4 mmol/L (3.3-5.1); Sodium 144 mmol/L (135-145)
[2020-12-29 07:24] LABS: Phosphorus 1.9 mg/dL (2.7-4.5)
[2020-12-29 07:48] LABS: SLIDE REVIEW VERIFIED
[2020-12-29 08:22] LABS: D Dimer 10400 NG/ML
[2020-12-29] MEDS: Doxycycline Hyclate 100 MG in 0.9 % Sodium Chloride 250 ML 166.67 MG IV (08:42)
[2020-12-29] MEDS: Aspirin 81 MG TAB.CHEW PO (08:42)
[2020-12-29] MEDS: dexAMETHasone sod phosphate 4 MG/ML VIAL 6 MG IVPUSH (08:43)
[2020-12-29] MEDS: Chlorhexidine Gluc Oral Rinse 15 ML MOUTHWASH BUCCAL ×3 (08:43→19:52)
[2020-12-29] MEDS: Enoxaparin Sodium 40 MG/0.4 ML SYRINGE SUBCUT ×2 (08:43→19:50)
[2020-12-29] MEDS: Folic Acid 1 MG TABLET PO (08:44)
--- NOTE | 2020-12-29 12:03 | P.PNCC_ITS ---
Subjective Subjective Date of Service: 12/29/20 Interval History: Mr. Lombardo was transferred to ICU on December 27 with acute respiratory failure 2? COVID pneumonia. This is a 65-year-old male with extensive past medical history that includes mixed connective tissue disease and antiphospholipid syndrome, on hydroxychloroquine, methotrexate, Sarilumab (IL6 inhibitor) and Aspirin at home. The patient is status post splenectomy. On December 23 presented to the hospital with shortness of breath and cough for the prior 1 week. Had contact with COVID patient. Sat was 70% on room air by EMS. On arrival to the ED was placed on high-flow, sat?ing 90-95%. COVID-19 positive. Renal indices normal. CT showed multifocal extensive ground-glass infiltrates consistent with COVID. CT angio showed no evidence of PE. On my reading, I thought the RV was slightly enlarged. Transthoracic echo done one week prior to admission showed normal LV function with EF 65-70%, normal right ventricular cavity size and function, no valvular pathology, normal IVC, and RVSP 19 mm. The patient was admitted to medicine and treated with Decadron. He got 3 days of remdesivir. Despite that, his oxygenation deteriorated, and he was transferred to the ICU on December 27 and intubated. He spiked a temperature that day. He was started on empiric cefepime and doxycycline. He underwent bronchoscopy, which showed 2+ polys and 1+ Gram-positive cocci, which has since grown out less than 10,000 CFU staph aureus. He has been requiring 70-80% FiO2 on the ventilator. Bedside echo done yesterday by Dr. anette Lemus showed mild right ventricular dilatation. On exam today, he is heavily sedated on propofol 40 mcg and fentanyl at 200 mcg. He was dyssynchronous with the ventilator so we changed him from volume control to pressure support. On pressure support 12 cm, respiratory rate was about 13, with tidal volumes of a 1000 cc. We therefore turned the fentanyl off. We tried multiple vent setting adjustments to get him synchronous. He finally did best on pressure control. On PC 26, pressures 18/12, 70%, RR is 26, Vt 470cc, Ve 14L, PIP 32, Ppl 25, Sat 97%, CVBG showed 7.39/40/0. HR is 73, BP 102/45, Tmax 101.1. He?s been febrile since December 26. Pupils are equal round 3mm. No JVD at 30 degrees. Chest is clear to auscultation, with normal expiratory phase. Heart rate and rhythm are regular, with normal-sounding S1 and S2, with no murmur or gallops. Abdomen is soft and benign. There is no significant peripheral edema. Neuro exam is nonfocal/non interactive. LABORATORY DATA: As below. Notably, D-dimer is 10,000. Notably, the patient had a D-dimer level of 16,000 1 year ago. (Unclear what was happening at that time, but the patient was not admitted to the hospital.) Ferritin and CRP levels are relatively low. We IMPRESSION: 1. Underlying mixed connective tissue disease, on above meds at home, including methotrexate. Methotrexate was stopped on admission, fortunately. (Methotrexate plus high FiO2 causes pulmonary interstitial fibrosis.) 2. Underlying antiphospholipid syndrome. Anticoagulated with ASA. 3. Bilat COVID-19 pneumonia. 4. Acute respiratory failure. Secondary to above. 5. Very elevated D-dimer. Mild ventral right ventricular dilatation on Dr. Jimenez?s echo. ?need to r/o PE. The echo may be c/w the initial CT, which was negative for PE. I will duplex his legs, and send BNP and trop and initial screening. 6. Anticoagulation/DVT prophylaxis: Given clotting propensity from his antiphospholipid syndrome, now added to COVID, I will up his prophylactic anticoagulation to Lovenox ? mg/kg bid. Continue the aspirin. 7. Hyperglycemia. Started on an insulin drip. 8. Hypernatremia. Increase free water flushes. 9. ID: Febrile with leukocytosis. The leukocytosis is explainable from the steroids. With the new fever, the patient was started on empiric antibiotics. The Staph aureus is almost certainly a colonizer, may well be MRSA. I will d/c the cefepime and just continue the doxy. 10. Nutrition. On full dose tube feeds. Prognosis is guarded. But at least he only has single organ dysfxn at this moment. Critical care time (including full chart review, and hospital course summary): 75+ minutes. Physical Exam Vital Signs: Vital Signs: Last Vital Signs Temp 100.6 F H 12/29/20 10:00 Pulse 60 12/29/20 11:00 Resp 23 H 12/29/20 11:00 BP 120/56 L 12/29/20 11:00 Pulse Ox 92 12/29/20 11:00 Body Mass Index 30.2 Objective Data Labs CBC & Chem 7: 12/29/20 05:35 12/29/20 05:35 Labs: Laboratory Results - last 24 hr 12/29/20 12/29/20 12/29/20 05:35 05:35 05:35 WBC 18.0 H RBC 3.77 L Hgb 11.0 L Hct 35.3 L MCV 93.6 MCH 29.2 MCHC 31.2 RDW 18.5 H Plt Count 279 MPV 11.6 Immature Gran % (Auto) 4.5 H Neut % (Auto) 75.9 H Lymph % (Auto) 12.0 L [place] % (Auto) 7.0 Eos % (Auto) 0.3 Baso % (Auto) 0.3 Lymph # (Auto) 2.2 [place] # (Auto) 1.3 H Eos # (Auto) 0.1 Baso # (Auto) 0.1 Abs Immat Gran (auto) 0.81 H Absolute Neuts (auto) 13.7 H Absolute Nucleated RBC 0.200 H Nucleated RBC % (auto) 1.1 H Smear Tech's Comments VERIFIED D-Dimer 51086 VBG pH VBG pCO2 VBG pO2 VBG HCO3 VBG O2 Saturation VBG Base Excess Sodium 144 Potassium 4.4 Chloride 110 H Carbon Dioxide 25 Anion Gap 13 BUN 15 Creatinine 0.57 Estim Creat Clear Calc 133.8 Estimated GFR > 60 Random Glucose 213 H Calcium 7.5 L D Phosphorus 1.9 L Magnesium 2.2 12/29/20 05:44 WBC RBC Hgb Hct MCV MCH MCHC RDW Plt Count MPV Immature Gran % (Auto) Neut % (Auto) Lymph % (Auto) [place] % (Auto) Eos % (Auto) Baso % (Auto) Lymph # (Auto) [place] # (Auto) Eos # (Auto) Baso # (Auto) Abs Immat Gran (auto) Absolute Neuts (auto) Absolute Nucleated RBC Nucleated RBC % (auto) Smear Tech's Comments D-Dimer VBG pH 7.36 VBG pCO2 47 VBG pO2 67 VBG HCO3 27 H VBG O2 Saturation 92.0 VBG Base Excess 1.2 Sodium Potassium Chloride Carbon Dioxide Anion Gap BUN Creatinine Estim Creat Clear Calc Estimated GFR Random Glucose Calcium Phosphorus Magnesium Microbiology Microbiology Results: Microbiology 12/27/20 15:58 Bronch, Not Specified Gram Stain - Final 12/27/20 15:58 Bronch, Not Specified - Final Staphylococcus aureus 12/23/20 20:10 Blood - Venous Blood Culture - Final No growth after 5 days. 12/23/20 19:46 Blood - Venous Blood Culture - Final No growth after 5 days. Progress Note: A&P Time Spent With Patient Time: Total time spent is greater than 50% in coordination of care (as d ocumented) at patient's floor/unit and/or counseling patient: Total time spent with greater than 50% in coordination of care (as documented) at patient's floor/unit and/or counseling patient:: 0 Critical Care Time Critical Care Time (minutes): 90
[2020-12-29] MEDS: Sodium,Potassium Phosphates POWD.PACK 2 PACKET PO (12:15)
[2020-12-29] MEDS: fentaNYL citrate/NS 1,000 MCG/100 ML PLAST..BAG 10 MCG IVCONT (12:31)
[2020-12-29] MEDS: Ascorbic Acid 500 MG TABLET 1000 MG G-TUBE ×2 (15:11→19:55)
[2020-12-29] MEDS: methylPREDNISolone Sod Succ 125 MG/2 ML VIAL 80 MG IVPUSH (15:12)
[2020-12-29] MEDS: Cholecalciferol (Vitamin D3) 25 MCG TABLET 50 MCG NG-TUBE (15:12)
[2020-12-29] MEDS: Atorvastatin Calcium 80 MG TABLET G-TUBE (15:12)
[2020-12-29 16:01] LABS: Glucose, Whole Blood 322 mg/dL (60-115)
[2020-12-29] MEDS: Insulin Lispro 100 UNIT/ML 3 ML VIAL SUBCUT (16:06)
[2020-12-29] MEDS: propofoL 1,000 MG/100 ML VIAL 15.3 MG IVCONT ×2 (16:06→19:51)
[2020-12-29] MEDS: Insulin Regular/NS 100 UNIT/100 ML PLAST..BAG 6 UNIT IVCONT (16:41)
[2020-12-29 16:48] LABS: VBG Base Excess 0.3 mmol/L; VBG HCO3 25 mmol/L (22-26); VBG pCO2 40 mmHg; VBG pH 7.39 (7.32-7.43); VBG pO2 48 mmHg
[2020-12-29 17:58] LABS: Glucose, Whole Blood 245 mg/dL (60-115)
[2020-12-29 18:48] LABS: Venous Blood Gas Refer to POC result
[2020-12-29 19:43] LABS: Lactic Acid 2.6 mmol/L (0.5-2.0)
[2020-12-29 19:46] LABS: B Type Natriuretic Peptide 107 pg/mL (<100); Troponin-I High Sensitivity < 3.5 ng/L (<3.5-35.0)
[2020-12-29] MEDS: Doxycycline Hyclate 100 MG in 0.9 % Sodium Chloride 250 ML 125 MG IV (19:52)
[2020-12-29] MEDS: Thiamine HCL 100 MG TABLET 200 MG G-TUBE (19:55)
[2020-12-29] MEDS: Melatonin 3 MG TABLET 9 MG PO (19:55)
--- NOTE | 2020-12-29 20:27 | PC.NURSE ---
Addendum entered by Cheikh Franklin RN 12/29/20 20:46: patient had lispro ordered q6 hours, discussed with MD, and started at 1800; took POC in response to patient diaphorsis around 1600; this was 322; discussed with MD, gave 8 units lispro per sliding scale, then started insulin gtt at 6 units per hour per MD, and titrated insulin gtt subsequently per MD. MD also ordered VBGs to assess related to diaphoresis. Original Note: assumed care at 0700; patient was on versed, fentanyl, propofol gtts; the versed was discontinued by MD; the patient was very agitated with repositioning, appeared anxious, reaching for endo-tube, pulling restraints, every time he is repositioned, his monitor car operator goes from sinus bradycardia in the 50's to sinus tachycardia in the 120's. Sedation titirated per MD with good effect. vent settings titirated numerous times by MD and RT to accomodate that patient is stacking breaths. Patient did not tolerate bilevel settings, is now on pressure control; ETT #8; 26 cm padma; rate 20 (lowered from 26 this evening); pressure inspiratory is 18; peep is 12; fio2 titrated down to 60% (from 70%); SPo2 was low during vent titirations: 83-87% range, but now is in the high to mid 90's; his respiratory pattern continues to be dysynchronous but seems improved. Patient BP have been low and Levophed has been increased steadily over the course of the day, now at 0.2; MAP goal is >65. patient urine outpute about 100 cc/hour. patient TF changed today at rounds from osmolite to Promote at max 60/hour, and h2o flushes increased to 300 cc q4 hours to attend to high normal serum sodium of 144. no BM, slight chino streaking. Skin intact but has papular scarring and scabs over buttocks, legs, abdomen; which MD says is related to antiphospholipid syndrome, and these are intact; patient also has large scar on abdomen which is intact. At shift change new orders for lactic acid, BNP, US of BLE.
[2020-12-29 21:07] LABS: Reflex Lactate? Lactic Acid Added
[2020-12-29 21:49] LABS: Glucose, Whole Blood 264 mg/dL (60-115)
[2020-12-29] MEDS: Famotidine 20 MG TABLET 40 MG PO (22:10)
[2020-12-30] VITALS (31 sets, daily range): BP systolic 94–147; BP diastolic 32–75; PULSE 54–110; RESP 12–37; TEMP 37.4–38.1; O2SAT 88–98
[2020-12-30] LABS: Glucose, Whole Blood 249 mg/dL (60-115)
[2020-12-30] MEDS: methylPREDNISolone Sod Succ 125 MG/2 ML VIAL 80 MG IVPUSH ×2 (02:06→12:16)
[2020-12-30] MEDS: fentaNYL citrate/NS 1,000 MCG/100 ML PLAST..BAG 10 MCG IVCONT (02:07)
[2020-12-30] MEDS: Ascorbic Acid 500 MG TABLET 1000 MG G-TUBE ×4 (02:07→19:26)
[2020-12-30] MEDS: propofoL 1,000 MG/100 ML VIAL 15.3 MG IVCONT ×2 (02:07→08:11)
--- NOTE | 2020-12-30 02:50 | PC.NURSE ---
sedated under the influences of propofol and fentanyl for ventilator harmony. propofol was briefly turned off resulting in an abrupt emergence and agitation. pt fighting ventilator necessitating propofol being restarted at 40mcg/kg/min. currently propofol at 30mcg/min. insulin drip is being adjusted by provider and is not following icu insulin protocol. poc have been in the 200s with insulin drip being titrated upward to 4ux/hr. pt does have eye opening. no tracking or focusing. will localize hands toward invasive lines. does not obey command. maintained on pressure control ventilation of 18 with ac rate of 20 peep 12 and fio2 60%. breath sounds diminished throughout. ecg displays sb-sr with pacs. with tactile stimulation heart rate will climb into the 120-130 bpm.
[2020-12-30 03:50] LABS: Glucose, Whole Blood 239 mg/dL (60-115)
[2020-12-30 05:56] LABS: VBG Base Excess 2.8 mmol/L; VBG HCO3 27 mmol/L (22-26); VBG pCO2 40 mmHg; VBG pH 7.43 (7.32-7.43); VBG pO2 50 mmHg
[2020-12-30 06:05] LABS: MANUAL DIFF FLAG NO
[2020-12-30 06:20] LABS: Venous Blood Gas Refer to POC result
[2020-12-30 06:31] LABS: Lactic Acid 2.5 mmol/L (0.5-2.0)
[2020-12-30 06:36] LABS: Alanine Aminotransferase 43 U/L (0-40); Alkaline Phosphatase 69 U/L (39-117); Anion Gap 12 (12-20); Aspartate Amino Transferase 45 U/L (5-37); Bilirubin Total 0.8 mg/dL (0.0-1.0); Blood Urea Nitrogen 15 mg/dL (9-16); Calcium 8.1 mg/dL (8.4-10.2); Carbon Dioxide 30 mmol/L (22-29); Chloride 103 mmol/L (96-108); Creatinine Clr Calc Pharmacy 138.7; Estimated Glomerular Filt Rate > 60; Glucose Random 190 mg/dL (60-115); Potassium 4.3 mmol/L (3.3-5.1); Sodium 141 mmol/L (135-145); Total Protein 5.5 g/dL (6.5-8.0)
[2020-12-30 06:53] LABS: Procalcitonin 0.13 ng/mL
[2020-12-30 08:03] LABS: Reflex Lactate? Lactic Acid Added
[2020-12-30] MEDS: Atorvastatin Calcium 80 MG TABLET G-TUBE (08:09)
[2020-12-30] MEDS: Famotidine 20 MG TABLET 40 MG PO ×2 (08:09→21:08)
[2020-12-30] MEDS: Enoxaparin Sodium 40 MG/0.4 ML SYRINGE SUBCUT ×2 (08:09→21:11)
[2020-12-30 08:10] LABS: Basophils Percent Auto 0.2 % (0-2); Hematocrit 37.1 % (42-52); Hemoglobin 11.3 g/dl (14.0-18.0); Imm Gran Abs Auto 0.99 X10*3/uL (0.00-0.03); Lymphocytes Absolute Auto 1.9 X10*3/uL (1.2-4.9); Lymphocytes Percent Auto 9.6 % (20-40); Mean Corpuscular HGB Conc 30.5 g/dl (31.0-36.0); Mean Corpuscular Hemoglobin 28.3 pg (27.0-33.0); Mean Corpuscular Volume 92.8 fL (80-98); Neutrophils Absolute Auto 15.8 X10*3/uL (2.0-8.3); Neutrophils Percent Auto 80.2 % (45-73); Platelet Count 269 X10*3/uL (160-400); White Blood Count 19.8 X10*3/uL (4.8-10.8)
[2020-12-30] MEDS: Cholecalciferol (Vitamin D3) 25 MCG TABLET 50 MCG NG-TUBE (08:10)
[2020-12-30 08:11] LABS: NRBC Pct Auto 1.5 /100WBC (0.0-0.2)
[2020-12-30] MEDS: Aspirin 81 MG TAB.CHEW PO (08:11)
[2020-12-30] MEDS: Folic Acid 1 MG TABLET PO (08:11)
[2020-12-30] MEDS: Chlorhexidine Gluc Oral Rinse 15 ML MOUTHWASH BUCCAL ×3 (08:11→21:08)
[2020-12-30] MEDS: Doxycycline Hyclate 100 MG in 0.9 % Sodium Chloride 250 ML 166.67 MG IV ×2 (08:11→19:25)
[2020-12-30] MEDS: Thiamine HCL 100 MG TABLET 200 MG G-TUBE ×2 (09:06→21:08)
[2020-12-30 09:27] LABS: ~Lactic Acid-LAB USE ONLY 2.6 mmol/L (0.5-2.0)
[2020-12-30 09:57] LABS: Glucose, Whole Blood 271 mg/dL (60-115)
--- NOTE | 2020-12-30 10:01 | MHC.CLN ---
F/U PT RECEIVING PROMOTE AT MAX GOAL RATE 60CC/HR WITH 300CC FREE WATER FLUSHES Q 4HRS PROVIDES 1440KCALS (1844 WITH SEDATION; 26KCALS/KG BASED ON CMW), 90G PROTEIN (1.25G/KG), 3008CC FREE WATER FROM FORMULA AND FLUSHES (42CC/KG) RECOMMEND DECREASE IN FREE WATER FLUSHES TO 240CC FREE WATER FLUSHES Q 6HRS TO PROVIDE 2168CC TOTAL WATER FROM FORMULA AND FLUSHES (30CC/HR) MONITOR TOLERANCE, RESIDUALS AND LYTES
[2020-12-30 10:56] LABS: Cancel Lactic Acid Canceled
[2020-12-30] MEDS: propofoL 1,000 MG/100 ML VIAL 17.85 MG IVCONT (12:15)
[2020-12-30] MEDS: Insulin Regular/NS 100 UNIT/100 ML PLAST..BAG IVCONT (12:16)
[2020-12-30] MEDS: Hydroxychloroquine Sulfate 200 MG TABLET PO ×2 (12:16→21:09)
--- NOTE | 2020-12-30 12:26 | MHC.CDI.CONC ---
CDI Concurrent Query Service Date: 12/30/20 Documentation Clarification: BY DEFINITION, HE HAS VIRAL SEPSIS. Please clarify if you are treating a probable/suspected/likely or confirmed: Viral Sepsis POA Yes or No, not treating Please specify if known Provider Response: Pneumonia PLEASE DO NOT DELETE/MODIFY EXISTING CONTENT Additional information is needed in order to code to the highest accuracy and appropriate Severity of Illness (SOI). Please clarify the information noted below in your progress notes and discharge summary. Risk Factors/Clinical Indicators/Treatments PN: 12/29 - possible atypical pneumonia or opportunistic infection or Covid 19 ID: febrile with leukocytosis, explainable from steroids, with the new fever the patient was started on empiric antibiotics. The staph aureus is most certainly a colonizer, may well be MRSA. Tmax 101.1 febrile low since 12/26 HR 110 RR 31 LA 2.6 2.5 WBC 19.8 CDS: Chaparrita Garg, CCS, CDIS Contact Number: [phone] Please Review the information above and exercise your independent professional judgment in responding to the query. If you concur, pleas document in the PROGRESS NOTES and DISCHARGE SUMMARY. If you do not agree with the query, please document in the query above. THIS QUERY IS PART OF THE PERMANENT MEDICAL RECORD
[2020-12-30 14:10] LABS: Glucose, Whole Blood 189 mg/dL (60-115)
--- NOTE | 2020-12-30 15:05 | MHC.CM.PN ---
Pt remains intubated in ICU secondary to COVID. Per discussion in ICU rounds: Pt will have steroid med changes today and be reassessed for progress and response on 12/31. No plans for extubation or peg/trach placement. CM spoke with pt's grand dtr Carmita to give an update - of note, pt's (and HCP on file) is hospitalized here on C. She is able to make decisions on pt's behalf should she need to however, Carmita asks that she be called first to inform her so that she can be present to assist her grandmother. Pt's ultimate d/c plans will depend on his ability to wean from vent support. He was independent at home prior to admission. Will follow on 12/31
[2020-12-30] MEDS: propofoL 1,000 MG/100 ML VIAL 25.5 MG IVCONT ×3 (15:48→23:05)
[2020-12-30 18:26] LABS: Glucose, Whole Blood 271 mg/dL (60-115)
--- NOTE | 2020-12-30 20:27 | P.PNCC_ITS ---
Subjective Subjective Date of Service: 12/30/20 Interval History: Mr. Lombardo was transferred to ICU on December 27 with acute respiratory failure 2? COVID pneumonia. This is a 65-year-old male with extensive past medical history that includes mixed connective tissue disease and antiphospholipid syndrome, on hydroxychloroquine, methotrexate, Sarilumab (IL6 inhibitor) and Aspirin at home. The patient is status post splenectomy. On December 23 presented to the hospital with shortness of breath and cough for the prior 1 week. Had contact with COVID patient. Sat was 70% on room air by EMS. On arrival to the ED was placed on high-flow, sat?ing 90-95%. COVID-19 positive. Renal indices normal. CT showed multifocal extensive ground-glass infiltrates consistent with COVID. CT angio showed no evidence of PE. On my reading, I thought the RV was slightly enlarged. Transthoracic echo done one week prior to admission was read as showing normal LV function with EF 65-70%, normal right ventricular cavity size and function, no valvular pathology, normal IVC, and RVSP 19 mm. The patient was admitted to medicine and treated with Decadron. He got 3 days of remdesivir. Despite that, his oxygenation deteriorated, and he was transferred to the ICU on December 27 and intubated. He spiked a temperature that day. He was started on empiric cefepime and doxycycline. He underwent bronchoscopy, which showed 2+ polys and 1+ Gram-positive cocci, which has since grown out less than 10,000 CFU staph aureus. He has been requiring 70-80% FiO2 on the ventilator. Bedside echo done yesterday by Dr. anette Lemus showed mild right ventricular dilatation. Exam today, is unchanged from yesterday. He is sedated on propofol 40 mcg and fentanyl at 200 mcg. When we turn propofol off, he wakes up fairly quickly, eyes open, but becomes extremely agitated and dyssynchronous with the vent ilator. We have him on pressure control ventilation, Pi 10cm, 70%/10cm PEEP, Vt 480cc, Ve 14L, Sat 95%. CVBG this morning showed 7.43/40/+2. He was dyssynchronous with the ventilator, with an underlying RR of about 13, with tidal vols 1L, so we turned the fentanyl off. See Vital Signs below. He?s on Levophed 0.03ug. Tmax 100.6. Pupils are equal round 3-4mm. No JVD at 30 degrees. Chest is clear to auscultation, with normal expiratory phase. Heart rate and rhythm are regular, with normal-sounding S1 and S2, with no murmur or gallops. Abdomen is soft and benign. There is no significant peripheral edema. Neuro exam is nonfocal/non interactive. Moves all 4 spontaneously with strength when he wakes up. LABORATORY DATA: As below. Notably, POCs in 200?s, on insulin drip. Lactic ac id borderline high. PCT 0.13D-dimer is 10,000. Notably, the patient had a D- dimer level of 16,000 1 year ago. (Unclear what was happening at that time, but the patient was not admitted to the hospital.) IMPRESSION: 1. Underlying mixed connective tissue disease, on above meds at home, including methotrexate. Methotrexate was stopped on admission, fortunately. (Methotrexate plus high FiO2 causes pulmonary interstitial fibrosis.) His monoclonal ab is stopped. I restarted his hydroxychloroquine. 2. Underlying antiphospholipid syndrome. Anticoagulated with ASA. 3. Bilat COVID-19 pneumonia. Added the [facility] COVID protocol: Bumped his steroids to Solu-Medrol 80 mg bid, added the ancillary meds. I also bumped his DVT prophylaxis to ? mg/kg bid bec he?s more susceptible to clotting. 4. Acute respiratory failure. Secondary to above. 5. Very elevated D-dimer. Mild ventral right ventricular dilatation on Dr. Jimenez?s echo. ?need to r/o PE. The echo may be c/w the initial CT, which was negative for PE. Duplex scan of his legs was negagive, troponin was neg, BNP was 107. Will not pursue PE diagnosis further. 6. Anticoagulation/DVT prophylaxis: Given clotting propensity from his antiphospholipid syndrome, now added to COVID, we upped his prophylactic anticoagulation to Lovenox ? mg/kg bid. Continue the aspirin. 7. Hyperglycemia. Started on an insulin drip. 8. Hypernatremia. Resolved w ree water flushes. 9. ID: Febrile with leukocytosis. The leukocytosis is explainable from the steroids. With the new fever, the patient was started on empiric antibiotics. The Staph aureus is almost certainly a colonizer, may well be MRSA. Continuing on only doxy. 10. Nutrition. On full dose tube feeds. 11. Neuropsych. Started him on Seroquel. Prognosis is guarded. But we got the FiO2 down to 60%. At least he only has single organ dysfxn at this moment. Critical care time: 60+ minutes. Physical Exam Vital Signs: Vital Signs: Last Vital Signs Temp 100.4 F 12/30/20 19:53 Pulse 95 12/30/20 19:53 Resp 37 H 12/30/20 19:53 BP 120/64 12/30/20 19:53 Pulse Ox 98 12/30/20 19:53 Body Mass Index 30.2 Objective Data Labs CBC & Chem 7: 12/30/20 05:45 12/30/20 05:45 Labs: Laboratory Results - last 24 hr 12/29/20 12/29/20 12/30/20 21:30 23:36 03:14 WBC RBC Hgb Hct MCV MCH MCHC RDW Plt Count MPV Immature Gran % (Auto) Neut % (Auto) Lymph % (Auto) [place] % (Auto) Eos % (Auto) Baso % (Auto) Lymph # (Auto) [place] # (Auto) Eos # (Auto) Baso # (Auto) Abs Immat Gran (auto) Absolute Neuts (auto) Absolute Nucleated RBC Nucleated RBC % (auto) VBG pH VBG pCO2 VBG pO2 VBG HCO3 VBG O2 Saturation VBG Base Excess Sodium Potassium Chloride Carbon Dioxide Anion Gap BUN Creatinine Estim Creat Clear Calc Estimated GFR POC Glucose 264 H 249 H 239 H Random Glucose Lactic Acid Lactic Acid Fup @ 2Hr Calcium Total Bilirubin AST ALT Alkaline Phosphatase Total Protein Albumin Procalcitonin 12/30/20 12/30/20 12/30/20 05:45 05:45 05:45 WBC RBC Hgb Hct MCV MCH MCHC RDW Plt Count MPV Immature Gran % (Auto) Neut % (Auto) Lymph % (Auto) [place] % (Auto) Eos % (Auto) Baso % (Auto) Lymph # (Auto) [place] # (Auto) Eos # (Auto) Baso # (Auto) Abs Immat Gran (auto) Absolute Neuts (auto) Absolute Nucleated RBC Nucleated RBC % (auto) VBG pH VBG pCO2 VBG pO2 VBG HCO3 VBG O2 Saturation VBG Base Excess Sodium 141 Potassium 4.3 Chloride 103 Carbon Dioxide 30 H Anion Gap 12 BUN 15 Creatinine 0.55 Estim Creat Clear Calc 138.7 Estimated GFR > 60 POC Glucose Random Glucose 190 H Lactic Acid 2.5 H* Lactic Acid Fup @ 2Hr Calcium 8.1 L D Total Bilirubin 0.8 AST 45 H D ALT 43 H Alkaline Phosphatase 69 Total Protein 5.5 L Albumin 3.0 L D Procalcitonin 0.13 12/30/20 12/30/20 12/30/20 05:45 05:50 08:34 WBC 19.8 H RBC 4.00 L Hgb 11.3 L Hct 37.1 L MCV 92.8 MCH 28.3 MCHC 30.5 L RDW 18.0 H Plt Count 269 MPV 12.0 Immature Gran % (Auto) 5.0 H Neut % (Auto) 80.2 H Lymph % (Auto) 9.6 L [place] % (Auto) 5.0 Eos % (Auto) 0.0 Baso % (Auto) 0.2 Lymph # (Auto) 1.9 [place] # (Auto) 1.0 Eos # (Auto) 0.0 Baso # (Auto) 0.0 Abs Immat Gran (auto) 0.99 H Absolute Neuts (auto) 15.8 H Absolute Nucleated RBC 0.300 H Nucleated RBC % (auto) 1.5 H VBG pH 7.43 VBG pCO2 40 VBG pO2 50 VBG HCO3 27 H VBG O2 Saturation 77.0 VBG Base Excess 2.8 Sodium Potassium Chloride Carbon Dioxide Anion Gap BUN Creatinine Estim Creat Clear Calc Estimated GFR POC Glucose Random Glucose Lactic Acid Lactic Acid Fup @ 2Hr 2.6 H* Calcium Total Bilirubin AST ALT Alkaline Phosphatase Total Protein Albumin Procalcitonin 12/30/20 12/30/20 12/30/20 09:45 14:01 18:03 WBC RBC Hgb Hct MCV MCH MCHC RDW Plt Count MPV Immature Gran % (Auto) Neut % (Auto) Lymph % (Auto) [place] % (Auto) Eos % (Auto) Baso % (Auto) Lymph # (Auto) [place] # (Auto) Eos # (Auto) Baso # (Auto) Abs Immat Gran (auto) Absolute Neuts (auto) Absolute Nucleated RBC Nucleated RBC % (auto) VBG pH VBG pCO2 VBG pO2 VBG HCO3 VBG O2 Saturation VBG Base Excess Sodium Potassium Chloride Carbon Dioxide Anion Gap BUN Creatinine Estim Creat Clear Calc Estimated GFR POC Glucose 271 H 189 H 271 H Random Glucose Lactic Acid Lactic Acid Fup @ 2Hr Calcium Total Bilirubin AST ALT Alkaline Phosphatase Total Protein Albumin Procalcitonin Microbiology Microbiology Results: Microbiology 12/27/20 15:58 Bronch, Not Specified Fungal Identification - Preliminary No growth to date. 12/27/20 15:58 Bronch, Not Specified Gram Stain - Final 12/27/20 15:58 Bronch, Not Specified - Final Staphylococcus aureus 12/23/20 20:10 Blood - Venous Blood Culture - Final No growth after 5 days. 12/23/20 19:46 Blood - Venous Blood Culture - Final No growth after 5 days. Progress Note: A&P Time Spent With Patient Time: Total time spent is greater than 50% in coordination of care (as documented) at patient's floor/unit and/or counseling patient: Total time spent with greater than 50% in coordination of care (as documented) at patient's floor/unit and/or counseling patient:: 0 Critical Care Time Critical Care Time (minutes): 60
[2020-12-30] MEDS: QUEtiapine Fumarate 50 MG TABLET G-TUBE (21:09)
[2020-12-30] MEDS: Melatonin 3 MG TABLET 9 MG PO (21:10)
[2020-12-30 21:59] LABS: Glucose, Whole Blood 230 mg/dL (60-115)
[2020-12-30 22:14] LABS: Glucose Urine UA NEG (NEG); Leukocyte Esterase Urine NEG (NEG); Nitrite Urine NEG (NEG); PH 6.5 (5.0-8.0); Urine Blood NEG (NEG); Urine Ketones NEG (NEG); Urine Protein NEG (NEG-TRACE)
[2020-12-30 22:16] LABS: Appearance Urine CLEAR; Color Urine YELLOW
[2020-12-30] MEDS: fentaNYL citrate/NS 1,000 MCG/100 ML PLAST..BAG 5 MCG IVCONT (23:05)
[2020-12-31] VITALS (36 sets, daily range): BP systolic 91–145; BP diastolic 41–74; PULSE 60–135; RESP 20–33; TEMP 37.5–39.1; O2SAT 87–97
[2020-12-31] MEDS: propofoL 1,000 MG/100 ML VIAL 25.5 MG IVCONT ×8 (02:45→22:58)
[2020-12-31 03:20] LABS: Glucose, Whole Blood 221 mg/dL (60-115)
[2020-12-31] MEDS: Ascorbic Acid 500 MG TABLET 1000 MG G-TUBE ×4 (03:59→21:30)
[2020-12-31] MEDS: methylPREDNISolone Sod Succ 125 MG/2 ML VIAL 80 MG IVPUSH ×2 (04:00→12:33)
[2020-12-31 05:49] LABS: VBG Base Excess 5.6 mmol/L; VBG HCO3 29 mmol/L (22-26); VBG pCO2 41 mmHg; VBG pH 7.46 (7.32-7.43); VBG pO2 52 mmHg
[2020-12-31 05:58] LABS: Basophils Percent Auto 0.2 % (0-2); Eosinophils Absolute Auto 0.1 X10*3/uL (0.0-0.4); Eosinophils Percent Auto 0.4 % (0-4); Hematocrit 34.7 % (42-52); Hemoglobin 10.8 g/dl (14.0-18.0); Imm Gran Abs Auto 1.01 X10*3/uL (0.00-0.03); Imm Gran Pct Auto 4.7 % (0.0-0.4); Lymphocytes Absolute Auto 2.9 X10*3/uL (1.2-4.9); Lymphocytes Percent Auto 13.5 % (20-40); MANUAL DIFF FLAG SCAN; Mean Corpuscular HGB Conc 31.1 g/dl (31.0-36.0); Mean Corpuscular Hemoglobin 28.5 pg (27.0-33.0); Mean Corpuscular Volume 91.6 fL (80-98); Mean Platelet Volume 11.2 fL (9.4-12.4); Monocytes Absolute Auto 1.6 X10*3/uL (0.1-1.2); Monocytes Percent Auto 7.5 % (2-11); Neutrophils Absolute Auto 15.8 X10*3/uL (2.0-8.3); Neutrophils Percent Auto 73.7 % (45-73); Platelet Count 280 X10*3/uL (160-400); Red Blood Count 3.79 X10*6/uL (4.60-5.80); SCAN SMEAR FLAG 1; White Blood Count 21.5 X10*3/uL (4.8-10.8)
[2020-12-31 06:03] LABS: NRBC Pct Auto 1.8 /100WBC (0.0-0.2)
[2020-12-31 06:23] LABS: Lactic Acid 2.4 mmol/L (0.5-2.0)
[2020-12-31 06:26] LABS: SLIDE REVIEW VERIFIED
[2020-12-31 06:35] LABS: Anion Gap 10 (12-20); Blood Urea Nitrogen 18 mg/dL (9-16); C Reactive Protein 1.41 mg/dL (< or = 0.50); Calcium 8.2 mg/dL (8.4-10.2); Carbon Dioxide 29 mmol/L (22-29); Chloride 106 mmol/L (96-108); Creatinine Clr Calc Pharmacy 133.8; Estimated Glomerular Filt Rate > 60; Glucose Random 222 mg/dL (60-115); Magnesium 2.1 mg/dL (1.6-2.6); Phosphorus 2.4 mg/dL (2.7-4.5); Sodium 141 mmol/L (135-145)
[2020-12-31 06:47] LABS: Ferritin 244 ng/mL (20-250)
[2020-12-31 07:44] LABS: D Dimer 10630 NG/ML
[2020-12-31 07:48] LABS: Reflex Lactate? Lactic Acid Added
[2020-12-31] MEDS: Thiamine HCL 100 MG TABLET 200 MG G-TUBE ×2 (08:07→21:32)
[2020-12-31] MEDS: Doxycycline Hyclate 100 MG in 0.9 % Sodium Chloride 250 ML 166.67 MG IV (08:09)
[2020-12-31] MEDS: Folic Acid 1 MG TABLET PO (08:09)
[2020-12-31] MEDS: Famotidine 20 MG TABLET 40 MG PO ×2 (08:10→21:32)
[2020-12-31] MEDS: Hydroxychloroquine Sulfate 200 MG TABLET PO ×2 (08:10→21:31)
[2020-12-31] MEDS: QUEtiapine Fumarate 50 MG TABLET G-TUBE (08:10)
[2020-12-31] MEDS: Aspirin 81 MG TAB.CHEW PO (08:10)
[2020-12-31] MEDS: Enoxaparin Sodium 40 MG/0.4 ML SYRINGE SUBCUT ×2 (08:11→21:30)
[2020-12-31] MEDS: Cholecalciferol (Vitamin D3) 25 MCG TABLET 50 MCG NG-TUBE (08:11)
[2020-12-31] MEDS: Atorvastatin Calcium 80 MG TABLET G-TUBE (08:11)
[2020-12-31] MEDS: Chlorhexidine Gluc Oral Rinse 15 ML MOUTHWASH BUCCAL ×3 (08:11→21:30)
[2020-12-31 08:33] LABS: Venous Blood Gas Refer to POC result
[2020-12-31 09:12] LABS: ~Lactic Acid-LAB USE ONLY 2.2 mmol/L (0.5-2.0)
--- NOTE | 2020-12-31 09:19 | MHC.CLN ---
F/U PT RECEIVING PROMOTE AT MAX GOAL RATE 60CC/HR WITH 240CC FREE WATER FLUSHES Q 6HRS PROVIDES 1440KCALS (2113 WITH SEDATION; 29KCALS/KG BASED ON CMW), 90G PROTEIN (1.25G/KG), 2168CC FREE WATER FROM FORMULA AND FLUSHES (30CC/KG) TOLERATING WELL WITH LOW RESIDUALS MONITOR TOLERANCE, RESIDUALS AND LYTES
[2020-12-31 09:57] LABS: Cancel Lactic Acid Canceled
[2020-12-31 10:09] LABS: Glucose, Whole Blood 159 mg/dL (60-115)
[2020-12-31 10:21] LABS: Legionella Ag Urine Not Detected (Not Detected)
[2020-12-31] MEDS: fentaNYL citrate/NS 1,000 MCG/100 ML PLAST..BAG 15 MCG IVCONT (11:25)
[2020-12-31] MEDS: fentaNYL citrate/PF 100 MCG/2 ML VIAL IVPUSH ×3 (12:33→13:40)
[2020-12-31] MEDS: Acetaminophen 325 MG TABLET 650 MG PO (13:16)
[2020-12-31] MEDS: Cisatracurium Besylate 20 MG/10 ML VIAL 16 MG IVPUSH (13:57)
[2020-12-31] MEDS: Esmolol HCl/NaCl Iso 2,500 MG/250 ML IV.SOLN 12.75 MG IVCONT (14:06)
[2020-12-31 14:13] LABS: Glucose, Whole Blood 175 mg/dL (60-115)
[2020-12-31 14:40] LABS: ABG Base Excess 3.6 mmol/L; ABG HCO3 32 mmol/L (22-26); ABG pCO2 68 mmHg (32-45); ABG pCO2 TC 74 mmHg (32-45); ABG pH 7.28 (7.35-7.45); ABG pH TC 7.25 (7.35-7.45); ABG pO2 80 mmHg (83-108); ABG pO2 TC 92 (83-108)
[2020-12-31 14:45] LABS: ABG Base Excess 2.6 mmol/L; ABG HCO3 31 mmol/L (22-26); ABG pCO2 67 mmHg (32-45); ABG pCO2 TC 73 mmHg (32-45); ABG pH 7.27 (7.35-7.45); ABG pH TC 7.24 (7.35-7.45); ABG pO2 81 mmHg (83-108); ABG pO2 TC 92 (83-108)
[2020-12-31] MEDS: fentaNYL citrate/NS 1,000 MCG/100 ML PLAST..BAG 30 MCG IVCONT ×3 (15:15→22:05)
[2020-12-31] MEDS: Insulin Regular/NS 100 UNIT/100 ML PLAST..BAG IVCONT (15:15)
[2020-12-31 18:08] LABS: Glucose, Whole Blood 269 mg/dL (60-115)
[2020-12-31 18:26] LABS: VBG Base Excess 3.1 mmol/L; VBG HCO3 29 mmol/L (22-26); VBG pCO2 54 mmHg; VBG pH 7.34 (7.32-7.43); VBG pO2 56 mmHg
[2020-12-31 21:06] LABS: Venous Blood Gas Refer to POC result
--- NOTE | 2020-12-31 21:27 | P.PNCC_ITS ---
Subjective Subjective Date of Service: 12/31/20 Interval History: Mr. Lombardo was transferred to ICU on December 27 with acute respiratory failure 2? COVID pneumonia. This is a 65-year-old male with extensive past medical history that includes mixed connective tissue disease and antiphospholipid syndrome, on hydroxychloroquine, methotrexate, Sarilumab (IL6 inhibitor) and Aspirin at home. The patient is status post splenectomy. On December 23 presented to the hospital with shortness of breath and cough for the prior 1 week. Had contact with COVID patient. Sat was 70% on room air by EMS. On arrival to the ED was placed on high-flow, sat?ing 90-95%. COVID-19 positive. Renal indices normal. CT showed multifocal extensive ground-glass infiltrates consistent with COVID. CT angio showed no evidence of PE. On my reading, I thought the RV was slightly enlarged. Transthoracic echo done one week prior to admission was read as showing normal LV function with EF 65-70%, normal right ventricular cavity size and function, no valvular pathology, normal IVC, and RVSP 19 mm. The patient was admitted to medicine and treated with Decadron. He was given 3 days of remdesivir. Despite that, his oxygenation deteriorated, and he was transferred to the ICU on December 27 and intubated. He spiked a temperature that day. He was started on empiric cefepime and doxycycline. He underwent bronchoscopy, which showed 2+ polys and 1+ Gram-positive cocci, which grew out less than 10,000 CFU Staph aureus. He has been requiring 70-80% FiO2 on the ventilator. Bedside echo done December [address] Jimenez showed mild right ventricular dilatation. Exam today, is overall unchanged from yesterday. He is sedated on propofol 50 mcg and fentanyl at 100 mcg. I started him yesterday on Seroquel 50mg bid, but no effect. He still requires high dose propofol for agitation control. On PCV today, f20, pressures 10/10, he was breathing with RR in the 30?s, Ve > 18L. He was unresponsive to fentanyl. He dropped his Sat to mid 80?s. We had to give him a dose of Nimbex, and raise his FiO2 to 100% for hours. CXR shows patchy airspace dz, both lungs, sl. worse than prev film on December 27. CVBG this evening showed 7.34/54/+3. See Vital Signs. Levophed at 0.14ug. Tmax 102.4?. Pupils are equal round 3-4mm. No JVD at 30 degrees. Chest is clear to auscultation, with normal expiratory phase. Heart rate and rhythm are regular, with normal-sounding S1 and S2, with no murmur or gallops. Abdomen is soft and benign. There is no significant peripheral edema. Neuro exam is nonfocal/non interactive. Moves all 4 spontaneously. LABORATORY DATA: Below. IMPRESSION: 1. Underlying mixed connective tissue disease, on above meds at home. Methotrexate was stopped on admission, fortunately. (Methotrexate plus high FiO2 causes pulmonary interstitial fibrosis.) His monoclonal ab is stopped. I restarted his hydroxychloroquine. 2. Underlying antiphospholipid syndrome. Anticoagulated at home with ASA. 3. Bilat COVID-19 pneumonia. Added the [facility] COVID protocol: Bumped his steroids to Solu-Medrol 80 mg bid, added the ancillary meds. I also bumped his DVT prophylaxis to ? mg/kg bid bec he?s more susceptible to clotting. 4. Acute respiratory failure. Secondary to above. 5. Very elevated D-dimer. Mild right ventricular dilatation on Dr. Jimenez?s echo. ?need to r/o PE. The echo may be c/w the initial CT, which was negative for PE. Duplex scan of his legs was negative, troponin was neg, BNP was 107. Will not pursue PE diagnosis further. 6. Anticoagulation/DVT prophylaxis: Given clotting propensity from his antiphospholipid syndrome, now added to COVID, we upped his prophylactic anticoagulation to Lovenox ? mg/kg bid. Continue the aspirin. 7. Hyperglycemia. Started on an insulin drip. 8. Hypernatremia. Resolved w ree water flushes. 9. ID: Febrile with leukocytosis. The leukocytosis is explainable from the steroids. With the new fever, the patient was started on empiric antibiotics. The Staph aureus is almost certainly a colonizer, may well be MRSA. Continuing on only doxycycline 10. Nutrition. On full dose tube feeds. 11. Neuropsych. Started him on Seroquel. I?ll bump that to 100mg bid. Prognosis is grave At least he only has single organ dysfxn at this moment. Critical care time: 60 minutes. Physical Exam Vital Signs: Vital Signs: Last Vital Signs Temp 101.1 F H 12/31/20 21:00 Pulse 92 12/31/20 21:00 Resp 25 H 12/31/20 21:00 BP 112/56 L 12/31/20 21:00 Pulse Ox 92 12/31/20 21:00 Body Mass Index 30.2 Objective Data Labs CBC & Chem 7: 12/31/20 05:40 12/31/20 05:40 Labs: Laboratory Results - last 24 hr 12/27/20 12/30/20 12/30/20 07:52 05:45 21:00 WBC RBC Hgb Hct MCV MCH MCHC RDW Plt Count MPV Immature Gran % (Auto) Neut % (Auto) Lymph % (Auto) [place] % (Auto) Eos % (Auto) Baso % (Auto) Lymph # (Auto) [place] # (Auto) Eos # (Auto) Baso # (Auto) Abs Immat Gran (auto) Absolute Neuts (auto) Absolute Nucleated RBC Nucleated RBC % (auto) Smear Tech's Comments Smear Path Review SEE NOTE D-Dimer O2 Saturation ABG pH at Pt Temp ABG pH (Temp Correct) ABG pCO2 at Pt Temp ABG pCO2 (Temp Corrct ABG pO2 at Pt Temp ABG pO2 (Temp Correct ABG HCO3 ABG Base Excess (Actual) VBG pH VBG pCO2 VBG pO2 VBG HCO3 VBG O2 Saturation VBG Base Excess Sodium Potassium Chloride Carbon Dioxide Anion Gap BUN Creatinine Estim Creat Clear Calc Estimated GFR POC Glucose Random Glucose Lactic Acid Lactic Acid Fup @ 2Hr Calcium Phosphorus Magnesium Ferritin C-Reactive Protein Urine Color YELLOW Urine Appearance CLEAR Urine pH 6.5 Ur Specific [place] 1.010 Urine Protein NEG Urine Glucose (UA) NEG Urine Ketones NEG Urine Blood NEG Urine Nitrite NEG Ur Leukocyte Esterase NEG Ur L.pneumophila Ag Not Detected 12/30/20 12/31/20 12/31/20 21:33 02:51 05:40 WBC 21.5 H RBC 3.79 L Hgb 10.8 L Hct 34.7 L MCV 91.6 MCH 28.5 MCHC 31.1 RDW 18.0 H Plt Count 280 MPV 11.2 Immature Gran % (Auto) 4.7 H Neut % (Auto) 73.7 H Lymph % (Auto) 13.5 L [place] % (Auto) 7.5 Eos % (Auto) 0.4 Baso % (Auto) 0.2 Lymph # (Auto) 2.9 [place] # (Auto) 1.6 H Eos # (Auto) 0.1 Baso # (Auto) 0.0 Abs Immat Gran (auto) 1.01 H Absolute Neuts (auto) 15.8 H Absolute Nucleated RBC 0.390 H Nucleated RBC % (auto) 1.8 H Smear Tech's Comments VERIFIED Smear Path Review D-Dimer O2 Saturation ABG pH at Pt Temp ABG pH (Temp Correct) ABG pCO2 at Pt Temp ABG pCO2 (Temp Corrct ABG pO2 at Pt Temp ABG pO2 (Temp Correct ABG HCO3 ABG Base Excess (Actual) VBG pH VBG pCO2 VBG pO2 VBG HCO3 VBG O2 Saturation VBG Base Excess Sodium Potassium Chloride Carbon Dioxide Anion Gap BUN Creatinine Estim Creat Clear Calc Estimated GFR POC Glucose 230 H 221 H Random Glucose Lactic Acid Lactic Acid Fup @ 2Hr Calcium Phosphorus Magnesium Ferritin C-Reactive Protein Urine Color Urine Appearance Urine pH Ur Specific [place] Urine Protein Urine Glucose (UA) Urine Ketones Urine Blood Urine Nitrite Ur Leukocyte Esterase Ur L.pneumophila Ag 12/31/20 12/31/20 12/31/20 05:40 05:40 05:40 WBC RBC Hgb Hct MCV MCH MCHC RDW Plt Count MPV Immature Gran % (Auto) Neut % (Auto) Lymph % (Auto) [place] % (Auto) Eos % (Auto) Baso % (Auto) Lymph # (Auto) [place] # (Auto) Eos # (Auto) Baso # (Auto) Abs Immat Gran (auto) Absolute Neuts (auto) Absolute Nucleated RBC Nucleated RBC % (auto) Smear Tech's Comments Smear Path Review D-Dimer 21110 O2 Saturation ABG pH at Pt Temp ABG pH (Temp Correct) ABG pCO2 at Pt Temp ABG pCO2 (Temp Corrct ABG pO2 at Pt Temp ABG pO2 (Temp Correct ABG HCO3 ABG Base Excess (Actual) VBG pH VBG pCO2 VBG pO2 VBG HCO3 VBG O2 Saturation VBG Base Excess Sodium 141 Potassium 4.0 Chloride 106 Carbon Dioxide 29 Anion Gap 10 L BUN 18 H Creatinine 0.57 Estim Creat Clear Calc 133.8 Estimated GFR > 60 POC Glucose Random Glucose 222 H Lactic Acid 2.4 H* Lactic Acid Fup @ 2Hr Calcium 8.2 L Phosphorus 2.4 L Magnesium 2.1 Ferritin 244 C-Reactive Protein 1.41 H Urine Color Urine Appearance Urine pH Ur Specific [place] Urine Protein Urine Glucose (UA) Urine Ketones Urine Blood Urine Nitrite Ur Leukocyte Esterase Ur L.pneumophila Ag 12/31/20 12/31/20 12/31/20 05:43 08:38 09:38 WBC RBC Hgb Hct MCV MCH MCHC RDW Plt Count MPV Immature Gran % (Auto) Neut % (Auto) Lymph % (Auto) [place] % (Auto) Eos % (Auto) Baso % (Auto) Lymph # (Auto) [place] # (Auto) Eos # (Auto) Baso # (Auto) Abs Immat Gran (auto) Absolute Neuts (auto) Absolute Nucleated RBC Nucleated RBC % (auto) Smear Tech's Comments Smear Path Review D-Dimer O2 Saturation ABG pH at Pt Temp ABG pH (Temp Correct) ABG pCO2 at Pt Temp ABG pCO2 (Temp Corrct ABG pO2 at Pt Temp ABG pO2 (Temp Correct ABG HCO3 ABG Base Excess (Actual) VBG pH 7.46 H VBG pCO2 41 VBG pO2 52 VBG HCO3 29 H VBG O2 Saturation 84.0 VBG Base Excess 5.6 Sodium Potassium Chloride Carbon Dioxide Anion Gap BUN Creatinine Estim Creat Clear Calc Estimated GFR POC Glucose 159 H Random Glucose Lactic Acid Lactic Acid Fup @ 2Hr 2.2 H* Calcium Phosphorus Magnesium Ferritin C-Reactive Protein Urine Color Urine Appearance Urine pH Ur Specific [place] Urine Protein Urine Glucose (UA) Urine Ketones Urine Blood Urine Nitrite Ur Leukocyte Esterase Ur L.pneumophila Ag 12/31/20 12/31/20 12/31/20 13:51 14:34 14:38 WBC RBC Hgb Hct MCV MCH MCHC RDW Plt Count MPV Immature Gran % (Auto) Neut % (Auto) Lymph % (Auto) [place] % (Auto) Eos % (Auto) Baso % (Auto) Lymph # (Auto) [place] # (Auto) Eos # (Auto) Baso # (Auto) Abs Immat Gran (auto) Absolute Neuts (auto) Absolute Nucleated RBC Nucleated RBC % (auto) Smear Tech's Comments Smear Path Review D-Dimer O2 Saturation 92.0 91.0 ABG pH at Pt Temp 7.28 L 7.27 L ABG pH (Temp Correct) 7.25 L 7.24 L ABG pCO2 at Pt Temp 68 H* 67 H* ABG pCO2 (Temp Corrct 74 H* 73 H* ABG pO2 at Pt Temp 80 L 81 L ABG pO2 (Temp Correct 92 92 ABG HCO3 32 H 31 H ABG Base Excess (Actual) 3.6 2.6 VBG pH VBG pCO2 VBG pO2 VBG HCO3 VBG O2 Saturation VBG Base Excess Sodium Potassium Chloride Carbon Dioxide Anion Gap BUN Creatinine Estim Creat Clear Calc Estimated GFR POC Glucose 175 H Random Glucose Lactic Acid Lactic Acid Fup @ 2Hr Calcium Phosphorus Magnesium Ferritin C-Reactive Protein Urine Color Urine Appearance Urine pH Ur Specific [place] Urine Protein Urine Glucose (UA) Urine Ketones Urine Blood Urine Nitrite Ur Leukocyte Esterase Ur L.pneumophila Ag 12/31/20 12/31/20 18:04 18:19 WBC RBC Hgb Hct MCV MCH MCHC RDW Plt Count MPV Immature Gran % (Auto) Neut % (Auto) Lymph % (Auto) [place] % (Auto) Eos % (Auto) Baso % (Auto) Lymph # (Auto) [place] # (Auto) Eos # (Auto) Baso # (Auto) Abs Immat Gran (auto) Absolute Neuts (auto) Absolute Nucleated RBC Nucleated RBC % (auto) Smear Tech's Comments Smear Path Review D-Dimer O2 Saturation ABG pH at Pt Temp ABG pH (Temp Correct) ABG pCO2 at Pt Temp ABG pCO2 (Temp Corrct ABG pO2 at Pt Temp ABG pO2 (Temp Correct ABG HCO3 ABG Base Excess (Actual) VBG pH 7.34 VBG pCO2 54 VBG pO2 56 VBG HCO3 29 H VBG O2 Saturation 81.0 VBG Base Excess 3.1 Sodium Potassium Chloride Carbon Dioxide Anion Gap BUN Creatinine Estim Creat Clear Calc Estimated GFR POC Glucose 269 H Random Glucose Lactic Acid Lactic Acid Fup @ 2Hr Calcium Phosphorus Magnesium Ferritin C-Reactive Protein Urine Color Urine Appearance Urine pH Ur Specific [place] Urine Protein Urine Glucose (UA) Urine Ketones Urine Blood Urine Nitrite Ur Leukocyte Esterase Ur L.pneumophila Ag Microbiology Microbiology Results: Microbiology 12/27/20 15:57 Bronch, Not Specified Direct Acid Fast Bacilli Smear - Final 12/27/20 15:58 Bronch, Not Specified Fungal Identification - Preliminary No growth to date. 12/27/20 15:58 Bronch, Not Specified Gram Stain - Final 12/27/20 15:58 Bronch, Not Specified - Final Staphylococcus aureus 12/23/20 20:10 Blood - Venous Blood Culture - Final No growth after 5 days. 12/23/20 19:46 Blood - Venous Blood Culture - Final No growth after 5 days. Critical Care Time Critical Care Time (minutes): 60
[2020-12-31] MEDS: Doxycycline Hyclate 100 MG in 0.9 % Sodium Chloride 250 ML 166.7 MG IV (21:28)
[2020-12-31] MEDS: Melatonin 3 MG TABLET 9 MG PO (21:31)
[2020-12-31] MEDS: QUEtiapine Fumarate 50 MG TABLET 100 MG G-TUBE (21:32)
--- NOTE | 2020-12-31 22:00 | PM.IDPN ---
Subjective Subjective Date of Service: 12/31/20 Interval History: he is vented he has negative HIV and negative T-spot Legionella pending Objective Data Labs CBC & Chem 7: 12/31/20 05:40 12/31/20 05:40 Labs: Laboratory Results - last 24 hr 12/27/20 12/30/20 12/30/20 07:52 05:45 21:00 WBC RBC Hgb Hct MCV MCH MCHC RDW Plt Count MPV Immature Gran % (Auto) Neut % (Auto) Lymph % (Auto) [place] % (Auto) Eos % (Auto) Baso % (Auto) Lymph # (Auto) [place] # (Auto) Eos # (Auto) Baso # (Auto) Abs Immat Gran (auto) Absolute Neuts (auto) Absolute Nucleated RBC Nucleated RBC % (auto) Smear Tech's Comments Smear Path Review SEE NOTE D-Dimer O2 Saturation ABG pH at Pt Temp ABG pH (Temp Correct) ABG pCO2 at Pt Temp ABG pCO2 (Temp Corrct ABG pO2 at Pt Temp ABG pO2 (Temp Correct ABG HCO3 ABG Base Excess (Actual) VBG pH VBG pCO2 VBG pO2 VBG HCO3 VBG O2 Saturation VBG Base Excess Sodium Potassium Chloride Carbon Dioxide Anion Gap BUN Creatinine Estim Creat Clear Calc Estimated GFR POC Glucose Random Glucose Lactic Acid Lactic Acid Fup @ 2Hr Calcium Phosphorus Magnesium Ferritin C-Reactive Protein Urine Color YELLOW Urine Appearance CLEAR Urine pH 6.5 Ur Specific [place] 1.010 Urine Protein NEG Urine Glucose (UA) NEG Urine Ketones NEG Urine Blood NEG Urine Nitrite NEG Ur Leukocyte Esterase NEG Ur L.pneumophila Ag Not Detected 12/30/20 12/31/20 12/31/20 21:33 02:51 05:40 WBC 21.5 H RBC 3.79 L Hgb 10.8 L Hct 34.7 L MCV 91.6 MCH 28.5 MCHC 31.1 RDW 18.0 H Plt Count 280 MPV 11.2 Immature Gran % (Auto) 4.7 H Neut % (Auto) 73.7 H Lymph % (Auto) 13.5 L [place] % (Auto) 7.5 Eos % (Auto) 0.4 Baso % (Auto) 0.2 Lymph # (Auto) 2.9 [place] # (Auto) 1.6 H Eos # (Auto) 0.1 Baso # (Auto) 0.0 Abs Immat Gran (auto) 1.01 H Absolute Neuts (auto) 15.8 H Absolute Nucleated RBC 0.390 H Nucleated RBC % (auto) 1.8 H Smear Tech's Comments VERIFIED Smear Path Review D-Dimer O2 Saturation ABG pH at Pt Temp ABG pH (Temp Correct) ABG pCO2 at Pt Temp ABG pCO2 (Temp Corrct ABG pO2 at Pt Temp ABG pO2 (Temp Correct ABG HCO3 ABG Base Excess (Actual) VBG pH VBG pCO2 VBG pO2 VBG HCO3 VBG O2 Saturation VBG Base Excess Sodium Potassium Chloride Carbon Dioxide Anion Gap BUN Creatinine Estim Creat Clear Calc Estimated GFR POC Glucose 230 H 221 H Random Glucose Lactic Acid Lactic Acid Fup @ 2Hr Calcium Phosphorus Magnesium Ferritin C-Reactive Protein Urine Color Urine Appearance Urine pH Ur Specific [place] Urine Protein Urine Glucose (UA) Urine Ketones Urine Blood Urine Nitrite Ur Leukocyte Esterase Ur L.pneumophila Ag 12/31/20 12/31/20 12/31/20 05:40 05:40 05:40 WBC RBC Hgb Hct MCV MCH MCHC RDW Plt Count MPV Immature Gran % (Auto) Neut % (Auto) Lymph % (Auto) [place] % (Auto) Eos % (Auto) Baso % (Auto) Lymph # (Auto) [place] # (Auto) Eos # (Auto) Baso # (Auto) Abs Immat Gran (auto) Absolute Neuts (auto) Absolute Nucleated RBC Nucleated RBC % (auto) Smear Tech's Comments Smear Path Review D-Dimer 78233 O2 Saturation ABG pH at Pt Temp ABG pH (Temp Correct) ABG pCO2 at Pt Temp ABG pCO2 (Temp Corrct ABG pO2 at Pt Temp ABG pO2 (Temp Correct ABG HCO3 ABG Base Excess (Actual) VBG pH VBG pCO2 VBG pO2 VBG HCO3 VBG O2 Saturation VBG Base Excess Sodium 141 Potassium 4.0 Chloride 106 Carbon Dioxide 29 Anion Gap 10 L BUN 18 H Creatinine 0.57 Estim Creat Clear Calc 133.8 Estimated GFR > 60 POC Glucose Random Glucose 222 H Lactic Acid 2.4 H* Lactic Acid Fup @ 2Hr Calcium 8.2 L Phosphorus 2.4 L Magnesium 2.1 Ferritin 244 C-Reactive Protein 1.41 H Urine Color Urine Appearance Urine pH Ur Specific [place] Urine Protein Urine Glucose (UA) Urine Ketones Urine Blood Urine Nitrite Ur Leukocyte Esterase Ur L.pneumophila Ag 12/31/20 12/31/20 12/31/20 05:43 08:38 09:38 WBC RBC Hgb Hct MCV MCH MCHC RDW Plt Count MPV Immature Gran % (Auto) Neut % (Auto) Lymph % (Auto) [place] % (Auto) Eos % (Auto) Baso % (Auto) Lymph # (Auto) [place] # (Auto) Eos # (Auto) Baso # (Auto) Abs Immat Gran (auto) Absolute Neuts (auto) Absolute Nucleated RBC Nucleated RBC % (auto) Smear Tech's Comments Smear Path Review D-Dimer O2 Saturation ABG pH at Pt Temp ABG pH (Temp Correct) ABG pCO2 at Pt Temp ABG pCO2 (Temp Corrct ABG pO2 at Pt Temp ABG pO2 (Temp Correct ABG HCO3 ABG Base Excess (Actual) VBG pH 7.46 H VBG pCO2 41 VBG pO2 52 VBG HCO3 29 H VBG O2 Saturation 84.0 VBG Base Excess 5.6 Sodium Potassium Chloride Carbon Dioxide Anion Gap BUN Creatinine Estim Creat Clear Calc Estimated GFR POC Glucose 159 H Random Glucose Lactic Acid Lactic Acid Fup @ 2Hr 2.2 H* Calcium Phosphorus Magnesium Ferritin C-Reactive Protein Urine Color Urine Appearance Urine pH Ur Specific [place] Urine Protein Urine Glucose (UA) Urine Ketones Urine Blood Urine Nitrite Ur Leukocyte Esterase Ur L.pneumophila Ag 12/31/20 12/31/20 12/31/20 13:51 14:34 14:38 WBC RBC Hgb Hct MCV MCH MCHC RDW Plt Count MPV Immature Gran % (Auto) Neut % (Auto) Lymph % (Auto) [place] % (Auto) Eos % (Auto) Baso % (Auto) Lymph # (Auto) [place] # (Auto) Eos # (Auto) Baso # (Auto) Abs Immat Gran (auto) Absolute Neuts (auto) Absolute Nucleated RBC Nucleated RBC % (auto) Smear Tech's Comments Smear Path Review D-Dimer O2 Saturation 92.0 91.0 ABG pH at Pt Temp 7.28 L 7.27 L ABG pH (Temp Correct) 7.25 L 7.24 L ABG pCO2 at Pt Temp 68 H* 67 H* ABG pCO2 (Temp Corrct 74 H* 73 H* ABG pO2 at Pt Temp 80 L 81 L ABG pO2 (Temp Correct 92 92 ABG HCO3 32 H 31 H ABG Base Excess (Actual) 3.6 2.6 VBG pH VBG pCO2 VBG pO2 VBG HCO3 VBG O2 Saturation VBG Base Excess Sodium Potassium Chloride Carbon Dioxide Anion Gap BUN Creatinine Estim Creat Clear Calc Estimated GFR POC Glucose 175 H Random Glucose Lactic Acid Lactic Acid Fup @ 2Hr Calcium Phosphorus Magnesium Ferritin C-Reactive Protein Urine Color Urine Appearance Urine pH Ur Specific [place] Urine Protein Urine Glucose (UA) Urine Ketones Urine Blood Urine Nitrite Ur Leukocyte Esterase Ur L.pneumophila Ag 12/31/20 12/31/20 18:04 18:19 WBC RBC Hgb Hct MCV MCH MCHC RDW Plt Count MPV Immature Gran % (Auto) Neut % (Auto) Lymph % (Auto) [place] % (Auto) Eos % (Auto) Baso % (Auto) Lymph # (Auto) [place] # (Auto) Eos # (Auto) Baso # (Auto) Abs Immat Gran (auto) Absolute Neuts (auto) Absolute Nucleated RBC Nucleated RBC % (auto) Smear Tech's Comments Smear Path Review D-Dimer O2 Saturation ABG pH at Pt Temp ABG pH (Temp Correct) ABG pCO2 at Pt Temp ABG pCO2 (Temp Corrct ABG pO2 at Pt Temp ABG pO2 (Temp Correct ABG HCO3 ABG Base Excess (Actual) VBG pH 7.34 VBG pCO2 54 VBG pO2 56 VBG HCO3 29 H VBG O2 Saturation 81.0 VBG Base Excess 3.1 Sodium Potassium Chloride Carbon Dioxide Anion Gap BUN Creatinine Estim Creat Clear Calc Estimated GFR POC Glucose 269 H Random Glucose Lactic Acid Lactic Acid Fup @ 2Hr Calcium Phosphorus Magnesium Ferritin C-Reactive Protein Urine Color Urine Appearance Urine pH Ur Specific [place] Urine Protein Urine Glucose (UA) Urine Ketones Urine Blood Urine Nitrite Ur Leukocyte Esterase Ur L.pneumophila Ag Microbiology Microbiology Results: Microbiology 12/27/20 15:57 Bronch, Not Specified Direct Acid Fast Bacilli Smear - Final 12/27/20 15:58 Bronch, Not Specified Fungal Identification - Preliminary No growth to date. 12/27/20 15:58 Bronch, Not Specified Gram Stain - Final 12/27/20 15:58 Bronch, Not Specified - Final Staphylococcus aureus 12/23/20 20:10 Blood - Venous Blood Culture - Final No growth after 5 days. 12/23/20 19:46 Blood - Venous Blood Culture - Final No growth after 5 days. Physical Exam Vital Signs: Vital Signs: Last Vital Signs Temp 101.1 F H 12/31/20 21:00 Pulse 92 12/31/20 21:00 Resp 25 H 12/31/20 21:00 BP 112/56 L 12/31/20 21:00 Pulse Ox 92 12/31/20 21:00 Body Mass Index 30.2 Const: General: cooperative Resp: Effort & Inspection: normal respiratory effort Cardio: Rate: regular rate Rhythm: regular rhythm GI: Inspection: Yes normal to inspection Assessment and Plan Assessment and plan (1) Mixed connective tissue disease: Status: Acute (2) Acute respiratory failure with hypoxia: Problem details: He has mixed connective tissue disease and antiphospholipid antibody syndrome and asplenia He is on Remdesivir He has worsening pneumonia,possible atypical or opportunistic infection and also COVID Now day 01/26 IV Doxycycline Status: Acute Assessment and Plan: Would finish Doxycycline Await Legionella Time Spent With Patient Time: Total time spent is greater than 50% in coordination of care (as documented) at patient's floor/unit and/or counseling patient: Time with patient: 15 - 24 minutes
[2021-01-01] VITALS (29 sets, daily range): BP systolic 115–134; BP diastolic 56–70; PULSE 74–115; RESP 15–30; TEMP 37.6–38.2; O2SAT 88–98
[2021-01-01 00:29] LABS: Glucose, Whole Blood 256 mg/dL (60-115)
[2021-01-01] MEDS: propofoL 1,000 MG/100 ML VIAL 25.5 MG IVCONT ×3 (01:54→09:41)
[2021-01-01] MEDS: fentaNYL citrate/NS 1,000 MCG/100 ML PLAST..BAG 30 MCG IVCONT ×2 (01:55→06:36)
[2021-01-01] MEDS: methylPREDNISolone Sod Succ 125 MG/2 ML VIAL 80 MG IVPUSH ×2 (01:56→13:14)
[2021-01-01] MEDS: Ascorbic Acid 500 MG TABLET 1000 MG G-TUBE ×4 (01:57→21:08)
[2021-01-01] MEDS: fentaNYL citrate/PF 100 MCG/2 ML VIAL 50 MCG IVPUSH ×2 (01:57→05:30)
[2021-01-01 06:15] LABS: Glucose, Whole Blood 151 mg/dL (60-115)
[2021-01-01 06:15] LABS: VBG Base Excess 6.3 mmol/L; VBG HCO3 35 mmol/L (22-26); VBG pCO2 72 mmHg; VBG pH 7.29 (7.32-7.43); VBG pO2 79 mmHg
[2021-01-01 06:26] LABS: Hematocrit 35.3 % (42-52); Hemoglobin 10.6 g/dl (14.0-18.0); Mean Corpuscular Hemoglobin 28.6 pg (27.0-33.0); Mean Corpuscular Volume 95.1 fL (80-98); Mean Platelet Volume 11.1 fL (9.4-12.4); Platelet Count 258 X10*3/uL (160-400); Red Blood Count 3.71 X10*6/uL (4.60-5.80); Red Cell Distribution Width 18.1 % (11.0-16.0); White Blood Count 17.9 X10*3/uL (4.8-10.8)
[2021-01-01 06:41] LABS: NRBC Pct Auto 1.3 /100WBC (0.0-0.2)
[2021-01-01 06:47] LABS: Alanine Aminotransferase 51 U/L (0-40); Albumin Level 2.8 g/dL (3.5-5.0); Alkaline Phosphatase 63 U/L (39-117); Anion Gap 12 (12-20); Aspartate Amino Transferase 46 U/L (5-37); Bilirubin Total 0.5 mg/dL (0.0-1.0); Blood Urea Nitrogen 18 mg/dL (9-16); C Reactive Protein 11.01 mg/dL (< or = 0.50); Carbon Dioxide 30 mmol/L (22-29); Chloride 105 mmol/L (96-108); Creatinine Clr Calc Pharmacy 138.7; Estimated Glomerular Filt Rate > 60; Glucose Random 155 mg/dL (60-115); Potassium 5.1 mmol/L (3.3-5.1); Sodium 142 mmol/L (135-145); Total Protein 5.5 g/dL (6.5-8.0)
[2021-01-01 07:08] LABS: Ferritin 187 ng/mL (20-250)
[2021-01-01 07:11] LABS: D Dimer 10430 NG/ML
[2021-01-01 07:42] LABS: Venous Blood Gas Refer to POC result
[2021-01-01 08:51] LABS: Glucose, Whole Blood 183 mg/dL (60-115)
[2021-01-01 09:15] LABS: Band Neutrophils Percent 3 % (3-5); Lymphocytes Absolute Manual 0.7 X10*3/uL (0.6-4.8); Lymphocytes Percent Manual 4 % (20-40); Metamyelocytes Absolute 0.4 X10*3/uL; Metamyelocytes Percent 2 %; Monocytes Absolute Manual 0.7 X10*3/uL (0.0-1.2); Monocytes Percent Manual 4 % (2-11); Neutrophils Absolute Manual 16.1 X10*3/uL (2.2-7.9); Neutrophils Percent Manual 87 % (45-73); Nucleated Red Blood Cells 2 /100WBC (0-0); RBC Morphology NOTED
[2021-01-01 09:16] LABS: Acanthocytes 2+ (3-5) /OIF; Ovalocytes 1+ (5-14) /OIF; Platelet Estimate NORMAL (NORMAL); Platelet Morphology Comment NORMAL; Schistocytes 1+ (0-2) /OIF; Target Cells 1+ (5-14) /OIF
[2021-01-01] MEDS: Chlorhexidine Gluc Oral Rinse 15 ML MOUTHWASH BUCCAL ×3 (09:40→21:23)
[2021-01-01] MEDS: Doxycycline Hyclate 100 MG in 0.9 % Sodium Chloride 250 ML IV (09:41)
[2021-01-01] MEDS: Atorvastatin Calcium 80 MG TABLET G-TUBE (09:42)
[2021-01-01] MEDS: Cholecalciferol (Vitamin D3) 25 MCG TABLET 50 MCG NG-TUBE (09:42)
[2021-01-01] MEDS: Folic Acid 1 MG TABLET PO (09:42)
[2021-01-01] MEDS: Famotidine 20 MG TABLET 40 MG PO ×2 (09:42→21:08)
[2021-01-01] MEDS: Hydroxychloroquine Sulfate 200 MG TABLET PO ×2 (09:43→21:15)
[2021-01-01] MEDS: Aspirin 81 MG TAB.CHEW PO (09:43)
[2021-01-01] MEDS: QUEtiapine Fumarate 50 MG TABLET 100 MG G-TUBE (09:43)
[2021-01-01] MEDS: Thiamine HCL 100 MG TABLET 200 MG G-TUBE ×2 (09:43→21:15)
[2021-01-01] MEDS: Insulin Regular/NS 100 UNIT/100 ML PLAST..BAG 7 UNIT IVCONT ×2 (09:44→22:55)
[2021-01-01] MEDS: Enoxaparin Sodium 40 MG/0.4 ML SYRINGE SUBCUT ×2 (09:50→21:23)
[2021-01-01] MEDS: fentaNYL citrate/NS 1,000 MCG/100 ML PLAST..BAG 20 MCG IVCONT ×2 (09:56→14:02)
[2021-01-01 09:58] LABS: Glucose, Whole Blood 194 mg/dL (60-115)
[2021-01-01] MEDS: propofoL 1,000 MG/100 ML VIAL 15.3 MG IVCONT (13:57)
[2021-01-01 14:07] LABS: Glucose, Whole Blood 158 mg/dL (60-115)
[2021-01-01 14:58] LABS: VBG Base Excess 10.6 mmol/L; VBG HCO3 38 mmol/L (22-26); VBG pCO2 64 mmHg; VBG pH 7.37 (7.32-7.43); VBG pO2 68 mmHg
[2021-01-01 15:01] LABS: VBG Base Excess 10.9 mmol/L; VBG HCO3 38 mmol/L (22-26); VBG pCO2 62 mmHg; VBG pH 7.39 (7.32-7.43); VBG pO2 70 mmHg
[2021-01-01 18:01] LABS: Glucose, Whole Blood 164 mg/dL (60-115)
--- NOTE | 2021-01-01 18:15 | P.PNCC_ITS ---
Subjective Subjective Date of Service: 01/01/21 Interval History: Mr. Lombardo was transferred to ICU on December 27 with acute respiratory failure 2? COVID pneumonia. This is a 65-year-old male with extensive past medical history that includes mixed connective tissue disease and antiphospholipid syndrome, on hydroxychloroquine, methotrexate, Sarilumab (IL6 inhibitor) and Aspirin at home. The patient is status post splenectomy. On December 23 presented to the hospital with shortness of breath and cough for the prior 1 week. Had contact with COVID patient. Sat was 70% on room air by EMS. On arrival to the ED was placed on high-flow, sat?ing 90-95%. COVID-19 positive. Renal indices normal. CT showed multifocal extensive ground-glass infiltrates consistent with COVID. CT angio showed no evidence of PE. On my reading, I thought the RV was slightly enlarged. Transthoracic echo done one week prior to admission was read as showing normal LV function with EF 65-70%, normal right ventricular cavity size and function, no valvular pathology, normal IVC, and RVSP 19 mm. The patient was admitted to medicine and treated with Decadron. He was given 3 days of remdesivir. Despite that, his oxygenation deteriorated, and he was transferred to the ICU on December 27 and intubated. He spiked a temperature that day. He was started on empiric cefepime and doxycycline. He underwent bronchoscopy, which showed 2+ polys and 1+ Gram-positive cocci, which grew out less than 10,000 CFU Staph aureus. He has been requiring 70-80% FiO2 on the ventilator. Bedside echo done December [address] Jimenez showed mild right ventricular dilatation. Over last three days, FiO2 has ranged from 60-100%. I?ve added Seroquel bec of extreme agitation during sedation holidays. Seroquel bumped to 100mg bid yesterday. Today we turned the propofol off and he remained heavily sedated. Currently he?s on propofol 40ug and fentanyl @ 140 ug. Well sedated. HR 91, BP 112/63 on Levophed 0.06ug. Insulin @ 7u/hr. On PC f22, 10/10, 80%, RR is 22, Vt avg is 400cc, Ve 9L, PIP 21, ETCO2 45, SpO2 93%. CVBG this afternoon was 7.39/62/+11. Earlier today, insp press was at 20 with Vt 550, PEEP was at 15cm, and CXR, done bec of neck puffiness, showed SQ air, new in comparison with CXR done yesterday. No PTX. So we reduced his insp pressure and his PEEP. Tmax 100.8?. PER 3-4 mm. No JVD at 30 degrees. Chest is clear to auscultation, with normal expiratory phase. Heart rate and rhythm are regular, with normal- sounding S1 and S2, with no murmur or gallops. Abdomen is soft and benign. There is no significant peripheral edema. Neuro exam is nonfocal/non interactive. Moves all 4 spontaneously. LABORATORY DATA: Below. POCs now in a good range. CRP is up today. IMPRESSION: 1. Underlying mixed connective tissue disease, on above meds at home. Methotrexate was stopped on admission, fortunately. (Methotrexate plus high FiO2 causes pulmonary interstitial fibrosis.) His monoclonal ab is stopped. I restarted his hydroxychloroquine. 2. Underlying antiphospholipid syndrome. Anticoagulated at home with ASA. 3. Bilat COVID-19 pneumonia. Added the [facility] COVID protocol: Bumped his steroids to Solu-Medrol 80 mg bid, added the ancillary meds. I also bumped his DVT prophylaxis to ? mg/kg bid bec he?s more susceptible to clotting. 4. Acute respiratory failure. Secondary to above. 5. Very elevated D-dimer. Mild right ventricular dilatation on Dr. Jimenez?s echo. ?need to r/o PE. The echo may be c/w the initial CT, which was negative for PE. Duplex scan of his legs was negative, troponin was neg, BNP was 107. Will not pursue PE diagnosis further. 6. Anticoagulation/DVT prophylaxis: Given clotting propensity from his antiphospholipid syndrome, now added to COVID, we upped his prophylactic anticoagulation to Lovenox ? mg/kg bid. Continue the aspirin. 7. Hyperglycemia. Started on an insulin drip. 8. Hypernatremia. Resolved w free water flushes. 9. ID: Febrile with leukocytosis. The leukocytosis is explainable from the steroids. With the new fever, the patient was started on empiric antibiotics. The Staph aureus is almost certainly a colonizer, may well be MRSA. Continuing on only doxycycline. WBC is down. Today is day#6. 10. Nutrition. On full dose tube feeds. 11. Neuropsych. Had him on Seroquel 100mg bid. Dropping that now to 50 mg bid Prognosis is grave. At least he only has single organ dysfxn at this moment. Could pop a PTX at any moment. I?ve discussed that claudine Bauer. We?ll put in an A-line for resp and hemodynamic monitoring. Critical care time: 60 minutes. Physical Exam Vital Signs: Vital Signs: Last Vital Signs Temp 100.8 F H 01/01/21 13:00 Pulse 78 01/01/21 15:00 Resp 20 01/01/21 15:00 BP 134/67 01/01/21 15:00 Pulse Ox 95 01/01/21 15:00 Body Mass Index 30.2 Objective Data Labs CBC & Chem 7: 01/01/21 05:30 01/01/21 05:30 Labs: Laboratory Results - last 24 hr 12/27/20 12/31/20 12/31/20 15:58 18:19 22:02 WBC RBC Hgb Hct MCV MCH MCHC RDW Plt Count MPV Immature Gran % (Auto) Neut % (Auto) Lymph % (Auto) [place] % (Auto) Eos % (Auto) Baso % (Auto) Lymph # (Auto) [place] # (Auto) Eos # (Auto) Baso # (Auto) Abs Immat Gran (auto) Absolute Neuts (auto) Absolute Nucleated RBC Nucleated RBC % (auto) Neutrophils % (Manual) Band Neutrophils % Lymphocytes % (Manual) Monocytes % (Manual) Metamyelocytes % Abs Neuts (Manual) Lymphocytes # (Manual) Monocytes # (Manual) Metamyelocytes # Nucleated RBCs Platelet Estimate Plt Morphology Comment RBC Morphology Target Cells Ovalocytes Acanthocytes (Spur) Schistocytes PT INR D-Dimer VBG pH 7.34 VBG pCO2 54 VBG pO2 56 VBG HCO3 29 H VBG O2 Saturation 81.0 VBG Base Excess 3.1 Sodium Potassium Chloride Carbon Dioxide Anion Gap BUN Creatinine Estim Creat Clear Calc Estimated GFR POC Glucose 256 H Random Glucose Calcium Ferritin Total Bilirubin AST ALT Alkaline Phosphatase C-Reactive Protein Total Protein Albumin Ref Lab Test Result SEE NOTE 01/01/21 01/01/21 01/01/21 04:38 05:30 05:30 WBC 17.9 H RBC 3.71 L Hgb 10.6 L Hct 35.3 L MCV 95.1 MCH 28.6 MCHC 30.0 L RDW 18.1 H Plt Count 258 MPV 11.1 Immature Gran % (Auto) Cancelled Neut % (Auto) Cancelled Lymph % (Auto) Cancelled [place] % (Auto) Cancelled Eos % (Auto) Cancelled Baso % (Auto) Cancelled Lymph # (Auto) Cancelled [place] # (Auto) Cancelled Eos # (Auto) Cancelled Baso # (Auto) Cancelled Abs Immat Gran (auto) Cancelled Absolute Neuts (auto) Cancelled Absolute Nucleated RBC 0.230 H Nucleated RBC % (auto) 1.3 H Neutrophils % (Manual) 87 H Band Neutrophils % 3 Lymphocytes % (Manual) 4 L Monocytes % (Manual) 4 Metamyelocytes % 2 Abs Neuts (Manual) 16.1 H Lymphocytes # (Manual) 0.7 Monocytes # (Manual) 0.7 Metamyelocytes # 0.4 Nucleated RBCs 2 H Platelet Estimate NORMAL Plt Morphology Comment NORMAL RBC Morphology NOTED Target Cells 1+ (5-14) Ovalocytes 1+ (5-14) Acanthocytes (Spur) 2+ (3-5) Schistocytes 1+ (0-2) PT 12.0 INR 1.0 D-Dimer 10025 VBG pH VBG pCO2 VBG pO2 VBG HCO3 VBG O2 Saturation VBG Base Excess Sodium Potassium Chloride Carbon Dioxide Anion Gap BUN Creatinine Estim Creat Clear Calc Estimated GFR POC Glucose 151 H Random Glucose Calcium Ferritin Total Bilirubin AST ALT Alkaline Phosphatase C-Reactive Protein Total Protein Albumin Ref Lab Test Result 01/01/21 01/01/21 01/01/21 05:30 05:30 08:34 WBC RBC Hgb Hct MCV MCH MCHC RDW Plt Count MPV Immature Gran % (Auto) Neut % (Auto) Lymph % (Auto) [place] % (Auto) Eos % (Auto) Baso % (Auto) Lymph # (Auto) [place] # (Auto) Eos # (Auto) Baso # (Auto) Abs Immat Gran (auto) Absolute Neuts (auto) Absolute Nucleated RBC Nucleated RBC % (auto) Neutrophils % (Manual) Band Neutrophils % Lymphocytes % (Manual) Monocytes % (Manual) Metamyelocytes % Abs Neuts (Manual) Lymphocytes # (Manual) Monocytes # (Manual) Metamyelocytes # Nucleated RBCs Platelet Estimate Plt Morphology Comment RBC Morphology Target Cells Ovalocytes Acanthocytes (Spur) Schistocytes PT INR D-Dimer VBG pH 7.29 L VBG pCO2 72 VBG pO2 79 VBG HCO3 35 H VBG O2 Saturation 94.0 VBG Base Excess 6.3 Sodium 142 Potassium 5.1 D Chloride 105 Carbon Dioxide 30 H Anion Gap 12 BUN 18 H Creatinine 0.55 Estim Creat Clear Calc 138.7 Estimated GFR > 60 POC Glucose 183 H Random Glucose 155 H Calcium 8.0 L Ferritin 187 Total Bilirubin 0.5 AST 46 H ALT 51 H Alkaline Phosphatase 63 C-Reactive Protein 11.01 H Total Protein 5.5 L Albumin 2.8 L Ref Lab Test Result 01/01/21 01/01/21 01/01/21 09:53 13:59 14:51 WBC RBC Hgb Hct MCV MCH MCHC RDW Plt Count MPV Immature Gran % (Auto) Neut % (Auto) Lymph % (Auto) [place] % (Auto) Eos % (Auto) Baso % (Auto) Lymph # (Auto) [place] # (Auto) Eos # (Auto) Baso # (Auto) Abs Immat Gran (auto) Absolute Neuts (auto) Absolute Nucleated RBC Nucleated RBC % (auto) Neutrophils % (Manual) Band Neutrophils % Lymphocytes % (Manual) Monocytes % (Manual) Metamyelocytes % Abs Neuts (Manual) Lymphocytes # (Manual) Monocytes # (Manual) Metamyelocytes # Nucleated RBCs Platelet Estimate Plt Morphology Comment RBC Morphology Target Cells Ovalocytes Acanthocytes (Spur) Schistocytes PT INR D-Dimer VBG pH 7.37 VBG pCO2 64 VBG pO2 68 VBG HCO3 38 H VBG O2 Saturation 93.0 VBG Base Excess 10.6 Sodium Potassium Chloride Carbon Dioxide Anion Gap BUN Creatinine Estim Creat Clear Calc Estimated GFR POC Glucose 194 H 158 H Random Glucose Calcium Ferritin Total Bilirubin AST ALT Alkaline Phosphatase C-Reactive Protein Total Protein Albumin Ref Lab Test Result 01/01/21 01/01/21 14:55 17:42 WBC RBC Hgb Hct MCV MCH MCHC RDW Plt Count MPV Immature Gran % (Auto) Neut % (Auto) Lymph % (Auto) [place] % (Auto) Eos % (Auto) Baso % (Auto) Lymph # (Auto) [place] # (Auto) Eos # (Auto) Baso # (Auto) Abs Immat Gran (auto) Absolute Neuts (auto) Absolute Nucleated RBC Nucleated RBC % (auto) Neutrophils % (Manual) Band Neutrophils % Lymphocytes % (Manual) Monocytes % (Manual) Metamyelocytes % Abs Neuts (Manual) Lymphocytes # (Manual) Monocytes # (Manual) Metamyelocytes # Nucleated RBCs Platelet Estimate Plt Morphology Comment RBC Morphology Target Cells Ovalocytes Acanthocytes (Spur) Schistocytes PT INR D-Dimer VBG pH 7.39 VBG pCO2 62 VBG pO2 70 VBG HCO3 38 H VBG O2 Saturation 94.0 VBG Base Excess 10.9 Sodium Potassium Chloride Carbon Dioxide Anion Gap BUN Creatinine Estim Creat Clear Calc Estimated GFR POC Glucose 164 H Random Glucose Calcium Ferritin Total Bilirubin AST ALT Alkaline Phosphatase C-Reactive Protein Total Protein Albumin Ref Lab Test Result Microbiology Microbiology Results: Microbiology 12/30/20 21:30 Urine [place] Urine Culture - Final No growth. 12/30/20 20:45 Blood - Venous Blood Culture - Preliminary No growth after 24 hours. 12/30/20 20:43 Blood - Venous Blood Culture - Preliminary No growth after 24 hours. 12/27/20 15:57 Bronch, Not Specified Direct Acid Fast Bacilli Smear - Final 12/27/20 15:58 Bronch, Not Specified Fungal Identification - Preliminary No growth to date. 12/27/20 15:58 Bronch, Not Specified Gram Stain - Final 12/27/20 15:58 Bronch, Not Specified - Final Staphylococcus aureus 12/23/20 20:10 Blood - Venous Blood Culture - Final No growth after 5 days. 12/23/20 19:46 Blood - Venous Blood Culture - Final No growth after 5 days. Critical Care Time Critical Care Time (minutes): 60
--- NOTE | 2021-01-01 20:18 | PC.NURSE ---
Assumed care at 0700. Patient sedate on fentanyl and propofol; sedation holiday initiated at 1357 per MD, and propofol was turned off, fentanyl lowered to 140; after two hours, patient awoke, became tachycardic and restless, pulling against restraints and not ventilating well; patient did not follow commands in Bel[place]ian or Wolof, did not track; positive weak cough and gag; pupils reactive and sluggish. Anterior neck noted to be puffy, no crepitus noted, MD notified, and CXR ordered, shows subcutaneous emphysema in neck without difinative pneumothorax; MD is aware; vent settings adjusted and VBGs checked and WNL. Patient with #8 ETT 26 cm padma; PC settings, P inspiratory 10; rt 22; Fio2 80%; peep 10; spo2 had been 92-95% on 90%; now 88-91% on 80%. Patient EtCo2 abour 42; minute volumes about 11-12. Sinus rhythm on monitor, only one tachycardia episode with awakening from sedation. Tmax was 100.8. No inline secretions, scant oral secretions. Tolerates repositioning. Started ivermectin today. Family updated; family in for visit; primary contact added secondary contact Vika Quintero today. Family flying in for visit tomorrow. Patient's (patient on IMC) is interested in being involved in decision making process for patient and is HCP. Nursing supervisor wood crew aware. [place] outputs 30-100 per hour. TF well tolerated, promote at 60 with H2O 240 Q6 hrs. Insulin gtt titrated per MD, POC trended down in the 190-150 range.
--- NOTE | 2021-01-01 20:40 | PC.NURSE ---
care at 0700. Patient sedate on fentanyl and propofol; sedation holiday initiated at 1357 per MD, and propofol was turned off, fentanyl lowered to 140; after two hours, patient awoke, became tachycardic and restless, pulling against restraints and not ventilating well; patient did not follow commands in Stateless or Georgian, did not track; positive weak cough and gag; pupils reactive and sluggish. Anterior neck noted to be puffy, no crepitus noted, MD notified, and CXR ordered, shows subcutaneous emphysema in neck without difinative pneumothorax; MD is aware; vent settings adjusted and VBGs checked and WNL. Patient with #8 ETT 26 cm padma; PC settings, P inspiratory 10; rt 22; Fio2 80%; peep 10; spo2 had been 92-95% on 90%; now 88-91% on 80%. Patient EtCo2 abour 42; minute volumes about 11-12. Sinus rhythm on monitor, only one tachycardia episode with awakening from sedation. Tmax was 100.8. No inline secretions, scant oral secretions. Tolerates repositioning. Started ivermectin today. Family updated.Patient's (patient on IMC) is interested in being involved in decision making process for patient and is HCP. Nursing supervisor ditching aware. [place] outputs 30-100 per hour. TF well tolerated, promote at 60 with H2O 240 Q6 hrs. Insulin gtt titrated per MD, POC trended down in the 190-150 range. Initialized on 01/01/21 20:18 - END OF NOTE
[2021-01-01] MEDS: Doxycycline Hyclate 100 MG in 0.9 % Sodium Chloride 250 ML 166.7 MG IV (21:05)
[2021-01-01] MEDS: Melatonin 3 MG TABLET 9 MG PO (21:15)
[2021-01-01] MEDS: QUEtiapine Fumarate 50 MG TABLET G-TUBE (21:15)
[2021-01-01] MEDS: propofoL 1,000 MG/100 ML VIAL 20.4 MG IVCONT (21:22)
--- NOTE | 2021-01-01 22:30 | W.PM.CCHP ---
Procedures Arterial Line Consent: Elective - informed consent obtained (verbal from the pt's maya Gonsales ) Sterile Technique Used: Yes Time out performed: Yes Size (Gauge): 20 Technique used: direct puncture technique (under US ) Post-Procedure: line sutured into place and dry sterile dressing placed Patient tolerated procedure: well and no complications Complications: none Site: left (mid axillary)
[2021-01-01 22:42] LABS: Glucose, Whole Blood 171 mg/dL (60-115)
[2021-01-02] VITALS (32 sets, daily range): BP systolic 114–171; BP diastolic 54–82; PULSE 72–119; RESP 12–26; TEMP 37.2–37.8; O2SAT 86–96
[2021-01-02] MEDS: methylPREDNISolone Sod Succ 125 MG/2 ML VIAL 80 MG IVPUSH ×2 (01:57→12:59)
[2021-01-02] MEDS: propofoL 1,000 MG/100 ML VIAL 20.4 MG IVCONT ×3 (01:57→17:55)
[2021-01-02] MEDS: Ascorbic Acid 500 MG TABLET 1000 MG G-TUBE ×4 (01:58→19:58)
[2021-01-02 02:53] LABS: Glucose, Whole Blood 157 mg/dL (60-115)
--- NOTE | 2021-01-02 03:20 | PC.NURSE ---
ASSUMED CARE OF PT AT 1900. PT ON PRESSURE CONTROL VENT SETTINGS. ARTERIAL LINE PLACED BY MARIELY BOWIE. PROCEDURE STARTED AT 2130 AND COMPLETED AT 2220. LEFT AXILLA SITE ACCESSED ON SECOND ATTEMPT. GOOD WAVEFORM. LINE ZERO TRIMMED AND CALIBRATED. SUGAR CORRELATES TO MANUAL BP. PT TOLERATED PROCEDURE WELL. FIO2 WAS INCREASED FROM 80% TO 100% DURING PROCEDURE WHILE PT WAS LAYING FLAT. WEANED BACK TO 80% AFTER PROCEDURE BUT SATS DROPPED TO 85% SO BACK UP TO 100%. WILL ATTEMP TO WEAN AGAIN LATER. PT WAS NOTED TO HAVE A SMALL AMOUNT OF SUBCUTANEOUS EMPHYSEMA OF UPPER CHEST AND LOWER NECK. PROPOFOL AT 40 MCG/KG/MIN AND FENTANYL AT 150 MCG/KG/MIN WITH GOOD EFFECT FOR SEDATION. BP STABLE ON LEVOPHED 0.08 MCG/KCG/MIN. MONITOR SHOWS NSR-ST, 80'S-110, OCC PAC NOTED. U/O IS GOOD.
[2021-01-02] MEDS: fentaNYL citrate/NS 1,000 MCG/100 ML PLAST..BAG 15 MCG IVCONT ×3 (04:21→11:38)
[2021-01-02 06:17] LABS: VBG Base Excess 14.8 mmol/L; VBG HCO3 42 mmol/L (22-26); VBG pCO2 66 mmHg; VBG pH 7.41 (7.32-7.43); VBG pO2 66 mmHg
[2021-01-02 06:25] LABS: MANUAL DIFF FLAG NO
--- NOTE | 2021-01-02 06:36 | PC.NURSE ---
attempted to wean the fio2 to 80% but o2 sats dropped below 90%. fio2 returned to 100% where it remains at this time. no other changes at htis time.
[2021-01-02 06:43] LABS: Basophils Percent Auto 0.1 % (0-2); Eosinophils Percent Auto 0.2 % (0-4); Hematocrit 31.9 % (42-52); Hemoglobin 9.5 g/dl (14.0-18.0); Imm Gran Abs Auto 0.56 X10*3/uL (0.00-0.03); Imm Gran Pct Auto 2.9 % (0.0-0.4); Lymphocytes Absolute Auto 1.1 X10*3/uL (1.2-4.9); Lymphocytes Percent Auto 5.4 % (20-40); Mean Corpuscular HGB Conc 29.8 g/dl (31.0-36.0); Mean Corpuscular Hemoglobin 28.5 pg (27.0-33.0); Mean Corpuscular Volume 95.8 fL (80-98); Mean Platelet Volume 11.9 fL (9.4-12.4); Monocytes Absolute Auto 1.4 X10*3/uL (0.1-1.2); Monocytes Percent Auto 7.2 % (2-11); Neutrophils Absolute Auto 16.5 X10*3/uL (2.0-8.3); Neutrophils Percent Auto 84.2 % (45-73); Platelet Count 250 X10*3/uL (160-400); Red Blood Count 3.33 X10*6/uL (4.60-5.80); Red Cell Distribution Width 17.5 % (11.0-16.0); White Blood Count 19.6 X10*3/uL (4.8-10.8)
[2021-01-02 06:45] LABS: NRBC Pct Auto 1.2 /100WBC (0.0-0.2)
[2021-01-02 06:50] LABS: Glucose, Whole Blood 148 mg/dL (60-115)
[2021-01-02 06:54] LABS: Lactic Acid 1.5 mmol/L (0.5-2.0)
[2021-01-02 07:03] LABS: Alanine Aminotransferase 47 U/L (0-40); Albumin Level 2.7 g/dL (3.5-5.0); Alkaline Phosphatase 58 U/L (39-117); Anion Gap 12 (12-20); Aspartate Amino Transferase 49 U/L (5-37); Bilirubin Total 0.4 mg/dL (0.0-1.0); Blood Urea Nitrogen 17 mg/dL (9-16); C Reactive Protein 4.63 mg/dL (< or = 0.50); Calcium 8.4 mg/dL (8.4-10.2); Carbon Dioxide 36 mmol/L (22-29); Chloride 96 mmol/L (96-108); Creatinine Clr Calc Pharmacy 149.5; Estimated Glomerular Filt Rate > 60; Glucose Random 140 mg/dL (60-115); Potassium 4.7 mmol/L (3.3-5.1); Sodium 139 mmol/L (135-145); Total Protein 5.3 g/dL (6.5-8.0)
[2021-01-02 07:16] LABS: Venous Blood Gas Refer to POC result
[2021-01-02 07:26] LABS: Ferritin 298 ng/mL (20-250)
[2021-01-02 07:37] LABS: D Dimer 11010 NG/ML
[2021-01-02] MEDS: Chlorhexidine Gluc Oral Rinse 15 ML MOUTHWASH BUCCAL ×3 (08:11→19:59)
[2021-01-02] MEDS: Doxycycline Hyclate 100 MG in 0.9 % Sodium Chloride 250 ML 166.67 MG IV ×2 (08:11→20:01)
[2021-01-02] MEDS: Enoxaparin Sodium 40 MG/0.4 ML SYRINGE SUBCUT ×2 (08:11→20:59)
[2021-01-02] MEDS: Aspirin 81 MG TAB.CHEW PO (08:14)
[2021-01-02] MEDS: Thiamine HCL 100 MG TABLET 200 MG G-TUBE ×2 (08:14→19:58)
[2021-01-02] MEDS: QUEtiapine Fumarate 50 MG TABLET G-TUBE (08:15)
[2021-01-02] MEDS: Cholecalciferol (Vitamin D3) 25 MCG TABLET 50 MCG NG-TUBE (08:15)
[2021-01-02] MEDS: Hydroxychloroquine Sulfate 200 MG TABLET PO ×2 (08:15→19:59)
[2021-01-02] MEDS: Atorvastatin Calcium 80 MG TABLET G-TUBE (08:15)
[2021-01-02] MEDS: Folic Acid 1 MG TABLET PO (08:15)
[2021-01-02] MEDS: Famotidine/PF 20 MG/2 ML VIAL 40 MG IVPUSH ×2 (10:29→19:59)
--- NOTE | 2021-01-02 10:49 | MHC.CLN ---
F/U PT RECEIVING PROMOTE AT MAX GOAL RATE 60CC/HR WITH 240CC FREE WATER FLUSHES Q 6HRS PROVIDES 1440KCALS (1979 WITH SEDATION; 27KCALS/KG BASED ON CMW), 90G PROTEIN (1.25G/KG), 2168CC FREE WATER FROM FORMULA AND FLUSHES (30CC/KG) TOLERATING WELL WITH LOW RESIDUALS MONITOR TOLERANCE, RESIDUALS AND LYTES
[2021-01-02 10:52] LABS: Glucose, Whole Blood 157 mg/dL (60-115)
[2021-01-02 11:00] LABS: ABG Refer to POC result
[2021-01-02 11:01] LABS: ABG Base Excess 15.5 mmol/L; ABG HCO3 42 mmol/L (22-26); ABG pCO2 67 mmHg (32-45); ABG pCO2 TC 68 mmHg (32-45); ABG pH 7.41 (7.35-7.45); ABG pO2 69 mmHg (83-108); ABG pO2 TC 69 (83-108)
[2021-01-02] MEDS: propofoL 1,000 MG/100 ML VIAL 15.3 MG IVCONT (11:38)
[2021-01-02] MEDS: acetaZOLAMIDE 250 MG TABLET 500 MG G-TUBE ×3 (12:18→23:19)
[2021-01-02] MEDS: Insulin Regular/NS 100 UNIT/100 ML PLAST..BAG 7 UNIT IVCONT (12:20)
--- NOTE | 2021-01-02 12:54 | PC.NURSE ---
Addendum entered by Teir Zamudio RN 01/02/21 18:34: PTS 02 DROPPING TO MID 80S, HR AND SUGAR BP INCREASING, WOB AND ACCESSORY MUSCLE USE NOTED, RT CALLED BEDSIDE. PROPOFOL AND FENTANYL GTTS MAXED OUT. AFTER A FEW MINUTES PT APPEARED MORE RELAXED, HR AND BP WNL. WILL CONTINUE TO MONITOR. PT CONTINUES TO BE UNABLE TO FOLLOW COMMANDS OR TRACK. VERY WEAK COUGH AND GAG NOTED. NO INLINE SECRETIONS. VENT SETTINGS REMAIN PC 10/10 WITH RATE OF 22 ON 90%. SMALL CREPITUS NOTED TO RIGHT LOWER THROAT BY TLC, THROAT REMAINS SLIGHTLY SWOLLEN. MD AWARE. TMAX 99.9, LEVOPHED GTT FOR BLOOD PRESSURE SUPPORT. INSULIN HAS REMAINED AT 7 UNITS/HR ALL SHIFT WITH Q4HR POC CHECKS. TUBE FEEDS REMAIN PROMOTE 60 ML/HR, NO RESIDUALS. BATHED, Q2HR REPO, BARRIER CREAM, AIRLOSS BED, PREVALON, HEELBOS, AND PILLOWS UTILIZED. AND GRANDDAUGHTER UPDATED THROUGHOUT SHIFT. Addendum entered by Teri Zamudio RN 01/02/21 13:23: SEDATION VACATION STARTED AT 1305 AND ENDED AT 1320. HR INCREASED TO 130S, SBP 180S IN SUGAR. PT MOVING HEAD SIDE TO SIDE, DOES NOT FOLLOW ANY COMMANDS. BEDSIDE TO ASSESS. PROPOFOL RESUMED AT 30 MCG/KG/MIN. Original Note: PTS BROUGHT DOWN FROM [facility] [place] TO VISIT AND HAVE FAMILY MEETING WITH , RN, AND CASE MANAGEMENT. GRANDDAUGHTER ARTEMIO CALLED AND DEAF/HARD OF HEARING SPECIALIST UTILIZED. PER PATIENT IS TO REMAIN FULL CODE AND CONTINUE WITH PLAN OF CARE.
[2021-01-02] MEDS: QUEtiapine Fumarate 25 MG TABLET PO (13:33)
--- NOTE | 2021-01-02 13:50 | PM.CCPN ---
Subjective Subjective Date of Service: 01/02/21 Interval History: Mr. Lombardo was transferred to ICU on December 27 with acute respiratory failure 2? COVID pneumonia. This is a 65-year-old male with extensive past medical history that includes mixed connective tissue disease and antiphospholipid syndrome, on hydroxychloroquine, methotrexate, Sarilumab (IL6 inhibitor) and Aspirin at home. The patient is status post splenectomy. On December 23 presented to the hospital with shortness of breath and cough for the prior 1 week. Had contact with COVID patient. Sat was 70% on room air by EMS. On arrival to the ED was placed on high-flow, sat?ing 90-95%. COVID-19 positive. Renal indices normal. CT showed multifocal extensive ground-glass infiltrates consistent with COVID. CT angio showed no evidence of PE. On my reading, I thought the RV was slightly enlarged. Transthoracic echo done one week prior to admission was read as showing normal LV function with EF 65-70%, normal right ventricular cavity size and function, no valvular pathology, normal IVC, and RVSP 19 mm. The patient was admitted to medicine and treated with Decadron. He was given 3 days of remdesivir. Despite that, his oxygenation deteriorated, and he was transferred to the ICU on December 27 and intubated. He spiked a temperature that day. He was started on empiric cefepime and doxycycline. He underwent bronchoscopy, which showed 2+ polys and 1+ Gram-positive cocci, which grew out less than 10,000 CFU Staph aureus. He has been requiring 70-80% FiO2 on the ventilator. Bedside echo done December [address] Jimenez showed mild right ventricular dilatation. Since then, FiO2 has ranged from 60-100%. On December 30, I added Seroquel bec of extreme agitation during sedation holidays. Yesterday, he was fully quiet during propofol holiday, so I cut the Seroquel back to 50 mg bid. CXR done yesterday bec of neck puffiness showed SQ air, new in comparison with CXR done the prior day. No PTX. We reduced his insp pressure, tidal vol, and PEEP. Currently he?s on propofol 30ug and fentanyl @ 150 ug, and the Seroquel @ 50mg bid. Well sedated. HR 77, BP 127/59 on Levophed 0.08ug. Insulin @ 7u/hr. On PC f22, 06/28, 1:1.5, 80%, RR is 24, Vt avg is 450cc, Ve 11L, PIP 24, ETCO2 39, SpO2 92%. ABG this morning showed 7.41/67/69/+15. No clinical PTX. Been afebrile today. PER 3-4 mm. No JVD at 30 degrees. Chest is clear to auscultation, with normal expiratory phase. Heart rate and rhythm are regular, with normal-sounding S1 and S2, with no murmur or gallops. Abdomen is soft and benign. There is no significant peripheral edema. Neuro exam is nonfocal/non interactive. LABORATORY DATA: Below. WBC up slightly. Hb down slightly. DDimer steady, CRP is down. IMPRESSION: 1. Underlying mixed connective tissue disease, on above meds at home. Methotrexate was stopped on admission, fortunately. (Methotrexate plus high FiO2 causes pulmonary interstitial fibrosis.) His monoclonal ab is stopped. I restarted his hydroxychloroquine. 2. Underlying antiphospholipid syndrome. Anticoagulated at home with ASA. 3. Bilat COVID-19 pneumonia. Added the [facility] COVID protocol: Bumped his steroids to Solu-Medrol 80 mg bid, added the ancillary meds. I also bumped his DVT prophylaxis to ? mg/kg bid bec he?s more susceptible to clotting. Added ivermectin yesterday. We placed an arterial line for respiratory and hemodynamic monitoring. I called [facility] to see if he would be an ECMO candidate; they declined. I called [facility], they declined. 4. Acute respiratory failure. Secondary to above. 5. Very elevated D-dimer. Mild right ventricular dilatation on Dr. Jimenez?s echo. ?need to r/o PE. The echo is c/w the initial CT, which was negative for PE. Duplex scan of his legs was negative, troponin was neg, BNP was 107. Will not pursue PE diagnosis further. 6. Anticoagulation/DVT prophylaxis: Given clotting propensity from his antiphospholipid syndrome, on top of which he now has COVID, we upped his prophylactic anticoagulation to Lovenox ? mg/kg bid. Continuing the aspirin. 7. Hyperglycemia. On insulin drip with POCs in perfect range. 8. Hypernatremia. Resolved w free water flushes. 9. ID: Febrile with leukocytosis. The leukocytosis is explainable from the steroids. With the new fever, the patient was started on empiric antibiotics. The Staph aureus is almost certainly a colonizer, may well be MRSA. Continued on only doxycycline. The doxy had no effect on anything (fever or WBC). Today is day#7. Will d/c at midnite tomorrow nite. 10. Nutrition. On full dose tube feeds. 11. Neuropsych. Had him on Seroquel 100mg bid. Dropped to 50 mg bid, but still agitated delirium. Will up to 75mg bid. 12. Metabolic acidosis. Started Diamox. Prognosis is grave. At least he only has single organ dysfxn at this moment. I met with the patient?s at the bedside, and we teleconferenced with the patient?s granddaughter. I discussed how sick the patient is, and that many ventilated patients don?t survive. They wish to proceed with all necessary measures, including resuscitation. Critical care time: 90+ minutes. Physical Exam Vital Signs: Vital Signs: Last Vital Signs Temp 99.0 F 01/02/21 13:00 Pulse 77 01/02/21 13:00 Resp 18 01/02/21 13:00 BP 123/60 01/02/21 13:00 Pulse Ox 92 01/02/21 13:00 Body Mass Index 30.2 Objective Data Labs CBC & Chem 7: 01/02/21 06:10 01/02/21 06:10 Labs: Laboratory Results - last 24 hr 12/27/20 01/01/21 01/01/21 15:58 13:59 14:51 WBC RBC Hgb Hct MCV MCH MCHC RDW Plt Count MPV Immature Gran % (Auto) Neut % (Auto) Lymph % (Auto) [place] % (Auto) Eos % (Auto) Baso % (Auto) Lymph # (Auto) [place] # (Auto) Eos # (Auto) Baso # (Auto) Abs Immat Gran (auto) Absolute Neuts (auto) Absolute Nucleated RBC Nucleated RBC % (auto) D-Dimer O2 Saturation ABG pH at Pt Temp ABG pH (Temp Correct) ABG pCO2 at Pt Temp ABG pCO2 (Temp Corrct ABG pO2 at Pt Temp ABG pO2 (Temp Correct ABG HCO3 ABG Base Excess (Actual) VBG pH 7.37 VBG pCO2 64 VBG pO2 68 VBG HCO3 38 H VBG O2 Saturation 93.0 VBG Base Excess 10.6 Sodium Potassium Chloride Carbon Dioxide Anion Gap BUN Creatinine Estim Creat Clear Calc Estimated GFR POC Glucose 158 H Random Glucose Lactic Acid Calcium Ferritin Total Bilirubin AST ALT Alkaline Phosphatase C-Reactive Protein Total Protein Albumin Ref Lab Test Result SEE NOTE 01/01/21 01/01/21 01/01/21 14:55 17:42 22:39 WBC RBC Hgb Hct MCV MCH MCHC RDW Plt Count MPV Immature Gran % (Auto) Neut % (Auto) Lymph % (Auto) [place] % (Auto) Eos % (Auto) Baso % (Auto) Lymph # (Auto) [place] # (Auto) Eos # (Auto) Baso # (Auto) Abs Immat Gran (auto) Absolute Neuts (auto) Absolute Nucleated RBC Nucleated RBC % (auto) D-Dimer O2 Saturation ABG pH at Pt Temp ABG pH (Temp Correct) ABG pCO2 at Pt Temp ABG pCO2 (Temp Corrct ABG pO2 at Pt Temp ABG pO2 (Temp Correct ABG HCO3 ABG Base Excess (Actual) VBG pH 7.39 VBG pCO2 62 VBG pO2 70 VBG HCO3 38 H VBG O2 Saturation 94.0 VBG Base Excess 10.9 Sodium Potassium Chloride Carbon Dioxide Anion Gap BUN Creatinine Estim Creat Clear Calc Estimated GFR POC Glucose 164 H 171 H Random Glucose Lactic Acid Calcium Ferritin Total Bilirubin AST ALT Alkaline Phosphatase C-Reactive Protein Total Protein Albumin Ref Lab Test Result 01/02/21 01/02/21 01/02/21 02:50 06:10 06:10 WBC 19.6 H RBC 3.33 L Hgb 9.5 L Hct 31.9 L MCV 95.8 MCH 28.5 MCHC 29.8 L RDW 17.5 H Plt Count 250 MPV 11.9 Immature Gran % (Auto) 2.9 H Neut % (Auto) 84.2 H Lymph % (Auto) 5.4 L [place] % (Auto) 7.2 Eos % (Auto) 0.2 Baso % (Auto) 0.1 Lymph # (Auto) 1.1 L [place] # (Auto) 1.4 H Eos # (Auto) 0.0 Baso # (Auto) 0.0 Abs Immat Gran (auto) 0.56 H Absolute Neuts (auto) 16.5 H Absolute Nucleated RBC 0.240 H Nucleated RBC % (auto) 1.2 H D-Dimer O2 Saturation ABG pH at Pt Temp ABG pH (Temp Correct) ABG pCO2 at Pt Temp ABG pCO2 (Temp Corrct ABG pO2 at Pt Temp ABG pO2 (Temp Correct ABG HCO3 ABG Base Excess (Actual) VBG pH VBG pCO2 VBG pO2 VBG HCO3 VBG O2 Saturation VBG Base Excess Sodium Potassium Chloride Carbon Dioxide Anion Gap BUN Creatinine Estim Creat Clear Calc Estimated GFR POC Glucose 157 H Random Glucose Lactic Acid 1.5 Calcium Ferritin Total Bilirubin AST ALT Alkaline Phosphatase C-Reactive Protein Total Protein Albumin Ref Lab Test Result 01/02/21 01/02/21 01/02/21 06:10 06:10 06:10 WBC RBC Hgb Hct MCV MCH MCHC RDW Plt Count MPV Immature Gran % (Auto) Neut % (Auto) Lymph % (Auto) [place] % (Auto) Eos % (Auto) Baso % (Auto) Lymph # (Auto) [place] # (Auto) Eos # (Auto) Baso # (Auto) Abs Immat Gran (auto) Absolute Neuts (auto) Absolute Nucleated RBC Nucleated RBC % (auto) D-Dimer 54788 O2 Saturation ABG pH at Pt Temp ABG pH (Temp Correct) ABG pCO2 at Pt Temp ABG pCO2 (Temp Corrct ABG pO2 at Pt Temp ABG pO2 (Temp Correct ABG HCO3 ABG Base Excess (Actual) VBG pH 7.41 VBG pCO2 66 VBG pO2 66 VBG HCO3 42 H VBG O2 Saturation 93.0 VBG Base Excess 14.8 Sodium 139 Potassium 4.7 Chloride 96 Carbon Dioxide 36 H Anion Gap 12 BUN 17 H Creatinine 0.51 Estim Creat Clear Calc 149.5 Estimated GFR > 60 POC Glucose Random Glucose 140 H Lactic Acid Calcium 8.4 Ferritin 298 H Total Bilirubin 0.4 AST 49 H ALT 47 H Alkaline Phosphatase 58 C-Reactive Protein 4.63 H Total Protein 5.3 L Albumin 2.7 L Ref Lab Test Result 01/02/21 01/02/21 01/02/21 06:47 10:47 10:51 WBC RBC Hgb Hct MCV MCH MCHC RDW Plt Count MPV Immature Gran % (Auto) Neut % (Auto) Lymph % (Auto) [place] % (Auto) Eos % (Auto) Baso % (Auto) Lymph # (Auto) [place] # (Auto) Eos # (Auto) Baso # (Auto) Abs Immat Gran (auto) Absolute Neuts (auto) Absolute Nucleated RBC Nucleated RBC % (auto) D-Dimer O2 Saturation 93.0 ABG pH at Pt Temp 7.41 ABG pH (Temp Correct) 7.40 ABG pCO2 at Pt Temp 67 H* ABG pCO2 (Temp Corrct 68 H* ABG pO2 at Pt Temp 69 L ABG pO2 (Temp Correct 69 L ABG HCO3 42 H ABG Base Excess (Actual) 15.5 VBG pH VBG pCO2 VBG pO2 VBG HCO3 VBG O2 Saturation VBG Base Excess Sodium Potassium Chloride Carbon Dioxide Anion Gap BUN Creatinine Estim Creat Clear Calc Estimated GFR POC Glucose 148 H 157 H Random Glucose Lactic Acid Calcium Ferritin Total Bilirubin AST ALT Alkaline Phosphatase C-Reactive Protein Total Protein Albumin Ref Lab Test Result Microbiology Microbiology Results: Microbiology 12/30/20 20:45 Blood - Venous Blood Culture - Preliminary No growth after 48 hours. 12/30/20 20:43 Blood - Venous Blood Culture - Preliminary No growth after 48 hours. 12/30/20 21:30 Urine [place] Urine Culture - Final No growth. 12/27/20 15:57 Bronch, Not Specified Direct Acid Fast Bacilli Smear - Final 12/27/20 15:58 Bronch, Not Specified Fungal Identification - Preliminary No growth to date. 12/27/20 15:58 Bronch, Not Specified Gram Stain - Final 12/27/20 15:58 Bronch, Not Specified - Final Staphylococcus aureus 12/23/20 20:10 Blood - Venous Blood Culture - Final No growth after 5 days. 12/23/20 19:46 Blood - Venous Blood Culture - Final No growth after 5 days. Critical Care Time Critical Care Time (minutes): 90
--- NOTE | 2021-01-02 14:11 | MHC.CM.PN ---
Pt remains intubated in ICU with COVID: FiO2 is close to 100% and weaning is not clincially indicated. Family meeting held with pt's spouse and HCP, Haleigh who is also a COVID pt on [facility], Teri Hyman, RN and CM. Grand dtr Carmita attended via phone conference call. Pt's serious prognosis discussed - Haleigh would like full aggressive care and support given at this time. Pt will remain a full code. 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 Family unaware of potential for trach/peg/LTAC placement. Will reapproach topic when clinically appropriate. CM to follow
[2021-01-02] MEDS: Furosemide 20 MG/2 ML VIAL IVPUSH (16:41)
[2021-01-02 17:01] LABS: Glucose, Whole Blood 184 mg/dL (60-115)
[2021-01-02] MEDS: fentaNYL citrate/NS 1,000 MCG/100 ML PLAST..BAG 20 MCG IVCONT ×2 (17:54→23:19)
[2021-01-02] MEDS: QUEtiapine Fumarate 25 MG TABLET 75 MG G-TUBE (19:57)
[2021-01-02] MEDS: Melatonin 3 MG TABLET 9 MG PO (19:58)
[2021-01-02] MEDS: propofoL 1,000 MG/100 ML VIAL 25.5 MG IVCONT (20:38)
[2021-01-02 20:40] LABS: Glucose, Whole Blood 180 mg/dL (60-115)
[2021-01-03] VITALS (35 sets, daily range): BP systolic 99–141; BP diastolic 54–72; PULSE 83–118; RESP 14–28; TEMP 37.5–38.2; O2SAT 88–98
[2021-01-03] MEDS: propofoL 1,000 MG/100 ML VIAL 25.5 MG IVCONT ×6 (00:36→23:31)
[2021-01-03 01:06] LABS: Glucose, Whole Blood 143 mg/dL (60-115)
[2021-01-03] MEDS: fentaNYL citrate/PF 100 MCG/2 ML VIAL IVPUSH (02:34)
[2021-01-03] MEDS: methylPREDNISolone Sod Succ 125 MG/2 ML VIAL 80 MG IVPUSH ×2 (02:35→13:44)
[2021-01-03] MEDS: Ascorbic Acid 500 MG TABLET 1000 MG G-TUBE ×3 (02:35→13:44)
[2021-01-03] MEDS: Esmolol HCl/NaCl Iso 2,500 MG/250 ML IV.SOLN 5.1 MG IVCONT (02:51)
[2021-01-03] MEDS: Insulin Regular/NS 100 UNIT/100 ML PLAST..BAG IVCONT ×2 (03:04→13:31)
--- NOTE | 2021-01-03 03:10 | PC.NURSE ---
end tidal co2 rising into the high 50s low 60s. sao2 95% on 100% fio2. ecg displays st apical hr 115-120 bpm. shawn alfredo summoned to bedside the following interventions carried out 1. stat abg ph 7.24 pco2 98 po2 78 hco3 43.4 2. fentanyl 100 mcg ivp stat 3. start esmolol drip at 10mcg/kg/min titrate to keep hr< 100 bpm 4. mechanical ventilator settings changed from pressure control to volume control ac 28 vt 440 fio2 90% peep 10cm. 5. will repeat abg at 0600-
[2021-01-03] MEDS: fentaNYL citrate/NS 1,000 MCG/100 ML PLAST..BAG 20 MCG IVCONT ×5 (04:24→23:31)
[2021-01-03] MEDS: acetaZOLAMIDE 250 MG TABLET 500 MG G-TUBE ×2 (04:24→10:17)
[2021-01-03 05:24] LABS: ABG Base Excess 13.7 mmol/L; ABG HCO3 41 mmol/L (22-26); ABG pCO2 71 mmHg (32-45); ABG pCO2 TC 75 mmHg (32-45); ABG pH 7.37 (7.35-7.45); ABG pH TC 7.35 (7.35-7.45); ABG pO2 83 mmHg (83-108); ABG pO2 TC 88 (83-108)
[2021-01-03 05:26] LABS: Venous Blood Gas Refer to POC result
[2021-01-03 05:34] LABS: Basophils Percent Auto 0.1 % (0-2); Eosinophils Absolute Auto 0.1 X10*3/uL (0.0-0.4); Eosinophils Percent Auto 0.3 % (0-4); Hematocrit 32.6 % (42-52); Hemoglobin 9.8 g/dl (14.0-18.0); Imm Gran Abs Auto 0.27 X10*3/uL (0.00-0.03); Imm Gran Pct Auto 1.5 % (0.0-0.4); Lymphocytes Absolute Auto 0.6 X10*3/uL (1.2-4.9); Lymphocytes Percent Auto 3.4 % (20-40); MANUAL DIFF FLAG SCAN; Mean Corpuscular HGB Conc 30.1 g/dl (31.0-36.0); Mean Corpuscular Volume 96.4 fL (80-98); Mean Platelet Volume 11.3 fL (9.4-12.4); Monocytes Percent Auto 10.6 % (2-11); NRBC Pct Auto 1.6 /100WBC (0.0-0.2); Neutrophils Absolute Auto 15.6 X10*3/uL (2.0-8.3); Neutrophils Percent Auto 84.1 % (45-73); Platelet Count 264 X10*3/uL (160-400); Red Blood Count 3.38 X10*6/uL (4.60-5.80); Red Cell Distribution Width 17.2 % (11.0-16.0); SCAN SMEAR FLAG 1; White Blood Count 18.6 X10*3/uL (4.8-10.8)
[2021-01-03 05:52] LABS: SLIDE REVIEW VERIFIED
[2021-01-03 06:06] LABS: Alanine Aminotransferase 52 U/L (0-40); Albumin Level 2.9 g/dL (3.5-5.0); Alkaline Phosphatase 57 U/L (39-117); Anion Gap 14 (12-20); Aspartate Amino Transferase 57 U/L (5-37); Bilirubin Total < 0.2 mg/dL (0.0-1.0); Blood Urea Nitrogen 22 mg/dL (9-16); Calcium 8.6 mg/dL (8.4-10.2); Carbon Dioxide 34 mmol/L (22-29); Chloride 95 mmol/L (96-108); Estimated Glomerular Filt Rate > 60; Glucose Random 179 mg/dL (60-115); Potassium 4.9 mmol/L (3.3-5.1); Sodium 138 mmol/L (135-145); Total Protein 5.6 g/dL (6.5-8.0)
--- NOTE | 2021-01-03 06:27 | PC.NURSE ---
SEDATED/UNDER THE INFLUENCES OF PROPOFOL AND FENTANYL WHICH ARE AT MAXIUM DOSAGES. PLEASE NOTE POC AND SERUM BLOOD SUGARS ARE BEING DIRECTLY REPORTED TO PROVIDER AND INSULIN INFUSION ADJUSTED ACCORDINGLY. WE ARE NOT FOLLOWING INSULIN PROTOCOL. ABG HAS SHOWN SOME IMPROVEMENT. PH 7.35 PCO2 71 PO2 75 HCO3 41. HEART RATE HAS DECREASED INTO THE 80-90 BPM WITH ESMOLOL DRIP AT 10MCG/KG/MIN. ECG DISPLAYS SR WITH PACS. TOLERATING TUBE FEEDINGS. U/O 100-200 ML/HR.
[2021-01-03] MEDS: Chlorhexidine Gluc Oral Rinse 15 ML MOUTHWASH BUCCAL ×2 (07:40→13:34)
[2021-01-03] MEDS: Famotidine/PF 20 MG/2 ML VIAL 40 MG IVPUSH ×2 (07:40→20:54)
[2021-01-03] MEDS: Enoxaparin Sodium 40 MG/0.4 ML SYRINGE SUBCUT ×2 (07:41→19:36)
[2021-01-03] MEDS: Doxycycline Hyclate 100 MG in 0.9 % Sodium Chloride 250 ML 166.67 MG IV (07:41)
[2021-01-03] MEDS: Cholecalciferol (Vitamin D3) 25 MCG TABLET 50 MCG NG-TUBE (07:41)
[2021-01-03] MEDS: Aspirin 81 MG TAB.CHEW PO (07:42)
[2021-01-03] MEDS: Atorvastatin Calcium 80 MG TABLET G-TUBE (07:42)
[2021-01-03] MEDS: QUEtiapine Fumarate 25 MG TABLET 75 MG G-TUBE (10:00)
[2021-01-03] MEDS: Thiamine HCL 100 MG TABLET 200 MG G-TUBE (10:17)
[2021-01-03] MEDS: Hydroxychloroquine Sulfate 200 MG TABLET PO (10:18)
[2021-01-03] MEDS: Folic Acid 1 MG TABLET PO (10:18)
[2021-01-03 10:27] LABS: Glucose, Whole Blood 142 mg/dL (60-115)
--- NOTE | 2021-01-03 11:43 | PM.CCPN ---
Subjective Subjective Date of Service: 01/03/21 Interval History: Mr. Lombardo was transferred to ICU on December 27 with acute respiratory failure 2? COVID pneumonia. This is a 65-year-old male with extensive past medical history that includes mixed connective tissue disease and antiphospholipid syndrome, on hydroxychloroquine, methotrexate, Sarilumab (IL6 inhibitor) and Aspirin at home. The patient is status post splenectomy. On December 23 presented to the hospital with shortness of breath and cough for the prior 1 week. Had contact with COVID patient. Sat was 70% on room air by EMS. On arrival to the ED was placed on high-flow, sat?ing 90-95%. COVID-19 positive. Renal indices normal. CT showed multifocal extensive ground-glass infiltrates consistent with COVID. CT angio showed no evidence of PE. On my reading, I thought the RV was slightly enlarged. Transthoracic echo done one week prior to admission was read as showing normal LV function with EF 65-70%, normal right ventricular cavity size and function, no valvular pathology, normal IVC, and RVSP 19 mm. The patient was admitted to medicine and treated with Decadron. He was given 3 days of remdesivir. Despite that, his oxygenation deteriorated, and he was transferred to the ICU on December 27 and intubated. He spiked a temperature that day. He was started on empiric cefepime and doxycycline. He underwent bronchoscopy, which showed 2+ polys and 1+ Gram-positive cocci, which grew out less than 10,000 CFU Staph aureus. He has been requiring 70-80% FiO2 on the ventilator. Bedside echo done December [address] Jimenez showed mild right ventricular dilatation. Since then, FiO2 has ranged from 60-100%. On December 30, I added Seroquel bec of extreme agitation during sedation holidays. Dose has been adjusted to 75mg bid. CXR done 01/01 bec of neck puffiness showed SQ air, new in comparison with CXR done the prior day. No PTX. We reduced his insp pressure, tidal vol, and PEEP. Over the last three days, lowest FiO2 has been 80%, w 10cm PEEP. Currently he?s on propofol 40ug and fentanyl @ 200 ug, and the Seroquel @ 75mg bid. Well sedated. HR 94 on esmolol at 10ug, BP 104/56 off Levophed. Insulin @ 7u/hr. On VC 28/440/80%/+10, RR is 28, PIP 28, ETCO2 39, SpO2 88%. ABG this morning showed 7.37/71/83/+13. Tmax 100.8. PER 3 mm. No JVD at 30 degrees. Chest is clear to auscultation, with normal expiratory phase. Heart rate and rhythm are regular, with normal-sounding S1 and S2, with no murmur or gallops. Abdomen is soft and benign. There is no significant peripheral edema. Neuro exam is nonfocal/non interactive. We did a propofol holiday. Eyes were open and he became very agitated and dysynchronous, still 100% noninteractive. LABORATORY DATA: Below. WBC steady. Renal indices up slightly. POC in good range. CXR today: Improved SQ air. IMPRESSION: 1. Underlying mixed connective tissue disease, on above meds at home. Methotrexate was stopped on admission. His monoclonal ab is stopped. Continuing his hydroxychloroquine. 2. Underlying antiphospholipid syndrome. Continuing his ASA. 3. Bilat COVID-19 pneumonia. Added the [facility] COVID protocol: Bumped his steroids to Solu-Medrol 80 mg bid, added the ancillary meds. I also bumped his DVT prophylaxis to ? mg/kg bid bec with COVID he?s more susceptible to clotting. Added ivermectin on 01/01. We placed an arterial line for respiratory and hemodynamic monitoring. I called [facility], [facility], and [facility], all declined transfer. 4. Acute respiratory failure. Secondary to above. 5. Very elevated D-dimer. Mild right ventricular dilatation on Dr. Jimenez?s echo. ?need to r/o PE. The echo is c/w the initial CT, which was negative for PE. Duplex scan of his legs was negative, troponin was neg, BNP was 107. Will not pursue PE diagnosis further. 6. Anticoagulation/DVT prophylaxis: Given clotting propensity from his antiphospholipid syndrome, on top of which he now has COVID, we upped his prophylactic anticoagulation to Lovenox ? mg/kg bid. Continuing the aspirin. 7. Hyperglycemia. On insulin drip with POCs in perfect range. 8. Hypernatremia. Resolved w free water flushes. 9. ID: Febrile with leukocytosis. The leukocytosis is explainable from the steroids. With the new fever, the patient was started on empiric antibiotics. The Staph aureus is almost certainly a colonizer, may well be MRSA. Continued on only doxycycline. The doxy had no effect on anything (fever or WBC). Today is day#8. Will d/c at midnite tonite. 10. Nutrition. On full dose tube feeds. 11. Neuropsych. Had him on Seroquel 50, 75, and 100mg bid. On 100mg bid, he was completely flat with the propofol off. Seems best on 75mg bid. I?m going to send him to head CT to make sure he hasn?t had a stroke/bleed. 12. Metabolic alkalosis. Started Diamox. Prognosis is grave. At least he only has single organ dysfxn at this moment. I met with the patient?s at the bedside yesterday, and we teleconferenced with the patient?s granddaughter. I discussed how sick the patient is, and that many ventilated patients don?t survive. They wish to proceed with all necessary measures, including resuscitation. Critical care time: 50 minutes. Physical Exam Vital Signs: Vital Signs: Last Vital Signs Temp 99.7 F 01/03/21 11:00 Pulse 90 01/03/21 11:00 Resp 23 H 01/03/21 11:00 BP 101/56 L 01/03/21 11:00 Pulse Ox 89 L 01/03/21 11:00 Body Mass Index 30.2 Objective Data Labs CBC & Chem 7: 01/03/21 05:14 01/03/21 05:14 Labs: Laboratory Results - last 24 hr 01/02/21 01/02/21 01/03/21 16:48 20:25 01:00 WBC RBC Hgb Hct MCV MCH MCHC RDW Plt Count MPV Immature Gran % (Auto) Neut % (Auto) Lymph % (Auto) [place] % (Auto) Eos % (Auto) Baso % (Auto) Lymph # (Auto) [place] # (Auto) Eos # (Auto) Baso # (Auto) Abs Immat Gran (auto) Absolute Neuts (auto) Absolute Nucleated RBC Nucleated RBC % (auto) Smear Tech's Comments O2 Saturation ABG pH at Pt Temp ABG pH (Temp Correct) ABG pCO2 at Pt Temp ABG pCO2 (Temp Corrct ABG pO2 at Pt Temp ABG pO2 (Temp Correct ABG HCO3 ABG Base Excess (Actual) Sodium Potassium Chloride Carbon Dioxide Anion Gap BUN Creatinine Estim Creat Clear Calc Estimated GFR POC Glucose 184 H 180 H 143 H Random Glucose Calcium Total Bilirubin AST ALT Alkaline Phosphatase Total Protein Albumin 01/03/21 01/03/21 01/03/21 05:14 05:14 05:17 WBC 18.6 H RBC 3.38 L Hgb 9.8 L Hct 32.6 L MCV 96.4 MCH 29.0 MCHC 30.1 L RDW 17.2 H Plt Count 264 MPV 11.3 Immature Gran % (Auto) 1.5 H Neut % (Auto) 84.1 H Lymph % (Auto) 3.4 L [place] % (Auto) 10.6 Eos % (Auto) 0.3 Baso % (Auto) 0.1 Lymph # (Auto) 0.6 L [place] # (Auto) 2.0 H Eos # (Auto) 0.1 Baso # (Auto) 0.0 Abs Immat Gran (auto) 0.27 H Absolute Neuts (auto) 15.6 H Absolute Nucleated RBC 0.300 H Nucleated RBC % (auto) 1.6 H Smear Tech's Comments VERIFIED O2 Saturation 96.0 ABG pH at Pt Temp 7.37 ABG pH (Temp Correct) 7.35 ABG pCO2 at Pt Temp 71 H* ABG pCO2 (Temp Corrct 75 H* ABG pO2 at Pt Temp 83 ABG pO2 (Temp Correct 88 ABG HCO3 41 H ABG Base Excess (Actual) 13.7 Sodium 138 Potassium 4.9 Chloride 95 L Carbon Dioxide 34 H Anion Gap 14 BUN 22 H Creatinine 0.61 Estim Creat Clear Calc 125.0 Estimated GFR > 60 POC Glucose Random Glucose 179 H Calcium 8.6 Total Bilirubin < 0.2 AST 57 H ALT 52 H Alkaline Phosphatase 57 Total Protein 5.6 L Albumin 2.9 L 01/03/21 08:41 WBC RBC Hgb Hct MCV MCH MCHC RDW Plt Count MPV Immature Gran % (Auto) Neut % (Auto) Lymph % (Auto) [place] % (Auto) Eos % (Auto) Baso % (Auto) Lymph # (Auto) [place] # (Auto) Eos # (Auto) Baso # (Auto) Abs Immat Gran (auto) Absolute Neuts (auto) Absolute Nucleated RBC Nucleated RBC % (auto) Smear Tech's Comments O2 Saturation ABG pH at Pt Temp ABG pH (Temp Correct) ABG pCO2 at Pt Temp ABG pCO2 (Temp Corrct ABG pO2 at Pt Temp ABG pO2 (Temp Correct ABG HCO3 ABG Base Excess (Actual) Sodium Potassium Chloride Carbon Dioxide Anion Gap BUN Creatinine Estim Creat Clear Calc Estimated GFR POC Glucose 142 H Random Glucose Calcium Total Bilirubin AST ALT Alkaline Phosphatase Total Protein Albumin Microbiology Microbiology Results: Microbiology 12/30/20 20:45 Blood - Venous Blood Culture - Preliminary No growth after 48 hours. 12/30/20 20:43 Blood - Venous Blood Culture - Preliminary No growth after 48 hours. 12/30/20 21:30 Urine [place] Urine Culture - Final No growth. 12/27/20 15:57 Bronch, Not Specified Direct Acid Fast Bacilli Smear - Final 12/27/20 15:58 Bronch, Not Specified Fungal Identification - Preliminary No growth to date. 12/27/20 15:58 Bronch, Not Specified Gram Stain - Final 12/27/20 15:58 Bronch, Not Specified - Final Staphylococcus aureus 12/23/20 20:10 Blood - Venous Blood Culture - Final No growth after 5 days. 12/23/20 19:46 Blood - Venous Blood Culture - Final No growth after 5 days.
[2021-01-03] MEDS: propofoL 1,000 MG/100 ML VIAL 20.4 MG IVCONT (12:07)
[2021-01-03 13:51] LABS: Glucose, Whole Blood 109 mg/dL (60-115)
[2021-01-03] MEDS: Cisatracurium Besylate 20 MG/10 ML VIAL 16 MG IVPUSH (14:54)
[2021-01-03] MEDS: fentaNYL citrate/PF 100 MCG/2 ML VIAL 50 MCG IVPUSH (14:54)
[2021-01-03 15:17] LABS: Glucose, Whole Blood 136 mg/dL (60-115)
--- NOTE | 2021-01-03 15:46 | PM.CCPN ---
Subjective Subjective Date of Service: 01/03/21 Interval History: I was called stat to see Mr. Jayde Dior because of hypoxemia and hypotension. A short time ago, the patient was taken to CT scan for a planned CT of the head and chest. See my note of earlier today. The patient was transported using the mechanical ventilator, with no ventilator circuit disconnections. On arrival in CT, the patient's saturation had dropped to the 80 range. He was given Ambu bag ventilation by the respiratory therapist. His oxygenation did not stabilize. Therefore the CT scan was aborted and patient was taken back to the ICU. On arrival in CT and putting the patient back on the ventilator, the sat was down, the end-tidal CO2 was up, and the blood pressure dropped. He also seemed to have more subcutaneous air around the neck. I was called to see him stat, the concern being for a pneumothorax. The patient never lost is a line tracing however. By the time of my arrival, the blood pressure on the A-line was back up to the 140s. A chest x-ray showed no pneumothorax. The sat was still in the high 70s however. We therefor turned him prone. That was accomplished without incident. His sat graham into the 90s shortly thereafter. Follow-up arterial blood gas on 100% oxygen showed 7.37/71/83. Ultimately we were able to turn his FiO2 down to 90% and then down to 80%. Critical care time: 50 minutes. Physical Exam Vital Signs: Vital Signs: Last Vital Signs Temp 100.0 F 01/03/21 13:00 Pulse 100 01/03/21 13:00 Resp 23 H 01/03/21 13:00 BP 110/60 01/03/21 13:00 Pulse Ox 89 L 01/03/21 13:00 Body Mass Index 30.2 Objective Data Labs CBC & Chem 7: 01/04/21 05:20 01/04/21 05:20 Labs: Laboratory Results - last 24 hr 01/02/21 01/02/21 01/03/21 16:48 20:25 01:00 WBC RBC Hgb Hct MCV MCH MCHC RDW Plt Count MPV Immature Gran % (Auto) Neut % (Auto) Lymph % (Auto) [place] % (Auto) Eos % (Auto) Baso % (Auto) Lymph # (Auto) [place] # (Auto) Eos # (Auto) Baso # (Auto) Abs Immat Gran (auto) Absolute Neuts (auto) Absolute Nucleated RBC Nucleated RBC % (auto) Smear Tech's Comments O2 Saturation ABG pH at Pt Temp ABG pH (Temp Correct) ABG pCO2 at Pt Temp ABG pCO2 (Temp Corrct ABG pO2 at Pt Temp ABG pO2 (Temp Correct ABG HCO3 ABG Base Excess (Actual) Sodium Potassium Chloride Carbon Dioxide Anion Gap BUN Creatinine Estim Creat Clear Calc Estimated GFR POC Glucose 184 H 180 H 143 H Random Glucose Calcium Total Bilirubin AST ALT Alkaline Phosphatase Total Protein Albumin 01/03/21 01/03/21 01/03/21 05:14 05:14 05:17 WBC 18.6 H RBC 3.38 L Hgb 9.8 L Hct 32.6 L MCV 96.4 MCH 29.0 MCHC 30.1 L RDW 17.2 H Plt Count 264 MPV 11.3 Immature Gran % (Auto) 1.5 H Neut % (Auto) 84.1 H Lymph % (Auto) 3.4 L [place] % (Auto) 10.6 Eos % (Auto) 0.3 Baso % (Auto) 0.1 Lymph # (Auto) 0.6 L [place] # (Auto) 2.0 H Eos # (Auto) 0.1 Baso # (Auto) 0.0 Abs Immat Gran (auto) 0.27 H Absolute Neuts (auto) 15.6 H Absolute Nucleated RBC 0.300 H Nucleated RBC % (auto) 1.6 H Smear Tech's Comments VERIFIED O2 Saturation 96.0 ABG pH at Pt Temp 7.37 ABG pH (Temp Correct) 7.35 ABG pCO2 at Pt Temp 71 H* ABG pCO2 (Temp Corrct 75 H* ABG pO2 at Pt Temp 83 ABG pO2 (Temp Correct 88 ABG HCO3 41 H ABG Base Excess (Actual) 13.7 Sodium 138 Potassium 4.9 Chloride 95 L Carbon Dioxide 34 H Anion Gap 14 BUN 22 H Creatinine 0.61 Estim Creat Clear Calc 125.0 Estimated GFR > 60 POC Glucose Random Glucose 179 H Calcium 8.6 Total Bilirubin < 0.2 AST 57 H ALT 52 H Alkaline Phosphatase 57 Total Protein 5.6 L Albumin 2.9 L 01/03/21 01/03/21 01/03/21 08:41 12:27 15:08 WBC RBC Hgb Hct MCV MCH MCHC RDW Plt Count MPV Immature Gran % (Auto) Neut % (Auto) Lymph % (Auto) [place] % (Auto) Eos % (Auto) Baso % (Auto) Lymph # (Auto) [place] # (Auto) Eos # (Auto) Baso # (Auto) Abs Immat Gran (auto) Absolute Neuts (auto) Absolute Nucleated RBC Nucleated RBC % (auto) Smear Tech's Comments O2 Saturation ABG pH at Pt Temp ABG pH (Temp Correct) ABG pCO2 at Pt Temp ABG pCO2 (Temp Corrct ABG pO2 at Pt Temp ABG pO2 (Temp Correct ABG HCO3 ABG Base Excess (Actual) Sodium Potassium Chloride Carbon Dioxide Anion Gap BUN Creatinine Estim Creat Clear Calc Estimated GFR POC Glucose 142 H 109 136 H Random Glucose Calcium Total Bilirubin AST ALT Alkaline Phosphatase Total Protein Albumin Microbiology Microbiology Results: Microbiology 12/30/20 20:45 Blood - Venous Blood Culture - Preliminary No growth after 48 hours. 12/30/20 20:43 Blood - Venous Blood Culture - Preliminary No growth after 48 hours. 12/30/20 21:30 Urine [place] Urine Culture - Final No growth. 12/27/20 15:57 Bronch, Not Specified Direct Acid Fast Bacilli Smear - Final 12/27/20 15:58 Bronch, Not Specified Fungal Identification - Preliminary No growth to date. 12/27/20 15:58 Bronch, Not Specified Gram Stain - Final 12/27/20 15:58 Bronch, Not Specified - Final Staphylococcus aureus 12/23/20 20:10 Blood - Venous Blood Culture - Final No growth after 5 days. 12/23/20 19:46 Blood - Venous Blood Culture - Final No growth after 5 days. Critical Care Time Critical Care Time (minutes): 60
[2021-01-03 19:04] LABS: Glucose, Whole Blood 133 mg/dL (60-115)
[2021-01-03] MEDS: Doxycycline Hyclate 100 MG in 0.9 % Sodium Chloride 250 ML 166.6 MG IV (19:35)
--- NOTE | 2021-01-03 19:55 | PC.NURSE ---
Assumed care at 0700. At that time, patient was sedate on propofol 50 and fentanyl 200; was ventilating relatively well; but pupils were very sluggish about 2 mm, and patient did not appear to have a cough or a gag, and patient was not moving extremities or reacting to painful stimuli or verbal stimuli. Trialed a titiration of propofol down to 40 with no noticeable effect, and discussed with MD, and sedation holiday was performed by turning off propofol per MD at 09:45; this was not well tolerated, as patient became tachypneic, RR in low 30's; tachycardic with HR in 110-120's range; and patient pupils were reactive but sluggish; and patient's work of breathing was increased, and the ventilation was not synchronous; patient was stacking breaths, pushing breaths past ETT cuff. MD notified and patient resedated. Patient has #8 ETT, 26 cm padma; Settings were changed from Volume controlled settings to pressure control: PC 18, rate 26; peep 10; fio2 was 100%, titirated to 90%; minute volumes now about 11; tidal volumes about 460; etco2 38-44. CT head and chest was ordered for patient, related to neurological difficulty rousing, and the patient's stability was questioned by RT; after discussion, patient appeared more stable, and was taken to CT scan, but once there, his spo2 was dropping to the low 80's, patient was bagged, and MD was notified, and CT was cancelled at this time. Upon arrival back at the ICU, Patient was dropping spo2 to 74% despite bagging and maximum Fio2. new order for nimbex 16 mg, adiminstered at 1454, and 50 mcg fentanyl ivp with some effectiveness, and patient was proned with the help of RT, MD, and ancillary staff at 1530 with good effect, and SpO2 was 96% upon proning. Patient's TF is held, medications will not be given via OGT. Patient noted to have some chino oral secretions after proning, oral care with good effect. Esmolol titrated per HR; levophed titrated to off, had to be restarted briefly after return from CT scan, with BP dropping somewhat yet MAP was 65. ABGs taken at 1644 after 1 hour of proning, were hypercarbic: 7.32/74.5/84.8/39.2/11.1. Patient CXR this morning showed improved subcutaneous emphysema in patient neck, but upon return from CT scan, patient's neck was subjectively puffier than this morning, trachea noted to be about 1 cm deviated left of sternal notch; crepitus now palpable at area superficial to manubrium and superficial to right clavicular area. MD notified, and new CXR ordered, which was reviewed by md and showed pneumomediastinum and subcutaneous emphysema extending to base of neck, low lung volumes, no measureable pneumothorax; discussed with MD and no chest tube indication at this time. PA and MD updating family; patient's emergency contact updated by RN. T was 99.9-100.0, doxycycline continues. no BM today, markedly diminished BS. Insulin gtt titrated per MD.
[2021-01-03 21:15] LABS: Glucose, Whole Blood 112 mg/dL (60-115)
[2021-01-04] VITALS (36 sets, daily range): BP systolic 87–145; BP diastolic 45–73; PULSE 80–104; RESP 21–30; TEMP 37.4–37.9; O2SAT 89–98
[2021-01-04 00:04] LABS: Glucose, Whole Blood 104 mg/dL (60-115)
[2021-01-04] MEDS: methylPREDNISolone Sod Succ 125 MG/2 ML VIAL 80 MG IVPUSH ×2 (01:33→13:40)
--- NOTE | 2021-01-04 01:46 | PC.NURSE ---
deeply sedated under maximum dosages of propofol and fentanyl for ventilatory management. noxious stimulation evokes no response. extremities are flaccid. complexion pale. numerous scarred healed circumscribed lesions noted across skin surfaces.pt is in a proned position. his head is cradled in pronation pillow. q 1hr diligent monitoring for pressure points of face and extremities conducted. very gingerly face ears and extremities moved to displace pressure points. shawn alfredo called and son and informed them of the gravity of pts condition. they were told despite all effort underway, pt would most likely not survive. pt is on pressure control ventilation. minute volumes 10-11 lpm. breath posterior lateral breath sounds are coarse and diminished. end tidal co2 in the mid 40s. sao2 96-97%. fio2 turned down to 80%. vent settings pc 18/10 ac 26 fio2 80% peep 10 cm. unable to palpate crepitus in the prone position. ecg displays sr with pacs. esmolol decreased to 10mcg/kg/min. apical heart rate 85-95 bpm. npo. insulin drip adjusted per providers instruction. currently insulin infusion at 1ux/hr. booth catheter patent and draining urine 80-100ml/hr.
[2021-01-04] MEDS: propofoL 1,000 MG/100 ML VIAL 25.5 MG IVCONT ×6 (03:24→22:05)
[2021-01-04 03:35] LABS: Glucose, Whole Blood 117 mg/dL (60-115)
[2021-01-04] MEDS: fentaNYL citrate/NS 1,000 MCG/100 ML PLAST..BAG 20 MCG IVCONT ×5 (05:03→22:53)
[2021-01-04] MEDS: Esmolol HCl/NaCl Iso 2,500 MG/250 ML IV.SOLN 5.1 MG IVCONT (05:04)
[2021-01-04 05:34] LABS: VBG Base Excess 12.8 mmol/L; VBG HCO3 41 mmol/L (22-26); VBG pCO2 76 mmHg; VBG pH 7.34 (7.32-7.43); VBG pO2 222 mmHg
[2021-01-04 05:38] LABS: Venous Blood Gas Refer to POC result
[2021-01-04 05:46] LABS: MANUAL DIFF FLAG NO
[2021-01-04 05:49] LABS: Basophils Percent Auto 0.1 % (0-2); Eosinophils Absolute Auto 0.1 X10*3/uL (0.0-0.4); Eosinophils Percent Auto 0.7 % (0-4); Hemoglobin 9.8 g/dl (14.0-18.0); Imm Gran Abs Auto 0.31 X10*3/uL (0.00-0.03); Imm Gran Pct Auto 1.9 % (0.0-0.4); Lymphocytes Percent Auto 5.7 % (20-40); Mean Corpuscular HGB Conc 29.7 g/dl (31.0-36.0); Mean Corpuscular Hemoglobin 28.4 pg (27.0-33.0); Mean Corpuscular Volume 95.7 fL (80-98); Mean Platelet Volume 11.6 fL (9.4-12.4); Monocytes Absolute Auto 1.4 X10*3/uL (0.1-1.2); Monocytes Percent Auto 8.4 % (2-11); NRBC Pct Auto 0.7 /100WBC (0.0-0.2); Neutrophils Absolute Auto 13.8 X10*3/uL (2.0-8.3); Neutrophils Percent Auto 83.2 % (45-73); Platelet Count 274 X10*3/uL (160-400); Red Blood Count 3.45 X10*6/uL (4.60-5.80); Red Cell Distribution Width 17.1 % (11.0-16.0); White Blood Count 16.6 X10*3/uL (4.8-10.8)
[2021-01-04 06:18] LABS: Alanine Aminotransferase 64 U/L (0-40); Albumin Level 3.1 g/dL (3.5-5.0); Alkaline Phosphatase 61 U/L (39-117); Anion Gap 14 (12-20); Aspartate Amino Transferase 67 U/L (5-37); Bilirubin Total 0.4 mg/dL (0.0-1.0); Blood Urea Nitrogen 31 mg/dL (9-16); C Reactive Protein 1.13 mg/dL (< or = 0.50); Calcium 8.4 mg/dL (8.4-10.2); Carbon Dioxide 34 mmol/L (22-29); Chloride 97 mmol/L (96-108); Creatinine Clr Calc Pharmacy 143.9; Estimated Glomerular Filt Rate > 60; Glucose Random 120 mg/dL (60-115); Potassium 4.6 mmol/L (3.3-5.1); Sodium 140 mmol/L (135-145); Total Protein 5.9 g/dL (6.5-8.0)
[2021-01-04 06:27] LABS: D Dimer 11800 NG/ML
[2021-01-04 06:40] LABS: Ferritin 283 ng/mL (20-250)
[2021-01-04] MEDS: Chlorhexidine Gluc Oral Rinse 15 ML MOUTHWASH BUCCAL ×3 (08:15→20:12)
[2021-01-04] MEDS: Enoxaparin Sodium 40 MG/0.4 ML SYRINGE SUBCUT ×2 (08:15→20:13)
[2021-01-04 11:30] LABS: Glucose, Whole Blood 112 mg/dL (60-115)
[2021-01-04 11:55] LABS: Glucose, Whole Blood 112 mg/dL (60-115)
--- NOTE | 2021-01-04 14:56 | P.PNCC_ITS ---
Subjective Subjective Date of Service: 01/04/21 Interval History: Mr. Lombardo was transferred to ICU on December 27 with acute respiratory failure 2? COVID pneumonia. This is a 65-year-old male with extensive past medical history that includes mixed connective tissue disease and antiphospholipid syndrome, on hydroxychloroquine, methotrexate, Sarilumab (IL6 inhibitor) and Aspirin at home. The patient is status post splenectomy. On December 23 presented to the hospital with shortness of breath and cough for the prior 1 week. Had contact with COVID patient. Sat was 70% on room air by EMS. On arrival to the ED was placed on high-flow, sat?ing 90-95%. COVID-19 positive. Renal indices normal. CT showed multifocal extensive ground-glass infiltrates consistent with COVID. CT angio showed no evidence of PE. On my reading, I thought the RV was slightly enlarged. Transthoracic echo done one week prior to admission was read as showing normal LV function with EF 65-70%, normal right ventricular cavity size and function, no valvular pathology, normal IVC, and RVSP 19 mm. The patient was admitted to medicine and treated with Decadron. He was given 3 days of remdesivir. Despite that, his oxygenation deteriorated, and he was transferred to the ICU on December 27 and intubated. He spiked a temperature that day. He was started on empiric cefepime and doxycycline. He underwent bronchoscopy, which showed 2+ polys and 1+ Gram-positive cocci, which grew out less than 10,000 CFU Staph aureus. He has been requiring 70-80% FiO2 on the ventilator. Bedside echo done December [address] Jimenez showed mild right ventricular dilatation. Since then, FiO2 has ranged from 60-100%. On December 30, I added Seroquel bec of extreme agitation during sedation holidays. We tried dosing 50-100 mg bid. Best dose seems to be 75mg bid. CXR done 01/01 bec of neck puffiness showed SQ air, new in comparison with CXR done the prior day. No PTX. We reduced his insp pressure, tidal vol, and PEEP. Over the last three days, lowest FiO2 has been 80%, w 10cm PEEP. Because of the failure to awaken and become interactive during propofol holidays, we attempted sending him to a head CT yesterday, along with incidental chest CT. However on arrival in CT, his oxygenation became unstable and the scan had to be aborted. He was taken back to the ICU where chest x-ray showed no pneumothorax. He was still severely hypoxemic however, and therefore he was turned prone. His oxygenation graham significantly and we were able to get his FiO2 down to 80%. However we have not been able to get his arterial pCO2 below 70. I spoke with the granddaughter Carmita after yesterday?s episode and indicated to her that survival was very unlikely, quoted a 1% chance of survival to her. She was very realisitic. I asked AZEB Juancarlos to go up to speak to his last night, and he also spoke with the patient?s son. Both have a more realistic viewpoint now on what?s going on. They?re going to speak among themselves and may decide on comfort measures. We turned him back supine today at about noon with no problems. Sat has stayed about 89% on 80-90% FiO2. Currently he?s on propofol 50ug and fentanyl @ 200 ug, and the Seroquel @ 75mg bid. Well sedated. HR 89 on esmolol at 10ug, BP 1 05/61. Insulin @ 1u/hr w the tube feed off while he was prone. On PD f26, 18/10, I:E 1:1.5, 90%, RR is 28, PIP 30, ETCO2 39, SpO2 92%. CVBG this morning showed 7.34/76/+12. Afebrile. PER 3mm. No JVD at 30 degrees. Chest shows coarse BS, with normal expiratory phase. Heart rate and rhythm are regular, with normal-sounding S1 and S2, with no murmur or gallops. Abdomen is soft and benign. There is trivial edema. Neuro exam is nonfocal/non interactive. LABORATORY DATA: Below. WBC down slightly, renal ratio up sl., DDimer and ferritin steady, CRP down. CXR today (done to check ETT position): Diffuse airspace opacity throughout both lungs, maybe sl. worse than yesterday. No change in pneumomediastinum. The subcutaneous emphysema in the neck has improved. IMPRESSION: 1. Underlying mixed connective tissue disease, on above meds at home. Methotrexate was stopped on admission. His monoclonal ab is stopped. Continuing his hydroxychloroquine. 2. Underlying antiphospholipid syndrome. Continuing his ASA. 3. Bilat COVID-19 pneumonia. Added the [facility] COVID protocol: Bumped his steroids to Solu-Medrol 80 mg bid, added the ancillary meds. I also bumped his DVT prophylaxis to ? mg/kg bid bec with COVID he?s more susceptible to clotting. Added ivermectin on 01/01. We placed an arterial line for respiratory and hemodynamic monitoring. I called [facility], [facility], and [facility], all declined transfer. 4. Acute respiratory failure. Secondary to above. 5. Very elevated D-dimer. Mild right ventricular dilatation on Dr. Jimenez?s echo. ?need to r/o PE. The echo is c/w the initial CT, which was negative for PE. Duplex scan of his legs was negative, troponin was neg, BNP was 107. Will not pursue PE diagnosis further. 6. Anticoagulation/DVT prophylaxis: Given clotting propensity from his antiphospholipid syndrome, on top of which he now has COVID, we upped his pro phylactic anticoagulation to Lovenox ? mg/kg bid. Continuing the aspirin. 7. Hyperglycemia. On insulin drip with POCs in perfect range. 8. Hypernatremia. Resolved w free water flushes. 9. ID: Febrile with leukocytosis. Had a 7-day course of doxycyclinethat finished last night. The doxy had no effect on anything (fever or WBC). 10. Nutrition. Restarted tube feeds after turning supine. 11. Neuropsych. Have him on Seroquel 75mg bid. To unstable for CT. 12. Metabolic alkalosis. Holding Diamox bec we need the metabolic alkalosis. Prognosis is grave. I met with the patient?s at the bedside on 01/02, and we teleconferenced with the patient?s granddaughter. I discussed how sick the patient is, and that many ventilated patients don?t survive. At that time they wished to proceed wi th all necessary measures, including resuscitation. That may change as of AZEB Bauer?s discussions last night. Critical care time: 70 minutes. Physical Exam Vital Signs: Vital Signs: Last Vital Signs Temp 99.5 F 01/04/21 12:00 Pulse 93 01/04/21 13:51 Resp 30 H 01/04/21 13:51 BP 107/62 01/04/21 13:51 Pulse Ox 92 01/04/21 13:51 Body Mass Index 30.2 Objective Data Labs CBC & Chem 7: 01/04/21 05:20 01/04/21 05:20 Labs: Laboratory Results - last 24 hr 01/03/21 01/03/21 01/03/21 15:08 18:16 21:03 WBC RBC Hgb Hct MCV MCH MCHC RDW Plt Count MPV Immature Gran % (Auto) Neut % (Auto) Lymph % (Auto) [place] % (Auto) Eos % (Auto) Baso % (Auto) Lymph # (Auto) [place] # (Auto) Eos # (Auto) Baso # (Auto) Abs Immat Gran (auto) Absolute Neuts (auto) Absolute Nucleated RBC Nucleated RBC % (auto) D-Dimer VBG pH VBG pCO2 VBG pO2 VBG HCO3 VBG O2 Saturation VBG Base Excess Sodium Potassium Chloride Carbon Dioxide Anion Gap BUN Creatinine Estim Creat Clear Calc Estimated GFR POC Glucose 136 H 133 H 112 Random Glucose Calcium Ferritin Total Bilirubin AST ALT Alkaline Phosphatase C-Reactive Protein Total Protein Albumin 01/03/21 01/04/21 01/04/21 23:59 03:28 05:20 WBC 16.6 H RBC 3.45 L Hgb 9.8 L Hct 33.0 L MCV 95.7 MCH 28.4 MCHC 29.7 L RDW 17.1 H Plt Count 274 MPV 11.6 Immature Gran % (Auto) 1.9 H Neut % (Auto) 83.2 H Lymph % (Auto) 5.7 L [place] % (Auto) 8.4 Eos % (Auto) 0.7 Baso % (Auto) 0.1 Lymph # (Auto) 1.0 L [place] # (Auto) 1.4 H Eos # (Auto) 0.1 Baso # (Auto) 0.0 Abs Immat Gran (auto) 0.31 H Absolute Neuts (auto) 13.8 H Absolute Nucleated RBC 0.120 H Nucleated RBC % (auto) 0.7 H D-Dimer VBG pH VBG pCO2 VBG pO2 VBG HCO3 VBG O2 Saturation VBG Base Excess Sodium Potassium Chloride Carbon Dioxide Anion Gap BUN Creatinine Estim Creat Clear Calc Estimated GFR POC Glucose 104 117 H Random Glucose Calcium Ferritin Total Bilirubin AST ALT Alkaline Phosphatase C-Reactive Protein Total Protein Albumin 01/04/21 01/04/21 01/04/21 05:20 05:20 05:28 WBC RBC Hgb Hct MCV MCH MCHC RDW Plt Count MPV Immature Gran % (Auto) Neut % (Auto) Lymph % (Auto) [place] % (Auto) Eos % (Auto) Baso % (Auto) Lymph # (Auto) [place] # (Auto) Eos # (Auto) Baso # (Auto) Abs Immat Gran (auto) Absolute Neuts (auto) Absolute Nucleated RBC Nucleated RBC % (auto) D-Dimer 73341 VBG pH 7.34 VBG pCO2 76 VBG pO2 222 VBG HCO3 41 H VBG O2 Saturation 99.0 VBG Base Excess 12.8 Sodium 140 Potassium 4.6 Chloride 97 Carbon Dioxide 34 H Anion Gap 14 BUN 31 H Creatinine 0.53 Estim Creat Clear Calc 143.9 Estimated GFR > 60 POC Glucose Random Glucose 120 H Calcium 8.4 Ferritin 283 H Total Bilirubin 0.4 AST 67 H ALT 64 H Alkaline Phosphatase 61 C-Reactive Protein 1.13 H Total Protein 5.9 L Albumin 3.1 L 01/04/21 01/04/21 09:48 11:51 WBC RBC Hgb Hct MCV MCH MCHC RDW Plt Count MPV Immature Gran % (Auto) Neut % (Auto) Lymph % (Auto) [place] % (Auto) Eos % (Auto) Baso % (Auto) Lymph # (Auto) [place] # (Auto) Eos # (Auto) Baso # (Auto) Abs Immat Gran (auto) Absolute Neuts (auto) Absolute Nucleated RBC Nucleated RBC % (auto) D-Dimer VBG pH VBG pCO2 VBG pO2 VBG HCO3 VBG O2 Saturation VBG Base Excess Sodium Potassium Chloride Carbon Dioxide Anion Gap BUN Creatinine Estim Creat Clear Calc Estimated GFR POC Glucose 112 112 Random Glucose Calcium Ferritin Total Bilirubin AST ALT Alkaline Phosphatase C-Reactive Protein Total Protein Albumin Microbiology Microbiology Results: Microbiology 12/30/20 20:45 Blood - Venous Blood Culture - Preliminary No growth after 48 hours. 12/30/20 20:43 Blood - Venous Blood Culture - Preliminary No growth after 48 hours. 12/30/20 21:30 Urine [place] Urine Culture - Final No growth. 12/27/20 15:57 Bronch, Not Specified Direct Acid Fast Bacilli Smear - Final 12/27/20 15:58 Bronch, Not Specified Fungal Identification - Preliminary No growth to date. 12/27/20 15:58 Bronch, Not Specified Gram Stain - Final 12/27/20 15:58 Bronch, Not Specified - Final Staphylococcus aureus 12/23/20 20:10 Blood - Venous Blood Culture - Final No growth after 5 days. 12/23/20 19:46 Blood - Venous Blood Culture - Final No growth after 5 days. Critical Care Time Critical Care Time (minutes): 60
[2021-01-04] MEDS: Cisatracurium Besylate 20 MG/10 ML VIAL 16 MG IVPUSH (15:05)
[2021-01-04 15:17] LABS: ABG Base Excess 13.1 mmol/L; ABG HCO3 41 mmol/L (22-26); ABG pCO2 74 mmHg (32-45); ABG pCO2 TC 75 mmHg (32-45); ABG pH 7.35 (7.35-7.45); ABG pH TC 7.35 (7.35-7.45); ABG pO2 61 mmHg (83-108); ABG pO2 TC 63 (83-108)
[2021-01-04 16:28] LABS: ABG Refer to POC result
[2021-01-04 16:38] LABS: Glucose, Whole Blood 114 mg/dL (60-115)
[2021-01-04] MEDS: Insulin Regular/NS 100 UNIT/100 ML PLAST..BAG IVCONT (16:45)
[2021-01-04 18:32] LABS: Glucose, Whole Blood 113 mg/dL (60-115)
[2021-01-04] MEDS: QUEtiapine Fumarate 25 MG TABLET 75 MG G-TUBE (20:12)
[2021-01-04] MEDS: Melatonin 3 MG TABLET 9 MG PO (20:13)
[2021-01-04] MEDS: Hydroxychloroquine Sulfate 200 MG TABLET PO (20:13)
[2021-01-04] MEDS: Ascorbic Acid 500 MG TABLET 1000 MG G-TUBE (20:13)
[2021-01-04] MEDS: Thiamine HCL 100 MG TABLET 200 MG G-TUBE (20:13)
[2021-01-04] MEDS: Famotidine/PF 20 MG/2 ML VIAL 40 MG IVPUSH (20:14)
[2021-01-04 20:37] LABS: Glucose, Whole Blood 161 mg/dL (60-115)
[2021-01-04] MEDS: Bacitracin Oint 14 GM TUBE 1 APPL TOPICAL (22:05)
[2021-01-04 23:02] LABS: Glucose, Whole Blood 178 mg/dL (60-115)
[2021-01-05] VITALS (30 sets, daily range): BP systolic 95–140; BP diastolic 55–76; PULSE 74–123; RESP 14–37; TEMP 37.9–38.7; O2SAT 86–98
--- NOTE | 2021-01-05 00:24 | W.MHC.ACPN ---
Advanced Care Planning Note Advanced Care Planning Note Discussed with: family member(s) (Pt's Haleigh Lombardo and their son Dru ) Narrative: I had a total of 3 separate meetings with the above-mentioned family members of the patient including patient's and son to go over the patient's clinical condition, clinical data, current development rather worsening from the respiratory standpoint over the last couple of days as well as the poor prognosis of this patient. Although at 1st it was difficult to have the understand the delicate situation of the patient, they understand that his chances of survival are low at this point. The agreement was made between the patient's and the son yesterday that they will have a family meeting to pass all this information along and to reach a decision by today. Some of the communication was difficult because the patient's herself is hospitalize here also with COVID-19 and the communication was mostly over the phone. The patient's son however was able to talk to other family members including brothers and sisters. Once again I touched bases with them this afternoon and it seems that they are all in agreement that they do not want him to suffer and that if he worsens he should be made [employer]. They are simply waiting to communicate this information to all family members of the patient who are in [employer]; but they are confident that they will have a final answer by tomorrow. In addition they would like to take time to have their mother process this information before they make a final decision although she seems to understand the current delicate clinical scenario and poor prognosis of the patient. This information will be passed along to the oncoming providers and was also kindly requested to have 1 of their daughters Linnea involved via phone call when a final decision is reached. Problems Discussed (1) Mixed connective tissue disease: (2) Acute respiratory failure with hypoxia:
[2021-01-05] MEDS: propofoL 1,000 MG/100 ML VIAL 25.5 MG IVCONT ×8 (01:35→22:34)
[2021-01-05] MEDS: methylPREDNISolone Sod Succ 125 MG/2 ML VIAL 80 MG IVPUSH (02:05)
[2021-01-05] MEDS: fentaNYL citrate/PF 100 MCG/2 ML VIAL IVPUSH (02:07)
[2021-01-05] MEDS: Ascorbic Acid 500 MG TABLET 1000 MG G-TUBE ×2 (02:08→07:42)
[2021-01-05 02:22] LABS: Glucose, Whole Blood 132 mg/dL (60-115)
--- NOTE | 2021-01-05 02:49 | PC.NURSE ---
PT EXPERIENCING INCREASED END TIDAL CO2 READINGS INTO THE LOW 60S. SAO2 96-97% ON FIO2 85%. EXHIBITING ASYNCHRONOUS VENTILATORY EFFORT. THE FOLLOWING INTERVENTIONS IMPLEMENTED 1. FENTANYL 100 MCG IVP FOR VENTILATOR HARMONY 2. ETT SUCTIONING WITH NS LAVAGE CARRIED OUT 3. FIO2 DECREASED TO 70% 4. PLEASE NOTE THAT POC CHECK EVERY 3-4 HOURS AND REPORTED TO PROVIDER-POC AT 0200 IS 135 INSULIN DRIP DECREASED TO 4 UX/HR (NOT FOLLOWING INTENSIVE CARE INSULIN PROTOCOL PER PROVIDER).
[2021-01-05] MEDS: fentaNYL citrate/NS 1,000 MCG/100 ML PLAST..BAG 20 MCG IVCONT ×5 (03:54→23:16)
[2021-01-05 05:11] LABS: VBG HCO3 43 mmol/L (22-26); VBG pCO2 65 mmHg; VBG pH 7.42 (7.32-7.43); VBG pO2 44 mmHg
[2021-01-05 05:15] LABS: MANUAL DIFF FLAG NO
[2021-01-05] MEDS: Esmolol HCl/NaCl Iso 2,500 MG/250 ML IV.SOLN 10.2 MG IVCONT (05:15)
[2021-01-05 05:20] LABS: Venous Blood Gas Refer to POC result
[2021-01-05 05:21] LABS: Basophils Percent Auto 0.2 % (0-2); Eosinophils Absolute Auto 0.2 X10*3/uL (0.0-0.4); Eosinophils Percent Auto 0.8 % (0-4); Hemoglobin 10.1 g/dl (14.0-18.0); Imm Gran Abs Auto 0.45 X10*3/uL (0.00-0.03); Imm Gran Pct Auto 2.4 % (0.0-0.4); Lymphocytes Absolute Auto 0.7 X10*3/uL (1.2-4.9); Lymphocytes Percent Auto 3.9 % (20-40); Mean Corpuscular HGB Conc 29.7 g/dl (31.0-36.0); Mean Corpuscular Hemoglobin 28.2 pg (27.0-33.0); Mean Platelet Volume 11.3 fL (9.4-12.4); Monocytes Absolute Auto 1.1 X10*3/uL (0.1-1.2); Monocytes Percent Auto 6.1 % (2-11); NRBC Pct Auto 0.5 /100WBC (0.0-0.2); Neutrophils Absolute Auto 15.9 X10*3/uL (2.0-8.3); Neutrophils Percent Auto 86.6 % (45-73); Platelet Count 274 X10*3/uL (160-400); Red Blood Count 3.58 X10*6/uL (4.60-5.80); Red Cell Distribution Width 17.1 % (11.0-16.0); White Blood Count 18.4 X10*3/uL (4.8-10.8)
[2021-01-05 05:41] LABS: Alanine Aminotransferase 64 U/L (0-40); Albumin Level 3.1 g/dL (3.5-5.0); Alkaline Phosphatase 60 U/L (39-117); Anion Gap 12 (12-20); Aspartate Amino Transferase 54 U/L (5-37); Bilirubin Total 0.4 mg/dL (0.0-1.0); Blood Urea Nitrogen 33 mg/dL (9-16); C Reactive Protein 2.55 mg/dL (< or = 0.50); Calcium 8.5 mg/dL (8.4-10.2); Carbon Dioxide 36 mmol/L (22-29); Chloride 98 mmol/L (96-108); Creatinine Clr Calc Pharmacy 129.3; Estimated Glomerular Filt Rate > 60; Glucose Random 203 mg/dL (60-115); Sodium 141 mmol/L (135-145); Total Protein 5.9 g/dL (6.5-8.0)
[2021-01-05 05:58] LABS: Procalcitonin 0.17 ng/mL
[2021-01-05 06:01] LABS: D Dimer 11830 NG/ML
[2021-01-05 06:03] LABS: Ferritin 316 ng/mL (20-250)
--- NOTE | 2021-01-05 06:19 | PC.NURSE ---
sedated/noxious stimulation evokes no response/extremities flaccid. fentanyl and propofol at maximum dosages for ventilatory management. abraded area left chin and face tx with generous bacitracin ointment application. right eye orbit edematous. end tidal co2 has shown improvement declining into the mid forties. so2 on fio2 70% is 91-92%. on two occasions 0.5 ml of air added to ett cuff d/t cuff leak. temp is increasing 101.1. ecg displays sr apical 86-96 bpm. esmolol drip at 20mcg/kg/min to keep hr< 100 bpm. levophed infusing at 0.1mcg/kg/min to achieve b/p guidelines. tube feedings advanced to goal 60ml/hr. serum glucose 203 insulin drip increased to 5 ux/hr. booth draining slightly hematuric urine. u/o 100-120 ml/hr.
[2021-01-05] MEDS: Chlorhexidine Gluc Oral Rinse 15 ML MOUTHWASH BUCCAL ×3 (07:41→19:26)
[2021-01-05] MEDS: Enoxaparin Sodium 40 MG/0.4 ML SYRINGE SUBCUT ×2 (07:41→19:26)
[2021-01-05] MEDS: Famotidine/PF 20 MG/2 ML VIAL 40 MG IVPUSH (07:41)
[2021-01-05] MEDS: Folic Acid 1 MG TABLET PO (07:42)
[2021-01-05] MEDS: QUEtiapine Fumarate 25 MG TABLET 75 MG G-TUBE ×2 (07:42→19:26)
[2021-01-05] MEDS: Cholecalciferol (Vitamin D3) 25 MCG TABLET 50 MCG NG-TUBE (07:42)
[2021-01-05] MEDS: Hydroxychloroquine Sulfate 200 MG TABLET PO ×2 (07:42→19:26)
[2021-01-05] MEDS: Thiamine HCL 100 MG TABLET 200 MG G-TUBE (07:42)
[2021-01-05] MEDS: Aspirin 81 MG TAB.CHEW PO (07:42)
[2021-01-05] MEDS: Atorvastatin Calcium 80 MG TABLET G-TUBE (07:42)
[2021-01-05 09:53] LABS: Glucose, Whole Blood 179 mg/dL (60-115)
[2021-01-05] MEDS: Lactulose 20 GM/30 ML SOLUTION 30 GM PO ×2 (10:03→19:26)
[2021-01-05] MEDS: methylPREDNISolone Sod Succ 125 MG/2 ML VIAL 40 MG IVPUSH (10:03)
[2021-01-05 10:07] LABS: Glucose Urine UA NEG (NEG); Leukocyte Esterase Urine TRACE (NEG); Nitrite Urine NEG (NEG); Specific Gravity - Urine 1.025 (1.005-1.025); Urine Blood 3+ (NEG); Urine Ketones NEG (NEG); Urine Protein TRACE MG/DL (NEG-TRACE)
[2021-01-05 10:08] LABS: Appearance Urine HAZY; Color Urine YELLOW
--- NOTE | 2021-01-05 10:11 | MHC.CLN ---
F/U PT TF HELD 01/04 R/T PT IN PRONE POSITION PT TF RE-STARTED TODAY 01/05 RECEIVING PROMOTE AT MAX GOAL RATE 60CC/HR WITH 240CC FREE WATER FLUSHES Q 6HRS PROVIDES 1440KCALS (2113 WITH SEDATION; 29KCALS/KG BASED ON CMW), 90G PROTEIN (1.25G/KG), 2168CC FREE WATER FROM FORMULA AND FLUSHES (30CC/KG) TOLERATING WELL WITH LOW RESIDUALS MONITOR TOLERANCE, RESIDUALS AND LYTES
[2021-01-05 10:21] LABS: Mucus Urine 1+ /LPF; RBC Urine TNTC /HPF (0); Squamous Epithelial Cell Urine 1+ /LPF; WBC Urine 0 /HPF (0-4)
[2021-01-05 10:55] LABS: Glucose, Whole Blood 191 mg/dL (60-115)
--- NOTE | 2021-01-05 12:47 | P.PNCC_ITS ---
Subjective Subjective Date of Service: 01/05/21 Interval History: 65-year-old gentleman with underlying medical history of nonalcoholic fatty liver, mixed connective tissue disease with antiphospholipid syndrome on Plaquenil, methotrexate, aspirin, and IL 6 inhibitor, surgical asplenia admitted on 12/23/2020 with 1 week lung symptoms of shortness of breath and cough, COVID positive and hypoxemic on ER evaluation. Initially admitted [facility] and treated with remdesivir and Decadron. Hospital course significant for progressive hypoxemia requiring transferred to intensive care unit on 12/27/2020 and intubation. Further hospital course significant for poor arousal with sedation vacation, pneumomediastinum, subcutaneous emphysema, and further progressive hypoxemia with overall very poor prognosis. Family discussion of goals of care are ongoing. No events overnight. This a.m. febrile, re-cultured, started on broad-spectrum antibiotics. Physical Exam Vital Signs: Vital Signs: Last Vital Signs Temp 101.1 F H 01/05/21 12:44 Pulse 106 H 01/05/21 12:44 Resp 19 01/05/21 12:44 BP 129/62 01/05/21 12:44 Pulse Ox 86 L 01/05/21 12:44 Body Mass Index 30.2 Const: General: no acute distress and other (Sedated on the vent, bilateral neck and face subcutaneous emphysema) Eyes: Sclerae: sclerae normal Neck: Neck: Yes no lymphadenopathy, Yes trachea midline and Yes supple Resp: Auscultation: crackles (Diffuse bilateral) Cardio: Rate: tachycardic Rhythm: regular rhythm Heart sounds: no gallops, no murmurs and no rubs GI: Palpation (GI): Soft to palpation and Other GI palpation findings present ( Nontender) Auscultation: normal bowel sounds Extrem: General: No clubbing, No cyanosis and Yes pedal edema (Trace bilateral) Objective Data Labs CBC & Chem 7: 01/05/21 04:56 01/05/21 04:56 Labs: Laboratory Results - last 24 hr 01/04/21 01/04/21 01/04/21 15:10 16:02 17:46 WBC RBC Hgb Hct MCV MCH MCHC RDW Plt Count MPV Immature Gran % (Auto) Neut % (Auto) Lymph % (Auto) [place] % (Auto) Eos % (Auto) Baso % (Auto) Lymph # (Auto) [place] # (Auto) Eos # (Auto) Baso # (Auto) Abs Immat Gran (auto) Absolute Neuts (auto) Absolute Nucleated RBC Nucleated RBC % (auto) D-Dimer O2 Saturation 90.0 ABG pH at Pt Temp 7.35 ABG pH (Temp Correct) 7.35 ABG pCO2 at Pt Temp 74 H* ABG pCO2 (Temp Corrct 75 H* ABG pO2 at Pt Temp 61 L ABG pO2 (Temp Correct 63 L ABG HCO3 41 H ABG Base Excess (Actual) 13.1 VBG pH VBG pCO2 VBG pO2 VBG HCO3 VBG O2 Saturation VBG Base Excess Sodium Potassium Chloride Carbon Dioxide Anion Gap BUN Creatinine Estim Creat Clear Calc Estimated GFR POC Glucose 114 113 Random Glucose Calcium Ferritin Total Bilirubin AST ALT Alkaline Phosphatase C-Reactive Protein Total Protein Albumin Procalcitonin Urine Color Urine Appearance Urine pH Ur Specific [place] Urine Protein Urine Glucose (UA) Urine Ketones Urine Blood Urine Nitrite Ur Leukocyte Esterase Urine RBC Urine WBC Ur Squamous Epith Cells Urine Bacteria Urine Mucus 01/04/21 01/04/21 01/05/21 20:28 22:55 02:13 WBC RBC Hgb Hct MCV MCH MCHC RDW Plt Count MPV Immature Gran % (Auto) Neut % (Auto) Lymph % (Auto) [place] % (Auto) Eos % (Auto) Baso % (Auto) Lymph # (Auto) [place] # (Auto) Eos # (Auto) Baso # (Auto) Abs Immat Gran (auto) Absolute Neuts (auto) Absolute Nucleated RBC Nucleated RBC % (auto) D-Dimer O2 Saturation ABG pH at Pt Temp ABG pH (Temp Correct) ABG pCO2 at Pt Temp ABG pCO2 (Temp Corrct ABG pO2 at Pt Temp ABG pO2 (Temp Correct ABG HCO3 ABG Base Excess (Actual) VBG pH VBG pCO2 VBG pO2 VBG HCO3 VBG O2 Saturation VBG Base Excess Sodium Potassium Chloride Carbon Dioxide Anion Gap BUN Creatinine Estim Creat Clear Calc Estimated GFR POC Glucose 161 H 178 H 132 H Random Glucose Calcium Ferritin Total Bilirubin AST ALT Alkaline Phosphatase C-Reactive Protein Total Protein Albumin Procalcitonin Urine Color Urine Appearance Urine pH Ur Specific [place] Urine Protein Urine Glucose (UA) Urine Ketones Urine Blood Urine Nitrite Ur Leukocyte Esterase Urine RBC Urine WBC Ur Squamous Epith Cells Urine Bacteria Urine Mucus 01/05/21 01/05/21 01/05/21 04:56 04:56 04:56 WBC 18.4 H RBC 3.58 L Hgb 10.1 L Hct 34.0 L MCV 95.0 MCH 28.2 MCHC 29.7 L RDW 17.1 H Plt Count 274 MPV 11.3 Immature Gran % (Auto) 2.4 H Neut % (Auto) 86.6 H Lymph % (Auto) 3.9 L [place] % (Auto) 6.1 Eos % (Auto) 0.8 Baso % (Auto) 0.2 Lymph # (Auto) 0.7 L [place] # (Auto) 1.1 Eos # (Auto) 0.2 Baso # (Auto) 0.0 Abs Immat Gran (auto) 0.45 H Absolute Neuts (auto) 15.9 H Absolute Nucleated RBC 0.100 H Nucleated RBC % (auto) 0.5 H D-Dimer 15997 O2 Saturation ABG pH at Pt Temp ABG pH (Temp Correct) ABG pCO2 at Pt Temp ABG pCO2 (Temp Corrct ABG pO2 at Pt Temp ABG pO2 (Temp Correct ABG HCO3 ABG Base Excess (Actual) VBG pH VBG pCO2 VBG pO2 VBG HCO3 VBG O2 Saturation VBG Base Excess Sodium Potassium Chloride Carbon Dioxide Anion Gap BUN Creatinine Estim Creat Clear Calc Estimated GFR POC Glucose Random Glucose Calcium Ferritin Total Bilirubin AST ALT Alkaline Phosphatase C-Reactive Protein Total Protein Albumin Procalcitonin 0.17 Urine Color Urine Appearance Urine pH Ur Specific [place] Urine Protein Urine Glucose (UA) Urine Ketones Urine Blood Urine Nitrite Ur Leukocyte Esterase Urine RBC Urine WBC Ur Squamous Epith Cells Urine Bacteria Urine Mucus 01/05/21 01/05/21 01/05/21 04:56 05:04 09:46 WBC RBC Hgb Hct MCV MCH MCHC RDW Plt Count MPV Immature Gran % (Auto) Neut % (Auto) Lymph % (Auto) [place] % (Auto) Eos % (Auto) Baso % (Auto) Lymph # (Auto) [place] # (Auto) Eos # (Auto) Baso # (Auto) Abs Immat Gran (auto) Absolute Neuts (auto) Absolute Nucleated RBC Nucleated RBC % (auto) D-Dimer O2 Saturation ABG pH at Pt Temp ABG pH (Temp Correct) ABG pCO2 at Pt Temp ABG pCO2 (Temp Corrct ABG pO2 at Pt Temp ABG pO2 (Temp Correct ABG HCO3 ABG Base Excess (Actual) VBG pH 7.42 VBG pCO2 65 VBG pO2 44 VBG HCO3 43 H VBG O2 Saturation 78.0 VBG Base Excess 16.0 Sodium 141 Potassium 5.0 Chloride 98 Carbon Dioxide 36 H Anion Gap 12 BUN 33 H Creatinine 0.59 Estim Creat Clear Calc 129.3 Estimated GFR > 60 POC Glucose 179 H Random Glucose 203 H D Calcium 8.5 Ferritin 316 H Total Bilirubin 0.4 AST 54 H ALT 64 H Alkaline Phosphatase 60 C-Reactive Protein 2.55 H Total Protein 5.9 L Albumin 3.1 L Procalcitonin Urine Color Urine Appearance Urine pH Ur Specific [place] Urine Protein Urine Glucose (UA) Urine Ketones Urine Blood Urine Nitrite Ur Leukocyte Esterase Urine RBC Urine WBC Ur Squamous Epith Cells Urine Bacteria Urine Mucus 01/05/21 01/05/21 09:50 10:51 WBC RBC Hgb Hct MCV MCH MCHC RDW Plt Count MPV Immature Gran % (Auto) Neut % (Auto) Lymph % (Auto) [place] % (Auto) Eos % (Auto) Baso % (Auto) Lymph # (Auto) [place] # (Auto) Eos # (Auto) Baso # (Auto) Abs Immat Gran (auto) Absolute Neuts (auto) Absolute Nucleated RBC Nucleated RBC % (auto) D-Dimer O2 Saturation ABG pH at Pt Temp ABG pH (Temp Correct) ABG pCO2 at Pt Temp ABG pCO2 (Temp Corrct ABG pO2 at Pt Temp ABG pO2 (Temp Correct ABG HCO3 ABG Base Excess (Actual) VBG pH VBG pCO2 VBG pO2 VBG HCO3 VBG O2 Saturation VBG Base Excess Sodium Potassium Chloride Carbon Dioxide Anion Gap BUN Creatinine Estim Creat Clear Calc Estimated GFR POC Glucose 191 H Random Glucose Calcium Ferritin Total Bilirubin AST ALT Alkaline Phosphatase C-Reactive Protein Total Protein Albumin Procalcitonin Urine Color YELLOW Urine Appearance HAZY Urine pH 6.0 Ur Specific [place] 1.025 Urine Protein TRACE Urine Glucose (UA) NEG Urine Ketones NEG Urine Blood 3+ H Urine Nitrite NEG Ur Leukocyte Esterase TRACE H Urine RBC TNTC H Urine WBC 0 Ur Squamous Epith Cells 1+ Urine Bacteria NONE Urine Mucus 1+ Microbiology Microbiology Results: Microbiology 01/05/21 08:50 Sputum - Suctioned Gram Stain - Final 12/27/20 15:58 Bronch, Not Specified Fungal Identification - Preliminary No growth after 1 week. 12/30/20 20:45 Blood - Venous Blood Culture - Final No growth after 5 days. 12/30/20 20:43 Blood - Venous Blood Culture - Final No growth after 5 days. 12/30/20 21:30 Urine [place] Urine Culture - Final No growth. 12/27/20 15:57 Bronch, Not Specified Direct Acid Fast Bacilli Smear - Final 12/27/20 15:58 Bronch, Not Specified Gram Stain - Final 12/27/20 15:58 Bronch, Not Specified - Final Staphylococcus aureus 12/23/20 20:10 Blood - Venous Blood Culture - Final No growth after 5 days. 12/23/20 19:46 Blood - Venous Blood Culture - Final No growth after 5 days. Progress Note: A&P Assessment and plan (1) Asplenia after surgical procedure: Status: Acute Assessment and Plan: Assessment: 65-year-old gentleman with underlying mixed connective tissue disease with antiphospholipid syndrome, now alcoholic fatty liver, surgical asplenia admitted with acute hypoxic respiratory failure secondary to COVID-19 ARDS requiring ventilatory support, further complicated by critical illness encephalopathy, pneumomediastinum, and subcutaneous emphysema. Plan: Neuro: Encephalopathy, likely critical illness related, though possible ischemic secondary to COVID-19. At this time unable to perform CT head secondary to patient requiring maximal ventilatory support and having an unstable respiratory status. Cardiac: No acute issues. Pulmonary: Acute hypoxic respiratory failure secondary to COVID-19 ARDS. Now with refractory hypoxemia and on maximum ventilatory support. Overall prognosis is poor. Further complicated by pneumomediastinum and subcutaneous emphysema. Renal: No acute issues. Endo: No acute issues. GI: No acute issues. ID: COVID-19 ARDS status post Decadron i and remdesivir. Continues on prednisone. Febrile this a.m., re-cultured, started on cefepime. Heme/Onc: No acute issues. Psych: No acute issues. Miscellaneous: No acute issues. Prophylaxis: Lovenox, famotidine Diet: Tube feeds Critical care time spent: 90 minutes (2) Antiphospholipid antibody positive: Status: Acute (3) Mixed connective tissue disease: Status: Acute (4) Acute respiratory failure with hypoxia: Status: Acute (5) Acute respiratory distress syndrome (ARDS) due to COVID-19 virus: Status: Acute (6) Pneumomediastinum: Status: Acute (7) NAFL (nonalcoholic fatty liver): Status: Acute (8) Subcutaneous emphysema, non-traumatic: Status: Acute Critical Care Time Critical Care Time (minutes): 90
[2021-01-05 12:57] LABS: Glucose, Whole Blood 188 mg/dL (60-115)
[2021-01-05] MEDS: cefEPime HCl 1 GM in 0.9 % Sodium Chloride 50 ML IV (13:12)
[2021-01-05] MEDS: Bacitracin Oint 14 GM TUBE 1 APPL TOPICAL ×2 (14:25→19:24)
[2021-01-05] MEDS: Insulin Regular/NS 100 UNIT/100 ML PLAST..BAG 6 UNIT IVCONT (14:29)
[2021-01-05 15:03] LABS: Glucose, Whole Blood 183 mg/dL (60-115)
[2021-01-05 18:00] LABS: Glucose, Whole Blood 151 mg/dL (60-115)
--- NOTE | 2021-01-05 18:03 | PC.NURSE ---
S/E Temp max 101.3; WBC 18.4 Cultures obtained & started on cefepime 1g Sedated on max dose Propofol & Fentanyl Pupils 3mm, PERRLA; flaccid; no pain response No sedation vacation Chest & brain CT cancelled by SR/ST, no ectopy - continued on Esmolol gtt Continuing to require pressor support L axillary A-line dressing changed R IJ TLC patent #[id number] ETT, 28cm @ lip Stacking breaths, asynchronous w/ vent, O2 down to 84% Vent settings changed: PC 16, rate 16, peep 10, 100% Extensive SQ emphysema to bilateral neck Tolerating tube feeds well - Promote maxed @ 60 Continued on insulin gtt per protocol Lactulose administered - Small liquid brown BM Urine ouput 100-150cc/hr, tea colored Skin tear to left chin/face - Bacitracin applied Air loss bed & prevlon pad in place; repo q2hr; bathed & son Dru updated regarding patients status Family is having a meeting to discuss DEVELOPMENT TECHNICIAN
[2021-01-05 19:03] LABS: Glucose, Whole Blood 156 mg/dL (60-115)
[2021-01-05] MEDS: Esmolol HCl/NaCl Iso 2,500 MG/250 ML IV.SOLN 51 MG IVCONT (19:26)
[2021-01-05 21:34] LABS: Glucose, Whole Blood 143 mg/dL (60-115)
[2021-01-05 23:13] LABS: Glucose, Whole Blood 107 mg/dL (60-115)
--- NOTE | 2021-01-05 23:42 | PC.NURSE ---
Addendum entered by Octavia Raya RN 01/06/21 04:57: Patient has sc emphysema from chest to nose with intermittent crepitus. Tracheal deviation to right. Approx 0330 began desatting to low 80's and sustaining. STAT CXR and ABG. Patient being bagged. Thick, curdled inline and oral secretions. ETT cuff not retaining air. Switched tube out via bougie successfully. Patient still being continuously bagged to maintain sats>70% Family called, carton forming machine helper called in. DNR, ?CLERICAL ORDER FILLER Original Note: Approx 2129, patient dessatting. Small amount of white, curdled emesis found in bed. +air bolus on auscultation. Hooked OGT to suction, no residual. Suctioned inline/orally, no secretions. Tube feed on hold.
[2021-01-06] VITALS (32 sets, daily range): BP systolic 92–156; BP diastolic 50–79; PULSE 97–143; RESP 16–32; TEMP 3–40; O2SAT 71–91
[2021-01-06] MEDS: Esmolol HCl/NaCl Iso 2,500 MG/250 ML IV.SOLN 51 MG IVCONT (00:11)
[2021-01-06] MEDS: cefEPime HCl 1 GM in 0.9 % Sodium Chloride 50 ML IV ×2 (00:11→13:55)
[2021-01-06 01:08] LABS: Glucose, Whole Blood 144 mg/dL (60-115)
[2021-01-06] MEDS: propofoL 1,000 MG/100 ML VIAL 25.5 MG IVCONT ×6 (03:09→22:27)
[2021-01-06 03:14] LABS: Glucose, Whole Blood 179 mg/dL (60-115)
[2021-01-06] MEDS: Esmolol HCl/NaCl Iso 2,500 MG/250 ML IV.SOLN 61.2 MG IVCONT (03:55)
[2021-01-06] MEDS: fentaNYL citrate/NS 1,000 MCG/100 ML PLAST..BAG 20 MCG IVCONT ×5 (03:55→23:42)
[2021-01-06 03:57] LABS: Pt Ventilation O2% Mixed Ven. 100%
[2021-01-06 05:30] LABS: VBG Base Excess 12.1 mmol/L; VBG HCO3 39 mmol/L (22-26); VBG pCO2 62 mmHg; VBG pO2 35 mmHg
[2021-01-06 05:33] LABS: Venous Blood Gas Refer to POC result
[2021-01-06 05:51] LABS: Basophils Percent Auto 0.2 % (0-2); Eosinophils Absolute Auto 0.4 X10*3/uL (0.0-0.4); Hematocrit 33.5 % (42-52); Hemoglobin 9.7 g/dl (14.0-18.0); Imm Gran Abs Auto 0.97 X10*3/uL (0.00-0.03); Imm Gran Pct Auto 4.5 % (0.0-0.4); Lymphocytes Absolute Auto 2.1 X10*3/uL (1.2-4.9); Lymphocytes Percent Auto 9.8 % (20-40); Mean Corpuscular Hemoglobin 27.9 pg (27.0-33.0); Mean Corpuscular Volume 96.3 fL (80-98); Mean Platelet Volume 11.4 fL (9.4-12.4); Monocytes Absolute Auto 1.5 X10*3/uL (0.1-1.2); Neutrophils Absolute Auto 16.5 X10*3/uL (2.0-8.3); Neutrophils Percent Auto 76.5 % (45-73); Platelet Count 282 X10*3/uL (160-400); Red Blood Count 3.48 X10*6/uL (4.60-5.80); Red Cell Distribution Width 17.2 % (11.0-16.0); White Blood Count 21.6 X10*3/uL (4.8-10.8)
[2021-01-06 05:53] LABS: MANUAL DIFF FLAG NO; NRBC Pct Auto 1.2 /100WBC (0.0-0.2)
[2021-01-06 06:09] LABS: Alanine Aminotransferase 64 U/L (0-40); Albumin Level 2.9 g/dL (3.5-5.0); Alkaline Phosphatase 58 U/L (39-117); Anion Gap 14 (12-20); Aspartate Amino Transferase 63 U/L (5-37); Bilirubin Total 0.8 mg/dL (0.0-1.0); Blood Urea Nitrogen 27 mg/dL (9-16); Calcium 8.1 mg/dL (8.4-10.2); Carbon Dioxide 35 mmol/L (22-29); Chloride 98 mmol/L (96-108); Creatinine Clr Calc Pharmacy 136.2; Estimated Glomerular Filt Rate > 60; Glucose Random 204 mg/dL (60-115); Magnesium 2.2 mg/dL (1.6-2.6); Phosphorus 2.4 mg/dL (2.7-4.5); Potassium 4.5 mmol/L (3.3-5.1); Sodium 142 mmol/L (135-145); Total Protein 5.6 g/dL (6.5-8.0)
[2021-01-06] MEDS: Cisatracurium Besylate 20 MG/10 ML VIAL 10 MG IVPUSH (06:12)
[2021-01-06 06:32] LABS: Glucose, Whole Blood 170 mg/dL (60-115)
[2021-01-06] MEDS: methylPREDNISolone Sod Succ 125 MG/2 ML VIAL 40 MG IVPUSH (07:44)
[2021-01-06] MEDS: Enoxaparin Sodium 40 MG/0.4 ML SYRINGE SUBCUT ×2 (07:44→20:03)
[2021-01-06] MEDS: Chlorhexidine Gluc Oral Rinse 15 ML MOUTHWASH BUCCAL ×3 (07:44→20:03)
[2021-01-06] MEDS: Famotidine/PF 20 MG/2 ML VIAL IVPUSH (07:45)
[2021-01-06] MEDS: Esmolol HCl/NaCl Iso 2,500 MG/250 ML IV.SOLN 76.5 MG IVCONT (07:45)
[2021-01-06 08:18] LABS: Glucose, Whole Blood 181 mg/dL (60-115)
--- NOTE | 2021-01-06 08:53 | MHC.CM.PN ---
pt remains intubated on [facility] ventilator in the ICU. dc deferred to a future time. cm to cont. to follow.
[2021-01-06 09:28] LABS: HCO3- Mixed Venous 32 mmol/L
[2021-01-06] MEDS: Bacitracin Oint 14 GM TUBE 1 APPL TOPICAL ×3 (09:47→20:03)
[2021-01-06 10:15] LABS: Glucose, Whole Blood 173 mg/dL (60-115)
[2021-01-06] MEDS: Esmolol HCl/NaCl Iso 2,500 MG/250 ML IV.SOLN 45.9 MG IVCONT (11:24)
[2021-01-06 12:26] LABS: ABG Base Excess 12.7 mmol/L; ABG HCO3 38 mmol/L (22-26); ABG pCO2 54 mmHg (32-45); ABG pCO2 TC 61 mmHg (32-45); ABG pH 7.45 (7.35-7.45); ABG pH TC 7.41 (7.35-7.45); ABG pO2 53 mmHg (83-108); ABG pO2 TC 64 (83-108)
[2021-01-06 12:34] LABS: Glucose, Whole Blood 200 mg/dL (60-115)
[2021-01-06 13:43] LABS: Glucose, Whole Blood 179 mg/dL (60-115)
--- NOTE | 2021-01-06 14:33 | P.PNCC_ITS ---
Subjective Subjective Date of Service: 01/06/21 Interval History: 65-year-old gentleman with underlying medical history of nonalcoholic fatty liver, mixed connective tissue disease with antiphospholipid syndrome on Plaquenil, methotrexate, aspirin, and IL 6 inhibitor, surgical asplenia admitted on 12/23/2020 with 1 week lung symptoms of shortness of breath and cough, COVID positive and hypoxemic on ER evaluation. Initially admitted [facility] and treated with remdesivir and Decadron. Hospital course significant for progressive hypoxemia requiring transferred to intensive care unit on 12/27/2020 and intubation. Further hospital course significant for poor arousal with sedation vacation, pneumomediastinum, subcutaneous emphysema, and further progressive hypoxemia with overall very poor prognosis. Family discussion of goals of care are ongoing. Overnight with multiple episodes of desaturations, briefly requiring paralytic agent. Discussion of a very poor prognosis held with family and code status changed to do not resuscitate. Physical Exam Vital Signs: Vital Signs: Last Vital Signs Temp 102.9 F H 01/06/21 14:05 Pulse 113 H 01/06/21 14:05 Resp 25 H 01/06/21 14:05 BP 112/59 L 01/06/21 14:05 Pulse Ox 88 L 01/06/21 14:05 Body Mass Index 30.2 Const: General: no acute distress, awake and other (Poor arousal with sedation vacation, improved subcutaneous emphysema) Eyes: Sclerae: sclerae normal Neck: Neck: Yes no lymphadenopathy, Yes trachea midline and Yes supple Resp: Auscultation: crackles (Diffuse bilateral) Cardio: Rate: tachycardic Rhythm: regular rhythm Heart sounds: no gallops, no murmurs and no rubs GI: Palpation (GI): Soft to palpation and Other GI palpation findings present ( Nontender) Auscultation: normal bowel sounds Extrem: General: No clubbing, No cyanosis and Yes pedal edema (Trace bilateral) Objective Data Labs CBC & Chem 7: 01/06/21 05:25 01/06/21 05:25 Labs: Laboratory Results - last 24 hr 01/05/21 01/05/21 01/05/21 14:59 17:56 18:59 WBC RBC Hgb Hct MCV MCH MCHC RDW Plt Count MPV Immature Gran % (Auto) Neut % (Auto) Lymph % (Auto) [place] % (Auto) Eos % (Auto) Baso % (Auto) Lymph # (Auto) [place] # (Auto) Eos # (Auto) Baso # (Auto) Abs Immat Gran (auto) Absolute Neuts (auto) Absolute Nucleated RBC Nucleated RBC % (auto) O2 Saturation ABG pH at Pt Temp ABG pH (Temp Correct) ABG pCO2 at Pt Temp ABG pCO2 (Temp Corrct ABG pO2 at Pt Temp ABG pO2 (Temp Correct ABG HCO3 ABG Base Excess (Actual) VBG pH VBG pCO2 VBG pO2 VBG HCO3 VBG O2 Saturation VBG Base Excess Mixed VBG pH Mixed VBG pCO2 Mixed VBG pO2 Mixed VBG HCO3 Mixed VBG Base Excess Mixed VBG O2 Saturation Mixed VBG FiO2 Sodium Potassium Chloride Carbon Dioxide Anion Gap BUN Creatinine Estim Creat Clear Calc Estimated GFR POC Glucose 183 H 151 H 156 H Random Glucose Calcium Phosphorus Magnesium Total Bilirubin AST ALT Alkaline Phosphatase Total Protein Albumin 01/05/21 01/05/21 01/06/21 21:30 23:09 01:03 WBC RBC Hgb Hct MCV MCH MCHC RDW Plt Count MPV Immature Gran % (Auto) Neut % (Auto) Lymph % (Auto) [place] % (Auto) Eos % (Auto) Baso % (Auto) Lymph # (Auto) [place] # (Auto) Eos # (Auto) Baso # (Auto) Abs Immat Gran (auto) Absolute Neuts (auto) Absolute Nucleated RBC Nucleated RBC % (auto) O2 Saturation ABG pH at Pt Temp ABG pH (Temp Correct) ABG pCO2 at Pt Temp ABG pCO2 (Temp Corrct ABG pO2 at Pt Temp ABG pO2 (Temp Correct ABG HCO3 ABG Base Excess (Actual) VBG pH VBG pCO2 VBG pO2 VBG HCO3 VBG O2 Saturation VBG Base Excess Mixed VBG pH Mixed VBG pCO2 Mixed VBG pO2 Mixed VBG HCO3 Mixed VBG Base Excess Mixed VBG O2 Saturation Mixed VBG FiO2 Sodium Potassium Chloride Carbon Dioxide Anion Gap BUN Creatinine Estim Creat Clear Calc Estimated GFR POC Glucose 143 H 107 144 H Random Glucose Calcium Phosphorus Magnesium Total Bilirubin AST ALT Alkaline Phosphatase Total Protein Albumin 01/06/21 01/06/21 01/06/21 03:10 03:31 03:31 WBC RBC Hgb Hct MCV MCH MCHC RDW Plt Count MPV Immature Gran % (Auto) Neut % (Auto) Lymph % (Auto) [place] % (Auto) Eos % (Auto) Baso % (Auto) Lymph # (Auto) [place] # (Auto) Eos # (Auto) Baso # (Auto) Abs Immat Gran (auto) Absolute Neuts (auto) Absolute Nucleated RBC Nucleated RBC % (auto) O2 Saturation TNP ABG pH at Pt Temp TNP ABG pH (Temp Correct) TNP ABG pCO2 at Pt Temp TNP ABG pCO2 (Temp Corrct TNP ABG pO2 at Pt Temp TNP ABG pO2 (Temp Correct TNP ABG HCO3 TNP ABG Base Excess (Actual) TNP VBG pH VBG pCO2 VBG pO2 VBG HCO3 VBG O2 Saturation VBG Base Excess Mixed VBG pH 7.26 Mixed VBG pCO2 70 Mixed VBG pO2 55 Mixed VBG HCO3 32 Mixed VBG Base Excess 4.4 Mixed VBG O2 Saturation 82.0 Mixed VBG FiO2 100% Sodium Potassium Chloride Carbon Dioxide Anion Gap BUN Creatinine Estim Creat Clear Calc Estimated GFR POC Glucose 179 H Random Glucose Calcium Phosphorus Magnesium Total Bilirubin AST ALT Alkaline Phosphatase Total Protein Albumin 01/06/21 01/06/21 01/06/21 05:23 05:25 05:25 WBC 21.6 H RBC 3.48 L Hgb 9.7 L Hct 33.5 L MCV 96.3 MCH 27.9 MCHC 29.0 L RDW 17.2 H Plt Count 282 MPV 11.4 Immature Gran % (Auto) 4.5 H Neut % (Auto) 76.5 H Lymph % (Auto) 9.8 L [place] % (Auto) 7.0 Eos % (Auto) 2.0 Baso % (Auto) 0.2 Lymph # (Auto) 2.1 [place] # (Auto) 1.5 H Eos # (Auto) 0.4 Baso # (Auto) 0.0 Abs Immat Gran (auto) 0.97 H Absolute Neuts (auto) 16.5 H Absolute Nucleated RBC 0.260 H Nucleated RBC % (auto) 1.2 H O2 Saturation ABG pH at Pt Temp ABG pH (Temp Correct) ABG pCO2 at Pt Temp ABG pCO2 (Temp Corrct ABG pO2 at Pt Temp ABG pO2 (Temp Correct ABG HCO3 ABG Base Excess (Actual) VBG pH 7.40 VBG pCO2 62 VBG pO2 35 VBG HCO3 39 H VBG O2 Saturation 63.0 VBG Base Excess 12.1 Mixed VBG pH Mixed VBG pCO2 Mixed VBG pO2 Mixed VBG HCO3 Mixed VBG Base Excess Mixed VBG O2 Saturation Mixed VBG FiO2 Sodium 142 Potassium 4.5 Chloride 98 Carbon Dioxide 35 H Anion Gap 14 BUN 27 H Creatinine 0.56 Estim Creat Clear Calc 136.2 Estimated GFR > 60 POC Glucose Random Glucose 204 H Calcium 8.1 L Phosphorus 2.4 L Magnesium 2.2 Total Bilirubin 0.8 AST 63 H ALT 64 H Alkaline Phosphatase 58 Total Protein 5.6 L Albumin 2.9 L 01/06/21 01/06/21 01/06/21 06:28 08:13 09:59 WBC RBC Hgb Hct MCV MCH MCHC RDW Plt Count MPV Immature Gran % (Auto) Neut % (Auto) Lymph % (Auto) [place] % (Auto) Eos % (Auto) Baso % (Auto) Lymph # (Auto) [place] # (Auto) Eos # (Auto) Baso # (Auto) Abs Immat Gran (auto) Absolute Neuts (auto) Absolute Nucleated RBC Nucleated RBC % (auto) O2 Saturation ABG pH at Pt Temp ABG pH (Temp Correct) ABG pCO2 at Pt Temp ABG pCO2 (Temp Corrct ABG pO2 at Pt Temp ABG pO2 (Temp Correct ABG HCO3 ABG Base Excess (Actual) VBG pH VBG pCO2 VBG pO2 VBG HCO3 VBG O2 Saturation VBG Base Excess Mixed VBG pH Mixed VBG pCO2 Mixed VBG pO2 Mixed VBG HCO3 Mixed VBG Base Excess Mixed VBG O2 Saturation Mixed VBG FiO2 Sodium Potassium Chloride Carbon Dioxide Anion Gap BUN Creatinine Estim Creat Clear Calc Estimated GFR POC Glucose 170 H 181 H 173 H Random Glucose Calcium Phosphorus Magnesium Total Bilirubin AST ALT Alkaline Phosphatase Total Protein Albumin 01/06/21 01/06/21 01/06/21 12:19 12:29 13:36 WBC RBC Hgb Hct MCV MCH MCHC RDW Plt Count MPV Immature Gran % (Auto) Neut % (Auto) Lymph % (Auto) [place] % (Auto) Eos % (Auto) Baso % (Auto) Lymph # (Auto) [place] # (Auto) Eos # (Auto) Baso # (Auto) Abs Immat Gran (auto) Absolute Neuts (auto) Absolute Nucleated RBC Nucleated RBC % (auto) O2 Saturation 88.0 ABG pH at Pt Temp 7.45 ABG pH (Temp Correct) 7.41 ABG pCO2 at Pt Temp 54 H ABG pCO2 (Temp Corrct 61 H* ABG pO2 at Pt Temp 53 L ABG pO2 (Temp Correct 64 L ABG HCO3 38 H ABG Base Excess (Actual) 12.7 VBG pH VBG pCO2 VBG pO2 VBG HCO3 VBG O2 Saturation VBG Base Excess Mixed VBG pH Mixed VBG pCO2 Mixed VBG pO2 Mixed VBG HCO3 Mixed VBG Base Excess Mixed VBG O2 Saturation Mixed VBG FiO2 Sodium Potassium Chloride Carbon Dioxide Anion Gap BUN Creatinine Estim Creat Clear Calc Estimated GFR POC Glucose 200 H 179 H Random Glucose Calcium Phosphorus Magnesium Total Bilirubin AST ALT Alkaline Phosphatase Total Protein Albumin Microbiology Microbiology Results: Microbiology 01/05/21 09:05 Blood - Venous Blood Culture - Preliminary No growth after 24 hours. 01/05/21 09:05 Blood - Venous Blood Culture - Preliminary No growth after 24 hours. 01/05/21 08:50 Sputum - Suctioned Gram Stain - Final 01/05/21 08:50 Sputum - Suctioned Sputum Culture - Final 12/27/20 15:58 Bronch, Not Specified Fungal Identification - Preliminary No growth after 1 week. 12/30/20 20:45 Blood - Venous Blood Culture - Final No growth after 5 days. 12/30/20 20:43 Blood - Venous Blood Culture - Final No growth after 5 days. 12/30/20 21:30 Urine [place] Urine Culture - Final No growth. 12/27/20 15:57 Bronch, Not Specified Direct Acid Fast Bacilli Smear - Final 12/27/20 15:58 Bronch, Not Specified Gram Stain - Final 12/27/20 15:58 Bronch, Not Specified - Final Staphylococcus aureus 12/23/20 20:10 Blood - Venous Blood Culture - Final No growth after 5 days. 12/23/20 19:46 Blood - Venous Blood Culture - Final No growth after 5 days. Progress Note: A&P Assessment and plan (1) Subcutaneous emphysema, non-traumatic: Status: Acute Assessment and Plan: Assessment: 65-year-old gentleman with underlying mixed connective tissue disease with antiphospholipid syndrome, now alcoholic fatty liver, surgical asplenia admitted with acute hypoxic respiratory failure secondary to COVID-19 ARDS requiring ventilatory support, further complicated by critical illness encephalopathy, pneumomediastinum, and subcutaneous emphysema. Plan: Neuro: Encephalopathy, likely critical illness related, though possible ischemic secondary to COVID-19. At this time unable to perform CT head secondary to patient requiring maximal ventilatory support and having an unstable respiratory status. Cardiac: No acute issues. Pulmonary: Acute hypoxic respiratory failure secondary to COVID-19 ARDS. Now with refractory hypoxemia and on maximum ventilatory support. Overall prognosis is poor. Further complicated by pneumomediastinum and subcutaneous emphysema. Continue with ventilatory support. Renal: No acute issues. Endo: No acute issues. GI: No acute issues. ID: COVID-19 ARDS status post Decadron and remdesivir. Continues on prednisone. Continues on empiric cefepime, cultures are pending. Heme/Onc: Underlying antiphospholipid syndrome on intermediate dose anticoagulation. Psych: No acute issues. Miscellaneous: Underlying mixed connective tissue disease on Plaquenil. Prophylaxis: Lovenox, famotidine Diet: Tube feeds Critical care time spent: 60 minutes (2) Pneumomediastinum: Status: Acute (3) Acute respiratory distress syndrome (ARDS) due to COVID-19 virus: Status: Acute (4) Asplenia after surgical procedure: Status: Acute (5) Antiphospholipid antibody positive: Status: Acute (6) Mixed connective tissue disease: Status: Acute (7) Acute respiratory failure with hypoxia: Status: Acute (8) NAFL (nonalcoholic fatty liver): Status: Acute Critical Care Time Critical Care Time (minutes): 60
--- NOTE | 2021-01-06 14:38 | PC.NURSE ---
Addendum entered by Giuseppe Donohue RN 01/06/21 15:46: Blood sugars being checked Q2H - insulin drip kept on hold - goal blood sugars 150-200 - which blood sugars were running. Continue to check POC Q2H. Original Note: Shift eval 7a-3p - Patient tolerating vent settings - made change to RR from 26 to 16. ABG's done - viewed by Dr Doan - no vent setting changes needed. Tolerating PC settings, rate 16, breathing over vent in 20's. peep 12, insp pressure 18. ETT 7.5 @ 25cm. Lungs diminished. O2sat high 80's - Dr Doan aware. Minimal to no in-line secretions. Temp max 104, now down to 102.9. Large stool over night - holding lactulose. Per Dr Doan plan to wean off esmolol and levo - see MAR for titrations. Sedated w/ fentanyl & propofol. Plan to put in OG tube - attempt x2 - unable. Dr Doan aware. 2 family members came in to visit patient. Stage 2 small opening 1x1cm noted on mid coccyx. Repos Q2H. On specialty matress.
[2021-01-06 16:13] LABS: Glucose, Whole Blood 181 mg/dL (60-115)
[2021-01-06 18:03] LABS: Glucose, Whole Blood 163 mg/dL (60-115)
[2021-01-06] MEDS: Esmolol HCl/NaCl Iso 2,500 MG/250 ML IV.SOLN 20.4 MG IVCONT (19:28)
[2021-01-06 20:16] LABS: Glucose, Whole Blood 142 mg/dL (60-115)
[2021-01-06] MEDS: QUEtiapine Fumarate 25 MG TABLET 75 MG G-TUBE (22:27)
[2021-01-06] MEDS: Hydroxychloroquine Sulfate 200 MG TABLET PO (22:27)
[2021-01-06 22:59] LABS: Glucose, Whole Blood 130 mg/dL (60-115)
[2021-01-07] VITALS (32 sets, daily range): BP systolic 90–139; BP diastolic 49–72; PULSE 13–124; RESP 15–61; TEMP 38.7–39.8; O2SAT 87–96
[2021-01-07 00:16] LABS: Glucose, Whole Blood 137 mg/dL (60-115)
[2021-01-07] MEDS: cefEPime HCl 1 GM in 0.9 % Sodium Chloride 50 ML IV ×2 (01:49→14:18)
[2021-01-07] MEDS: propofoL 1,000 MG/100 ML VIAL 25.5 MG IVCONT ×7 (02:22→23:42)
[2021-01-07 03:21] LABS: Glucose, Whole Blood 130 mg/dL (60-115)
[2021-01-07] MEDS: fentaNYL citrate/NS 1,000 MCG/100 ML PLAST..BAG 20 MCG IVCONT ×5 (03:39→21:29)
[2021-01-07] MEDS: Esmolol HCl/NaCl Iso 2,500 MG/250 ML IV.SOLN 20.4 MG IVCONT ×2 (03:39→17:08)
[2021-01-07 04:07] LABS: Glucose, Whole Blood 123 mg/dL (60-115)
[2021-01-07 05:44] LABS: VBG Base Excess 13.9 mmol/L; VBG HCO3 41 mmol/L (22-26); VBG pCO2 67 mmHg; VBG pH 7.39 (7.32-7.43); VBG pO2 70 mmHg
[2021-01-07 05:45] LABS: MANUAL DIFF FLAG NO
[2021-01-07 05:47] LABS: Basophils Absolute Auto 0.1 X10*3/uL (0.0-0.2); Basophils Percent Auto 0.2 % (0-2); Eosinophils Absolute Auto 0.3 X10*3/uL (0.0-0.4); Eosinophils Percent Auto 1.3 % (0-4); Hemoglobin 9.4 g/dl (14.0-18.0); Imm Gran Abs Auto 0.67 X10*3/uL (0.00-0.03); Lymphocytes Absolute Auto 2.5 X10*3/uL (1.2-4.9); Lymphocytes Percent Auto 11.2 % (20-40); Mean Corpuscular HGB Conc 30.3 g/dl (31.0-36.0); Mean Corpuscular Hemoglobin 29.1 pg (27.0-33.0); Mean Platelet Volume 10.9 fL (9.4-12.4); Monocytes Absolute Auto 1.4 X10*3/uL (0.1-1.2); Monocytes Percent Auto 6.5 % (2-11); Neutrophils Absolute Auto 17.2 X10*3/uL (2.0-8.3); Neutrophils Percent Auto 77.8 % (45-73); Platelet Count 272 X10*3/uL (160-400); Red Blood Count 3.23 X10*6/uL (4.60-5.80); Red Cell Distribution Width 17.4 % (11.0-16.0); White Blood Count 22.1 X10*3/uL (4.8-10.8)
[2021-01-07 06:00] LABS: NRBC Pct Auto 1.3 /100WBC (0.0-0.2)
[2021-01-07 06:13] LABS: Alanine Aminotransferase 55 U/L (0-40); Albumin Level 2.7 g/dL (3.5-5.0); Alkaline Phosphatase 52 U/L (39-117); Anion Gap 10 (12-20); Aspartate Amino Transferase 66 U/L (5-37); Bilirubin Total 0.8 mg/dL (0.0-1.0); Blood Urea Nitrogen 23 mg/dL (9-16); Calcium 7.7 mg/dL (8.4-10.2); Carbon Dioxide 36 mmol/L (22-29); Chloride 99 mmol/L (96-108); Creatinine Clr Calc Pharmacy 146.7; Estimated Glomerular Filt Rate > 60; Glucose Random 153 mg/dL (60-115); Magnesium 2.2 mg/dL (1.6-2.6); Phosphorus 2.5 mg/dL (2.7-4.5); Potassium 4.3 mmol/L (3.3-5.1); Sodium 141 mmol/L (135-145); Total Protein 5.4 g/dL (6.5-8.0)
[2021-01-07 06:40] LABS: Venous Blood Gas Refer to POC result
[2021-01-07 08:12] LABS: Glucose, Whole Blood 164 mg/dL (60-115)
[2021-01-07] MEDS: Chlorhexidine Gluc Oral Rinse 15 ML MOUTHWASH BUCCAL ×3 (10:02→20:44)
[2021-01-07] MEDS: Potassium Phosphate 30 MMOL in 0.9 % Sodium Chloride 500 ML 85 MMOL IV (10:02)
[2021-01-07] MEDS: Bacitracin Oint 14 GM TUBE 1 APPL TOPICAL ×3 (10:02→20:45)
[2021-01-07] MEDS: Hydroxychloroquine Sulfate 200 MG TABLET PO (10:04)
[2021-01-07] MEDS: Famotidine/PF 20 MG/2 ML VIAL IVPUSH (10:04)
[2021-01-07] MEDS: Enoxaparin Sodium 40 MG/0.4 ML SYRINGE SUBCUT (10:04)
[2021-01-07] MEDS: methylPREDNISolone Sod Succ 125 MG/2 ML VIAL 40 MG IVPUSH (10:05)
--- NOTE | 2021-01-07 10:46 | MHC.CLN ---
RE: CONSULT PT TF HELD 01/06; NOW RESTARTED CURRENTLY PROMOTE AT 40CC/HR PT TO RECEIVE PROMOTE AT MAX GOAL RATE 60CC/HR WITH 240CC FREE WATER FLUSHES Q 6HRS PROVIDES 1440KCALS (2113 WITH SEDATION; 29KCALS/KG BASED ON CMW), 90G PROTEIN (1.25G/KG), 2168CC FREE WATER FROM FORMULA AND FLUSHES (30CC/KG) TOLERATING WELL WITH LOW RESIDUALS NOTED NEW PRESSURE INJURY WILL ADD 30CC PROSOURCE VIA OG TO PROVIDE 60KCALS, 15G PROTEIN (109G TOTAL PROTEIN; 1.5G/KG) FOR WOUND HEALING MONITOR TOLERANCE, RESIDUALS AND LYTES
[2021-01-07 12:16] LABS: Glucose, Whole Blood 186 mg/dL (60-115)
--- NOTE | 2021-01-07 14:24 | PM.CCPN ---
Subjective Subjective Date of Service: 01/07/21 Interval History: 65-year-old gentleman with underlying medical history of nonalcoholic fatty liver, mixed connective tissue disease with antiphospholipid syndrome on Plaquenil, methotrexate, aspirin, and IL 6 inhibitor, surgical asplenia admitted on 12/23/2020 with 1 week lung symptoms of shortness of breath and cough, COVID positive and hypoxemic on ER evaluation. Initially admitted [facility] and treated with remdesivir and Decadron. Hospital course significant for progressive hypoxemia requiring transferred to intensive care unit on 12/27/2020 and intubation. Further hospital course significant for poor arousal with sedation vacation, pneumomediastinum, subcutaneous emphysema, and further progressive hypoxemia with overall very poor prognosis. No events overnight. Physical Exam Vital Signs: Vital Signs: Last Vital Signs Temp 102.6 F H 01/07/21 14:00 Pulse 109 H 01/07/21 14:00 Resp 16 01/07/21 14:00 BP 113/59 L 01/07/21 14:00 Pulse Ox 91 L 01/07/21 14:00 Body Mass Index 30.2 Const: General: no acute distress and other (Sedated on the vent, poor arousal with sedation vacation) Eyes: Sclerae: sclerae normal Neck: Neck: Yes no lymphadenopathy, Yes trachea midline and Yes supple Resp: Auscultation: crackles (Diffuse bilateral) Cardio: Rate: tachycardic Rhythm: regular rhythm Heart sounds: no gallops, no murmurs and no rubs GI: Palpation (GI): Soft to palpation and Other GI palpation findings present ( Nontender) Auscultation: normal bowel sounds Extrem: General: No clubbing, No cyanosis and Yes pedal edema (Trace bilateral) Objective Data Labs CBC & Chem 7: 01/07/21 05:35 01/07/21 05:35 Labs: Laboratory Results - last 24 hr 01/06/21 01/06/21 01/06/21 15:48 17:48 20:05 WBC RBC Hgb Hct MCV MCH MCHC RDW Plt Count MPV Immature Gran % (Auto) Neut % (Auto) Lymph % (Auto) [place] % (Auto) Eos % (Auto) Baso % (Auto) Lymph # (Auto) [place] # (Auto) Eos # (Auto) Baso # (Auto) Abs Immat Gran (auto) Absolute Neuts (auto) Absolute Nucleated RBC Nucleated RBC % (auto) VBG pH VBG pCO2 VBG pO2 VBG HCO3 VBG O2 Saturation VBG Base Excess Sodium Potassium Chloride Carbon Dioxide Anion Gap BUN Creatinine Estim Creat Clear Calc Estimated GFR POC Glucose 181 H 163 H 142 H Random Glucose Calcium Phosphorus Magnesium Total Bilirubin AST ALT Alkaline Phosphatase Total Protein Albumin 01/06/21 01/06/21 01/07/21 22:30 23:44 01:59 WBC RBC Hgb Hct MCV MCH MCHC RDW Plt Count MPV Immature Gran % (Auto) Neut % (Auto) Lymph % (Auto) [place] % (Auto) Eos % (Auto) Baso % (Auto) Lymph # (Auto) [place] # (Auto) Eos # (Auto) Baso # (Auto) Abs Immat Gran (auto) Absolute Neuts (auto) Absolute Nucleated RBC Nucleated RBC % (auto) VBG pH VBG pCO2 VBG pO2 VBG HCO3 VBG O2 Saturation VBG Base Excess Sodium Potassium Chloride Carbon Dioxide Anion Gap BUN Creatinine Estim Creat Clear Calc Estimated GFR POC Glucose 130 H 137 H 130 H Random Glucose Calcium Phosphorus Magnesium Total Bilirubin AST ALT Alkaline Phosphatase Total Protein Albumin 01/07/21 01/07/21 01/07/21 03:49 05:35 05:35 WBC 22.1 H RBC 3.23 L Hgb 9.4 L Hct 31.0 L MCV 96.0 MCH 29.1 MCHC 30.3 L RDW 17.4 H Plt Count 272 MPV 10.9 Immature Gran % (Auto) 3.0 H Neut % (Auto) 77.8 H Lymph % (Auto) 11.2 L [place] % (Auto) 6.5 Eos % (Auto) 1.3 Baso % (Auto) 0.2 Lymph # (Auto) 2.5 [place] # (Auto) 1.4 H Eos # (Auto) 0.3 Baso # (Auto) 0.1 Abs Immat Gran (auto) 0.67 H Absolute Neuts (auto) 17.2 H Absolute Nucleated RBC 0.290 H Nucleated RBC % (auto) 1.3 H VBG pH VBG pCO2 VBG pO2 VBG HCO3 VBG O2 Saturation VBG Base Excess Sodium 141 Potassium 4.3 Chloride 99 Carbon Dioxide 36 H Anion Gap 10 L BUN 23 H Creatinine 0.52 Estim Creat Clear Calc 146.7 Estimated GFR > 60 POC Glucose 123 H Random Glucose 153 H Calcium 7.7 L Phosphorus 2.5 L Magnesium 2.2 Total Bilirubin 0.8 AST 66 H ALT 55 H Alkaline Phosphatase 52 Total Protein 5.4 L Albumin 2.7 L 01/07/21 01/07/21 01/07/21 05:37 08:08 12:12 WBC RBC Hgb Hct MCV MCH MCHC RDW Plt Count MPV Immature Gran % (Auto) Neut % (Auto) Lymph % (Auto) [place] % (Auto) Eos % (Auto) Baso % (Auto) Lymph # (Auto) [place] # (Auto) Eos # (Auto) Baso # (Auto) Abs Immat Gran (auto) Absolute Neuts (auto) Absolute Nucleated RBC Nucleated RBC % (auto) VBG pH 7.39 VBG pCO2 67 VBG pO2 70 VBG HCO3 41 H VBG O2 Saturation 93.0 VBG Base Excess 13.9 Sodium Potassium Chloride Carbon Dioxide Anion Gap BUN Creatinine Estim Creat Clear Calc Estimated GFR POC Glucose 164 H 186 H Random Glucose Calcium Phosphorus Magnesium Total Bilirubin AST ALT Alkaline Phosphatase Total Protein Albumin Microbiology Microbiology Results: Microbiology 01/05/21 09:05 Blood - Venous Blood Culture - Preliminary No growth after 48 hours. 01/05/21 09:05 Blood - Venous Blood Culture - Preliminary No growth after 48 hours. 01/05/21 08:50 Sputum - Suctioned Gram Stain - Final 01/05/21 08:50 Sputum - Suctioned Sputum Culture - Final 12/27/20 15:58 Bronch, Not Specified Fungal Identification - Preliminary No growth after 1 week. 12/30/20 20:45 Blood - Venous Blood Culture - Final No growth after 5 days. 12/30/20 20:43 Blood - Venous Blood Culture - Final No growth after 5 days. 12/30/20 21:30 Urine [place] Urine Culture - Final No growth. 12/27/20 15:57 Bronch, Not Specified Direct Acid Fast Bacilli Smear - Final 12/27/20 15:58 Bronch, Not Specified Gram Stain - Final 12/27/20 15:58 Bronch, Not Specified - Final Staphylococcus aureus 12/23/20 20:10 Blood - Venous Blood Culture - Final No growth after 5 days. 12/23/20 19:46 Blood - Venous Blood Culture - Final No growth after 5 days. Progress Note: A&P Assessment and plan (1) Subcutaneous emphysema, non-traumatic: Status: Acute Assessment and Plan: Assessment: 65-year-old gentleman with underlying mixed connective tissue disease with antiphospholipid syndrome, non-alcoholic fatty liver, surgical asplenia admitted with acute hypoxic respiratory failure secondary to COVID-19 ARDS requiring ventilatory support, further complicated by critical illness encephalopathy, pneumomediastinum, and subcutaneous emphysema. Plan: Neuro: Encephalopathy, likely critical illness related, though possible ischemic secondary to COVID-19. At this time unable to perform CT head secondary to patient requiring maximal ventilatory support and having an unstable respiratory status. Cardiac: No acute issues. Pulmonary: Acute hypoxic respiratory failure secondary to COVID-19 ARDS. Now with refractory hypoxemia and on maximum ventilatory support. Overall prognosis is poor. Further complicated by pneumomediastinum and subcutaneous emphysema. Continue with ventilatory support. Renal: No acute issues. Endo: No acute issues. GI: No acute issues. ID: COVID-19 ARDS status post Decadron and remdesivir. Continues on prednisone. Continues on empiric cefepime, cultures are negative today. Will consider discontinuation if cultures remain negative for the next 24 hours Heme/Onc: Underlying antiphospholipid syndrome on intermediate dose anticoagulation. Psych: No acute issues. Miscellaneous: Underlying mixed connective tissue disease on Plaquenil. Prophylaxis: Lovenox, famotidine Diet: Tube feeds Critical care time spent: 60 minutes (2) Pneumomediastinum: Status: Acute (3) Acute respiratory distress syndrome (ARDS) due to COVID-19 virus: Status: Acute (4) Asplenia after surgical procedure: Status: Acute (5) Antiphospholipid antibody positive: Status: Acute (6) Mixed connective tissue disease: Status: Acute (7) Acute respiratory failure with hypoxia: Status: Acute (8) NAFL (nonalcoholic fatty liver): Status: Acute Critical Care Time Critical Care Time (minutes): 60
--- NOTE | 2021-01-07 14:50 | PC.NURSE ---
pt intubated and sedated, remains on propofol and fentynal, esmolol and levo titrated as needed, Kphos replacement running, tube feed increased to 60ml/hr, tolerating well, 0 residual, hr ST, Corrie in place, good waveform noted, pt temp up to 103.0F MD aware, pt repositioned and bathed, booth cath draining deep red urine, MD aware, plan to hold lovenox until tomorrow, TLC to RIJ in place, POC q6h, will cont to monitor
--- NOTE | 2021-01-07 15:22 | MHC.CM.PN ---
Pt remains in ICU on ventilatory support secondary to COVID: prognosis is poor per MD: pt was made DNR by family: no plans for peg/trach placement at this time. Original d/c plan was for a return to home with VNA services: Unsure if pt will be able to vent wean - d/c plan remains in progress and will be determined by pt's abilities which will be reassessed daily
[2021-01-07] MEDS: Acetaminophen Supp 650 MG SUPP.RECT PR (21:15)
--- NOTE | 2021-01-07 21:59 | PC.NURSE ---
Patient's OG tube coiled, removed and manufacturing industrial engineer notified. OG tube to be left out overnight, will reassess in am. Patient has a temp of 103.6, Tylenol 650 mg LA ordered/ administered. Corrie in place with good waveform. TLC in RIJ , Propofol, Esmolol, Fentanyl and Levophed infusing. Levophed titrated to 0.12at 2150.BP 93/51 [place] draining blood tinged urine. POC Q6H. Patient repositioned Q2H.
[2021-01-08] VITALS (30 sets, daily range): BP systolic 88–136; BP diastolic 40–71; PULSE 94–115; RESP 16–21; TEMP 38.7–39.7; O2SAT 84–96
[2021-01-08 00:25] LABS: Glucose, Whole Blood 128 mg/dL (60-115)
[2021-01-08] MEDS: cefEPime HCl 1 GM in 0.9 % Sodium Chloride 50 ML IV (00:32)
[2021-01-08] MEDS: fentaNYL citrate/NS 1,000 MCG/100 ML PLAST..BAG 20 MCG IVCONT ×4 (01:49→23:34)
[2021-01-08] MEDS: Esmolol HCl/NaCl Iso 2,500 MG/250 ML IV.SOLN 20.4 MG IVCONT ×3 (01:50→23:36)
[2021-01-08] MEDS: propofoL 1,000 MG/100 ML VIAL 25.5 MG IVCONT ×7 (02:29→23:36)
--- NOTE | 2021-01-08 04:52 | PC.NURSE ---
CARE ASSUMED 23:15...REMAINS TUBED/VENTED...SEDATED WITH PROPOFOL/FENTANYL DRIPS...ESMOLOL/LEVOPHED INFUSING PER NOV...PCV: AC 16/IP 18/FIO2 1005/PEEP 12...HS RR CONTROLLED AT 16/MIN...ETCO2 CLIMBING TO 66-68...FENTANYL WEANED TO 150 MCG/HR...Ve 6.5 L/M...ICU SPOOL SALVAGER PRESENT...AC RATE TO 20...CONTROLLED AT 20/MIN..ETCO2 DECREASED TO 50-52 & Ve 9.5 l/m...continues with bloody urine as per report...REMAINS WITH NO OG-TUBE/FEEDS REMAIN ON HOLD...POC GLUCOSE MF=169..SPOOL SALVAGER PRESENT AND AWARE..T-LHU=922.3 CORE
[2021-01-08 05:48] LABS: Basophils Percent Auto 0.2 % (0-2); Eosinophils Absolute Auto 0.5 X10*3/uL (0.0-0.4); Eosinophils Percent Auto 2.1 % (0-4); Hematocrit 29.5 % (42-52); Hemoglobin 8.5 g/dl (14.0-18.0); Imm Gran Abs Auto 0.62 X10*3/uL (0.00-0.03); Imm Gran Pct Auto 2.9 % (0.0-0.4); Lymphocytes Absolute Auto 2.4 X10*3/uL (1.2-4.9); Lymphocytes Percent Auto 11.1 % (20-40); MANUAL DIFF FLAG SCAN; Mean Corpuscular HGB Conc 28.8 g/dl (31.0-36.0); Mean Corpuscular Hemoglobin 28.2 pg (27.0-33.0); Mean Platelet Volume 10.8 fL (9.4-12.4); Monocytes Absolute Auto 1.7 X10*3/uL (0.1-1.2); Monocytes Percent Auto 7.7 % (2-11); Neutrophils Absolute Auto 16.3 X10*3/uL (2.0-8.3); Platelet Count 241 X10*3/uL (160-400); Red Blood Count 3.01 X10*6/uL (4.60-5.80); Red Cell Distribution Width 17.2 % (11.0-16.0); SCAN SMEAR FLAG 1; White Blood Count 21.4 X10*3/uL (4.8-10.8)
[2021-01-08 05:58] LABS: NRBC Pct Auto 2.2 /100WBC (0.0-0.2)
[2021-01-08 06:26] LABS: Albumin Level 2.6 g/dL (3.5-5.0); Anion Gap 9 (12-20); Blood Urea Nitrogen 18 mg/dL (9-16); Calcium 7.7 mg/dL (8.4-10.2); Carbon Dioxide 40 mmol/L (22-29); Chloride 99 mmol/L (96-108); Creatinine Clr Calc Pharmacy 162.3; Estimated Glomerular Filt Rate > 60; Glucose Random 123 mg/dL (60-115); Magnesium 2.3 mg/dL (1.6-2.6); Phosphorus 1.7 mg/dL (2.7-4.5); Potassium 4.4 mmol/L (3.3-5.1); Sodium 144 mmol/L (135-145)
[2021-01-08 06:30] LABS: SLIDE REVIEW VERIFIED
[2021-01-08] MEDS: fentaNYL citrate/NS 1,000 MCG/100 ML PLAST..BAG 15 MCG IVCONT (09:11)
[2021-01-08] MEDS: methylPREDNISolone Sod Succ 125 MG/2 ML VIAL 40 MG IVPUSH (09:18)
[2021-01-08] MEDS: Chlorhexidine Gluc Oral Rinse 15 ML MOUTHWASH BUCCAL ×4 (09:18→22:16)
[2021-01-08] MEDS: Bacitracin Oint 14 GM TUBE 1 APPL TOPICAL ×3 (09:18→21:25)
[2021-01-08] MEDS: acetaZOLAMIDE sodium 500 MG VIAL IVPUSH (09:18)
[2021-01-08] MEDS: Calcium Gluconate/NaCl,Iso-Osm 2 GM/100 ML PLAST..BAG IV (09:18)
[2021-01-08] MEDS: Famotidine/PF 20 MG/2 ML VIAL IVPUSH (09:18)
[2021-01-08] MEDS: Potassium Phosphate 30 MMOL in 0.9 % Sodium Chloride 500 ML 85 MMOL IV (09:49)
[2021-01-08 11:16] LABS: Venous Blood Gas Refer to POC result
--- NOTE | 2021-01-08 14:31 | PM.CCPN ---
Subjective Subjective Date of Service: 01/08/21 Interval History: 65-year-old gentleman with underlying medical history of nonalcoholic fatty liver, mixed connective tissue disease with antiphospholipid syndrome on Plaquenil, methotrexate, aspirin, and IL 6 inhibitor, surgical asplenia admitted on 12/23/2020 with 1 week lung symptoms of shortness of breath and cough, COVID positive and hypoxemic on ER evaluation. Initially admitted [facility] and treated with remdesivir and Decadron. Hospital course significant for progressive hypoxemia requiring transferred to intensive care unit on 12/27/2020 and intubation. Further hospital course significant for poor arousal with sedation vacation, pneumomediastinum, subcutaneous emphysema, and further progressive hypoxemia with overall very poor prognosis. No events overnight. Continues to require maximum ventilatory support. Physical Exam Vital Signs: Vital Signs: Last Vital Signs Temp 102.0 F H 01/08/21 13:00 Pulse 102 H 01/08/21 14:00 Resp 19 01/08/21 14:00 BP 124/66 01/08/21 14:00 Pulse Ox 90 L 01/08/21 14:00 Body Mass Index 30.2 Const: General: no acute distress and other (Minimal subcutaneous emphysema around the neck) Eyes: Sclerae: sclerae normal EOM: EOMs intact bilaterally Neck: Neck: Yes no lymphadenopathy, Yes trachea midline and Yes supple Resp: Auscultation: crackles (Diffuse bilateral) Cardio: Rate: tachycardic Rhythm: regular rhythm Heart sounds: no gallops, no murmurs and no rubs GI: Palpation (GI): Soft to palpation and Other GI palpation findings present ( Nontender) Auscultation: normal bowel sounds Extrem: General: No clubbing, No cyanosis and Yes pedal edema (Trace bilateral) Objective Data Labs CBC & Chem 7: 01/08/21 05:20 01/08/21 05:20 Labs: Laboratory Results - last 24 hr 12/27/20 01/07/21 01/08/21 15:57 23:44 05:20 WBC 21.4 H RBC 3.01 L Hgb 8.5 L Hct 29.5 L MCV 98.0 MCH 28.2 MCHC 28.8 L RDW 17.2 H Plt Count 241 MPV 10.8 Immature Gran % (Auto) 2.9 H Neut % (Auto) 76.0 H Lymph % (Auto) 11.1 L [place] % (Auto) 7.7 Eos % (Auto) 2.1 Baso % (Auto) 0.2 Lymph # (Auto) 2.4 [place] # (Auto) 1.7 H Eos # (Auto) 0.5 H Baso # (Auto) 0.0 Abs Immat Gran (auto) 0.62 H Absolute Neuts (auto) 16.3 H Absolute Nucleated RBC 0.470 H Nucleated RBC % (auto) 2.2 H Smear Tech's Comments VERIFIED Sodium Potassium Chloride Carbon Dioxide Anion Gap BUN Creatinine Estim Creat Clear Calc Estimated GFR POC Glucose 128 H Random Glucose Calcium Phosphorus Magnesium Albumin Ref Lab Test Result SEE COMMENT 01/08/21 05:20 WBC RBC Hgb Hct MCV MCH MCHC RDW Plt Count MPV Immature Gran % (Auto) Neut % (Auto) Lymph % (Auto) [place] % (Auto) Eos % (Auto) Baso % (Auto) Lymph # (Auto) [place] # (Auto) Eos # (Auto) Baso # (Auto) Abs Immat Gran (auto) Absolute Neuts (auto) Absolute Nucleated RBC Nucleated RBC % (auto) Smear Tech's Comments Sodium 144 Potassium 4.4 Chloride 99 Carbon Dioxide 40 H* Anion Gap 9 L BUN 18 H Creatinine 0.47 L Estim Creat Clear Calc 162.3 Estimated GFR > 60 POC Glucose Random Glucose 123 H Calcium 7.7 L Phosphorus 1.7 L Magnesium 2.3 Albumin 2.6 L Ref Lab Test Result Microbiology Microbiology Results: Microbiology 01/05/21 09:05 Blood - Venous Blood Culture - Preliminary No growth after 48 hours. 01/05/21 09:05 Blood - Venous Blood Culture - Preliminary No growth after 48 hours. 01/05/21 08:50 Sputum - Suctioned Gram Stain - Final 01/05/21 08:50 Sputum - Suctioned Sputum Culture - Final 12/27/20 15:58 Bronch, Not Specified Fungal Identification - Preliminary No growth after 1 week. 12/30/20 20:45 Blood - Venous Blood Culture - Final No growth after 5 days. 12/30/20 20:43 Blood - Venous Blood Culture - Final No growth after 5 days. 12/30/20 21:30 Urine [place] Urine Culture - Final No growth. 12/27/20 15:57 Bronch, Not Specified Direct Acid Fast Bacilli Smear - Final 12/27/20 15:58 Bronch, Not Specified Gram Stain - Final 12/27/20 15:58 Bronch, Not Specified - Final Staphylococcus aureus 12/23/20 20:10 Blood - Venous Blood Culture - Final No growth after 5 days. 12/23/20 19:46 Blood - Venous Blood Culture - Final No growth after 5 days. Progress Note: A&P Assessment and plan (1) Subcutaneous emphysema, non-traumatic: Status: Acute Assessment and Plan: Assessment: 65-year-old gentleman with underlying mixed connective tissue disease with antiphospholipid syndrome, non-alcoholic fatty liver, surgical asplenia admitted with acute hypoxic respiratory failure secondary to COVID-19 ARDS requiring ventilatory support, further complicated by critical illness encephalopathy, pneumomediastinum, and subcutaneous emphysema. Plan: Neuro: Encephalopathy, likely critical illness related, though possible ischemic secondary to COVID-19. At this time unable to perform CT head secondary to patient requiring maximal ventilatory support and having an unstable respiratory status. Cardiac: No acute issues. Pulmonary: Acute hypoxic respiratory failure secondary to COVID-19 ARDS. Now with refractory hypoxemia and on maximum ventilatory support. Overall prognosis is poor. Further complicated by pneumomediastinum and subcutaneous emphysema. Continue with ventilatory support. Renal: No acute issues. Endo: No acute issues. GI: No acute issues. ID: COVID-19 ARDS status post Decadron and remdesivir. Continues on prednisone. Febrile for the last 72-96 hours with no growth on cultures to date. Fevers likely central versus viral. Will discontinue cefepime and monitor off antibiotics. Heme/Onc: Underlying antiphospholipid syndrome on intermediate dose anticoagulation. Psych: No acute issues. Miscellaneous: Underlying mixed connective tissue disease on Plaquenil. Prophylaxis: Lovenox, famotidine Diet: Tube feeds Critical care time spent: 60 minutes (2) Pneumomediastinum: Status: Acute (3) Acute respiratory distress syndrome (ARDS) due to COVID-19 virus: Status: Acute (4) Asplenia after surgical procedure: Status: Acute (5) Antiphospholipid antibody positive: Status: Acute (6) Mixed connective tissue disease: Status: Acute (7) Acute respiratory failure with hypoxia: Status: Acute (8) NAFL (nonalcoholic fatty liver): Status: Acute Critical Care Time Critical Care Time (minutes): 60
--- NOTE | 2021-01-08 14:56 | PC.NURSE ---
pt intubated and sedated on propofol and fentanyl, esmolol and levo titrated as needed, urine is dark red blood through booth, aware, PC settings on vent, o2 100%, pt bathed, repositioned, audible gurgling from mouth, MD aware, pt O2 sat 90-91%, TV 360-400 on vent, attempted to place OG was not successful MD aware. compression boots on, will cont to monitor
[2021-01-08] MEDS: Cisatracurium Besylate 20 MG/10 ML VIAL 10 MG IVPUSH (15:58)
[2021-01-08 17:56] LABS: Glucose, Whole Blood 152 mg/dL (60-115)
[2021-01-08 19:48] LABS: VBG Base Excess 21.6 mmol/L; VBG HCO3 48 mmol/L (22-26); VBG pCO2 68 mmHg; VBG pO2 100 mmHg
[2021-01-08 19:49] LABS: VBG pH 7.45 (7.32-7.43)
--- NOTE | 2021-01-08 20:03 | PC.NURSE ---
assumed care at 1500. Patient sedated on propfol 50 and fentanyl 200; Patient is completely flaccid, not in restraints, titrations are at this level for vent synchrony. Patient was very dyssynchronous at first. One-time; dose of nimbex 10 mg with good effect. Patient ETT cuff was having gurgling sounds and audible air passing through neck, RT aware and cuff pressure measured at 32, so no air added. Subsequently, after moving patient, cuff with obvious leak, dropping volumes, desatting to 84%, RT contacted and came and added air to cuff, after which other RT corrected cuff pressure to 30. Patient more synchronous now, attaining volumes, but RT advised not to add air to cuff without measuring, passed on in nurse to nurse report. cuff leak is positional per RT. Patient with #7.5 ETT 25 cm padma, PC settings 18/12; fio2 100%; Te about 10. LS dim throuhout. No inline secretions, mimimal oral secretions. T 101.7, down from 102 overnight. TLC to right IJ, art line to left axillary with good waveform, levophed titratd down to 0.04 from 1.2 with good effect. Esmolol remains at 40. Patient in sinus rhythm on monitor, sinus tachycardia at times in 120's. No OGT in place, prior shift attempted and did not succeed, and MD aware and ok to leave patient without OGT at this time.
[2021-01-08 22:35] LABS: Glucose, Whole Blood 143 mg/dL (60-115)
[2021-01-09] VITALS (34 sets, daily range): BP systolic 94–144; BP diastolic 50–78; PULSE 91–114; RESP 19–27; TEMP 38.2–38.7; O2SAT 80–93
[2021-01-09] MEDS: fentaNYL citrate/NS 1,000 MCG/100 ML PLAST..BAG 15 MCG IVCONT ×4 (02:43→22:56)
[2021-01-09] MEDS: propofoL 1,000 MG/100 ML VIAL 20.4 MG IVCONT ×5 (02:43→22:05)
[2021-01-09 05:35] LABS: VBG Base Excess 17.7 mmol/L; VBG HCO3 45 mmol/L (22-26); VBG pCO2 71 mmHg; VBG pO2 49 mmHg
[2021-01-09 05:52] LABS: Venous Blood Gas Refer to POC result
[2021-01-09 05:53] LABS: Basophils Percent Auto 0.2 % (0-2); Eosinophils Absolute Auto 0.7 X10*3/uL (0.0-0.4); Eosinophils Percent Auto 3.2 % (0-4); Hematocrit 28.8 % (42-52); Hemoglobin 8.4 g/dl (14.0-18.0); Imm Gran Abs Auto 0.39 X10*3/uL (0.00-0.03); Imm Gran Pct Auto 1.8 % (0.0-0.4); Lymphocytes Absolute Auto 2.5 X10*3/uL (1.2-4.9); Lymphocytes Percent Auto 11.2 % (20-40); MANUAL DIFF FLAG SCAN; Mean Corpuscular HGB Conc 29.2 g/dl (31.0-36.0); Mean Corpuscular Hemoglobin 28.5 pg (27.0-33.0); Mean Corpuscular Volume 97.6 fL (80-98); Mean Platelet Volume 10.9 fL (9.4-12.4); Monocytes Absolute Auto 1.6 X10*3/uL (0.1-1.2); Monocytes Percent Auto 7.2 % (2-11); Neutrophils Absolute Auto 16.7 X10*3/uL (2.0-8.3); Neutrophils Percent Auto 76.4 % (45-73); Platelet Count 225 X10*3/uL (160-400); Red Blood Count 2.95 X10*6/uL (4.60-5.80); Red Cell Distribution Width 17.2 % (11.0-16.0); SCAN SMEAR FLAG 1; White Blood Count 21.8 X10*3/uL (4.8-10.8)
[2021-01-09 05:55] LABS: NRBC Pct Auto 2.1 /100WBC (0.0-0.2)
[2021-01-09 06:24] LABS: Albumin Level 2.7 g/dL (3.5-5.0); Anion Gap 10 (12-20); Blood Urea Nitrogen 21 mg/dL (9-16); Calcium 8.3 mg/dL (8.4-10.2); Carbon Dioxide 37 mmol/L (22-29); Chloride 101 mmol/L (96-108); Creatinine Clr Calc Pharmacy 155.7; Estimated Glomerular Filt Rate > 60; Glucose Random 116 mg/dL (60-115); Magnesium 2.3 mg/dL (1.6-2.6); Phosphorus 2.2 mg/dL (2.7-4.5); Sodium 144 mmol/L (135-145)
[2021-01-09 06:33] LABS: SLIDE REVIEW VERIFIED
[2021-01-09] MEDS: Potassium Phosphate 30 MMOL in 0.9 % Sodium Chloride 500 ML 85 MMOL IV (09:48)
[2021-01-09] MEDS: Bacitracin Oint 14 GM TUBE 1 APPL TOPICAL ×3 (09:48→20:44)
[2021-01-09] MEDS: Famotidine/PF 20 MG/2 ML VIAL IVPUSH (09:55)
[2021-01-09] MEDS: methylPREDNISolone Sod Succ 125 MG/2 ML VIAL 40 MG IVPUSH (09:55)
[2021-01-09] MEDS: Chlorhexidine Gluc Oral Rinse 15 ML MOUTHWASH BUCCAL ×2 (09:56→20:47)
--- NOTE | 2021-01-09 10:49 | MHC.CLN ---
RE: CONSULT PT TF HELD 01/08-01/09; UNSUCCESSFUL OGT PLACEMENT-RETRY TODAY PER MD PT TO RECEIVE PROMOTE AT MAX GOAL RATE 60CC/HR AND 30CC PROSOURCE VIA OG WITH 240CC FREE WATER FLUSHES Q 6HRS TO PROVIDE 1500KCALS (2037 WITH SEDATION; 28KCALS/KG BASED ON CMW), 105G PROTEIN (1.5G/KG) FOR WOUND HEALING, 2168CC FREE WATER FROM FORMULA AND FLUSHES (30CC/KG) MONITOR TOLERANCE, RESIDUALS AND LYTES
[2021-01-09] MEDS: Esmolol HCl/NaCl Iso 2,500 MG/250 ML IV.SOLN 15.3 MG IVCONT (12:35)
--- NOTE | 2021-01-09 12:57 | P.PNCC_ITS ---
Subjective Subjective Date of Service: 01/09/21 Interval History: 65-year-old gentleman with underlying medical history of nonalcoholic fatty liver, mixed connective tissue disease with antiphospholipid syndrome on Plaquenil, methotrexate, aspirin, and IL 6 inhibitor, surgical asplenia admitted on 12/23/2020 with 1 week lung symptoms of shortness of breath and cough, COVID positive and hypoxemic on ER evaluation. Initially admitted [facility] and treated with remdesivir and Decadron. Hospital course significant for progressive hypoxemia requiring transferred to intensive care unit on 12/27/2020 and intubation. Further hospital course significant for poor arousal with sedation vacation, pneumomediastinum, subcutaneous emphysema, and further progressive hypoxemia with overall very poor prognosis. No events overnight. Continues to require maximum ventilatory support. Physical Exam Vital Signs: Vital Signs: Last Vital Signs Temp 101.3 F H 01/09/21 12:00 Pulse 109 H 01/09/21 12:00 Resp 25 H 01/09/21 12:00 BP 111/62 01/09/21 12:00 Pulse Ox 80 L 01/09/21 12:00 Body Mass Index 30.2 Const: General: no acute distress and other (Sedated on the vent) Eyes: Sclerae: sclerae normal EOM: EOMs intact bilaterally Neck: Neck: Yes no lymphadenopathy, Yes trachea midline and Yes supple Resp: Auscultation: crackles (Diffuse bilateral) Cardio: Rate: tachycardic Rhythm: regular rhythm Heart sounds: no gallops, no murmurs and no rubs GI: Palpation (GI): Soft to palpation and Other GI palpation findings present ( Nontender) Auscultation: normal bowel sounds Extrem: General: No clubbing, No cyanosis and Yes pedal edema (Trace bilateral) Objective Data Labs CBC & Chem 7: 01/09/21 05:28 01/09/21 05:28 Labs: Laboratory Results - last 24 hr 01/08/21 01/08/21 01/08/21 08:29 17:50 22:28 WBC RBC Hgb Hct MCV MCH MCHC RDW Plt Count MPV Immature Gran % (Auto) Neut % (Auto) Lymph % (Auto) [place] % (Auto) Eos % (Auto) Baso % (Auto) Lymph # (Auto) [place] # (Auto) Eos # (Auto) Baso # (Auto) Abs Immat Gran (auto) Absolute Neuts (auto) Absolute Nucleated RBC Nucleated RBC % (auto) Smear Tech's Comments VBG pH 7.45 H VBG pCO2 68 VBG pO2 100 VBG HCO3 48 H VBG O2 Saturation 98.0 VBG Base Excess 21.6 Sodium Potassium Chloride Carbon Dioxide Anion Gap BUN Creatinine Estim Creat Clear Calc Estimated GFR POC Glucose 152 H 143 H Random Glucose Calcium Phosphorus Magnesium Albumin 01/09/21 01/09/21 01/09/21 05:28 05:28 05:29 WBC 21.8 H RBC 2.95 L Hgb 8.4 L Hct 28.8 L MCV 97.6 MCH 28.5 MCHC 29.2 L RDW 17.2 H Plt Count 225 MPV 10.9 Immature Gran % (Auto) 1.8 H Neut % (Auto) 76.4 H Lymph % (Auto) 11.2 L [place] % (Auto) 7.2 Eos % (Auto) 3.2 Baso % (Auto) 0.2 Lymph # (Auto) 2.5 [place] # (Auto) 1.6 H Eos # (Auto) 0.7 H Baso # (Auto) 0.0 Abs Immat Gran (auto) 0.39 H Absolute Neuts (auto) 16.7 H Absolute Nucleated RBC 0.450 H Nucleated RBC % (auto) 2.1 H Smear Tech's Comments VERIFIED VBG pH 7.40 VBG pCO2 71 VBG pO2 49 VBG HCO3 45 H VBG O2 Saturation 84.0 VBG Base Excess 17.7 Sodium 144 Potassium 4.0 Chloride 101 Carbon Dioxide 37 H Anion Gap 10 L BUN 21 H Creatinine 0.49 L Estim Creat Clear Calc 155.7 Estimated GFR > 60 POC Glucose Random Glucose 116 H Calcium 8.3 L D Phosphorus 2.2 L Magnesium 2.3 Albumin 2.7 L Microbiology Microbiology Results: Microbiology 01/05/21 09:05 Blood - Venous Blood Culture - Preliminary No growth after 48 hours. 01/05/21 09:05 Blood - Venous Blood Culture - Preliminary No growth after 48 hours. 01/05/21 08:50 Sputum - Suctioned Gram Stain - Final 01/05/21 08:50 Sputum - Suctioned Sputum Culture - Final 12/27/20 15:58 Bronch, Not Specified Fungal Identification - Preliminary No growth after 1 week. 12/30/20 20:45 Blood - Venous Blood Culture - Final No growth after 5 days. 12/30/20 20:43 Blood - Venous Blood Culture - Final No growth after 5 days. 12/30/20 21:30 Urine [place] Urine Culture - Final No growth. 12/27/20 15:57 Bronch, Not Specified Direct Acid Fast Bacilli Smear - Final 12/27/20 15:58 Bronch, Not Specified Gram Stain - Final 12/27/20 15:58 Bronch, Not Specified - Final Staphylococcus aureus 12/23/20 20:10 Blood - Venous Blood Culture - Final No growth after 5 days. 12/23/20 19:46 Blood - Venous Blood Culture - Final No growth after 5 days. Progress Note: A&P Assessment and plan (1) Subcutaneous emphysema, non-traumatic: Status: Acute Assessment and Plan: Assessment: 65-year-old gentleman with underlying mixed connective tissue disease with antiphospholipid syndrome, non-alcoholic fatty liver, surgical asplenia admitted with acute hypoxic respiratory failure secondary to COVID-19 ARDS requiring ventilatory support, further complicated by critical illness encephalopathy, pneumomediastinum, and subcutaneous emphysema. Plan: Neuro: Encephalopathy, likely critical illness related, though possible ischemic secondary to COVID-19. At this time unable to perform CT head secondary to patient requiring maximal ventilatory support and having an unstable respiratory status. Cardiac: No acute issues. Pulmonary: Acute hypoxic respiratory failure secondary to COVID-19 ARDS. Now with refractory hypoxemia and on maximum ventilatory support. Overall prognosis is poor. Further complicated by pneumomediastinum and subcutaneous emphysema. Continue with ventilatory support. Renal: No acute issues. Endo: No acute issues. GI: No acute issues. ID: COVID-19 ARDS status post Decadron and remdesivir. Continues on prednisone. Fevers likely central versus viral as cultures are negative to date. Continue to monitor off antibiotics. Heme/Onc: Underlying antiphospholipid syndrome on intermediate dose anticoagulation. Hematuria, likely secondary to intermediate dose Lovenox. Lovenox held. Psych: No acute issues. Miscellaneous: Underlying mixed connective tissue disease on Plaquenil. Prophylaxis: Intermittent pneumatic compression, famotidine Diet: Tube feeds Critical care time spent: 60 minutes (2) Hematuria: Status: Acute (3) Pneumomediastinum: Status: Acute (4) Acute respiratory distress syndrome (ARDS) due to COVID-19 virus: Status: Acute (5) Asplenia after surgical procedure: Status: Acute (6) Antiphospholipid antibody positive: Status: Acute (7) Mixed connective tissue disease: Status: Acute (8) Acute respiratory failure with hypoxia: Status: Acute (9) NAFL (nonalcoholic fatty liver): Status: Acute Critical Care Time Critical Care Time (minutes): 60
--- NOTE | 2021-01-09 14:09 | PC.NURSE ---
pt remains intubated and sedated, o2 sat in low to mid 80's, aware, pt on fio2 100%, PC settings on vent, pt has minimal secretions, HR sr-st, on esmolol drip, levo titrated as needed, sedated with propofol and fentanyl, K phos replacement, urine remains blood tinged with small clots through MD emmy spoke with patients mailemaya carlos a remains in place, TLC in place, will cont to monitor
--- NOTE | 2021-01-09 14:29 | MHC.CM.PN ---
Pt remains intubated in ICU with COVID and associated comorbid conditions: febrile, on 100% pressure support and only satting in the 80's. MD feels pt has very poor prognosis and little chance for recovery. Per his discussions with family, no changes to current level of support/care although they did agree a few days prior to convert pt to DNR. Original d/c plan was for a return to home with ? VNA services: no additional d/c plans have been made d/t the poor status of pt. CM will follow for any changes.
--- NOTE | 2021-01-09 22:25 | PC.NURSE ---
[id number]. Initially no uop, booth irrigated to check patency, clot dislodged and 900 cc punch colored urine with blood clots drained. no ogt. remains npo.
[2021-01-10] VITALS (27 sets, daily range): BP systolic 88–139; BP diastolic 47–79; PULSE 85–112; RESP 19–27; TEMP 37.9–38.5; O2SAT 84–95
[2021-01-10] MEDS: propofoL 1,000 MG/100 ML VIAL 20.4 MG IVCONT ×3 (01:01→09:18)
[2021-01-10] MEDS: Esmolol HCl/NaCl Iso 2,500 MG/250 ML IV.SOLN 15.3 MG IVCONT ×2 (04:31→19:24)
[2021-01-10] MEDS: fentaNYL citrate/NS 1,000 MCG/100 ML PLAST..BAG 15 MCG IVCONT ×3 (04:32→17:46)
[2021-01-10 05:49] LABS: VBG Base Excess 17.9 mmol/L; VBG HCO3 44 mmol/L (22-26); VBG pCO2 64 mmHg; VBG pH 7.44 (7.32-7.43); VBG pO2 45 mmHg
[2021-01-10 06:01] LABS: MANUAL DIFF FLAG NO
[2021-01-10 06:03] LABS: Basophils Percent Auto 0.2 % (0-2); Eosinophils Absolute Auto 0.9 X10*3/uL (0.0-0.4); Eosinophils Percent Auto 4.7 % (0-4); Hematocrit 28.5 % (42-52); Hemoglobin 8.1 g/dl (14.0-18.0); Imm Gran Abs Auto 0.41 X10*3/uL (0.00-0.03); Imm Gran Pct Auto 2.1 % (0.0-0.4); Lymphocytes Absolute Auto 2.3 X10*3/uL (1.2-4.9); Lymphocytes Percent Auto 11.8 % (20-40); Mean Corpuscular HGB Conc 28.4 g/dl (31.0-36.0); Mean Corpuscular Hemoglobin 27.5 pg (27.0-33.0); Mean Corpuscular Volume 96.6 fL (80-98); Mean Platelet Volume 10.9 fL (9.4-12.4); Monocytes Absolute Auto 1.2 X10*3/uL (0.1-1.2); Monocytes Percent Auto 6.2 % (2-11); Neutrophils Absolute Auto 14.8 X10*3/uL (2.0-8.3); Platelet Count 221 X10*3/uL (160-400); Red Blood Count 2.95 X10*6/uL (4.60-5.80); Red Cell Distribution Width 17.2 % (11.0-16.0); White Blood Count 19.7 X10*3/uL (4.8-10.8)
[2021-01-10 06:05] LABS: NRBC Pct Auto 1.6 /100WBC (0.0-0.2)
[2021-01-10 06:30] LABS: Anion Gap 10 (12-20); Blood Urea Nitrogen 20 mg/dL (9-16); Calcium 7.9 mg/dL (8.4-10.2); Carbon Dioxide 39 mmol/L (22-29); Creatinine Clr Calc Pharmacy 177.4; Estimated Glomerular Filt Rate > 60; Glucose Random 118 mg/dL (60-115); Magnesium 2.3 mg/dL (1.6-2.6); Phosphorus 2.1 mg/dL (2.7-4.5); Sodium 146 mmol/L (135-145)
[2021-01-10 06:41] LABS: Albumin Level 2.7 g/dL (3.5-5.0); Chloride 101 mmol/L (96-108); Potassium 3.7 mmol/L (3.3-5.1)
[2021-01-10 08:20] LABS: Venous Blood Gas Refer to POC result
[2021-01-10] MEDS: Potassium Phosphate 30 MMOL in 0.9 % Sodium Chloride 500 ML 85 MMOL IV (09:02)
[2021-01-10] MEDS: Famotidine/PF 20 MG/2 ML VIAL IVPUSH (10:00)
[2021-01-10] MEDS: methylPREDNISolone Sod Succ 125 MG/2 ML VIAL 40 MG IVPUSH (10:00)
[2021-01-10] MEDS: Chlorhexidine Gluc Oral Rinse 15 ML MOUTHWASH BUCCAL ×3 (10:00→20:50)
[2021-01-10] MEDS: Bacitracin Oint 14 GM TUBE 1 APPL TOPICAL ×3 (10:00→20:50)
--- NOTE | 2021-01-10 11:40 | PM.CCPN ---
Subjective Subjective Date of Service: 01/10/21 Interval History: 65-year-old gentleman with underlying medical history of nonalcoholic fatty liver, mixed connective tissue disease with antiphospholipid syndrome on Plaquenil, methotrexate, aspirin, and IL 6 inhibitor, surgical asplenia admitted on 12/23/2020 with 1 week lung symptoms of shortness of breath and cough, COVID positive and hypoxemic on ER evaluation. Initially admitted [facility] and treated with remdesivir and Decadron. Hospital course significant for progressive hypoxemia requiring transferred to intensive care unit on 12/27/2020 and intubation. Further hospital course significant for poor arousal with sedation vacation, pneumomediastinum, subcutaneous emphysema, and further progressive hypoxemia with overall very poor prognosis. No events overnight. No significant changes. Physical Exam Vital Signs: Vital Signs: Last Vital Signs Temp 100.4 F 01/10/21 10:00 Pulse 110 H 01/10/21 10:00 Resp 24 H 01/10/21 10:00 BP 128/72 01/10/21 10:00 Pulse Ox 84 L 01/10/21 10:00 Oxygen Flow Rate 15 12/23/20 19:00 Body Mass Index 30.2 Const: General: no acute distress Eyes: Sclerae: sclerae normal Neck: Neck: Yes no lymphadenopathy, Yes trachea midline and Yes supple Resp: Auscultation: crackles (Diffuse bilateral) Cardio: Rate: tachycardic Rhythm: regular rhythm Heart sounds: no gallops, no murmurs and no rubs GI: Palpation (GI): Soft to palpation and Other GI palpation findings present ( Nontender) Auscultation: normal bowel sounds Extrem: General: No clubbing, No cyanosis and Yes pedal edema (Trace bilateral) Objective Data Labs CBC & Chem 7: 01/10/21 05:45 01/10/21 05:45 Labs: Laboratory Results - last 24 hr 01/10/21 01/10/21 01/10/21 05:43 05:45 05:45 WBC 19.7 H RBC 2.95 L Hgb 8.1 L Hct 28.5 L MCV 96.6 MCH 27.5 MCHC 28.4 L RDW 17.2 H Plt Count 221 MPV 10.9 Immature Gran % (Auto) 2.1 H Neut % (Auto) 75.0 H Lymph % (Auto) 11.8 L [place] % (Auto) 6.2 Eos % (Auto) 4.7 H Baso % (Auto) 0.2 Lymph # (Auto) 2.3 [place] # (Auto) 1.2 Eos # (Auto) 0.9 H Baso # (Auto) 0.0 Abs Immat Gran (auto) 0.41 H Absolute Neuts (auto) 14.8 H Absolute Nucleated RBC 0.320 H Nucleated RBC % (auto) 1.6 H VBG pH 7.44 H VBG pCO2 64 VBG pO2 45 VBG HCO3 44 H VBG O2 Saturation 79.0 VBG Base Excess 17.9 Sodium 146 H Potassium 3.7 Chloride 101 Carbon Dioxide 39 H Anion Gap 10 L BUN 20 H Creatinine 0.43 L Estim Creat Clear Calc 177.4 Estimated GFR > 60 Random Glucose 118 H Calcium 7.9 L Phosphorus 2.1 L Magnesium 2.3 Albumin 2.7 L Microbiology Microbiology Results: Microbiology 01/05/21 09:05 Blood - Venous Blood Culture - Final No growth after 5 days. 01/05/21 09:05 Blood - Venous Blood Culture - Final No growth after 5 days. 01/05/21 08:50 Sputum - Suctioned Gram Stain - Final 01/05/21 08:50 Sputum - Suctioned Sputum Culture - Final 12/27/20 15:58 Bronch, Not Specified Fungal Identification - Preliminary No growth after 1 week. 12/30/20 20:45 Blood - Venous Blood Culture - Final No growth after 5 days. 12/30/20 20:43 Blood - Venous Blood Culture - Final No growth after 5 days. 12/30/20 21:30 Urine [place] Urine Culture - Final No growth. 12/27/20 15:57 Bronch, Not Specified Direct Acid Fast Bacilli Smear - Final 12/27/20 15:58 Bronch, Not Specified Gram Stain - Final 12/27/20 15:58 Bronch, Not Specified - Final Staphylococcus aureus 12/23/20 20:10 Blood - Venous Blood Culture - Final No growth after 5 days. 12/23/20 19:46 Blood - Venous Blood Culture - Final No growth after 5 days. Progress Note: A&P Assessment and plan (1) Hematuria: Status: Acute Assessment and Plan: Assessment: 65-year-old gentleman with underlying mixed connective tissue disease with antiphospholipid syndrome, non-alcoholic fatty liver, surgical asplenia admitted with acute hypoxic respiratory failure secondary to COVID-19 ARDS requiring ventilatory support, further complicated by critical illness encephalopathy, pneumomediastinum, and subcutaneous emphysema. Plan: Neuro: Encephalopathy, likely critical illness related, though possible ischemic secondary to COVID-19. At this time unable to perform CT head secondary to patient requiring maximal ventilatory support and having an unstable respiratory status. Cardiac: No acute issues. Pulmonary: Acute hypoxic respiratory failure secondary to COVID-19 ARDS. Now with refractory hypoxemia and on maximum ventilatory support. Overall prognosis is poor. Further complicated by pneumomediastinum and subcutaneous emphysema. Continue with ventilatory support. Renal: No acute issues. Endo: No acute issues. GI: No acute issues. ID: COVID-19 ARDS status post Decadron and remdesivir. Continues on prednisone. Fevers likely central versus viral as cultures are negative to date. Continue to monitor off antibiotics. Heme/Onc: Underlying antiphospholipid syndrome on intermediate dose anticoagulation. Hematuria, likely secondary to intermediate dose Lovenox. Lovenox held. Psych: No acute issues. Miscellaneous: Underlying mixed connective tissue disease on Plaquenil. Prophylaxis: Intermittent pneumatic compression, famotidine Diet: Tube feeds Critical care time spent: 60 minutes (2) Subcutaneous emphysema, non-traumatic: Status: Acute (3) Pneumomediastinum: Status: Acute (4) Acute respiratory distress syndrome (ARDS) due to COVID-19 virus: Status: Acute (5) Asplenia after surgical procedure: Status: Acute (6) Antiphospholipid antibody positive: Status: Acute (7) Mixed connective tissue disease: Status: Acute (8) Acute respiratory failure with hypoxia: Status: Acute (9) NAFL (nonalcoholic fatty liver): Status: Acute Critical Care Time Critical Care Time (minutes): 60
[2021-01-10] MEDS: propofoL 1,000 MG/100 ML VIAL 17.85 MG IVCONT ×2 (15:00→19:21)
[2021-01-10 18:09] LABS: Glucose, Whole Blood 147 mg/dL (60-115)
--- NOTE | 2021-01-10 19:11 | PC.NURSE ---
Addendum entered by Cheikh Franklin RN 01/10/21 19:27: updated patient's secondary contact Carmita, this evening. Original Note: Assumed care at 0700. Patient sedated on 150 of fentanyl and propofol 40, titrated down to 35. Patient overbreathes vent slightly and also has a cough with deep suctioning, but otherwise is non-responsive, no movement of extremities, pupils are fixed, no gag, no tracking, no response to painful stimuli. MD aware. Patient continues on ventilator PC settings; ETT #7.5, 25 padma; rate 20; Pi 18; Peep 12; Fio2: 100%; SPo2: 86-92%. Patient with scant inline secretions, thick and creamy. Patient with audible gurgling sounds from ETT with each repositioning; RT aware and notified and checked cuff after repositioning. Te: 11-12; EtCo2 around 34; LS diminished to auscultation. Patient has crepitus to palpation anterior neck from base of neck through to midway up neck. Patient with sinus rhythm on monitor, often sinus tachycardia around 105 bpm, occasionally up to 120's with suctioning. Patient with RIJ TLC and lefta axillary art line, bp concurs between automated cuff and art line. [place] outputs from 30-250 per hour, tea colored lightened up to dark yellow, some small clots and shred and sediment. No OGT, no TF, MD aware. No BM, hypoactive BS. levophed weaned from 0.12 to nearly off: 0.02. Esmolol at 30. Skin with small abrasion to left anterior neck, scabbed over, bacitracin per cpoe. Patient with stage 2 to coccyx; rash on abdomen, buttocks, and legs, scar on abdomen.
[2021-01-11] VITALS (33 sets, daily range): BP systolic 86–147; BP diastolic 49–74; PULSE 81–108; RESP 18–28; TEMP 37.8–38.6; O2SAT 82–98
[2021-01-11] MEDS: Esmolol HCl/NaCl Iso 2,500 MG/250 ML IV.SOLN 15.3 MG IVCONT ×2 (00:06→15:40)
[2021-01-11] MEDS: propofoL 1,000 MG/100 ML VIAL 17.85 MG IVCONT ×5 (00:08→19:35)
[2021-01-11] MEDS: fentaNYL citrate/NS 1,000 MCG/100 ML PLAST..BAG 15 MCG IVCONT ×3 (00:10→22:30)
[2021-01-11 00:32] LABS: ABG Base Excess 17.2 mmol/L; ABG HCO3 47 mmol/L (22-26); ABG pCO2 98 mmHg (32-45); ABG pCO2 TC 103 mmHg (32-45); ABG pH 7.29 (7.35-7.45); ABG pH TC 7.27 (7.35-7.45); ABG pO2 85 mmHg (83-108); ABG pO2 TC 91 (83-108)
[2021-01-11 03:24] LABS: ABG Refer to POC result
[2021-01-11 05:45] LABS: VBG Base Excess 18.6 mmol/L; VBG HCO3 47 mmol/L (22-26); VBG pCO2 81 mmHg; VBG pH 7.37 (7.32-7.43); VBG pO2 54 mmHg
[2021-01-11 06:16] LABS: MANUAL DIFF FLAG NO
[2021-01-11 06:23] LABS: Basophils Percent Auto 0.2 % (0-2); Eosinophils Absolute Auto 0.8 X10*3/uL (0.0-0.4); Hematocrit 28.5 % (42-52); Hemoglobin 8.3 g/dl (14.0-18.0); Imm Gran Abs Auto 0.45 X10*3/uL (0.00-0.03); Imm Gran Pct Auto 2.2 % (0.0-0.4); Lymphocytes Absolute Auto 2.1 X10*3/uL (1.2-4.9); Lymphocytes Percent Auto 10.1 % (20-40); Mean Corpuscular HGB Conc 29.1 g/dl (31.0-36.0); Mean Corpuscular Hemoglobin 28.7 pg (27.0-33.0); Mean Corpuscular Volume 98.6 fL (80-98); Mean Platelet Volume 11.4 fL (9.4-12.4); Monocytes Absolute Auto 1.1 X10*3/uL (0.1-1.2); Monocytes Percent Auto 5.5 % (2-11); Platelet Count 221 X10*3/uL (160-400); Red Blood Count 2.89 X10*6/uL (4.60-5.80); Red Cell Distribution Width 17.6 % (11.0-16.0); White Blood Count 20.5 X10*3/uL (4.8-10.8)
--- NOTE | 2021-01-11 06:25 | PC.NURSE ---
CARE ASSUMED 23:15...REMAINS TUBED/VENTED--PCV: AC20/IP18/FIO2 100%/SRGO14---ZB 20-22--ETCOS ELEVATED TO 54-58---ABG'S DONE PER ICU VOCATIONAL INSTRUCTOR---ABG'S= pH 7.27 PCO2 98---AC RATE INCREASED TO 26 PER VOCATIONAL INSTRUCTOR---ETCOS DECREASED TO 40-42---AM VBG= 7.37 PCO2 81 ABG'S= p
[2021-01-11 06:29] LABS: Venous Blood Gas Refer to POC result
[2021-01-11 06:32] LABS: NRBC Pct Auto 1.5 /100WBC (0.0-0.2)
[2021-01-11 06:47] LABS: Albumin Level 2.8 g/dL (3.5-5.0); Anion Gap 10 (12-20); Blood Urea Nitrogen 18 mg/dL (9-16); Calcium 7.9 mg/dL (8.4-10.2); Carbon Dioxide 39 mmol/L (22-29); Chloride 102 mmol/L (96-108); Creatinine Clr Calc Pharmacy 169.5; Estimated Glomerular Filt Rate > 60; Glucose Random 118 mg/dL (60-115); Magnesium 2.4 mg/dL (1.6-2.6); Phosphorus 2.8 mg/dL (2.7-4.5); Potassium 3.9 mmol/L (3.3-5.1); Sodium 147 mmol/L (135-145)
[2021-01-11] MEDS: methylPREDNISolone Sod Succ 125 MG/2 ML VIAL 40 MG IVPUSH (10:00)
[2021-01-11] MEDS: Chlorhexidine Gluc Oral Rinse 15 ML MOUTHWASH BUCCAL ×3 (10:00→19:35)
[2021-01-11] MEDS: Bacitracin Oint 14 GM TUBE 1 APPL TOPICAL ×3 (10:00→19:35)
--- NOTE | 2021-01-11 10:16 | P.PNCC_ITS ---
Subjective Subjective Date of Service: 01/11/21 Interval History: ICU days 16 for acute hypoxic respiratory failure/COVID-19 ARDS 65-year-old gentleman with underlying medical history of nonalcoholic fatty liver, mixed connective tissue disease with antiphospholipid syndrome on Plaquenil, methotrexate, aspirin, and IL 6 inhibitor, surgical asplenia admitted on 12/23/2020 with 1 week lung symptoms of shortness of breath and cough, COVID positive and hypoxemic on ER evaluation. Initially admitted [facility] and treated with remdesivir and Decadron. Hospital course significant for progressive hypoxemia requiring transferred to intensive care unit on 12/27/2020 and intubation. Further hospital course significant for poor arousal with sedation vacation, pneumomediastinum, subcutaneous emphysema, and further progressive hypoxemia with overall very poor prognosis. No events overnight. No significant changes. Physical Exam Vital Signs: Vital Signs: Last Vital Signs Temp 100.4 F 01/11/21 10:00 Pulse 102 H 01/11/21 10:00 Resp 28 H 01/11/21 10:00 BP 114/66 01/11/21 10:00 Pulse Ox 88 L 01/11/21 10:00 Oxygen Flow Rate 15 12/23/20 19:00 Body Mass Index 30.2 Const: General: no acute distress and other (Sedated on the vent) Eyes: Sclerae: sclerae normal EOM: EOMs intact bilaterally Neck: Neck: Yes no lymphadenopathy, Yes trachea midline and Yes supple Resp: Auscultation: crackles (Diffuse bilateral) Cardio: Rate: tachycardic Rhythm: regular rhythm Heart sounds: no gallops, no murmurs and no rubs GI: Palpation (GI): Soft to palpation and Other GI palpation findings present ( Nontender) Auscultation: normal bowel sounds Extrem: General: No clubbing, No cyanosis and Yes pedal edema (Trace bilateral) Objective Data Labs CBC & Chem 7: 01/11/21 06:06 01/11/21 06:06 Labs: Laboratory Results - last 24 hr 01/10/21 01/11/21 01/11/21 17:50 00:25 05:39 WBC RBC Hgb Hct MCV MCH MCHC RDW Plt Count MPV Immature Gran % (Auto) Neut % (Auto) Lymph % (Auto) [place] % (Auto) Eos % (Auto) Baso % (Auto) Lymph # (Auto) [place] # (Auto) Eos # (Auto) Baso # (Auto) Abs Immat Gran (auto) Absolute Neuts (auto) Absolute Nucleated RBC Nucleated RBC % (auto) O2 Saturation 94.0 ABG pH at Pt Temp 7.29 L ABG pH (Temp Correct) 7.27 L ABG pCO2 at Pt Temp 98 H* ABG pCO2 (Temp Corrct 103 H* ABG pO2 at Pt Temp 85 ABG pO2 (Temp Correct 91 ABG HCO3 47 H ABG Base Excess (Actual) 17.2 VBG pH 7.37 VBG pCO2 81 VBG pO2 54 VBG HCO3 47 H VBG O2 Saturation 85.0 VBG Base Excess 18.6 Sodium Potassium Chloride Carbon Dioxide Anion Gap BUN Creatinine Estim Creat Clear Calc Estimated GFR POC Glucose 147 H Random Glucose Calcium Phosphorus Magnesium Albumin 01/11/21 01/11/21 06:06 06:06 WBC 20.5 H RBC 2.89 L Hgb 8.3 L Hct 28.5 L MCV 98.6 H MCH 28.7 MCHC 29.1 L RDW 17.6 H Plt Count 221 MPV 11.4 Immature Gran % (Auto) 2.2 H Neut % (Auto) 78.0 H Lymph % (Auto) 10.1 L [place] % (Auto) 5.5 Eos % (Auto) 4.0 Baso % (Auto) 0.2 Lymph # (Auto) 2.1 [place] # (Auto) 1.1 Eos # (Auto) 0.8 H Baso # (Auto) 0.0 Abs Immat Gran (auto) 0.45 H Absolute Neuts (auto) 16.0 H Absolute Nucleated RBC 0.300 H Nucleated RBC % (auto) 1.5 H O2 Saturation ABG pH at Pt Temp ABG pH (Temp Correct) ABG pCO2 at Pt Temp ABG pCO2 (Temp Corrct ABG pO2 at Pt Temp ABG pO2 (Temp Correct ABG HCO3 ABG Base Excess (Actual) VBG pH VBG pCO2 VBG pO2 VBG HCO3 VBG O2 Saturation VBG Base Excess Sodium 147 H Potassium 3.9 Chloride 102 Carbon Dioxide 39 H Anion Gap 10 L BUN 18 H Creatinine 0.45 L Estim Creat Clear Calc 169.5 Estimated GFR > 60 POC Glucose Random Glucose 118 H Calcium 7.9 L Phosphorus 2.8 Magnesium 2.4 Albumin 2.8 L Microbiology Microbiology Results: Microbiology 01/05/21 09:05 Blood - Venous Blood Culture - Final No growth after 5 days. 01/05/21 09:05 Blood - Venous Blood Culture - Final No growth after 5 days. 01/05/21 08:50 Sputum - Suctioned Gram Stain - Final 01/05/21 08:50 Sputum - Suctioned Sputum Culture - Final 12/27/20 15:58 Bronch, Not Specified Fungal Identification - Preliminary No growth after 1 week. 12/30/20 20:45 Blood - Venous Blood Culture - Final No growth after 5 days. 12/30/20 20:43 Blood - Venous Blood Culture - Final No growth after 5 days. 12/30/20 21:30 Urine [place] Urine Culture - Final No growth. 12/27/20 15:57 Bronch, Not Specified Direct Acid Fast Bacilli Smear - Final 12/27/20 15:58 Bronch, Not Specified Gram Stain - Final 12/27/20 15:58 Bronch, Not Specified - Final Staphylococcus aureus 12/23/20 20:10 Blood - Venous Blood Culture - Final No growth after 5 days. 12/23/20 19:46 Blood - Venous Blood Culture - Final No growth after 5 days. Progress Note: A&P Assessment and plan (1) Subcutaneous emphysema, non-traumatic: Status: Acute Assessment and Plan: Assessment: 65-year-old gentleman with underlying mixed connective tissue disease with antiphospholipid syndrome, non-alcoholic fatty liver, surgical asplenia admitted with acute hypoxic respiratory failure secondary to COVID-19 ARDS requiring ventilatory support, further complicated by critical illness encephalopathy, pneumomediastinum, and subcutaneous emphysema. Plan: Neuro: Encephalopathy, likely critical illness related, though possible ischemic secondary to COVID-19. At this time unable to perform CT head s econdary to patient requiring maximal ventilatory support and having an unstable respiratory status. Cardiac: No acute issues. Pulmonary: Acute hypoxic respiratory failure secondary to COVID-19 ARDS. Now with refractory hypoxemia and on maximum ventilatory support. Overall prognosis is poor. Further complicated by pneumomediastinum and subcutaneous emphysema. Continue with ventilatory support. Renal: No acute issues. Endo: No acute issues. GI: No acute issues. ID: COVID-19 ARDS status post Decadron and remdesivir. Continues on prednisone. Fevers likely central versus viral as cultures are negative to date. Continue to monitor off antibiotics. Heme/Onc: Underlying antiphospholipid syndrome on intermediate dose anticoagulation. Hematuria, resolved. Restarted on DVT prophylaxis Psych: No acute issues. Miscellaneous: Underlying mixed connective tissue disease on Plaquenil. Prophylaxis: Lovenox, famotidine Diet: Tube feeds Critical care time spent: 60 minutes (2) Pneumomediastinum: Status: Acute (3) Acute respiratory distress syndrome (ARDS) due to COVID-19 virus: Status: Acute (4) Asplenia after surgical procedure: Status: Acute (5) Antiphospholipid antibody positive: Status: Acute (6) Mixed connective tissue disease: Status: Acute (7) Acute respiratory failure with hypoxia: Status: Acute (8) NAFL (nonalcoholic fatty liver): Status: Acute Critical Care Time Critical Care Time (minutes): 60
[2021-01-11] MEDS: fentaNYL citrate/NS 1,000 MCG/100 ML PLAST..BAG 10 MCG IVCONT (10:58)
[2021-01-11] MEDS: Famotidine/PF 20 MG/2 ML VIAL IVPUSH (10:58)
[2021-01-11] MEDS: Enoxaparin Sodium 40 MG/0.4 ML SYRINGE SUBCUT (11:00)
[2021-01-11 11:54] LABS: Glucose, Whole Blood 120 mg/dL (60-115)
[2021-01-11 18:40] LABS: Glucose, Whole Blood 181 mg/dL (60-115)
--- NOTE | 2021-01-11 19:00 | PC.NURSE ---
Assumed care at 0700; patient was sedated on propofol 35 and fentanyl 100; pupils fixed, no purposeful movement; reacts to deep pain; weak cough, no gag. After 1 attempt at placing OGT with ok from provider, Provider placed keofeed tube to right nare. Patient sedation was increased to 200 by provider during placement of keofeed tube, then decreased to 150. Patient pupils became sluggishly reactive by afternoon. Patient tolerated placement of keofeed tube and diet restarted as promote at 20 cc/hour per provider, and to continued h2o flushes q6 hours, which was administered at 1800. Patient SpO2 was 87-91 through most of the day, recurring cuff leak with repositioning, added 1 cc of air to cuff and discussed with RT. In afternoon, SpO2 improved, 88-95%. Patient still with #7.5 ett, 25 cm padma, pc settings: Rate 26; Pi: 18; Peep 12; FiO2: 100%; Te about 9; TV about 350-400's. Patient with no inline secretions today. Oral secretions were clear and became blood tinged after administration of one lovenox 40 mg. sinus rhythm and sinus tachycardia rate mostly 90's-110's, up to 120's with noxious stimuli. esmolol gtt continues at 30. Edema to hands and sacrum and ankles; anterior neck with crepitus to palpation from proximal chest through midway up neck and neck is puffy to inspection. Patient with RIJ TLC and left axillary art line, with pressures that correspond to the automatic blood pressure readings, discussed with provider whether it might be removed today, and not to be done today. POC was taken per orders, and not covered: 120's and 181. skin with stage 2 to coccyx; abrasion to left anterior neck; rash with pupular discolorations throughout abdomen, buttocks, and legs. Patient family was updated (Dru) and they would like an update from the provider regarding where patient's ventilator settings would need to be to extubate and what that would take.
[2021-01-11] MEDS: Hydroxychloroquine Sulfate 200 MG TABLET PO (19:35)
[2021-01-12] VITALS (29 sets, daily range): BP systolic 87–133; BP diastolic 46–71; PULSE 89–123; RESP 22–27; TEMP 38.3–39; O2SAT 87–98
[2021-01-12 01:07] LABS: Glucose, Whole Blood 130 mg/dL (60-115)
[2021-01-12] MEDS: propofoL 1,000 MG/100 ML VIAL 17.85 MG IVCONT (01:25)
[2021-01-12 05:30] LABS: Basophils Percent Auto 0.2 % (0-2); Eosinophils Percent Auto 5.2 % (0-4); Hematocrit 26.4 % (42-52); Hemoglobin 7.6 g/dl (14.0-18.0); Imm Gran Abs Auto 0.51 X10*3/uL (0.00-0.03); Imm Gran Pct Auto 2.7 % (0.0-0.4); Lymphocytes Absolute Auto 1.8 X10*3/uL (1.2-4.9); Lymphocytes Percent Auto 9.2 % (20-40); MANUAL DIFF FLAG NO; Mean Corpuscular HGB Conc 28.8 g/dl (31.0-36.0); Mean Corpuscular Hemoglobin 29.1 pg (27.0-33.0); Mean Corpuscular Volume 101.1 fL (80-98); Mean Platelet Volume 10.8 fL (9.4-12.4); Monocytes Absolute Auto 1.2 X10*3/uL (0.1-1.2); Monocytes Percent Auto 6.2 % (2-11); NRBC Pct Auto 2.1 /100WBC (0.0-0.2); Neutrophils Absolute Auto 14.6 X10*3/uL (2.0-8.3); Neutrophils Percent Auto 76.5 % (45-73); Platelet Count 195 X10*3/uL (160-400); Red Blood Count 2.61 X10*6/uL (4.60-5.80); Red Cell Distribution Width 17.4 % (11.0-16.0); White Blood Count 19.1 X10*3/uL (4.8-10.8)
[2021-01-12 05:42] LABS: VBG Base Excess 16.9 mmol/L; VBG HCO3 43 mmol/L (22-26); VBG pCO2 64 mmHg; VBG pH 7.43 (7.32-7.43); VBG pO2 170 mmHg
[2021-01-12 05:46] LABS: Venous Blood Gas Refer to POC result
[2021-01-12] MEDS: propofoL 1,000 MG/100 ML VIAL 12.75 MG IVCONT ×2 (05:58→13:02)
[2021-01-12] MEDS: fentaNYL citrate/NS 1,000 MCG/100 ML PLAST..BAG 10 MCG IVCONT ×2 (05:58→16:37)
[2021-01-12 06:09] LABS: Albumin Level 2.6 g/dL (3.5-5.0); Anion Gap 8 (12-20); Blood Urea Nitrogen 18 mg/dL (9-16); Calcium 7.8 mg/dL (8.4-10.2); Chloride 101 mmol/L (96-108); Creatinine Clr Calc Pharmacy 169.5; Estimated Glomerular Filt Rate > 60; Glucose Random 136 mg/dL (60-115); Magnesium 2.3 mg/dL (1.6-2.6); Phosphorus 1.9 mg/dL (2.7-4.5); Potassium 3.9 mmol/L (3.3-5.1); Sodium 146 mmol/L (135-145)
[2021-01-12] MEDS: Esmolol HCl/NaCl Iso 2,500 MG/250 ML IV.SOLN 15.3 MG IVCONT ×2 (06:59→19:58)
[2021-01-12 08:21] LABS: Carbon Dioxide 41 mmol/L (22-29)
[2021-01-12] MEDS: Hydroxychloroquine Sulfate 200 MG TABLET PO ×2 (09:17→21:08)
[2021-01-12] MEDS: Chlorhexidine Gluc Oral Rinse 15 ML MOUTHWASH BUCCAL ×3 (09:17→21:09)
[2021-01-12] MEDS: Famotidine/PF 20 MG/2 ML VIAL IVPUSH (09:17)
[2021-01-12] MEDS: methylPREDNISolone Sod Succ 125 MG/2 ML VIAL 40 MG IVPUSH (09:17)
[2021-01-12] MEDS: Bacitracin Oint 14 GM TUBE 1 APPL TOPICAL ×3 (09:18→21:09)
--- NOTE | 2021-01-12 10:23 | MHC.CLN ---
F/U PT RECEIVED KEOFEED TUBE PLACED 01/11 PT CURRENTLY TOLERATING PROMOTE AT 20CC/HR WITH 240CC FREE WATER Q 6HRS RECOMMEND INCREASING TF PROMOTE AT MAX GOAL RATE 60CC/HR AND 30CC PROSOURCE WITH 240CC FREE WATER FLUSHES Q 6HRS TO PROVIDE 1500KCALS, 105G PROTEIN (1.5G/KG) FOR WOUND HEALING, 2168CC FREE WATER FROM FORMULA AND FLUSHES (30CC/KG) DISCUSSED WITH MD DURING ROUNDS MONITOR TOLERANCE, RESIDUALS AND LYTES
[2021-01-12 12:11] LABS: Glucose, Whole Blood 218 mg/dL (60-115)
[2021-01-12] MEDS: Enoxaparin Sodium 40 MG/0.4 ML SYRINGE SUBCUT (12:41)
--- NOTE | 2021-01-12 12:56 | P.PNCC_ITS ---
Subjective Subjective Date of Service: 01/12/21 Interval History: Mr. Lombardo was transferred to ICU on December 27 with acute respiratory failure 2? COVID pneumonia. This is a 65-year-old male with extensive past medical history that includes mixed connective tissue disease and antiphospholipid syndrome, on hydroxychloroquine, methotrexate, Sarilumab (IL6 inhibitor) and Aspirin at home. The patient is status post splenectomy. On December 23 presented to the hospital with shortness of breath and cough for the prior 1 week. Had contact with COVID patient. Sat was 70% on room air by EMS. On arrival to the ED was placed on high-flow, sat?ing 90-95%. COVID-19 positive. Renal indices normal. CT showed multifocal extensive ground-glass infiltrates consistent with COVID. CT angio showed no evidence of PE. On my reading, I thought the RV was slightly enlarged. Transthoracic echo done one week prior to admission was read as showing normal LV function with EF 65-70%, normal right ventricular cavity size and function, no valvular pathology, normal IVC, and RVSP 19 mm. The patient was admitted to medicine and treated with Decadron. He was given 3 days of remdesivir. Despite that, his oxygenation deteriorated, and he was transferred to the ICU on December 27 and intubated. He spiked a temperature that day. He was started on empiric cefepime and doxycycline. He underwent bronchoscopy, which showed 2+ polys and 1+ Gram-positive cocci, which grew out less than 10,000 CFU Staph aureus. Bedside echo done December [address] Jimenez showed mild right ventricular dilatation. Since then, FiO2 has ranged from 60-100%; for the last week, it?s been at 100% continuously. On January 01, he developed new SQ air, with no PTX. We reduced his insp pressure, tidal vol, and PEEP. The patient was given two doses of ivermectin on January 01 and . Because of the failure to awaken and become interactive during propofol holidays, we attempted sending him to a head CT on January 04, along with incidental chest CT. However on arrival in CT, his oxygenation became unstable and the scan had to be aborted. He was taken back to the ICU where chest x-ray showed no pneumothorax. He was still severely hypoxemic however, and required proning. His oxygenation graham significantly and we were able to get his FiO2 down for a short period of time, and achieve reasonable oxygenation after turning him back supine the next day. However his pCO2 has risen into the 60-80 range. I spoke with the granddaughter Carmita after the episode on January 04 and indicated to her that survival was very unlikely, and I quoted a 1% chance of survival to her. She was very realisitic. AZEB Bauer subsequently spoke to the patient?s and family, and as of that night, the family had been thinking of comfort measures. However, they subsequently decided to continue with full joshua pport. Over the last week, no headway has been made in terms of his oxygenation or ventilation. He?s developed pneumomediastinum, but no PTX. This past week, he developed significant hematuria and bleeding from his mouth, so his aspirin and Lovenox were stopped. The Lovenox was restarted yesterday at a dose of 40 mg daily. Since then he?s had some minor recurrent hematuria. Currently he?s on propofol 25ug and fentanyl @ 100 ug. Seroquel was dc?d last week. He?s well sedated. HR 103 on esmolol at 30ug, BP 111/61 on Levophed @ 0.08ug. Insulin drip is off, but tube feeds were just restarted via his new Kaofeed tube. On PC f26, 05/09, I:E 1:1.5, 100%, RR is 26, PIP 31, Vt 370cc, Ve 9.5L, ETCO2 50, SpO2 96%. CVBG this morning showed 7.43/64/+16. He?s been febrile almost continuously since January 05, up to 104?. PER about 5mm, sluggish. No JVD at 30 degrees. Normal expiratory phase. Abdomen is soft. He now has 1-2+ anasarca. Neuro exam is nonfocal/non interactive. LABORATORY DATA: Below. WBC has been steady in the 19 range. CXR yesterday shows severe diffuse bilateral disease, subcutaneous air, and pneumomediastinum. No pneumothorax. IMPRESSION: 1. Underlying mixed connective tissue disease, on above meds at home. Methotrexate was stopped on admission. His monoclonal ab is stopped. Continuing his hydroxychloroquine. 2. Underlying antiphospholipid syndrome. His ASA was stopped bec of bleeding. That puts him at risk of clotting. I?ll restart the ASA, and we?ll hold the Lovenox to see what happens. 3. Bilat COVID-19 pneumonia. He?s now on Solumedrol 40 mg daily. Had two doses of ivermectin without any apparent benefit. We placed an arterial line for respiratory and hemodynamic monitoring. If nothing happens overnight, we?ll pull it tomorrow. Recheck biomarkers tomorrow. 4. Acute respiratory failure. Secondary to above. With rising pCO2, prognosis is grave. Given the low renal indices, we?ll trial diuresis. 5. Anticoagulation/DVT prophylaxis: For now, just ASA and seq TEDS. 6. Hyperglycemia. May need insulin again after restarting his feeds. 7. Hypernatremia. Restart free water flushes and may need to start D5W.. 8. ID: Febrile with leukocytosis. Had a 7-day course of doxycycline. The doxy had no effect on anything (fever or WBC). We?ll reculture. 9. Nutrition: Restarted tube feeds. 10. Neuropsych: We can?t tell what?s going on, and he?s not stable enough to go for CT. 11. Metabolic: I?ll give two doses Diamox. Replete kphos Prognosis is very grave. AZEB Bauer will speak with family tonight. Critical care time (including chart review and hospital course summary, and multiple discussions with Dr. Doan): 2+ hrs. Physical Exam Vital Signs: Vital Signs: Last Vital Signs Temp 101.5 F H 01/12/21 12:00 Pulse 106 H 01/12/21 12:00 Resp 27 H 01/12/21 12:00 BP 106/60 01/12/21 12:00 Pulse Ox 93 01/12/21 12:00 Oxygen Flow Rate 15 12/23/20 19:00 Body Mass Index 30.2 Objective Data Labs CBC & Chem 7: 01/12/21 05:17 01/12/21 05:17 Labs: Laboratory Results - last 24 hr 01/11/21 01/12/21 01/12/21 18:15 00:06 05:17 WBC 19.1 H RBC 2.61 L Hgb 7.6 L Hct 26.4 L MCV 101.1 H MCH 29.1 MCHC 28.8 L RDW 17.4 H Plt Count 195 MPV 10.8 Immature Gran % (Auto) 2.7 H Neut % (Auto) 76.5 H Lymph % (Auto) 9.2 L [place] % (Auto) 6.2 Eos % (Auto) 5.2 H Baso % (Auto) 0.2 Lymph # (Auto) 1.8 [place] # (Auto) 1.2 Eos # (Auto) 1.0 H Baso # (Auto) 0.0 Abs Immat Gran (auto) 0.51 H Absolute Neuts (auto) 14.6 H Absolute Nucleated RBC 0.400 H Nucleated RBC % (auto) 2.1 H VBG pH VBG pCO2 VBG pO2 VBG HCO3 VBG O2 Saturation VBG Base Excess Sodium Potassium Chloride Carbon Dioxide Anion Gap BUN Creatinine Estim Creat Clear Calc Estimated GFR POC Glucose 181 H 130 H Random Glucose Calcium Phosphorus Magnesium Albumin 01/12/21 01/12/21 01/12/21 05:17 05:35 12:08 WBC RBC Hgb Hct MCV MCH MCHC RDW Plt Count MPV Immature Gran % (Auto) Neut % (Auto) Lymph % (Auto) [place] % (Auto) Eos % (Auto) Baso % (Auto) Lymph # (Auto) [place] # (Auto) Eos # (Auto) Baso # (Auto) Abs Immat Gran (auto) Absolute Neuts (auto) Absolute Nucleated RBC Nucleated RBC % (auto) VBG pH 7.43 VBG pCO2 64 VBG pO2 170 VBG HCO3 43 H VBG O2 Saturation 99.0 VBG Base Excess 16.9 Sodium 146 H Potassium 3.9 Chloride 101 Carbon Dioxide 41 H* Anion Gap 8 L BUN 18 H Creatinine 0.45 L Estim Creat Clear Calc 169.5 Estimated GFR > 60 POC Glucose 218 H Random Glucose 136 H Calcium 7.8 L Phosphorus 1.9 L Magnesium 2.3 Albumin 2.6 L Microbiology Microbiology Results: Microbiology 12/27/20 15:58 Bronch, Not Specified Fungal Identification - Preliminary No growth after 2 weeks. 01/05/21 09:05 Blood - Venous Blood Culture - Final No growth after 5 days. 01/05/21 09:05 Blood - Venous Blood Culture - Final No growth after 5 days. 01/05/21 08:50 Sputum - Suctioned Gram Stain - Final 01/05/21 08:50 Sputum - Suctioned Sputum Culture - Final 12/30/20 20:45 Blood - Venous Blood Culture - Final No growth after 5 days. 12/30/20 20:43 Blood - Venous Blood Culture - Final No growth after 5 days. 12/30/20 21:30 Urine [place] Urine Culture - Final No growth. 12/27/20 15:57 Bronch, Not Specified Direct Acid Fast Bacilli Smear - Final 12/27/20 15:58 Bronch, Not Specified Gram Stain - Final 12/27/20 15:58 Bronch, Not Specified - Final Staphylococcus aureus 12/23/20 20:10 Blood - Venous Blood Culture - Final No growth after 5 days. 12/23/20 19:46 Blood - Venous Blood Culture - Final No growth after 5 days. Critical Care Time Critical Care Time (minutes): 120
[2021-01-12] MEDS: Insulin Lispro 100 UNIT/ML 3 ML VIAL 6 UNIT SUBCUT (13:04)
[2021-01-12] MEDS: Lactulose 20 GM/30 ML SOLUTION OG-TUBE ×3 (13:05→21:10)
--- NOTE | 2021-01-12 13:48 | MHC.CM.PN ---
Pt remains intubated on 100% FiO2 requirements: feels pt may need to be converted to [employer] d/t his lack of medical progress: MD will have a discussion with family.
[2021-01-12] MEDS: fentaNYL citrate/PF 100 MCG/2 ML VIAL IVPUSH (17:15)
[2021-01-12] MEDS: Insulin Lispro 100 UNIT/ML 3 ML VIAL SUBCUT (18:00)
[2021-01-12 18:10] LABS: Glucose, Whole Blood 177 mg/dL (60-115)
[2021-01-12] MEDS: acetaZOLAMIDE sodium 500 MG VIAL IVPUSH (18:34)
[2021-01-12] MEDS: Sodium,Potassium Phosphates POWD.PACK 2 PACKET G-TUBE (18:34)
[2021-01-12] MEDS: Furosemide 40 MG/4 ML VIAL 20 MG IVPUSH (18:34)
[2021-01-12] MEDS: Aspirin 81 MG TAB.CHEW G-TUBE (18:34)
[2021-01-12 18:55] LABS: Glucose Urine UA NEG (NEG); Leukocyte Esterase Urine 1+ (NEG); Nitrite Urine NEG (NEG); Specific Gravity - Urine 1.025 (1.005-1.025); UACC Culture Trigger YES; Urine Blood 3+ (NEG); Urine Ketones NEG (NEG); Urine Protein 1+ MG/DL (NEG-TRACE)
[2021-01-12 19:02] LABS: Appearance Urine TURBID; Color Urine BROWN
[2021-01-12 19:16] LABS: Bacteria Urine TRACE /LPF; Squamous Epithelial Cell Urine TRACE /LPF
[2021-01-12] MEDS: propofoL 1,000 MG/100 ML VIAL 20.4 MG IVCONT ×2 (19:27→23:58)
--- NOTE | 2021-01-12 19:57 | PC.NURSE ---
Assumed care at 0700; patient was sedated on propofol 35 and fentanyl 100; pupils 4mm and reactive to light, no purposeful movement; reacts to deep pain; weak cough, no gag. Patient pupils became sluggishly reactive by afternoon. Patient SpO2 was 91-93% for large parts of the day, and as high as 97-98% at times, and FiO2 was titrated down from 100%-90% today. Patient tolerated this well and SpO2 was in the low 90's for most of the day afterwards. Patient with recurring cuff leak with repositioning, discussed with RT and positioned patient so neck is not hyperextended, but is flexed slightly, and cuff leak mostly stops. Patient still with #7.5 ett, 25 cm padma, pc settings: Rate 26; Pi: 18; Peep 12; FiO2: 90%; Te about 10; TV about 350-400's. Patient with no inline secretions today for nursing, but RT related that patient has plugged this afternoon and some inline secretions were cleared by RT. Oral secretions were blood tinged, as well as urine slightly blood tinged at times orange or pink hue, and frequently with small clots; booth was irrigated with 10 ccs h2o today and a small clot was pulled out, and urine outputs increased afterwards dramatically (from about 40 cc/hour to about 100-150 cc / hour). Patient also had leaked some urine from around booth at urethral meatus, and booth balloon was checked, 7 ccs was increased to 10 ccs in balloon. Sinus rhythm and sinus tachycardia rate mostly 90's-110's, up to 120's with noxious stimuli. esmolol gtt increased 40 as patient was staying about 116 sinus tachycardia . Edema to hands and sacrum and ankles; anterior neck with no crepitus to palpation by nursing today, but RT relates some crepitus at left neck base. Overall, neck appears less puffy. Patient with RIJ TLC and left axillary art line, with pressures that correspond to the automatic blood pressure readings, discussed with provider whether it might be removed today, and not to be done today. art line tubing changed. POC was taken per orders, and covered: 218 in afternoon got 6 units lispro and 177 in evening got 5 units one time dose. Skin with stage 2 to coccyx; abrasion to left anterior neck appears much improved; rash with papular discolorations throughout abdomen, buttocks, and legs. no BM today; discussed with provider, and order for q 4 hours until BM. Patient was recultured this afternoon with blood and urine cultures. Granddaughter was updated today by nursing.
[2021-01-12] MEDS: Acetaminophen 325 MG TABLET 650 MG G-TUBE (21:08)
[2021-01-13] VITALS (32 sets, daily range): BP systolic 86–130; BP diastolic 42–73; PULSE 78–115; RESP 19–31; TEMP 37.6–38.7; O2SAT 88–99
[2021-01-13 00:05] LABS: Glucose, Whole Blood 113 mg/dL (60-115)
[2021-01-13] MEDS: fentaNYL citrate/NS 1,000 MCG/100 ML PLAST..BAG 15 MCG IVCONT ×4 (00:14→18:23)
[2021-01-13] MEDS: Sodium,Potassium Phosphates POWD.PACK 2 PACKET G-TUBE (00:14)
[2021-01-13 05:34] LABS: VBG Base Excess 29.6 mmol/L; VBG HCO3 60 mmol/L (22-26); VBG pCO2 112 mmHg; VBG pH 7.34 (7.32-7.43); VBG pO2 46 mmHg
[2021-01-13 05:38] LABS: MANUAL DIFF FLAG NO
[2021-01-13 05:42] LABS: Basophils Percent Auto 0.2 % (0-2); Eosinophils Absolute Auto 1.7 X10*3/uL (0.0-0.4); Eosinophils Percent Auto 7.8 % (0-4); Hemoglobin 7.6 g/dl (14.0-18.0); Imm Gran Abs Auto 0.46 X10*3/uL (0.00-0.03); Imm Gran Pct Auto 2.1 % (0.0-0.4); Lymphocytes Absolute Auto 2.9 X10*3/uL (1.2-4.9); Lymphocytes Percent Auto 13.2 % (20-40); Mean Corpuscular HGB Conc 27.1 g/dl (31.0-36.0); Mean Corpuscular Hemoglobin 27.6 pg (27.0-33.0); Mean Corpuscular Volume 101.8 fL (80-98); Monocytes Absolute Auto 1.2 X10*3/uL (0.1-1.2); Monocytes Percent Auto 5.6 % (2-11); NRBC Pct Auto 1.5 /100WBC (0.0-0.2); Neutrophils Absolute Auto 15.5 X10*3/uL (2.0-8.3); Neutrophils Percent Auto 71.1 % (45-73); Platelet Count 205 X10*3/uL (160-400); Red Blood Count 2.75 X10*6/uL (4.60-5.80); Red Cell Distribution Width 17.5 % (11.0-16.0); White Blood Count 21.8 X10*3/uL (4.8-10.8)
[2021-01-13] MEDS: acetaZOLAMIDE sodium 500 MG VIAL IVPUSH (05:44)
[2021-01-13] MEDS: Furosemide 40 MG/4 ML VIAL 20 MG IVPUSH (05:45)
[2021-01-13] MEDS: propofoL 1,000 MG/100 ML VIAL 20.4 MG IVCONT ×5 (05:46→23:45)
[2021-01-13 05:55] LABS: Lactic Acid 0.9 mmol/L (0.5-2.0)
[2021-01-13 06:01] LABS: Glucose, Whole Blood 138 mg/dL (60-115)
[2021-01-13 06:07] LABS: Venous Blood Gas Refer to POC result
[2021-01-13 06:13] LABS: B Type Natriuretic Peptide 270 pg/mL (<100); Troponin-I High Sensitivity 5.6 ng/L (<3.5-35.0)
[2021-01-13 06:20] LABS: Alanine Aminotransferase 52 U/L (0-40); Albumin Level 2.7 g/dL (3.5-5.0); Alkaline Phosphatase 41 U/L (39-117); Anion Gap 9 (12-20); Aspartate Amino Transferase 49 U/L (5-37); Bilirubin Total 0.7 mg/dL (0.0-1.0); Blood Urea Nitrogen 14 mg/dL (9-16); C Reactive Protein 2.33 mg/dL (< or = 0.50); Calcium 7.9 mg/dL (8.4-10.2); Carbon Dioxide 43 mmol/L (22-29); Chloride 97 mmol/L (96-108); Creatinine Clr Calc Pharmacy 162.3; Estimated Glomerular Filt Rate > 60; Glucose Random 156 mg/dL (60-115); Phosphorus 2.3 mg/dL (2.7-4.5); Potassium 3.8 mmol/L (3.3-5.1); Sodium 145 mmol/L (135-145); Total Protein 5.1 g/dL (6.5-8.0)
[2021-01-13 06:31] LABS: Procalcitonin 0.15 ng/mL
[2021-01-13 06:40] LABS: D Dimer 6885 NG/ML
[2021-01-13] MEDS: Acetaminophen 325 MG TABLET 650 MG G-TUBE (08:33)
[2021-01-13] MEDS: Chlorhexidine Gluc Oral Rinse 15 ML MOUTHWASH BUCCAL ×3 (08:33→20:33)
[2021-01-13] MEDS: Aspirin 81 MG TAB.CHEW G-TUBE (08:35)
[2021-01-13] MEDS: methylPREDNISolone Sod Succ 125 MG/2 ML VIAL 40 MG IVPUSH (08:35)
[2021-01-13] MEDS: Hydroxychloroquine Sulfate 200 MG TABLET PO ×2 (08:35→20:33)
[2021-01-13] MEDS: Bacitracin Oint 14 GM TUBE 1 APPL TOPICAL ×3 (08:35→20:33)
[2021-01-13] MEDS: Famotidine/PF 20 MG/2 ML VIAL IVPUSH (08:36)
[2021-01-13 09:17] LABS: Ferritin 469 ng/mL (20-250)
--- NOTE | 2021-01-13 11:36 | P.PNCC_ITS ---
Subjective Subjective Date of Service: 01/13/21 Interval History: Mr. Lombardo was transferred to ICU on December 27 with acute respiratory failure 2? COVID pneumonia. This is a 65-year-old male with extensive past medical history that includes mixed connective tissue disease and antiphospholipid syndrome, on hydroxychloroquine, methotrexate, Sarilumab (IL6 inhibitor) and Aspirin at home. The patient is status post splenectomy. On December 23 presented to the hospital with shortness of breath and cough for the prior 1 week. Had contact with COVID patient. Sat was 70% on room air by EMS. On arrival to the ED was placed on high-flow, sat?ing 90-95%. COVID-19 positive. Renal indices normal. CT showed multifocal extensive ground-glass infiltrates consistent with COVID. CT angio showed no evidence of PE. On my reading, I thought the RV was slightly enlarged. Transthoracic echo done one week prior to admission was read as showing normal LV function with EF 65-70%, normal right ventricular cavity size and function, no valvular pathology, normal IVC, and RVSP 19 mm. The patient was admitted to medicine and treated with Decadron. He was given 3 days of remdesivir. Despite that, his oxygenation deteriorated, and he was transferred to the ICU on December 27 and intubated. He spiked a temperature that day. He was started on empiric cefepime and doxycycline. He underwent bronchoscopy, which showed 2+ polys and 1+ Gram-positive cocci, which grew out less than 10,000 CFU Staph aureus. Bedside echo done December [address] Jimenez showed mild right ventricular dilatation. Since then, FiO2 has ranged from 60-100%; for the last week, it?s been at 100% continuously. On January 01, he developed new SQ air, with no PTX. We reduced his insp pressure, tidal vol, and PEEP. The patient was given two doses of ivermectin on January 01 and . Because of the failure to awaken and become interactive during propofol holidays, we attempted sending him to a head CT on January 04, along with incidental chest CT. However on arrival in CT, his oxygenation became unstable and the scan had to be aborted. He was taken back to the ICU where chest x-ray showed no pneumothorax. He was still severely hypoxemic however, and required proning. His oxygenation graham significantly and we were able to get his FiO2 down for a short period of time, and achieve reasonable oxygenation after turning him back supine the next day. However his pCO2 has risen into the 60-80 range. I spoke with the granddaughter Carmita after the episode on January 04 and indicated to her that survival was very unlikely, and I quoted a 1% chance of survival to her. She was very realisitic. AZEB Bauer subsequently spoke to the patient?s and family, and as of that night, the family had been thinking of comfort measures. However, they subsequently decided to continue with full joshua pport. Over the last 11 days, no headway has been made in terms of his oxygenation or ventilation. He?s developed pneumomediastinum in addition to the SQ emphysema, but no PTX. Last week, he developed significant hematuria and bleeding from his mouth, so his aspirin and Lovenox were stopped. The ASA was restarted yesterday. Since then he?s had no significant hematuria or bleeding. Currently he?s on propofol 40ug and fentanyl 150 ug. Seroquel was dc?d last week. He?s well sedated. HR 83 on esmolol at 10ug, BP 118/55 on Levophed @ 0.26ug. On PC f30, 11/09, I:E 1:1.5, 90%, RR is 30, Vt 385cc, Ve 11.5L, PIP 36, ETCO2 41, SpO2 up to 99%. I turned the FiO2 down to 75%, Sat dropped to 92%. ABG at noon today, on 90% FiO2, showed 7.43/84/67/+27. He?s been febrile almost continuously since January 05, up to 104?. Tmax today 101.7?. PER about 5mm, sluggish. No JVD at 30 degrees. Normal expiratory phase. Abdomen is soft. He now has 1+ anasarca. Neuro exam is nonfocal/non interactive. LABORATORY DATA: Below. Notably, WBC has been steady in the 16-21 range. D- dimer down significantly to 6800. BUN/creatinine 14/0.5. Ferritin, CRP, and procalcitonin unremarkable. BNP is 270, troponin is negative. MICROBIOLOGY: Blood cultures drawn yesterday negative so far. Sputum from yesterday Gram stain showed 2+ g positive cocci, no polys. Urine culture from yesterday negative so far. IMAGING: Last CXR 01/11 showed severe diffuse bilateral disease, subcutaneous air, and pneumomediastinum. No pneumothorax. IMPRESSION: 1. Underlying mixed connective tissue disease, on above meds at home. Methotrexate was stopped on admission. His monoclonal ab is stopped. Continuing his hydroxychloroquine. 2. Underlying antiphospholipid syndrome. His ASA was stopped bec of bleeding, restarted yesterday. No bleeding so far. 3. Bilat COVID-19 pneumonia. He?s now on Solumedrol 40 mg daily. Had two doses of ivermectin without any apparent benefit. 4. Acute respiratory failure. Secondary to above. With rising pCO2, prognosis is grave. Given the low renal indices, we?ll continue diuresis. I?ll put him on a Lasix drip. 5. Anticoagulation/DVT prophylaxis: Currently on ASA and seq TEDS. I?ll add Lovenox 40mg daily. 6. Hyperglycemia. On insulin SS SQ. 7. Hypernatremia. Resolving with tube feeds. 8. ID: Febrile with leukocytosis. Had a 7-day course of doxycycline. The doxy had no effect on anything (fever or WBC). Recultured yesterday, all negative so far. We?ll pull his A-line today. 9. Nutrition: Full dose tube feeds. 10. Neuropsych: We can?t tell what?s going on, and hasn?t been stable enough to go for CT. 11. Metabolic: Started on Diamox. Replete kphos. Prognosis is very grave. AZEB Juancarlos was unable to reach family last night, will try again tonight. Critical care time: 1 hr. Physical Exam Vital Signs: Vital Signs: Last Vital Signs Temp 101.7 F H 01/13/21 11:00 Pulse 96 01/13/21 11:00 Resp 30 H 01/13/21 11:00 BP 118/54 L 01/13/21 11:00 Pulse Ox 95 01/13/21 11:00 Oxygen Flow Rate 15 12/23/20 19:00 Body Mass Index 30.2 Objective Data Labs CBC & Chem 7: 01/13/21 05:28 01/13/21 05:28 Labs: Laboratory Results - last 24 hr 01/12/21 01/12/21 01/12/21 12:08 18:00 18:40 WBC RBC Hgb Hct MCV MCH MCHC RDW Plt Count MPV Immature Gran % (Auto) Neut % (Auto) Lymph % (Auto) [place] % (Auto) Eos % (Auto) Baso % (Auto) Lymph # (Auto) [place] # (Auto) Eos # (Auto) Baso # (Auto) Abs Immat Gran (auto) Absolute Neuts (auto) Absolute Nucleated RBC Nucleated RBC % (auto) D-Dimer VBG pH VBG pCO2 VBG pO2 VBG HCO3 VBG O2 Saturation VBG Base Excess Sodium Potassium Chloride Carbon Dioxide Anion Gap BUN Creatinine Estim Creat Clear Calc Estimated GFR POC Glucose 218 H 177 H Random Glucose Lactic Acid Calcium Phosphorus Ferritin Total Bilirubin AST ALT Alkaline Phosphatase Troponin I High Sens C-Reactive Protein B-Natriuretic Peptide Total Protein Albumin Procalcitonin Urine Color BROWN Urine Appearance TURBID Urine pH 6.0 Ur Specific [place] 1.025 Urine Protein 1+ H Urine Glucose (UA) NEG Urine Ketones NEG Urine Blood 3+ H Urine Nitrite NEG Ur Leukocyte Esterase 1+ H Urine RBC 76-150 H Urine WBC 1-4 Ur Squamous Epith Cells TRACE Urine Bacteria TRACE 01/12/21 01/13/21 01/13/21 23:45 05:28 05:28 WBC RBC Hgb Hct MCV MCH MCHC RDW Plt Count MPV Immature Gran % (Auto) Neut % (Auto) Lymph % (Auto) [place] % (Auto) Eos % (Auto) Baso % (Auto) Lymph # (Auto) [place] # (Auto) Eos # (Auto) Baso # (Auto) Abs Immat Gran (auto) Absolute Neuts (auto) Absolute Nucleated RBC Nucleated RBC % (auto) D-Dimer 6885 VBG pH VBG pCO2 VBG pO2 VBG HCO3 VBG O2 Saturation VBG Base Excess Sodium 145 Potassium 3.8 Chloride 97 Carbon Dioxide 43 H* Anion Gap 9 L BUN 14 Creatinine 0.47 L Estim Creat Clear Calc 162.3 Estimated GFR > 60 POC Glucose 113 Random Glucose 156 H Lactic Acid Calcium 7.9 L Phosphorus 2.3 L Ferritin 469 H Total Bilirubin 0.7 AST 49 H ALT 52 H Alkaline Phosphatase 41 D Troponin I High Sens C-Reactive Protein 2.33 H B-Natriuretic Peptide Total Protein 5.1 L Albumin 2.7 L Procalcitonin Urine Color Urine Appearance Urine pH Ur Specific [place] Urine Protein Urine Glucose (UA) Urine Ketones Urine Blood Urine Nitrite Ur Leukocyte Esterase Urine RBC Urine WBC Ur Squamous Epith Cells Urine Bacteria 01/13/21 01/13/21 01/13/21 05:28 05:28 05:28 WBC RBC Hgb Hct MCV MCH MCHC RDW Plt Count MPV Immature Gran % (Auto) Neut % (Auto) Lymph % (Auto) [place] % (Auto) Eos % (Auto) Baso % (Auto) Lymph # (Auto) [place] # (Auto) Eos # (Auto) Baso # (Auto) Abs Immat Gran (auto) Absolute Neuts (auto) Absolute Nucleated RBC Nucleated RBC % (auto) D-Dimer VBG pH VBG pCO2 VBG pO2 VBG HCO3 VBG O2 Saturation VBG Base Excess Sodium Potassium Chloride Carbon Dioxide Anion Gap BUN Creatinine Estim Creat Clear Calc Estimated GFR POC Glucose Random Glucose Lactic Acid 0.9 Calcium Phosphorus Ferritin Total Bilirubin AST ALT Alkaline Phosphatase Troponin I High Sens 5.6 D C-Reactive Protein B-Natriuretic Peptide 270 H Total Protein Albumin Procalcitonin 0.15 Urine Color Urine Appearance Urine pH Ur Specific [place] Urine Protein Urine Glucose (UA) Urine Ketones Urine Blood Urine Nitrite Ur Leukocyte Esterase Urine RBC Urine WBC Ur Squamous Epith Cells Urine Bacteria 01/13/21 01/13/21 01/13/21 05:28 05:29 05:51 WBC 21.8 H RBC 2.75 L Hgb 7.6 L Hct 28.0 L MCV 101.8 H MCH 27.6 MCHC 27.1 L RDW 17.5 H Plt Count 205 MPV 11.0 Immature Gran % (Auto) 2.1 H Neut % (Auto) 71.1 Lymph % (Auto) 13.2 L [place] % (Auto) 5.6 Eos % (Auto) 7.8 H Baso % (Auto) 0.2 Lymph # (Auto) 2.9 [place] # (Auto) 1.2 Eos # (Auto) 1.7 H Baso # (Auto) 0.0 Abs Immat Gran (auto) 0.46 H Absolute Neuts (auto) 15.5 H Absolute Nucleated RBC 0.320 H Nucleated RBC % (auto) 1.5 H D-Dimer VBG pH 7.34 VBG pCO2 112 VBG pO2 46 VBG HCO3 60 H VBG O2 Saturation 79.0 VBG Base Excess 29.6 Sodium Potassium Chloride Carbon Dioxide Anion Gap BUN Creatinine Estim Creat Clear Calc Estimated GFR POC Glucose 138 H Random Glucose Lactic Acid Calcium Phosphorus Ferritin Total Bilirubin AST ALT Alkaline Phosphatase Troponin I High Sens C-Reactive Protein B-Natriuretic Peptide Total Protein Albumin Procalcitonin Urine Color Urine Appearance Urine pH Ur Specific [place] Urine Protein Urine Glucose (UA) Urine Ketones Urine Blood Urine Nitrite Ur Leukocyte Esterase Urine RBC Urine WBC Ur Squamous Epith Cells Urine Bacteria Microbiology Microbiology Results: Microbiology 01/12/21 18:40 Sputum - Suctioned Gram Stain - Final 01/12/21 18:40 Sputum - Suctioned Sputum Culture - Preliminary Culture in progress. 01/12/21 18:40 Urine [place] Urine Culture - Preliminary No growth to date. 12/27/20 15:58 Bronch, Not Specified Fungal Identification - Preliminary No growth after 2 weeks. 01/05/21 09:05 Blood - Venous Blood Culture - Final No growth after 5 days. 01/05/21 09:05 Blood - Venous Blood Culture - Final No growth after 5 days. 01/05/21 08:50 Sputum - Suctioned Gram Stain - Final 01/05/21 08:50 Sputum - Suctioned Sputum Culture - Final 12/30/20 20:45 Blood - Venous Blood Culture - Final No growth after 5 days. 12/30/20 20:43 Blood - Venous Blood Culture - Final No growth after 5 days. 12/30/20 21:30 Urine [place] Urine Culture - Final No growth. 12/27/20 15:57 Bronch, Not Specified Direct Acid Fast Bacilli Smear - Final 12/27/20 15:58 Bronch, Not Specified Gram Stain - Final 12/27/20 15:58 Bronch, Not Specified - Final Staphylococcus aureus 12/23/20 20:10 Blood - Venous Blood Culture - Final No growth after 5 days. 12/23/20 19:46 Blood - Venous Blood Culture - Final No growth after 5 days. Critical Care Time Critical Care Time (minutes): 60
[2021-01-13 12:03] LABS: Glucose, Whole Blood 248 mg/dL (60-115)
[2021-01-13] MEDS: Insulin Lispro 100 UNIT/ML 3 ML VIAL SUBCUT ×2 (12:07→18:22)
[2021-01-13 12:20] LABS: ABG Base Excess 27.7 mmol/L; ABG HCO3 56 mmol/L (22-26); ABG pCO2 84 mmHg (32-45); ABG pCO2 TC 90 mmHg (32-45); ABG pH 7.43 (7.35-7.45); ABG pH TC 7.41 (7.35-7.45); ABG pO2 67 mmHg (83-108); ABG pO2 TC 75 (83-108)
[2021-01-13 12:30] LABS: ABG Refer to POC result
[2021-01-13] MEDS: Esmolol HCl/NaCl Iso 2,500 MG/250 ML IV.SOLN 5.1 MG IVCONT ×2 (14:11→20:35)
[2021-01-13] MEDS: Sodium,Potassium Phosphates POWD.PACK 2 PACKET PO (18:22)
[2021-01-13] MEDS: Furosemide 500 MG in Container,Empty 0 ML IVCONT (18:22)
[2021-01-13] MEDS: acetaZOLAMIDE sodium 500 MG VIAL 250 MG IVPUSH (18:23)
[2021-01-13 18:35] LABS: Glucose, Whole Blood 220 mg/dL (60-115)
[2021-01-13 23:41] LABS: Glucose, Whole Blood 149 mg/dL (60-115)
[2021-01-14] VITALS (31 sets, daily range): BP systolic 93–142; BP diastolic 48–84; PULSE 85–128; RESP 15–31; TEMP 37.7–40.1; O2SAT 86–98
[2021-01-14] MEDS: fentaNYL citrate/NS 1,000 MCG/100 ML PLAST..BAG 15 MCG IVCONT ×4 (00:54→21:22)
[2021-01-14] MEDS: propofoL 1,000 MG/100 ML VIAL 17.85 MG IVCONT (03:58)
[2021-01-14] MEDS: acetaZOLAMIDE sodium 500 MG VIAL 250 MG IVPUSH ×4 (05:17→20:46)
[2021-01-14 05:30] LABS: VBG Base Excess 34.3 mmol/L; VBG HCO3 64 mmol/L (22-26); VBG pCO2 90 mmHg; VBG pH 7.45 (7.32-7.43); VBG pO2 38 mmHg
[2021-01-14 05:38] LABS: MANUAL DIFF FLAG NO
[2021-01-14 05:40] LABS: Basophils Percent Auto 0.2 % (0-2); Eosinophils Absolute Auto 1.8 X10*3/uL (0.0-0.4); Eosinophils Percent Auto 7.6 % (0-4); Hematocrit 28.2 % (42-52); Hemoglobin 8.1 g/dl (14.0-18.0); Imm Gran Abs Auto 0.77 X10*3/uL (0.00-0.03); Imm Gran Pct Auto 3.3 % (0.0-0.4); Lymphocytes Absolute Auto 2.5 X10*3/uL (1.2-4.9); Lymphocytes Percent Auto 10.8 % (20-40); Mean Corpuscular HGB Conc 28.7 g/dl (31.0-36.0); Mean Corpuscular Hemoglobin 28.5 pg (27.0-33.0); Mean Corpuscular Volume 99.3 fL (80-98); Mean Platelet Volume 11.1 fL (9.4-12.4); Monocytes Absolute Auto 0.9 X10*3/uL (0.1-1.2); Monocytes Percent Auto 3.8 % (2-11); NRBC Pct Auto 1.2 /100WBC (0.0-0.2); Neutrophils Absolute Auto 17.6 X10*3/uL (2.0-8.3); Neutrophils Percent Auto 74.3 % (45-73); Platelet Count 214 X10*3/uL (160-400); Red Blood Count 2.84 X10*6/uL (4.60-5.80); Red Cell Distribution Width 17.7 % (11.0-16.0); White Blood Count 23.6 X10*3/uL (4.8-10.8)
[2021-01-14 05:48] LABS: Glucose, Whole Blood 186 mg/dL (60-115)
[2021-01-14] MEDS: Insulin Lispro 100 UNIT/ML 3 ML VIAL SUBCUT ×3 (05:55→19:42)
[2021-01-14 06:20] LABS: Alanine Aminotransferase 45 U/L (0-40); Albumin Level 2.9 g/dL (3.5-5.0); Alkaline Phosphatase 45 U/L (39-117); Anion Gap 12 (12-20); Aspartate Amino Transferase 44 U/L (5-37); Bilirubin Total 0.7 mg/dL (0.0-1.0); Blood Urea Nitrogen 12 mg/dL (9-16); C Reactive Protein 1.98 mg/dL (< or = 0.50); Calcium 7.6 mg/dL (8.4-10.2); Carbon Dioxide 44 mmol/L (22-29); Chloride 87 mmol/L (96-108); Creatinine Clr Calc Pharmacy 165.8; Estimated Glomerular Filt Rate > 60; Glucose Random 193 mg/dL (60-115); Potassium 3.3 mmol/L (3.3-5.1); Sodium 140 mmol/L (135-145); Total Protein 5.4 g/dL (6.5-8.0)
[2021-01-14 07:51] LABS: Venous Blood Gas Refer to POC result
[2021-01-14] MEDS: propofoL 1,000 MG/100 ML VIAL 20.4 MG IVCONT ×4 (08:58→22:27)
[2021-01-14] MEDS: Enoxaparin Sodium 40 MG/0.4 ML SYRINGE SUBCUT (09:44)
[2021-01-14] MEDS: methylPREDNISolone Sod Succ 125 MG/2 ML VIAL 40 MG IVPUSH (09:45)
[2021-01-14] MEDS: Chlorhexidine Gluc Oral Rinse 15 ML MOUTHWASH BUCCAL ×3 (09:46→20:46)
[2021-01-14] MEDS: Famotidine/PF 20 MG/2 ML VIAL IVPUSH (09:46)
[2021-01-14] MEDS: Hydroxychloroquine Sulfate 200 MG TABLET PO ×2 (09:46→20:46)
[2021-01-14] MEDS: Sodium,Potassium Phosphates POWD.PACK 2 PACKET PO ×2 (09:46→20:45)
[2021-01-14] MEDS: Aspirin 81 MG TAB.CHEW G-TUBE (09:46)
[2021-01-14] MEDS: Bacitracin Oint 14 GM TUBE 1 APPL TOPICAL ×3 (09:48→20:45)
--- NOTE | 2021-01-14 10:24 | MHC.CLN ---
F/U PT CURRENTLY TOLERATING PROMOTE AT MAX GOAL RATE 60CC/HR AND 30CC PROSOURCE WITH 240CC FREE WATER FLUSHES Q 6HRS TO PROVIDE 1500KCALS (209KCALS WITH SEDATION; 29KCALS/KG), 105G PROTEIN (1.5G/KG) FOR WOUND HEALING, 2168CC FREE WATER FROM FORMULA AND FLUSHES (30CC/KG) CONTINUE TO MONITOR TOLERANCE, RESIDUALS AND LYTES
[2021-01-14 11:57] LABS: Glucose, Whole Blood 184 mg/dL (60-115)
--- NOTE | 2021-01-14 13:01 | PM.CCPN ---
Subjective Subjective Date of Service: 01/14/21 Interval History: Mr. Lombardo was transferred to ICU on December 27 with acute respiratory failure 2? COVID pneumonia. This is a 65-year-old male with extensive past medical history that includes mixed connective tissue disease and antiphospholipid syndrome, on hydroxychloroquine, methotrexate, Sarilumab (IL6 inhibitor) and Aspirin at home. The patient is status post splenectomy. On December 23 presented to the hospital with shortness of breath and cough for the prior 1 week. Had contact with COVID patient. Sat was 70% on room air by EMS. On arrival to the ED was placed on high-flow, sat?ing 90-95%. COVID-19 positive. Renal indices normal. CT showed multifocal extensive ground-glass infiltrates consistent with COVID. CT angio showed no evidence of PE. On my reading, I thought the RV was slightly enlarged. Transthoracic echo done one week prior to admission was read as showing normal LV function with EF 65-70%, normal right ventricular cavity size and function, no valvular pathology, normal IVC, and RVSP 19 mm. The patient was admitted to medicine and treated with Decadron. He was given 3 days of remdesivir. Despite that, his oxygenation deteriorated, and he was transferred to the ICU on December 27 and intubated. He spiked a temperature that day. He was started on empiric cefepime and doxycycline. He underwent bronchoscopy, which showed 2+ polys and 1+ Gram-positive cocci, which grew out less than 10,000 CFU Staph aureus. Bedside echo done December [address] Jimenez showed mild right ventricular dilatation. Since then, FiO2 has ranged from 60-100%; for the last week, it?s been at 100% continuously. On January 01, he developed new SQ air, with no PTX. We reduced his insp pressure, tidal vol, and PEEP. The patient was given two doses of ivermectin on January 01 and . Because of the failure to awaken and become interactive during propofol holidays, we attempted sending him to a head CT on January 04. However on arrival in CT, his oxygenation became unstable and the scan had to be aborted. He was taken back to the ICU where chest x-ray showed no pneumothorax. He was still severely hypoxemic however, and required proning. His oxygenation graham significantly and we were able to get his FiO2 down for a short period of time, and achieve reasonable oxygenation after turning him back supine the next day. However his pCO2 has been rising progressively since then. I spoke with the granddaughter Carmita after the episode on January 04 and indicated to her that survival was very unlikely, and I quoted a 1% chance of survival to her. She was very realisitic. AZEB Bauer subsequently spoke to the patient?s and family, and as of that night, the family had been thinking of comfort measures. However, they subsequently decided to continue with full support. Over the last 11 days, no headway has been made in terms of his oxygenation or ventilation. He?s developed pneumomediastinum in addition to the SQ emphysema, but no PTX. Last week, he developed significant hematuria and bleeding from his mouth, so his aspirin and Lovenox were stopped. The ASA was restarted on 01/12. Since then he?s had no significant hematuria or bleeding. His pCO2 has been rising progressively, hitting a high of 112 yesterday. Currently he?s on propofol 40ug and fentanyl 150 ug. When we back off on the propofol, his RR goes up and he becomes dysynchronous. Seroquel was dc?d last week. He?s well sedated. HR 108 on esmolol 20ug, BP 96/56 on Levophed 0.2ug. He?s also on Lasix drip at 5mg/hr. On PC f30, 11/09, I:E 1:1.5, 85%, RR is 30, Vt 440cc, Ve 13L, PIP 37, ETCO2 35, SpO2 95%. I turned the FiO2 down to 80%, Sat dropped to 93%. CVBG this morning showed 7.45/90/+34. I increased his Diamox to 250 qid. He?s been febrile almost continuously since January 05, up to 104?. Tmax today 101.8?. PER about 4mm, sluggish. No JVD at 30 degrees. Normal expiratory phase. Abdomen is soft. He has 1+ anasarca, less than yesterday since the Lasix drip was started. Neuro exam is nonfocal/non interactive. U/O averaging > 200cc/hr. Over 2L u/o overnight. LABORATORY DATA: Below. Notably, WBC up slightly to 23. BUN/creatinine down to 12/0.4 (despite the Lasix), K 3.3. MICROBIOLOGY: Blood, sputum and urine cultures drawn 01/12 negative. IMAGING: Last CXR 01/11 showed severe diffuse bilateral disease, subcutaneous air, and pneumomediastinum. No pneumothorax. IMPRESSION: 1. Underlying mixed connective tissue disease, on above meds at home. Methotrexate was stopped on admission. His monoclonal ab is stopped. Continuing his hydroxychloroquine. 2. Underlying antiphospholipid syndrome. His ASA was stopped bec of bleeding, restarted 01/12. No bleeding so far. 3. Bilat COVID-19 pneumonia. He?s now on Solumedrol 40 mg daily. Had two doses of ivermectin without any apparent benefit. 4. Acute respiratory failure. Secondary to above. With rising pCO2, prognosis is grave. Given the low renal indices, we?ll continue the Lasix drip. 5. Anticoagulation/DVT prophylaxis: Currently on ASA and seq TEDS. I restarted Lovenox 40mg daily this . 6. Hyperglycemia. On insulin SS SQ. 7. ID: Febrile with leukocytosis. Had a 7-day course of doxycycline. The doxy had no effect on anything (fever or WBC). Recultured 01/12, all negative. A-line was pulled yesterday. By definition, he has viral sepsis. 8. Nutrition: Full dose tube feeds. 9. Neuropsych: We can?t tell what?s going on, and hasn?t been stable enough to go for CT. 10. Metabolic: Replete K+. Started on Diamox. Prognosis is very grave. AZEB Bauer spoke with grandson Carmita this morning, Later this morning I had a long talk here with his son Valente, with his other son Dru conferenced in by telephone. From what they told me, it seems to me that they had been getting equivocal messages that their father was making some progress. I made it very clear to them that that was not the case, and that the progressive hypercarbia was a clear and definite sign that he was not going to survive. I made it absolutely clear to them that this was going to be fatal. They will all talk further tonight and get back to us tomorrow. I had planned on trying to send him for a CT today, but after the above discussion, there is no point, so I cancelled the CT. The patient remains with DNR status. Critical care time: 80+ min. Physical Exam Vital Signs: Vital Signs: Last Vital Signs Temp 101.8 F H 01/14/21 11:00 Pulse 127 H 01/14/21 13:00 Resp 30 H 01/14/21 13:00 BP 117/84 01/14/21 13:00 Pulse Ox 95 01/14/21 13:00 Oxygen Flow Rate 15 12/23/20 19:00 Body Mass Index 30.2 Objective Data Labs CBC & Chem 7: 01/14/21 05:20 01/14/21 05:20 Labs: Laboratory Results - last 24 hr 01/13/21 01/13/21 01/14/21 18:16 23:38 05:20 WBC 23.6 H RBC 2.84 L Hgb 8.1 L Hct 28.2 L MCV 99.3 H MCH 28.5 MCHC 28.7 L RDW 17.7 H Plt Count 214 MPV 11.1 Immature Gran % (Auto) 3.3 H Neut % (Auto) 74.3 H Lymph % (Auto) 10.8 L [place] % (Auto) 3.8 Eos % (Auto) 7.6 H Baso % (Auto) 0.2 Lymph # (Auto) 2.5 [place] # (Auto) 0.9 Eos # (Auto) 1.8 H Baso # (Auto) 0.0 Abs Immat Gran (auto) 0.77 H Absolute Neuts (auto) 17.6 H Absolute Nucleated RBC 0.290 H Nucleated RBC % (auto) 1.2 H VBG pH VBG pCO2 VBG pO2 VBG HCO3 VBG O2 Saturation VBG Base Excess Sodium Potassium Chloride Carbon Dioxide Anion Gap BUN Creatinine Estim Creat Clear Calc Estimated GFR POC Glucose 220 H 149 H Random Glucose Calcium Total Bilirubin AST ALT Alkaline Phosphatase C-Reactive Protein Total Protein Albumin 01/14/21 01/14/21 01/14/21 05:20 05:24 05:24 WBC RBC Hgb Hct MCV MCH MCHC RDW Plt Count MPV Immature Gran % (Auto) Neut % (Auto) Lymph % (Auto) [place] % (Auto) Eos % (Auto) Baso % (Auto) Lymph # (Auto) [place] # (Auto) Eos # (Auto) Baso # (Auto) Abs Immat Gran (auto) Absolute Neuts (auto) Absolute Nucleated RBC Nucleated RBC % (auto) VBG pH 7.45 H VBG pCO2 90 VBG pO2 38 VBG HCO3 64 H VBG O2 Saturation 70.0 VBG Base Excess 34.3 Sodium 140 Potassium 3.3 Chloride 87 L Carbon Dioxide 44 H* Anion Gap 12 BUN 12 Creatinine 0.46 L Estim Creat Clear Calc 165.8 Estimated GFR > 60 POC Glucose 186 H Random Glucose 193 H Calcium 7.6 L Total Bilirubin 0.7 AST 44 H ALT 45 H Alkaline Phosphatase 45 C-Reactive Protein 1.98 H Total Protein 5.4 L Albumin 2.9 L 01/14/21 11:46 WBC RBC Hgb Hct MCV MCH MCHC RDW Plt Count MPV Immature Gran % (Auto) Neut % (Auto) Lymph % (Auto) [place] % (Auto) Eos % (Auto) Baso % (Auto) Lymph # (Auto) [place] # (Auto) Eos # (Auto) Baso # (Auto) Abs Immat Gran (auto) Absolute Neuts (auto) Absolute Nucleated RBC Nucleated RBC % (auto) VBG pH VBG pCO2 VBG pO2 VBG HCO3 VBG O2 Saturation VBG Base Excess Sodium Potassium Chloride Carbon Dioxide Anion Gap BUN Creatinine Estim Creat Clear Calc Estimated GFR POC Glucose 184 H Random Glucose Calcium Total Bilirubin AST ALT Alkaline Phosphatase C-Reactive Protein Total Protein Albumin Microbiology Microbiology Results: Microbiology 01/12/21 18:40 Urine [place] Urine Culture - Final No growth. 01/12/21 18:40 Sputum - Suctioned Gram Stain - Final 01/12/21 18:40 Sputum - Suctioned Sputum Culture - Final 01/12/21 18:25 Blood - Venous Blood Culture - Preliminary No growth after 24 hours. 01/12/21 18:25 Blood - Venous Blood Culture - Preliminary No growth after 24 hours. 12/27/20 15:58 Bronch, Not Specified Fungal Identification - Preliminary No growth after 2 weeks. 01/05/21 09:05 Blood - Venous Blood Culture - Final No growth after 5 days. 01/05/21 09:05 Blood - Venous Blood Culture - Final No growth after 5 days. 01/05/21 08:50 Sputum - Suctioned Gram Stain - Final 01/05/21 08:50 Sputum - Suctioned Sputum Culture - Final 12/30/20 20:45 Blood - Venous Blood Culture - Final No growth after 5 days. 12/30/20 20:43 Blood - Venous Blood Culture - Final No growth after 5 days. 12/30/20 21:30 Urine [place] Urine Culture - Final No growth. 12/27/20 15:57 Bronch, Not Specified Direct Acid Fast Bacilli Smear - Final 12/27/20 15:58 Bronch, Not Specified Gram Stain - Final 12/27/20 15:58 Bronch, Not Specified - Final Staphylococcus aureus 12/23/20 20:10 Blood - Venous Blood Culture - Final No growth after 5 days. 12/23/20 19:46 Blood - Venous Blood Culture - Final No growth after 5 days. Critical Care Time Critical Care Time (minutes): 90
--- NOTE | 2021-01-14 14:30 | MHC.CM.PN ---
Pt remains in ICU on ventilatory support following COVID infection: On pressor support with grave prognosis per MD: family is updated daily with progress reports: MD feels they are slowly beginning to understand the gravity of pt's condition and may opt for TECHNOLOGY AND ENGINEERING TEACHER in the next coming days. Plans of care today are to possibly do a head and chest CT if pt is stable enough to move/transfer. MD would like to see if there is a catastrophic brain injury that may assist with decision making. CM to follow
[2021-01-14 15:49] LABS: VBG Base Excess 36.4 mmol/L; VBG HCO3 64 mmol/L (22-26); VBG pCO2 78 mmHg; VBG pH 7.52 (7.32-7.43); VBG pO2 37 mmHg
[2021-01-14] MEDS: Magnesium Sulfate/D5W 1 GM/100 ML PIGGYBACK IV (16:02)
[2021-01-14] MEDS: Potassium Chloride/H20 40 MEQ/100 ML PIGGYBACK 50 MEQ IV ×2 (16:03→22:27)
[2021-01-14 16:48] LABS: Venous Blood Gas Refer to POC result
[2021-01-14] MEDS: Esmolol HCl/NaCl Iso 2,500 MG/250 ML IV.SOLN 51 MG IVCONT (19:43)
[2021-01-14 21:07] LABS: Glucose, Whole Blood 211 mg/dL (60-115)
[2021-01-15] VITALS (39 sets, daily range): BP systolic 89–150; BP diastolic 47–112; PULSE 70–102; RESP 29–38; TEMP 37.7–38.8; O2SAT 84–97
[2021-01-15] MEDS: Insulin Lispro 100 UNIT/ML 3 ML VIAL SUBCUT ×4 (00:42→18:23)
[2021-01-15] MEDS: Esmolol HCl/NaCl Iso 2,500 MG/250 ML IV.SOLN 45.9 MG IVCONT (01:09)
[2021-01-15] MEDS: acetaZOLAMIDE sodium 500 MG VIAL 250 MG IVPUSH ×4 (03:27→21:16)
[2021-01-15] MEDS: propofoL 1,000 MG/100 ML VIAL 20.4 MG IVCONT ×5 (03:27→19:46)
[2021-01-15] MEDS: fentaNYL citrate/NS 1,000 MCG/100 ML PLAST..BAG 15 MCG IVCONT ×2 (04:07→09:08)
[2021-01-15 05:35] LABS: Glucose, Whole Blood 167 mg/dL (60-115)
[2021-01-15 05:45] LABS: Hematocrit 26.6 % (42-52); Hemoglobin 7.8 g/dl (14.0-18.0); Mean Corpuscular HGB Conc 29.3 g/dl (31.0-36.0); Mean Corpuscular Hemoglobin 28.8 pg (27.0-33.0); Mean Corpuscular Volume 98.2 fL (80-98); Mean Platelet Volume 11.3 fL (9.4-12.4); Platelet Count 203 X10*3/uL (160-400); Red Blood Count 2.71 X10*6/uL (4.60-5.80); Red Cell Distribution Width 18.4 % (11.0-16.0); White Blood Count 21.2 X10*3/uL (4.8-10.8)
[2021-01-15 06:02] LABS: Glucose, Whole Blood 213 mg/dL (60-115)
[2021-01-15 06:24] LABS: Venous Blood Gas Refer to POC result
[2021-01-15 06:36] LABS: B Type Natriuretic Peptide 113 pg/mL (<100)
[2021-01-15] MEDS: Esmolol HCl/NaCl Iso 2,500 MG/250 ML IV.SOLN 40.8 MG IVCONT ×2 (06:37→12:14)
[2021-01-15 06:40] LABS: Alanine Aminotransferase 44 U/L (0-40); Albumin Level 2.8 g/dL (3.5-5.0); Alkaline Phosphatase 47 U/L (39-117); Anion Gap 11 (12-20); Aspartate Amino Transferase 41 U/L (5-37); Bilirubin Total 0.7 mg/dL (0.0-1.0); Blood Urea Nitrogen 15 mg/dL (9-16); Calcium 7.3 mg/dL (8.4-10.2); Carbon Dioxide 43 mmol/L (22-29); Chloride 87 mmol/L (96-108); Creatinine Clr Calc Pharmacy 149.5; Estimated Glomerular Filt Rate > 60; Glucose Random 228 mg/dL (60-115); Magnesium 2.1 mg/dL (1.6-2.6); Potassium 3.6 mmol/L (3.3-5.1); Sodium 137 mmol/L (135-145); Total Protein 5.2 g/dL (6.5-8.0)
[2021-01-15 06:52] LABS: Band Neutrophils Percent 9 % (3-5); Basophils Abs Manual 0.4 X10*3/uL (0.0-0.3); Basophils Percent Manual 2 % (0-1); Eosinophils Absolute Manual 1.1 X10*3/UL (0.0-0.8); Eosinophils Percent Manual 5 % (0-4); Lymphocytes Absolute Manual 2.8 X10*3/uL (0.6-4.8); Lymphocytes Percent Manual 13 % (20-40); Metamyelocytes Absolute 0.2 X10*3/uL; Metamyelocytes Percent 1 %; Monocytes Absolute Manual 0.6 X10*3/uL (0.0-1.2); Monocytes Percent Manual 3 % (2-11); Neutrophils Absolute Manual 16.1 X10*3/uL (2.2-7.9); Neutrophils Percent Manual 67 % (45-73); Nucleated Red Blood Cells 10 /100WBC (0-0)
[2021-01-15 06:55] LABS: Acanthocytes 1+ (0-2) /OIF; Basophilic Stippling 1+ (0-2) /OIF; Giant Platelet PRESENT; Howell Jolly Bodies PRESENT; Hypochromasia 1+ (5-14) /OIF; Large Platelet PRESENT; Macrocytosis 1+ (5-14) /OIF; Microcytosis 1+ (5-14) /OIF; Platelet Estimate NORMAL (NORMAL); Platelet Morphology Comment NOTED; Polychromasia 2+ (3-5) /OIF; RBC Morphology NOTED; Schistocytes 1+ (0-2) /OIF; Target Cells 1+ (5-14) /OIF
[2021-01-15 08:04] LABS: VBG Base Excess 30.7 mmol/L; VBG HCO3 58 mmol/L (22-26); VBG pCO2 73 mmHg; VBG pH 7.51 (7.32-7.43); VBG pO2 38 mmHg
[2021-01-15] MEDS: Famotidine/PF 20 MG/2 ML VIAL IVPUSH (09:27)
[2021-01-15] MEDS: methylPREDNISolone Sod Succ 125 MG/2 ML VIAL 40 MG IVPUSH (09:27)
[2021-01-15] MEDS: Chlorhexidine Gluc Oral Rinse 15 ML MOUTHWASH BUCCAL ×3 (09:27→21:15)
[2021-01-15] MEDS: Hydroxychloroquine Sulfate 200 MG TABLET PO ×2 (09:28→21:16)
[2021-01-15] MEDS: Aspirin 81 MG TAB.CHEW G-TUBE (09:28)
[2021-01-15] MEDS: Bacitracin Oint 14 GM TUBE 1 APPL TOPICAL ×3 (09:30→21:22)
[2021-01-15] MEDS: Furosemide 500 MG in Container,Empty 0 ML IVCONT (10:37)
[2021-01-15 12:17] LABS: Glucose, Whole Blood 259 mg/dL (60-115)
--- NOTE | 2021-01-15 13:00 | P.PCNCC_ITS ---
Procedures Intubation Intubation Comments: Date of Procedure: 01/15/2021. (This is a late entry bec technical difficulties with [employer] on [employer] precluded writing the procedure note on the day of the procedure.) PROCEDURE NOTE: Tracheal reintubation. INDICATIONS: Acute respiratory failure secondary to pneumonia. The patient's in-situ ETT had a refractory cuff leak, required replacement. Anesthesia: Zemuron 50mg, with ongoing propofol and fentanyl infusions. Procedure: The patient was already on 100% FiO2 on the ventilator. Direct laryngoscopy with a Denson 3 blade easily revealed the glottis. An 8.5 ETT styletted with a boughie was positioned at the glottic opening, with the boughie advanced thre the vocal cords. The cuff of the in-situ ETT was deflated and the bougie was advanced into the trachea. The in situ ETT was then removed. Following that, the bougie mounted 8.5 endotracheal tube was advanced into the trachea without incident. The cuff was inflated, the bougie was then removed, and the endotracheal tube looked up to the ventilator circuit with confirmatory and tidal CO2. There was no leak in the circuit. The SpO2 was maintained throughout the procedure, and the patient rosanna the procedure well with no complications. Post op chest x-ray showed the ETT in good position.
[2021-01-15] MEDS: Rocuronium Bromide 50 MG/5 ML VIAL IVPUSH (13:59)
--- NOTE | 2021-01-15 14:00 | W.PM.CCHP ---
Procedures Intubation Intubation Comments: Reintubation Consent for Procedure: Emergent-no informed consent obtained
--- NOTE | 2021-01-15 14:31 | PC.NURSE ---
Resumed care at 0700. Patient remains on Fentanyl and Propofol. Pupils 3 and sluggish. Intermittent cough with inline suctioning, no gag noted. Remains flaccid. Worsening air leak noted on assessment, o2 sats in the 80s on 100 fio2, patient noted to by tachypneic with RR of 38 and belly breathing. Increased Fentanyl drip per protocol. MD and RT at bedside. Decision to change ET tube made by MD. KO tube feed stoppd. 50 mg of Rocuronium given per MD. ET tube changed to an 8.5 and 25 padma[address]acement confirmed on CXR. reporting pneumomediastinum and subcutaneous emphysema seen on xray to this RN, reported to . Remains on PC settings, rate 30, ip 20, peep 12 and fio2 80% with o2 sats trending in the high 80s, MD aware. Temp 101.2, MD aware. Ice packs applied. PRN Tylenol order for temp >102. HR trending in the 80s. SR on tele. Remains on Esmolol drip. Map trending >65, titrating Levophed down see titration in MAR. BSx4. Abd slightly rounded but soft. No BM noted. Lactulose as needed, not given d/t low 02 sats and vent asynchrony. KO tube feed at 60ml/hr, tolerating well. [place] urine output around 200 ml/hr, remains on lasix drip. Stage II to coccyx as documented. Barrier cream applied. Airloss bed. Prevalon subhash system. Repo q2h. Abrasion to left chin, bacitracin applied.
[2021-01-15] MEDS: fentaNYL citrate/NS 1,000 MCG/100 ML PLAST..BAG 20 MCG IVCONT ×2 (15:11→21:16)
--- NOTE | 2021-01-15 15:36 | MHC.CM.PN ---
Per discussion with MD: pt is terminal and will not survive. He has discussed this with pt's family but there have been no plans to extubate or initiate GUITAR TEACHER. Will await further directives from care team.
--- NOTE | 2021-01-15 17:20 | P.PNCC_ITS ---
Subjective Subjective Date of Service: 01/15/21 Interval History: Mr. Lombardo was transferred to ICU on December 27 with acute respiratory failure 2? COVID pneumonia. This is a 65-year-old male with extensive past medical history that includes mixed connective tissue disease and antiphospholipid syndrome, on hydroxychloroquine, methotrexate, Sarilumab (IL6 inhibitor) and Aspirin at home. The patient is status post splenectomy. On December 23 presented to the hospital with shortness of breath and cough for the prior 1 week. Had contact with COVID patient. Sat was 70% on room air by EMS. On arrival to the ED was placed on high-flow, sat?ing 90-95%. COVID-19 positive. Renal indices normal. CT showed multifocal extensive ground-glass infiltrates consistent with COVID. CT angio showed no evidence of PE. On my reading, I thought the RV was slightly enlarged. Transthoracic echo done one week prior to admission was read as showing normal LV function with EF 65-70%, normal right ventricular cavity size and function, no valvular pathology, normal IVC, and RVSP 19 mm. The patient was admitted to medicine and treated with Decadron. He was given 3 days of remdesivir. Despite that, his oxygenation deteriorated, and he was transferred to the ICU on December 27 and intubated. He spiked a temperature that day. He was started on empiric cefepime and doxycycline. He underwent bronchoscopy, which showed 2+ polys and 1+ Gram-positive cocci, which grew out less than 10,000 CFU Staph aureus. Bedside echo done December [address] Jimenez showed mild right ventricular dilatation. Since then, FiO2 has ranged from 60-100%. Last week, it was at 100% continuously, this week, we?ve gotten as low as 85%. On January 01, he developed new SQ air, with no PTX. We reduced his insp pressure, tidal vol, and PEEP. The patient was given two doses of ivermectin on January 01 and . Because of the failure to awaken and become interactive during propofol holidays, we attempted sending him to a head CT on January 04. However on arrival in CT, his oxygenation became unstable and the scan had to be aborted. He was taken back to the ICU where chest x-ray showed no pneumothorax. He was still severely hypoxemic however, and required proning. His oxygenation graham significantly and we were able to get his FiO2 down for a short period of time, and achieve reasonable oxygenation after turning him back supine the next day. However his pCO2 has been rising progressively since then. I spoke with the granddaughter Carmita after the episode on January 04 and indicated to her that survival was very unlikely, and I quoted a 1% chance of survival to her. She was very realisitic. AZEB Bauer subsequently spoke to the patient?s and family that night, and as of that night, the family had been thinking of comfort measures. However, they subsequently decided to continue with full support. Over the last 11 days, no real headway has been made in terms of his oxygenation or ventilation. He?s developed pneumomediastinum in addition to the SQ emphysema, but no PTX. Last week, he developed significant hematuria and bleeding from his mouth, so his aspirin and Lovenox were stopped. The ASA was restarted on 01/12. Since then he?s had no significant hematuria or bleeding. His pCO2 has been rising progressively, hitting a high of 112 on 01/13. For about the last two weeks, he?s had a persistently recurring cuff leak. Got so bag today, we had to change his ETT (see separate procedure) to an 8.5 ETT, which seems to have solved the problem. Currently he?s on propofol 40ug and fentanyl 150 ug. When we back off on the propofol, his RR goes up and he becomes dysynchronous. Seroquel was dc?d last week. He?s well sedated. HR 83 on esmolol 80ug, BP 95/51 on Levophed 0.2ug. He?s also on Lasix drip at 5mg/hr. On PC f30, 11/09, I:E 1:1.5, 85%, RR is 30, Vt 430cc, Ve 13L, PIP 37, ETCO2 31, SpO2 89%. CVBG this morning showed 7.51/73/+30. His Diamox is at 250 qid. He?s been febrile almost continuously since January 05, up to 104?. Tmax today 101.7?. PER about 4mm, sluggish. No JVD at 30 degrees. Normal expiratory phase. Abdomen is soft. He has 1+ anasarca, less than when the Lasix drip was started on 01/13. Neuro exam is nonfocal/non interactive. U/O averaging > 200cc/hr. LABORATORY DATA: Below. Notably, WBC down slightly. BUN/creatinine steady at 15/0.5, K 3.6. MICROBIOLOGY: Blood, sputum and urine cultures drawn 01/12 negative. IMAGING: Last CXR 01/11 showed severe diffuse bilateral disease, subcutaneous air, and pneumomediastinum. No pneumothorax. IMPRESSION: 1. Underlying mixed connective tissue disease, on above meds at home. Methotrexate was stopped on admission. His monoclonal ab is stopped. Continuing his hydroxychloroquine. 2. Underlying antiphospholipid syndrome. His ASA was stopped bec of bleeding, restarted 01/12. No bleeding so far. 3. Bilat COVID-19 pneumonia. He?s now on Solumedrol 40 mg daily. Had two doses of ivermectin without any apparent benefit. 4. Acute respiratory failure. Secondary to above. With rising pCO2, prognosis is grave. Given the low renal indices, we?ll continue the Lasix drip. He?s definitely dryer, but it hasn?t made a difference in his oxygenation or ventilation indices. 5. Anticoagulation/DVT prophylaxis: Currently on ASA and seq TEDS. I restarted Lovenox 40mg daily yesterday morning. 6. Hyperglycemia. On insulin SS SQ. 7. ID: Febrile with leukocytosis. Had a 7-day course of doxycycline. The doxy had no effect on anything (fever or WBC). Recultured 01/12, all negative. A- line was pulled yesterday. By definition, he has viral sepsis. If still febrile tomorrow, I?ll reculture. 8. Nutrition: Full dose tube feeds. 9. Neuropsych: We can?t tell what?s going on, and hasn?t been stable enough to go for CT. 10. Metabolic: Replete K+ and phos. Continuing Diamox. Prognosis is very grave. I see no avenue to survival. Yesterday morning I had a long talk here with his son Valente, with his other son Dru conferenced in by telephone. From what they told me, it seems to me that they had been getting equivocal messages that their father was making some progress. I made it very clear to them that that was not the case, and that the progressive hypercarbia was a clear and definite sign that he was not going to survive. I made it absolutely clear to them that this was going to be fatal. They indicated to me that they would all talk further last night and get back to us today. So far have not heard further. I had planned on trying to send him for a CT yesterday, but after the above discussion, there was no point, so I cancelled the CT. The patient remains with DNR status. Critical care time (excluding procedures): 60 min. Physical Exam Vital Signs: Vital Signs: Last Vital Signs Temp 100.9 F H 01/15/21 16:59 Pulse 85 01/15/21 16:59 Resp 30 H 01/15/21 16:59 BP 94/47 L 01/15/21 16:59 Pulse Ox 90 L 01/15/21 16:59 Oxygen Flow Rate 15 12/23/20 19:00 Body Mass Index 30.2 Objective Data Labs CBC & Chem 7: 01/15/21 05:15 01/15/21 05:15 Labs: Laboratory Results - last 24 hr 01/14/21 01/14/21 01/15/21 18:41 23:37 05:15 WBC 21.2 H RBC 2.71 L Hgb 7.8 L Hct 26.6 L MCV 98.2 H MCH 28.8 MCHC 29.3 L RDW 18.4 H Plt Count 203 MPV 11.3 Immature Gran % (Auto) Cancelled Neut % (Auto) Cancelled Lymph % (Auto) Cancelled [place] % (Auto) Cancelled Eos % (Auto) Cancelled Baso % (Auto) Cancelled Lymph # (Auto) Cancelled [place] # (Auto) Cancelled Eos # (Auto) Cancelled Baso # (Auto) Cancelled Abs Immat Gran (auto) Cancelled Absolute Neuts (auto) Cancelled Absolute Nucleated RBC 0.840 H Nucleated RBC % (auto) 4.0 H Neutrophils % (Manual) 67 Band Neutrophils % 9 H Lymphocytes % (Manual) 13 L Monocytes % (Manual) 3 Eosinophils % (Manual) 5 H Basophils % (Manual) 2 H Metamyelocytes % 1 Abs Neuts (Manual) 16.1 H Lymphocytes # (Manual) 2.8 Monocytes # (Manual) 0.6 Eosinophils # (Manual) 1.1 H Basophils # (Manual) 0.4 H Metamyelocytes # 0.2 Nucleated RBCs 10 H Platelet Estimate NORMAL Large Platelets PRESENT Giant Platelets PRESENT Plt Morphology Comment NOTED RBC Morphology NOTED Polychromasia 2+ (3-5) Hypochromasia 1+ (5-14) Basophilic Stippling 1+ (0-2) Microcytosis 1+ (5-14) Macrocytosis 1+ (5-14) Target Cells 1+ (5-14) [place] Bodies PRESENT Acanthocytes (Spur) 1+ (0-2) Schistocytes 1+ (0-2) VBG pH VBG pCO2 VBG pO2 VBG HCO3 VBG O2 Saturation VBG Base Excess Sodium Potassium Chloride Carbon Dioxide Anion Gap BUN Creatinine Estim Creat Clear Calc Estimated GFR POC Glucose 211 H 167 H Random Glucose Calcium Phosphorus Magnesium Total Bilirubin AST ALT Alkaline Phosphatase B-Natriuretic Peptide Total Protein Albumin 01/15/21 01/15/21 01/15/21 05:15 05:15 05:16 WBC RBC Hgb Hct MCV MCH MCHC RDW Plt Count MPV Immature Gran % (Auto) Neut % (Auto) Lymph % (Auto) [place] % (Auto) Eos % (Auto) Baso % (Auto) Lymph # (Auto) [place] # (Auto) Eos # (Auto) Baso # (Auto) Abs Immat Gran (auto) Absolute Neuts (auto) Absolute Nucleated RBC Nucleated RBC % (auto) Neutrophils % (Manual) Band Neutrophils % Lymphocytes % (Manual) Monocytes % (Manual) Eosinophils % (Manual) Basophils % (Manual) Metamyelocytes % Abs Neuts (Manual) Lymphocytes # (Manual) Monocytes # (Manual) Eosinophils # (Manual) Basophils # (Manual) Metamyelocytes # Nucleated RBCs Platelet Estimate Large Platelets Giant Platelets Plt Morphology Comment RBC Morphology Polychromasia Hypochromasia Basophilic Stippling Microcytosis Macrocytosis Target Cells [place] Bodies Acanthocytes (Spur) Schistocytes VBG pH 7.51 H VBG pCO2 73 VBG pO2 38 VBG HCO3 58 H VBG O2 Saturation 66.0 VBG Base Excess 30.7 Sodium 137 Potassium 3.6 Chloride 87 L Carbon Dioxide 43 H* Anion Gap 11 L BUN 15 Creatinine 0.51 Estim Creat Clear Calc 149.5 Estimated GFR > 60 POC Glucose Random Glucose 228 H Calcium 7.3 L Phosphorus 2.0 L Magnesium 2.1 Total Bilirubin 0.7 AST 41 H ALT 44 H Alkaline Phosphatase 47 B-Natriuretic Peptide 113 H Total Protein 5.2 L Albumin 2.8 L 01/15/21 01/15/21 05:38 12:11 WBC RBC Hgb Hct MCV MCH MCHC RDW Plt Count MPV Immature Gran % (Auto) Neut % (Auto) Lymph % (Auto) [place] % (Auto) Eos % (Auto) Baso % (Auto) Lymph # (Auto) [place] # (Auto) Eos # (Auto) Baso # (Auto) Abs Immat Gran (auto) Absolute Neuts (auto) Absolute Nucleated RBC Nucleated RBC % (auto) Neutrophils % (Manual) Band Neutrophils % Lymphocytes % (Manual) Monocytes % (Manual) Eosinophils % (Manual) Basophils % (Manual) Metamyelocytes % Abs Neuts (Manual) Lymphocytes # (Manual) Monocytes # (Manual) Eosinophils # (Manual) Basophils # (Manual) Metamyelocytes # Nucleated RBCs Platelet Estimate Large Platelets Giant Platelets Plt Morphology Comment RBC Morphology Polychromasia Hypochromasia Basophilic Stippling Microcytosis Macrocytosis Target Cells [place] Bodies Acanthocytes (Spur) Schistocytes VBG pH VBG pCO2 VBG pO2 VBG HCO3 VBG O2 Saturation VBG Base Excess Sodium Potassium Chloride Carbon Dioxide Anion Gap BUN Creatinine Estim Creat Clear Calc Estimated GFR POC Glucose 213 H 259 H Random Glucose Calcium Phosphorus Magnesium Total Bilirubin AST ALT Alkaline Phosphatase B-Natriuretic Peptide Total Protein Albumin Microbiology Microbiology Results: Microbiology 01/12/21 18:25 Blood - Venous Blood Culture - Preliminary No growth after 48 hours. 01/12/21 18:25 Blood - Venous Blood Culture - Preliminary No growth after 48 hours. 01/12/21 18:40 Urine [place] Urine Culture - Final No growth. 01/12/21 18:40 Sputum - Suctioned Gram Stain - Final 01/12/21 18:40 Sputum - Suctioned Sputum Culture - Final 12/27/20 15:58 Bronch, Not Specified Fungal Identification - Preliminary No growth after 2 weeks. 01/05/21 09:05 Blood - Venous Blood Culture - Final No growth after 5 days. 01/05/21 09:05 Blood - Venous Blood Culture - Final No growth after 5 days. 01/05/21 08:50 Sputum - Suctioned Gram Stain - Final 01/05/21 08:50 Sputum - Suctioned Sputum Culture - Final 12/30/20 20:45 Blood - Venous Blood Culture - Final No growth after 5 days. 12/30/20 20:43 Blood - Venous Blood Culture - Final No growth after 5 days. 12/30/20 21:30 Urine [place] Urine Culture - Final No growth. 12/27/20 15:57 Bronch, Not Specified Direct Acid Fast Bacilli Smear - Final 12/27/20 15:58 Bronch, Not Specified Gram Stain - Final 12/27/20 15:58 Bronch, Not Specified - Final Staphylococcus aureus 12/23/20 20:10 Blood - Venous Blood Culture - Final No growth after 5 days. 12/23/20 19:46 Blood - Venous Blood Culture - Final No growth after 5 days. Critical Care Time Critical Care Time (minutes): 60
--- NOTE | 2021-01-15 17:21 | P.PCNCC_ITS ---
Procedures Arterial Line Arterial Line Comments:
--- NOTE | 2021-01-15 17:21 | W.PM.CCHP ---
Procedures Arterial Line Arterial Line Comments:
[2021-01-15] MEDS: Potassium Phosphate 30 MMOL in 0.9 % Sodium Chloride 500 ML 85 MMOL IV (18:16)
[2021-01-15] MEDS: Potassium Chloride/H20 40 MEQ/100 ML PIGGYBACK 50 MEQ IV (18:20)
[2021-01-15 18:42] LABS: Glucose, Whole Blood 245 mg/dL (60-115)
[2021-01-15] MEDS: fentaNYL citrate/PF 100 MCG/2 ML VIAL IVPUSH (19:21)
[2021-01-15] MEDS: Esmolol HCl/NaCl Iso 2,500 MG/250 ML IV.SOLN 20.4 MG IVCONT (19:45)
--- NOTE | 2021-01-15 21:52 | PC.NURSE ---
pt has been extremely fragile on a resp stand point. at the start of the shift his sao2 dropped from 90% to 82%. the pt has been placed in semifowlers position and the neck allowed to hyperextend backwards. a positional airleak is encountered with the endotracheal cuff. resp theraphy added a small volume of air to the cuff and the head and neck were gingerly repositioned with termination of airleak. the pt is sedated although there is absolutely no emergence from sedation. there is no ou opening. extremities flaccid. initially pt exhibiting discordant breathing which was decreasing minute volumes and contributing do a decline in sao2 and rise in end tidal co2. the patient was given a fentanyly 100 mcg iv bolus and propofol was increased to maximum of 50mcg/kg/min. with the above mentention of interventions. sao2 has shown improvement and is currently 92-93%. ecg displays sr. esmolol cut back to 20mcg/kg/min and levophed increased to 0.26mcg/kg/min. lasix drip at 5mg/hr-diuretic response 200-300 ml/hr
[2021-01-15] MEDS: propofoL 1,000 MG/100 ML VIAL 25.5 MG IVCONT (23:50)
[2021-01-16] VITALS (35 sets, daily range): BP systolic 95–147; BP diastolic 53–86; PULSE 57–117; RESP 24–32; TEMP 37.6–38.6; O2SAT 81–96
[2021-01-16 00:27] LABS: Glucose, Whole Blood 189 mg/dL (60-115)
[2021-01-16] MEDS: Insulin Lispro 100 UNIT/ML 3 ML VIAL SUBCUT ×5 (00:51→23:00)
[2021-01-16] MEDS: Rocuronium Bromide 50 MG/5 ML VIAL IVPUSH (01:24)
[2021-01-16] MEDS: propofoL 1,000 MG/100 ML VIAL 25.5 MG IVCONT ×5 (02:21→16:59)
[2021-01-16] MEDS: fentaNYL citrate/NS 1,000 MCG/100 ML PLAST..BAG 20 MCG IVCONT ×5 (02:21→21:53)
[2021-01-16] MEDS: acetaZOLAMIDE sodium 500 MG VIAL 250 MG IVPUSH ×4 (03:31→21:09)
--- NOTE | 2021-01-16 04:32 | PC.NURSE ---
CARE ASSUMED 23:15--LASIX DRIP 5 MG/HR--MONROY OUTPUT TAPERING DOWN--IRRIGATED FOR FEW OLD CLOTS --MONROY FREE-FLOWING AT PRESENT---TUBE/VENTED--PCV: AC 30/IP 24/FIO2 100% PEEP 12...SAO2 INITIALLY 90% WITH Ve 13 l/m---REPOSITIONED LEFT SIDE DOWNWARD--OVERBREATHING VENT RATE 32-34--EXTREMETIES REMAINED FLACCID---SAO2 DOWN TO 79-80%--PA PRESENT--UNABLE TO INCREASED PEEP D/T PNEOMEDIASTINUM/SQ EMPHYSEMA---REPOSITIONED RIGHT SIDE DOWNWARD & MEDICATED WITH RORCURONIUM---GRADUAL RECOVERY OF SAO2 TO 88-89%--CONTINUES ON ESMOLOL/LEVOPHED/PROPOFOL/FENTANYL DRIPS PER NOV
[2021-01-16 05:22] LABS: VBG Base Excess 24.5 mmol/L; VBG HCO3 53 mmol/L (22-26); VBG pCO2 82 mmHg; VBG pH 7.41 (7.32-7.43); VBG pO2 42 mmHg
[2021-01-16 06:04] LABS: Hematocrit 28.9 % (42-52); Hemoglobin 8.3 g/dl (14.0-18.0); Mean Corpuscular HGB Conc 28.7 g/dl (31.0-36.0); Mean Corpuscular Hemoglobin 28.3 pg (27.0-33.0); Mean Corpuscular Volume 98.6 fL (80-98); Platelet Count 234 X10*3/uL (160-400); Red Blood Count 2.93 X10*6/uL (4.60-5.80); Red Cell Distribution Width 19.1 % (11.0-16.0); White Blood Count 21.6 X10*3/uL (4.8-10.8)
[2021-01-16 06:07] LABS: Venous Blood Gas Refer to POC result
[2021-01-16 06:21] LABS: Glucose, Whole Blood 215 mg/dL (60-115)
[2021-01-16 06:26] LABS: Band Neutrophils Percent 8 % (3-5); Eosinophils Absolute Manual 0.6 X10*3/UL (0.0-0.8); Eosinophils Percent Manual 3 % (0-4); Lymphocytes Absolute Manual 2.2 X10*3/uL (0.6-4.8); Lymphocytes Percent Manual 10 % (20-40)
[2021-01-16 06:27] LABS: Alanine Aminotransferase 39 U/L (0-40); Alkaline Phosphatase 51 U/L (39-117); Anion Gap 13 (12-20); Aspartate Amino Transferase 39 U/L (5-37); Bilirubin Total 0.6 mg/dL (0.0-1.0); Blood Urea Nitrogen 15 mg/dL (9-16); Calcium 7.7 mg/dL (8.4-10.2); Carbon Dioxide 40 mmol/L (22-29); Chloride 90 mmol/L (96-108); Creatinine Clr Calc Pharmacy 149.5; Estimated Glomerular Filt Rate > 60; Glucose Random 228 mg/dL (60-115); Neutrophils Absolute Manual 18.4 X10*3/uL (2.2-7.9); Neutrophils Percent Manual 77 % (45-73); Potassium 3.3 mmol/L (3.3-5.1); Sodium 140 mmol/L (135-145); Total Protein 5.6 g/dL (6.5-8.0)
[2021-01-16 06:28] LABS: Monocytes Absolute Manual 0.4 X10*3/uL (0.0-1.2); Monocytes Percent Manual 2 % (2-11); Nucleated Red Blood Cells 8 /100WBC (0-0); RBC Morphology NOTED
[2021-01-16 06:29] LABS: Howell Jolly Bodies PRESENT; Macrocytosis 1+ (5-14) /OIF
[2021-01-16 06:31] LABS: Basophilic Stippling 1+ (0-2) /OIF; Hypochromasia 1+ (5-14) /OIF; Large Platelet PRESENT; Platelet Estimate NORMAL (NORMAL); Platelet Morphology Comment NORMAL; Target Cells 1+ (5-14) /OIF
[2021-01-16 06:33] LABS: Ovalocytes 1+ (5-14) /OIF; Polychromasia 2+ (3-5) /OIF
[2021-01-16] MEDS: Bacitracin Oint 14 GM TUBE 1 APPL TOPICAL ×3 (07:41→21:05)
[2021-01-16] MEDS: Chlorhexidine Gluc Oral Rinse 15 ML MOUTHWASH BUCCAL ×3 (07:41→21:05)
[2021-01-16] MEDS: Famotidine/PF 20 MG/2 ML VIAL IVPUSH (07:42)
[2021-01-16] MEDS: methylPREDNISolone Sod Succ 125 MG/2 ML VIAL 40 MG IVPUSH (07:42)
[2021-01-16] MEDS: Hydroxychloroquine Sulfate 200 MG TABLET PO ×2 (07:44→21:05)
[2021-01-16] MEDS: Acetaminophen 325 MG TABLET 650 MG G-TUBE ×2 (07:44→17:59)
[2021-01-16] MEDS: Aspirin 81 MG TAB.CHEW G-TUBE (07:44)
--- NOTE | 2021-01-16 11:00 | MHC.CLN ---
F/U PT CURRENTLY TOLERATING PROMOTE AT MAX GOAL RATE 60CC/HR AND 30CC PROSOURCE WITH 240CC FREE WATER FLUSHES Q 6HRS TO PROVIDE 1500KCALS (2098KCALS WITH SEDATION; 29KCALS/KG), 105G PROTEIN (1.5G/KG) FOR WOUND HEALING, 2168CC FREE WATER FROM FORMULA AND FLUSHES (30CC/KG) DISCUSSED PER ROUNDS; WILL DECREASE TF FORMULA PROMOTE AT MAX GOAL RATE 40CC/HR TO PROVIDE 1020KCALS (1693KCALS WITH SEDATION; 23KCALS/KG BASED ON CMW), 75G PROTEIN (1.0G/KG), 1765CC TOTAL WATER (25CC/KG) CONTINUE TO MONITOR TOLERANCE, RESIDUALS AND LYTES
[2021-01-16 12:20] LABS: Glucose, Whole Blood 285 mg/dL (60-115)
--- NOTE | 2021-01-16 12:56 | PM.CCPN ---
Subjective Subjective Date of Service: 01/16/21 Interval History: Mr. Lombardo was transferred to ICU on December 27 with acute respiratory failure 2? COVID pneumonia. This is a 65-year-old male with extensive past medical history that includes mixed connective tissue disease and antiphospholipid syndrome, on hydroxychloroquine, methotrexate, Sarilumab (IL6 inhibitor) and Aspirin at home. The patient is status post splenectomy. On December 23 presented to the hospital with shortness of breath and cough for the prior 1 week. Had contact with COVID patient. Sat was 70% on room air by EMS. On arrival to the ED was placed on high-flow, sat?ing 90-95%. COVID-19 positive. Renal indices normal. CT showed multifocal extensive ground-glass infiltrates consistent with COVID. CT angio showed no evidence of PE. On my reading, I thought the RV was slightly enlarged. Transthoracic echo done one week prior to admission was read as showing normal LV function with EF 65-70%, normal right ventricular cavity size and function, no valvular pathology, normal IVC, and RVSP 19 mm. The patient was admitted to medicine and treated with Decadron. He was given 3 days of remdesivir. Despite that, his oxygenation deteriorated, and he was transferred to the ICU on December 27 and intubated. He spiked a temperature and was started on empiric cefepime and doxycycline. He underwent bronchoscopy, which showed 2+ polys and 1+ Gram-positive cocci, which grew out less than 10,000 CFU Staph aureus. Cefepime was d/c?d, he was given a full course of doxy. Bedside echo done December [address] Jimenez showed mild right ventricular dilatation. Since then, FiO2 has ranged from 60-100%. Last week, it was at 100% continuously, this week, we?ve gotten as low as 85% on some days. On January 01, he developed new SQ air, with no PTX. We reduced his insp pressure, tidal vol, and PEEP. The patient was given two doses of ivermectin on January 01 and . Because of the failure to awaken and become interactive during propofol holidays, we attempted sending him to a head CT on January 04. However on arrival in CT, his oxygenation became unstable and the scan had to be aborted. He was taken back to the ICU where chest x-ray showed no pneumothorax. He was still severely hypoxemic however, and required proning. His FiO2 was able to be reduced for a short period of time, and reasonable oxygenation allowed turning him back supine the next day. However his pCO2 has been risen persistently since then. I spoke with the granddaughter Carmita after the episode on January 04 and indicated to her that survival was very unlikely, and I quoted a 1% chance of survival to her. She was very realisitic. AZEB Bauer subsequently spoke to the patient?s and family that night, and as of that night, the family had been thinking of comfort measures. However, they subsequently decided to continue with full support. Since then, no headway has been made in terms of his oxygenation or ventilation. He?s developed pneumomediastinum in addition to the SQ emphysema. Still no PTX. Last week, he developed significant hematuria and bleeding from his mouth, so his aspirin and Lovenox were held. The ASA was restarted on 01/12, and once daily Lovenox the next day. He?s had no recurrent bleeding. His pCO2 hit a high of 112 on 01/13. For about the last two weeks, he?s had a persistently recurring cuff leak. Got so bad yesterday that we had to change his ETT to an 8.5 ETT, which seems to have solved the problem. Currently he?s on propofol 50ug and fentanyl 200 ug, and requiring boluses of 200ug Fentanyl for nursing maneuvers. When we back off on the propofol, his RR goes up and he becomes dysynchronous. Seroquel was dc?d last week. He?s well sedated. HR 98 on esmolol 20ug, BP 113/65 on Levophed 0.25ug. He?s also on Lasix drip at 5mg/hr. On PC f30, 11/09, I:E 1:1.5, 100%, RR is 30, Vt 450cc, Ve 13.5L, PIP 37, ETCO2 31, SpO2 88-92%. CVBG this morning showed 7.41/82/+24. His Diamox is at 250 qid. He?s been febrile almost continuously since January 05, up to 104?. Tmax today 101.3?. PER about 3-4mm. No JVD at 30 degrees. Chest is CTA with low pitched BS. Normal expiratory phase. Abdomen is soft. He has 1+ anasarca, less than when the Lasix drip was started on 01/13. Neuro exam is nonfocal/non interactive. U/O averaging > 200cc/hr. LABORATORY DATA: Below. Notably, WBC is rock steady at 21. BUN/creatinine steady at 15/0.5, K 3.3 MICROBIOLOGY: Blood, sputum and urine cultures drawn 01/12 negative. IMAGING: Last CXR was done yesterday, showed severe diffuse bilateral disease, subcutaneous air, and pneumomediastinum. No pneumothorax. IMPRESSION: 1. Underlying mixed connective tissue disease, on above meds at home. Methotrexate was stopped on admission. His monoclonal ab is stopped. Continuing his hydroxychloroquine. 2. Underlying antiphospholipid syndrome. On ASA. 3. Bilat COVID-19 pneumonia. He?s now on Solumedrol 40 mg daily. Had two doses of ivermectin without any apparent benefit. 4. Acute respiratory failure. Secondary to above. With rising pCO2, prognosis is grave. Given the low renal indices, we?ll continue the Lasix drip. He?s definitely dryer, but it hasn?t made a difference in his oxygenation or ventilation indices. 5. Anticoagulation/DVT prophylaxis: Currently on ASA and Lovenox 40mg daily. 6. Hyperglycemia. On insulin SS SQ. 7. ID: Febrile with leukocytosis. Had a 7-day course of doxycycline. The doxy had no effect on anything (fever or WBC). Recultured 01/12, all negative. The A-line was pulled 01/14. By definition, he has viral sepsis. Plan to reculture tomorrow if still febrile. 8. Nutrition: Full dose tube feeds. 9. Neuropsych: We can?t tell what?s going on, and hasn?t been stable enough to go for CT. 10. Metabolic: Replete K+. Continuing Diamox. Prognosis is very grave. I see no avenue to survival. On 01/14 I had a long talk here with his son Valente, with his other son Dru conferenced in by telephone. From what they told me, it seems to me that they had been getting equivocal messages that their father was making some progress. I made it very clear to them that that was not the case, and that the progressive hypercarbia was a clear and definite sign that he was not going to survive. I made it absolutely clear to them that this was going to be fatal. They indicated to me that they would all talk further last night and get back to us the next day. So far have not heard further. I will have AZEB Bauer call them tonight. Critical care time: 50 min. Physical Exam Vital Signs: Vital Signs: Last Vital Signs Temp 100.6 F H 01/16/21 12:00 Pulse 104 H 01/16/21 12:17 Resp 30 H 01/16/21 12:17 BP 119/68 01/16/21 12:17 Pulse Ox 88 L 01/16/21 12:17 Oxygen Flow Rate 15 12/23/20 19:00 Body Mass Index 30.2 Objective Data Labs CBC & Chem 7: 01/16/21 05:10 01/16/21 05:10 Labs: Laboratory Results - last 24 hr 01/15/21 01/15/21 01/16/21 18:19 23:54 05:10 WBC 21.6 H RBC 2.93 L Hgb 8.3 L Hct 28.9 L MCV 98.6 H MCH 28.3 MCHC 28.7 L RDW 19.1 H Plt Count 234 MPV 12.0 Immature Gran % (Auto) Cancelled Neut % (Auto) Cancelled Lymph % (Auto) Cancelled [place] % (Auto) Cancelled Eos % (Auto) Cancelled Baso % (Auto) Cancelled Lymph # (Auto) Cancelled [place] # (Auto) Cancelled Eos # (Auto) Cancelled Baso # (Auto) Cancelled Abs Immat Gran (auto) Cancelled Absolute Neuts (auto) Cancelled Absolute Nucleated RBC 1.720 H Nucleated RBC % (auto) 8.0 H Neutrophils % (Manual) 77 H Band Neutrophils % 8 H Lymphocytes % (Manual) 10 L Monocytes % (Manual) 2 Eosinophils % (Manual) 3 Abs Neuts (Manual) 18.4 H Lymphocytes # (Manual) 2.2 Monocytes # (Manual) 0.4 Eosinophils # (Manual) 0.6 Nucleated RBCs 8 H Platelet Estimate NORMAL Large Platelets PRESENT Plt Morphology Comment NORMAL RBC Morphology NOTED Polychromasia 2+ (3-5) Hypochromasia 1+ (5-14) Basophilic Stippling 1+ (0-2) Macrocytosis 1+ (5-14) Target Cells 1+ (5-14) Ovalocytes 1+ (5-14) [place] Bodies PRESENT VBG pH VBG pCO2 VBG pO2 VBG HCO3 VBG O2 Saturation VBG Base Excess Sodium Potassium Chloride Carbon Dioxide Anion Gap BUN Creatinine Estim Creat Clear Calc Estimated GFR POC Glucose 245 H 189 H Random Glucose Calcium Total Bilirubin AST ALT Alkaline Phosphatase Total Protein Albumin 01/16/21 01/16/21 01/16/21 05:10 05:10 05:16 WBC RBC Hgb Hct MCV MCH MCHC RDW Plt Count MPV Immature Gran % (Auto) Neut % (Auto) Lymph % (Auto) [place] % (Auto) Eos % (Auto) Baso % (Auto) Lymph # (Auto) [place] # (Auto) Eos # (Auto) Baso # (Auto) Abs Immat Gran (auto) Absolute Neuts (auto) Absolute Nucleated RBC Nucleated RBC % (auto) Neutrophils % (Manual) Band Neutrophils % Lymphocytes % (Manual) Monocytes % (Manual) Eosinophils % (Manual) Abs Neuts (Manual) Lymphocytes # (Manual) Monocytes # (Manual) Eosinophils # (Manual) Nucleated RBCs Platelet Estimate Large Platelets Plt Morphology Comment RBC Morphology Polychromasia Hypochromasia Basophilic Stippling Macrocytosis Target Cells Ovalocytes [place] Bodies VBG pH 7.41 VBG pCO2 82 VBG pO2 42 VBG HCO3 53 H VBG O2 Saturation 71.0 VBG Base Excess 24.5 Sodium 140 Potassium 3.3 Chloride 90 L Carbon Dioxide 40 H* Anion Gap 13 BUN 15 Creatinine 0.51 Estim Creat Clear Calc 149.5 Estimated GFR > 60 POC Glucose 215 H Random Glucose 228 H Calcium 7.7 L Total Bilirubin 0.6 AST 39 H ALT 39 Alkaline Phosphatase 51 Total Protein 5.6 L Albumin 3.0 L 01/16/21 12:11 WBC RBC Hgb Hct MCV MCH MCHC RDW Plt Count MPV Immature Gran % (Auto) Neut % (Auto) Lymph % (Auto) [place] % (Auto) Eos % (Auto) Baso % (Auto) Lymph # (Auto) [place] # (Auto) Eos # (Auto) Baso # (Auto) Abs Immat Gran (auto) Absolute Neuts (auto) Absolute Nucleated RBC Nucleated RBC % (auto) Neutrophils % (Manual) Band Neutrophils % Lymphocytes % (Manual) Monocytes % (Manual) Eosinophils % (Manual) Abs Neuts (Manual) Lymphocytes # (Manual) Monocytes # (Manual) Eosinophils # (Manual) Nucleated RBCs Platelet Estimate Large Platelets Plt Morphology Comment RBC Morphology Polychromasia Hypochromasia Basophilic Stippling Macrocytosis Target Cells Ovalocytes [place] Bodies VBG pH VBG pCO2 VBG pO2 VBG HCO3 VBG O2 Saturation VBG Base Excess Sodium Potassium Chloride Carbon Dioxide Anion Gap BUN Creatinine Estim Creat Clear Calc Estimated GFR POC Glucose 285 H Random Glucose Calcium Total Bilirubin AST ALT Alkaline Phosphatase Total Protein Albumin Microbiology Microbiology Results: Microbiology 01/12/21 18:25 Blood - Venous Blood Culture - Preliminary No growth after 48 hours. 01/12/21 18:25 Blood - Venous Blood Culture - Preliminary No growth after 48 hours. 01/12/21 18:40 Urine [place] Urine Culture - Final No growth. 01/12/21 18:40 Sputum - Suctioned Gram Stain - Final 01/12/21 18:40 Sputum - Suctioned Sputum Culture - Final 12/27/20 15:58 Bronch, Not Specified Fungal Identification - Preliminary No growth after 2 weeks. 01/05/21 09:05 Blood - Venous Blood Culture - Final No growth after 5 days. 01/05/21 09:05 Blood - Venous Blood Culture - Final No growth after 5 days. 01/05/21 08:50 Sputum - Suctioned Gram Stain - Final 01/05/21 08:50 Sputum - Suctioned Sputum Culture - Final 12/30/20 20:45 Blood - Venous Blood Culture - Final No growth after 5 days. 12/30/20 20:43 Blood - Venous Blood Culture - Final No growth after 5 days. 12/30/20 21:30 Urine [place] Urine Culture - Final No growth. 12/27/20 15:57 Bronch, Not Specified Direct Acid Fast Bacilli Smear - Final 12/27/20 15:58 Bronch, Not Specified Gram Stain - Final 12/27/20 15:58 Bronch, Not Specified - Final Staphylococcus aureus 12/23/20 20:10 Blood - Venous Blood Culture - Final No growth after 5 days. 12/23/20 19:46 Blood - Venous Blood Culture - Final No growth after 5 days. Critical Care Time Critical Care Time (minutes): 60
[2021-01-16] MEDS: Potassium Chloride/H20 40 MEQ/100 ML PIGGYBACK 50 MEQ IV ×2 (13:42→17:00)
[2021-01-16] MEDS: Esmolol HCl/NaCl Iso 2,500 MG/250 ML IV.SOLN 10.2 MG IVCONT (16:32)
[2021-01-16 17:52] LABS: Glucose, Whole Blood 213 mg/dL (60-115)
[2021-01-16] MEDS: Furosemide 500 MG in Container,Empty 0 ML IVCONT (18:21)
[2021-01-16 22:51] LABS: Glucose, Whole Blood 167 mg/dL (60-115)
[2021-01-17] VITALS (36 sets, daily range): BP systolic 90–147; BP diastolic 53–77; PULSE 82–120; RESP 29–32; TEMP 37.5–39; O2SAT 85–96
[2021-01-17] MEDS: propofoL 1,000 MG/100 ML VIAL 25.5 MG IVCONT ×7 (00:35→21:34)
[2021-01-17] MEDS: fentaNYL citrate/NS 1,000 MCG/100 ML PLAST..BAG 20 MCG IVCONT ×5 (03:00→21:34)
[2021-01-17] MEDS: acetaZOLAMIDE sodium 500 MG VIAL 250 MG IVPUSH ×4 (04:13→20:09)
[2021-01-17 05:20] LABS: VBG Base Excess 23.2 mmol/L; VBG HCO3 50 mmol/L (22-26); VBG pCO2 73 mmHg; VBG pH 7.44 (7.32-7.43); VBG pO2 47 mmHg
[2021-01-17 05:43] LABS: Hematocrit 26.3 % (42-52); Hemoglobin 7.6 g/dl (14.0-18.0); Mean Corpuscular HGB Conc 28.9 g/dl (31.0-36.0); Mean Corpuscular Hemoglobin 28.9 pg (27.0-33.0); Mean Platelet Volume 11.9 fL (9.4-12.4); NRBC Pct Auto 13.1 /100WBC (0.0-0.2); Platelet Count 225 X10*3/uL (160-400); Red Blood Count 2.63 X10*6/uL (4.60-5.80); Red Cell Distribution Width 19.4 % (11.0-16.0); WBC ABN SCTR FOR CBC 1
[2021-01-17 05:44] LABS: White Blood Count 20.4 X10*3/uL (4.8-10.8)
[2021-01-17 05:50] LABS: Venous Blood Gas Refer to POC result
[2021-01-17 06:04] LABS: Band Neutrophils Percent 7 % (3-5); Eosinophils Absolute Manual 1.8 X10*3/UL (0.0-0.8); Eosinophils Percent Manual 9 % (0-4); Lymphocytes Absolute Manual 1.4 X10*3/uL (0.6-4.8); Lymphocytes Percent Manual 7 % (20-40); Metamyelocytes Absolute 0.6 X10*3/uL; Metamyelocytes Percent 3 %; Monocytes Absolute Manual 0.2 X10*3/uL (0.0-1.2); Monocytes Percent Manual 1 % (2-11); Myelocytes Absolute 0.2 X10*/uL; Myelocytes Percent 1 %; Neutrophils Absolute Manual 16.1 X10*3/uL (2.2-7.9); Neutrophils Percent Manual 72 % (45-73); Nucleated Red Blood Cells 18 /100WBC (0-0)
[2021-01-17 06:06] LABS: Howell Jolly Bodies PRESENT; Hypochromasia 1+ (5-14) /OIF; Large Platelet PRESENT; Macrocytosis 1+ (5-14) /OIF; Microcytosis 1+ (5-14) /OIF; Platelet Estimate NORMAL (NORMAL); Platelet Morphology Comment NORMAL; Polychromasia 2+ (3-5) /OIF; RBC Morphology NORMAL; Schistocytes 1+ (0-2) /OIF; Target Cells 1+ (5-14) /OIF
[2021-01-17 06:09] LABS: Alanine Aminotransferase 38 U/L (0-40); Albumin Level 2.9 g/dL (3.5-5.0); Alkaline Phosphatase 49 U/L (39-117); Anion Gap 12 (12-20); Aspartate Amino Transferase 40 U/L (5-37); Bilirubin Total 0.8 mg/dL (0.0-1.0); Blood Urea Nitrogen 14 mg/dL (9-16); Calcium 7.7 mg/dL (8.4-10.2); Carbon Dioxide 39 mmol/L (22-29); Chloride 92 mmol/L (96-108); Creatinine Clr Calc Pharmacy 162.3; Estimated Glomerular Filt Rate > 60; Glucose Random 181 mg/dL (60-115); Phosphorus 2.9 mg/dL (2.7-4.5); Potassium 3.2 mmol/L (3.3-5.1); Sodium 140 mmol/L (135-145); Total Protein 5.3 g/dL (6.5-8.0)
[2021-01-17] MEDS: Insulin Lispro 100 UNIT/ML 3 ML VIAL SUBCUT ×3 (06:27→17:56)
[2021-01-17] MEDS: Chlorhexidine Gluc Oral Rinse 15 ML MOUTHWASH BUCCAL ×3 (07:36→20:09)
[2021-01-17] MEDS: Hydroxychloroquine Sulfate 200 MG TABLET PO ×2 (07:36→20:10)
[2021-01-17] MEDS: methylPREDNISolone Sod Succ 125 MG/2 ML VIAL 40 MG IVPUSH (07:36)
[2021-01-17] MEDS: Aspirin 81 MG TAB.CHEW G-TUBE (07:36)
[2021-01-17] MEDS: Famotidine/PF 20 MG/2 ML VIAL IVPUSH (07:36)
[2021-01-17] MEDS: Bacitracin Oint 14 GM TUBE 1 APPL TOPICAL ×3 (07:37→21:34)
[2021-01-17] MEDS: fentaNYL citrate/PF 100 MCG/2 ML VIAL IVPUSH ×4 (09:30→15:24)
[2021-01-17] MEDS: Potassium Chloride Packet 20 MEQ PACKET 40 MEQ PO ×2 (10:43→13:18)
[2021-01-17] MEDS: HYDROmorphone HCl 2 MG/ML VIAL IVPUSH (11:30)
[2021-01-17 11:51] LABS: Glucose, Whole Blood 259 mg/dL (60-115)
[2021-01-17] MEDS: Acetaminophen 325 MG TABLET 650 MG G-TUBE ×2 (13:19→19:20)
[2021-01-17] MEDS: Esmolol HCl/NaCl Iso 2,500 MG/250 ML IV.SOLN 10.2 MG IVCONT (14:07)
--- NOTE | 2021-01-17 14:37 | P.PNCC_ITS ---
Subjective Subjective Date of Service: 01/17/21 Interval History: Mr. Lombardo was transferred to ICU on December 27 with acute respiratory failure 2? COVID pneumonia. This is a 65-year-old male with extensive past medical history that includes mixed connective tissue disease and antiphospholipid syndrome, on hydroxychloroquine, methotrexate, Sarilumab (IL6 inhibitor) and Aspirin at home. The patient is status post splenectomy. On December 23 presented to the hospital with shortness of breath and cough for the prior 1 week. Had contact with COVID patient. Sat was 70% on room air by EMS. On arrival to the ED was placed on high-flow, sat?ing 90-95%. COVID-19 positive. Renal indices normal. CT showed multifocal extensive ground-glass infiltrates consistent with COVID. CT angio showed no evidence of PE. On my reading, I thought the RV was slightly enlarged. Transthoracic echo done one week prior to admission was read as showing normal LV function with EF 65-70%, normal right ventricular cavity size and function, no valvular pathology, normal IVC, and RVSP 19 mm. The patient was admitted to medicine and treated with Decadron. He was given 3 days of remdesivir. Despite that, his oxygenation deteriorated, and he was transferred to the ICU on December 27 and intubated. He spiked a temperature and was started on empiric cefepime and doxycycline. He underwent bronchoscopy, which showed 2+ polys and 1+ Gram-positive cocci, which grew out less than 10,000 CFU Staph aureus. Cefepime was d/c?d, he was given a full course of doxy. Bedside echo December 28 showed mild right ventricular dilatation. Since then, FiO2 on the ventilator has ranged from 60-100%. Last week, it was at 100% continuously, this week, we?ve gotten as low as 85% on some days. On January 01, he developed new SQ air, with no PTX. We reduced his insp pressure, tidal vol, and PEEP. The patient was given two doses of ivermectin on January 01 and , with no apparent benefit. Because of the failure to awaken and become interactive during propofol holidays, we attempted sending him to a head CT on January 04. However on arrival in CT, his oxygenation became unstable and the scan had to be aborted. He was taken back to the ICU where chest x-ray showed no pneumothorax. He was s till severely hypoxemic however, and required proning. Reasonable oxygenation allowed turning him back supine the next day. However his pCO2 has been risen persistently since then, and we?ve made no headway in terms of his oxygenation or ventilation. He?s developed pneumomediastinum in addition to the SQ emphysema. Still no PTX. Last week, he developed significant hematuria and bleeding from his mouth, so his aspirin and Lovenox were held for a few days. The ASA was restarted on 01/12, and once-daily Lovenox the next day. He?s had no recurrent bleeding. His pCO2 hit a high of 112 on 01/13. For about the last two weeks, he had a recurring cuff leak. He was reintubated for the second time on 01/15, this time with an 8.5 ETT, which seems to have solved the problem. Currently he?s on propofol 50ug and fentanyl 200 ug, and requiring boluses of 200ug Fentanyl for nursing maneuvers, sometimes requiring an additional 2mg Dilaudid. When we back off on the propofol, his RR goes up and he becomes dysynchronous. He?s now well sedated after a 2 mg bolus of Dilaudid, and Sat has risen to 94%, while earlier today it was hovering in the mid-80s. He?s on PC f30, 11/09, I:E 1:1.5, 100%. RR is 30, Vt 450cc, Ve 13.8L, PIP 37, ETCO2 34. CVBG this morning showed 7.44/73/+23. His Diamox is at 250 qid. HR 93, BP 101/55, on Levophed 0.25ug, esmolol 20ug, and Lasix 5mg/hr, He?s been febrile almost continuously since January 05, up to 104?. Tmax today 102.2?. PER about 3mm. No JVD at 30 degrees. Normal expiratory phase. Abdomen is soft. He has 1+ anasarca, less than when the Lasix drip was started on 01/13. Neuro exam is nonfocal/non interactive. U/O averaging about 200cc/hr. LABORATORY DATA: Below. Notably, WBC is rock steady at 20. BUN/creatinine steady at 14/0.5, K 3.2. MICROBIOLOGY: Blood, sputum and urine cultures drawn 01/12 negative. IMAGING: Last CXR was done 01/15, showed severe diffuse bilateral disease, subcutaneous air, and pneumomediastinum. No pneumothorax. IMPRESSION: 1. Underlying mixed connective tissue disease, on above meds at home. Methotr exate was stopped on admission. His monoclonal ab is stopped. Continuing his hydroxychloroquine. 2. Underlying antiphospholipid syndrome. On ASA. 3. Bilat COVID-19 pneumonia. He?s now on Solumedrol 40 mg daily. Had two doses of ivermectin without any apparent benefit. 4. Acute respiratory failure. Secondary to above. With rising pCO2, prognosis is grave. Given the low renal indices, we?ll continue the Lasix drip. He?s definitely dryer, but it hasn?t made a difference in his oxygenation or ventilation indices. 5. Anticoagulation/DVT prophylaxis: Currently on ASA and Lovenox 40mg daily. 6. Hyperglycemia. On insulin SS SQ. 7. ID: Febrile with leukocytosis. Had a 7-day course of doxycycline. The doxy had no effect on anything (fever or WBC). Recultured 01/12, all negative. The A -line was pulled 01/14. By definition, he has viral sepsis. I?ll reculture today, give him 48 hrs empiric vanco and Zosyn to see if it makes any difference. 8. Nutrition: Full dose tube feeds. 9. Neuropsych: We can?t tell what?s going on, and hasn?t been stable enough to go for CT. 10. Metabolic: Replete K+. Continuing Diamox. Prognosis is very grave. I see no avenue to survival. I spoke with the granddaughter Carmita after the episode on January 04 and indicated to her that survival was very unlikely, and I quoted a 1% chance of survival to her. She was very realisitic. AZEB Bauer subsequently spoke to the patient?s and family that night, and as of that night, the family had been thinking of comfort measures. However, they subsequently decided to continue with full support. On 01/14 I had a long talk here with his son Valente, with his other son Dru conferenced in by telephone. From what they told me, it seems to me that they had been getting equivocal messages that their father was making some progress. I made it very clear to them that that was not the case, and that the progressive hypercarbia was a clear and definite sign that he was not going to survive. I made it absolutely clear to them that this was going to be fatal. They indicated to me that they would all talk further. AZEB Bauer spoke to them last night at length, they indicated that the patient?s is hesitant to transition to comfort measures status. He will speak with family again tonight. Critical care time: 50 min. Physical Exam Vital Signs: Vital Signs: Last Vital Signs Temp 102 F H 01/17/21 14:26 Pulse 92 01/17/21 14:25 Resp 30 H 01/17/21 14:25 BP 113/62 01/17/21 14:25 Pulse Ox 94 01/17/21 14:00 Oxygen Flow Rate 15 12/23/20 19:00 Body Mass Index 30.2 Objective Data Labs CBC & Chem 7: 01/17/21 05:12 01/17/21 05:12 Labs: Laboratory Results - last 24 hr 01/16/21 01/16/21 01/17/21 17:49 22:34 05:12 WBC 20.4 H RBC 2.63 L Hgb 7.6 L Hct 26.3 L MCV 100.0 H MCH 28.9 MCHC 28.9 L RDW 19.4 H Plt Count 225 MPV 11.9 Immature Gran % (Auto) Cancelled Neut % (Auto) Cancelled Lymph % (Auto) Cancelled [place] % (Auto) Cancelled Eos % (Auto) Cancelled Baso % (Auto) Cancelled Lymph # (Auto) Cancelled [place] # (Auto) Cancelled Eos # (Auto) Cancelled Baso # (Auto) Cancelled Abs Immat Gran (auto) Cancelled Absolute Neuts (auto) Cancelled Absolute Nucleated RBC 2.670 H Nucleated RBC % (auto) 13.1 H Neutrophils % (Manual) 72 Band Neutrophils % 7 H Lymphocytes % (Manual) 7 L Monocytes % (Manual) 1 L Eosinophils % (Manual) 9 H Metamyelocytes % 3 Myelocytes % 1 Abs Neuts (Manual) 16.1 H Lymphocytes # (Manual) 1.4 Monocytes # (Manual) 0.2 Eosinophils # (Manual) 1.8 H Metamyelocytes # 0.6 Myelocytes # 0.2 Nucleated RBCs 18 H Platelet Estimate NORMAL Large Platelets PRESENT Plt Morphology Comment NORMAL RBC Morphology NORMAL Polychromasia 2+ (3-5) Hypochromasia 1+ (5-14) Microcytosis 1+ (5-14) Macrocytosis 1+ (5-14) Target Cells 1+ (5-14) [place] Bodies PRESENT Schistocytes 1+ (0-2) VBG pH VBG pCO2 VBG pO2 VBG HCO3 VBG O2 Saturation VBG Base Excess Sodium Potassium Chloride Carbon Dioxide Anion Gap BUN Creatinine Estim Creat Clear Calc Estimated GFR POC Glucose 213 H 167 H Random Glucose Calcium Phosphorus Magnesium Total Bilirubin AST ALT Alkaline Phosphatase Total Protein Albumin 01/17/21 01/17/21 01/17/21 05:12 05:14 11:38 WBC RBC Hgb Hct MCV MCH MCHC RDW Plt Count MPV Immature Gran % (Auto) Neut % (Auto) Lymph % (Auto) [place] % (Auto) Eos % (Auto) Baso % (Auto) Lymph # (Auto) [place] # (Auto) Eos # (Auto) Baso # (Auto) Abs Immat Gran (auto) Absolute Neuts (auto) Absolute Nucleated RBC Nucleated RBC % (auto) Neutrophils % (Manual) Band Neutrophils % Lymphocytes % (Manual) Monocytes % (Manual) Eosinophils % (Manual) Metamyelocytes % Myelocytes % Abs Neuts (Manual) Lymphocytes # (Manual) Monocytes # (Manual) Eosinophils # (Manual) Metamyelocytes # Myelocytes # Nucleated RBCs Platelet Estimate Large Platelets Plt Morphology Comment RBC Morphology Polychromasia Hypochromasia Microcytosis Macrocytosis Target Cells [place] Bodies Schistocytes VBG pH 7.44 H VBG pCO2 73 VBG pO2 47 VBG HCO3 50 H VBG O2 Saturation 80.0 VBG Base Excess 23.2 Sodium 140 Potassium 3.2 L Chloride 92 L Carbon Dioxide 39 H Anion Gap 12 BUN 14 Creatinine 0.47 L Estim Creat Clear Calc 162.3 Estimated GFR > 60 POC Glucose 259 H Random Glucose 181 H Calcium 7.7 L Phosphorus 2.9 Magnesium 2.0 Total Bilirubin 0.8 AST 40 H ALT 38 Alkaline Phosphatase 49 Total Protein 5.3 L Albumin 2.9 L Microbiology Microbiology Results: Microbiology 01/12/21 18:25 Blood - Venous Blood Culture - Preliminary No growth after 48 hours. 01/12/21 18:25 Blood - Venous Blood Culture - Preliminary No growth after 48 hours. 01/12/21 18:40 Urine [place] Urine Culture - Final No growth. 01/12/21 18:40 Sputum - Suctioned Gram Stain - Final 01/12/21 18:40 Sputum - Suctioned Sputum Culture - Final 12/27/20 15:58 Bronch, Not Specified Fungal Identification - Preliminary No growth after 2 weeks. 01/05/21 09:05 Blood - Venous Blood Culture - Final No growth after 5 days. 01/05/21 09:05 Blood - Venous Blood Culture - Final No growth after 5 days. 01/05/21 08:50 Sputum - Suctioned Gram Stain - Final 01/05/21 08:50 Sputum - Suctioned Sputum Culture - Final 12/30/20 20:45 Blood - Venous Blood Culture - Final No growth after 5 days. 12/30/20 20:43 Blood - Venous Blood Culture - Final No growth after 5 days. 12/30/20 21:30 Urine [place] Urine Culture - Final No growth. 12/27/20 15:57 Bronch, Not Specified Direct Acid Fast Bacilli Smear - Final 12/27/20 15:58 Bronch, Not Specified Gram Stain - Final 12/27/20 15:58 Bronch, Not Specified - Final Staphylococcus aureus 12/23/20 20:10 Blood - Venous Blood Culture - Final No growth after 5 days. 12/23/20 19:46 Blood - Venous Blood Culture - Final No growth after 5 days. Critical Care Time Critical Care Time (minutes): 60
--- NOTE | 2021-01-17 14:37 | PC.NURSE ---
Addendum entered by Diego Reed RN 01/17/21 16:23: Blood, sputum, U/A+cultures all obtained, vanco 1.25g and Zosyn 4.5G infusing. Original Note: Pt intubated sedated, on prop 50mcg/kg/min, fentanyl 200mcg/hr, lasix 5mg/hr, esmolol 20mcg/kg/min, levophed 0.25mcg/kg/min. Urine output this shift 1,815ml, anasarca with 2+ pitting bilat hands, replaced 80mEq K+ via keofeed. Fentanyl 100mcg given x3 this shift for guppy breathing, some effect. Ultimately required 2mg IVP dilaudid for guppy breathing that decreased SaO2 to 80%, after medication and turn repo SaO2 96%. Keofeed promote 40ml/hr no residuals. 650mg tylenol given for T 102.2, trending down to 102. Pupils PERRLA 3mm, sluggish. Extremities flaccid. No cough/gag. Stage 2 x2 coccyx, barrier cream applied, stage 2 meatus booth cath, left lower lip DTI, bleeding small amt, turn /repo q2h, paying close attention to head position to prevent cuff leak. Bed locked and in lowest position.
[2021-01-17] MEDS: vancomycin HCL 1,250 MG in 0.9 % Sodium Chloride 250 ML 166.67 MG IV (15:24)
[2021-01-17] MEDS: Piperacillin Sodium/Tazobactam 4.5 GM in 0.9 % Sodium Chloride 100 ML IV ×2 (15:25→21:35)
[2021-01-17 15:54] LABS: Lactic Acid 2.6 mmol/L (0.5-2.0)
[2021-01-17] MEDS: Furosemide 500 MG in Container,Empty 0 ML IVCONT (16:55)
[2021-01-17 17:26] LABS: Reflex Lactate? Lactic Acid Added
[2021-01-17 18:02] LABS: Glucose, Whole Blood 230 mg/dL (60-115)
[2021-01-17 19:16] LABS: Glucose Urine UA NEG (NEG); Leukocyte Esterase Urine NEG (NEG); Nitrite Urine NEG (NEG); Specific Gravity - Urine 1.015 (1.005-1.025); Urine Blood 1+ (NEG); Urine Ketones NEG (NEG); Urine Protein NEG (NEG-TRACE)
[2021-01-17 19:18] LABS: Appearance Urine CLEAR; Color Urine YELLOW
[2021-01-17 19:33] LABS: Squamous Epithelial Cell Urine TRACE /LPF; WBC Urine 0-2 /HPF (0-4)
[2021-01-17] MEDS: Sodium,Potassium Phosphates POWD.PACK 2 PACKET PO (20:09)
[2021-01-17 21:22] LABS: Cancel Lactic Acid Canceled
[2021-01-18] VITALS (35 sets, daily range): BP systolic 88–170; BP diastolic 51–97; PULSE 62–122; RESP 14–33; TEMP 36.8–38.4; O2SAT 86–97
[2021-01-18] MEDS: Insulin Lispro 100 UNIT/ML 3 ML VIAL SUBCUT ×4 (00:16→18:27)
[2021-01-18 00:26] LABS: Glucose, Whole Blood 217 mg/dL (60-115)
[2021-01-18] MEDS: fentaNYL citrate/NS 1,000 MCG/100 ML PLAST..BAG 20 MCG IVCONT ×5 (02:12→21:26)
[2021-01-18] MEDS: propofoL 1,000 MG/100 ML VIAL 25.5 MG IVCONT ×6 (02:12→20:05)
[2021-01-18] MEDS: acetaZOLAMIDE sodium 500 MG VIAL 250 MG IVPUSH ×4 (03:33→20:05)
[2021-01-18] MEDS: Piperacillin Sodium/Tazobactam 4.5 GM in 0.9 % Sodium Chloride 100 ML IV ×4 (03:38→22:12)
[2021-01-18] MEDS: vancomycin HCL 1,250 MG in 0.9 % Sodium Chloride 250 ML 166.67 MG IV ×2 (04:16→15:29)
[2021-01-18 05:31] LABS: VBG Base Excess 22.2 mmol/L; VBG HCO3 51 mmol/L (22-26); VBG pCO2 88 mmHg; VBG pH 7.37 (7.32-7.43); VBG pO2 51 mmHg
[2021-01-18 05:34] LABS: Venous Blood Gas Refer to POC result
[2021-01-18 05:44] LABS: Hematocrit 26.3 % (42-52); Hemoglobin 7.5 g/dl (14.0-18.0); Mean Corpuscular HGB Conc 28.5 g/dl (31.0-36.0); Mean Corpuscular Hemoglobin 28.7 pg (27.0-33.0); Mean Corpuscular Volume 100.8 fL (80-98); Mean Platelet Volume 11.6 fL (9.4-12.4); Platelet Count 258 X10*3/uL (160-400); Red Blood Count 2.61 X10*6/uL (4.60-5.80); Red Cell Distribution Width 19.8 % (11.0-16.0)
[2021-01-18 05:46] LABS: NRBC Pct Auto 10.9 /100WBC (0.0-0.2); WBC ABN SCTR FOR CBC 1; White Blood Count 19.8 X10*3/uL (4.8-10.8)
--- NOTE | 2021-01-18 06:00 | PC.NURSE ---
pt is unresponsive to deep noxious stimulation. he has no eye opening. extremities are flaccid and no withdrawl response is elicited. cough and gag reflexes are absent. to note pt is receiving maximum dosages of propofol and fentanyl for ventilator synchrony. complexion pale. anasarca is well noted. 2 areas of stage II break down are noted on coccyx. transorally intubated and mechanically ventilated under pressure control ventilation of 24 rr 30 fio2 90% peep 12 cm. breath sounds coarse and diminished throughout. in-line suctioning does not reveal any phelgm. pt was initially febrile. he was give ice cold gastric lavage and ice packs placed in groin and axilla. tylenol 650 mg given via ogt. ecg displays sr-st. levophed infusion has been necessary to achieve b/p guidelines. esmolol infusion titrated to 30mcg/kg/min to keep hr <100 bpm. lasix drip at 5mg/hr. abdomen large/round/semisoft. tolerating tube feedings of promote at 40ml/hr. booth catheter patent and draining hazy yellow urine u/o 100-200 ml/hr.
[2021-01-18 06:04] LABS: Band Neutrophils Percent 4 % (3-5); Basophils Abs Manual 0.2 X10*3/uL (0.0-0.3); Basophils Percent Manual 1 % (0-1); Eosinophils Absolute Manual 2.2 X10*3/UL (0.0-0.8); Eosinophils Percent Manual 11 % (0-4); Lymphocytes Absolute Manual 3.2 X10*3/uL (0.6-4.8); Lymphocytes Percent Manual 16 % (20-40); Macrocytosis 1+ (5-14) /OIF; Metamyelocytes Absolute 0.2 X10*3/uL; Metamyelocytes Percent 1 %; Monocytes Absolute Manual 0.2 X10*3/uL (0.0-1.2); Monocytes Percent Manual 1 % (2-11); Myelocytes Absolute 0.2 X10*/uL; Myelocytes Percent 1 %; Neutrophils Absolute Manual 13.7 X10*3/uL (2.2-7.9); Neutrophils Percent Manual 65 % (45-73); Nucleated Red Blood Cells 10 /100WBC (0-0); RBC Morphology NOTED
[2021-01-18 06:05] LABS: Basophilic Stippling 1+ (0-2) /OIF; Howell Jolly Bodies PRESENT; Hypochromasia 1+ (5-14) /OIF; Microcytosis 1+ (5-14) /OIF; Ovalocytes 1+ (5-14) /OIF; Polychromasia 2+ (3-5) /OIF
[2021-01-18 06:07] LABS: Stomatocytes 1+ (5-14) /OIF
[2021-01-18 06:11] LABS: Anion Gap 9 (12-20); Blood Urea Nitrogen 14 mg/dL (9-16); C Reactive Protein 3.84 mg/dL (< or = 0.50); Calcium 7.8 mg/dL (8.4-10.2); Carbon Dioxide 42 mmol/L (22-29); Chloride 93 mmol/L (96-108); Creatinine Clr Calc Pharmacy 155.7; Estimated Glomerular Filt Rate > 60; Glucose Random 196 mg/dL (60-115); Large Platelet PRESENT; Magnesium 2.1 mg/dL (1.6-2.6); Phosphorus 3.4 mg/dL (2.7-4.5); Platelet Estimate NORMAL (NORMAL); Platelet Morphology Comment NORMAL; Schistocytes 1+ (0-2) /OIF; Sodium 141 mmol/L (135-145); Target Cells 1+ (5-14) /OIF
[2021-01-18 06:15] LABS: D Dimer 4623 NG/ML
[2021-01-18 06:24] LABS: Procalcitonin 0.24 ng/mL
[2021-01-18 06:31] LABS: Ferritin 426 ng/mL (20-250)
[2021-01-18] MEDS: Famotidine/PF 20 MG/2 ML VIAL IVPUSH (07:46)
[2021-01-18] MEDS: HYDROmorphone HCl 2 MG/ML VIAL IVPUSH ×4 (07:46→23:24)
[2021-01-18] MEDS: Lactulose 20 GM/30 ML SOLUTION OG-TUBE (07:46)
[2021-01-18] MEDS: Aspirin 81 MG TAB.CHEW G-TUBE (07:47)
[2021-01-18] MEDS: Esmolol HCl/NaCl Iso 2,500 MG/250 ML IV.SOLN 15.3 MG IVCONT (07:47)
[2021-01-18] MEDS: Chlorhexidine Gluc Oral Rinse 15 ML MOUTHWASH BUCCAL ×3 (07:47→20:05)
[2021-01-18] MEDS: Hydroxychloroquine Sulfate 200 MG TABLET PO ×2 (07:47→20:05)
[2021-01-18] MEDS: methylPREDNISolone Sod Succ 125 MG/2 ML VIAL 40 MG IVPUSH (07:47)
[2021-01-18] MEDS: Bacitracin Oint 14 GM TUBE 1 APPL TOPICAL ×3 (07:48→20:40)
[2021-01-18] MEDS: Potassium Chloride/H20 40 MEQ/100 ML PIGGYBACK 100 MEQ IV (10:09)
--- NOTE | 2021-01-18 10:46 | MHC.CM.PN ---
pt remains intubated, sedated on mech. vent in the icu. cm following for a dc plan.
[2021-01-18 11:38] LABS: Glucose, Whole Blood 265 mg/dL (60-115)
[2021-01-18] MEDS: Potassium Chloride/H20 40 MEQ/100 ML PIGGYBACK 50 MEQ IV ×2 (12:41→20:04)
[2021-01-18 18:04] LABS: Glucose, Whole Blood 218 mg/dL (60-115)
[2021-01-18] MEDS: Furosemide 500 MG in Container,Empty 0 ML IVCONT (18:26)
--- NOTE | 2021-01-18 19:26 | PM.CCPN ---
Subjective Subjective Date of Service: 01/18/21 Interval History: Mr. Lombardo was transferred to ICU on December 27 with acute respiratory failure 2? COVID pneumonia. This is a 65-year-old male with extensive past medical history that includes mixed connective tissue disease and antiphospholipid syndrome, on hydroxychloroquine, methotrexate, Sarilumab (IL6 inhibitor) and Aspirin at home. The patient is status post splenectomy. On December 23 presented to the hospital with shortness of breath and cough for the prior 1 week. Had contact with COVID patient. Sat was 70% on room air by EMS. On arrival to the ED was placed on high-flow, sat?ing 90-95%. COVID-19 positive. Renal indices normal. CT showed multifocal extensive ground-glass infiltrates consistent with COVID. CT angio showed no evidence of PE. On my reading, I thought the RV was slightly enlarged. Transthoracic echo done one week prior to admission was read as showing normal LV function with EF 65-70%, normal right ventricular cavity size and function, no valvular pathology, normal IVC, and RVSP 19 mm. The patient was admitted to medicine and treated with Decadron. He was given 3 days of remdesivir. Despite that, his oxygenation deteriorated, and he was transferred to the ICU on December 27 and intubated. He spiked a temperature and was started on empiric cefepime and doxycycline. He underwent bronchoscopy, which showed 2+ polys and 1+ Gram-positive cocci, which grew out less than 10,000 CFU Staph aureus. Cefepime was d/c?d, he was given a full course of doxy. Bedside echo December 28 showed mild right ventricular dilatation. Since then, FiO2 on the ventilator has ranged from 60-100%. Last week, it was at 100% continuously, this week, we?ve gotten as low as 85% on some days. On January 01, he developed new SQ air, with no PTX. We reduced his insp pressure, tidal vol, and PEEP. The patient was given two doses of ivermectin on January 01 and , with no apparent benefit. Because of the failure to awaken and become interactive during propofol holidays, we attempted sending him to a head CT on January 04. However on arrival in CT, his oxygenation became unstable and the scan had to be aborted. He was taken back to the ICU where chest x-ray showed no pneumothorax. He was still severely hypoxemic however, and required proning. Reasonable oxygenation allowed turning him back supine the next day. However his pCO2 has been risen persistently since then, and we?ve made no headway in terms of his oxygenation or ventilation. He?s developed pneumomediastinum in addition to the SQ emphysema. Still no PTX. Last week, he developed significant hematuria and bleeding from his mouth, so his aspirin and Lovenox were held for a few days. The ASA was restarted on 01/12, and once-daily Lovenox the next day. He?s had no recurrent bleeding. His pCO2 hit a high of 112 on 01/13. For about the last two weeks, he had a recurring cuff leak. He was reintubated for the second time on 01/15, this time with an 8.5 ETT, which seems to have solved the problem. Currently he?s on propofol 50ug and fentanyl 200 ug, and requiring boluses of 200ug Fentanyl for nursing maneuvers, sometimes requiring an additional 2mg Dilaudid -- which he got x 2 today. When we back off on the propofol, his RR and HR go up and he becomes dysynchronous. He?s now well sedated. He?s on PC f30, 11/09, I:E 1:1.5, 90%. RR is 30, Vt 440cc, Ve 13L, PIP 36, ETCO2 36, Sat 92%. CVBG this morning showed 7.37/88/+22 (he?s on Diamox 250mg qid). HR 92, BP 109/58, on Levophed 0.18ug, esmolol 25ug, and Lasix 8mg/hr, He?s been febrile almost continuously since January 05, up to 104?. I started him on empiric vanco and Zosyn yesterday. Tmax today is down to 100.8?. PER about 2-3mm. No JVD at 30 degrees. He has increased SQ air today. Normal expiratory phase. Abdomen is soft. He has 1+ anasarca, less than when the Lasix drip was started on 01/13. Neuro exam is nonfocal/non interactive. U/O averaging about 200cc/hr. LABORATORY DATA: Below. Notably, WBC is steady at 19.8. BUN/creatinine steady at 14/0.5, K 3.0. MICROBIOLOGY: Blood, sputum and urine cultures drawn 01/12 negative. Zuniga-cultured again yesterday, so far nothing positive. Sputum shows mixed kevin. IMAGING: CXR this morning shows increased subcutaneous emphysema, stable if not worse bilateral interstitial/airspace disease. No pneumothorax. IMPRESSION: 1. Underlying mixed connective tissue disease, on above meds at home. Methotrexate was stopped on admission. His monoclonal Ab was stopped. Continuing his hydroxychloroquine. 2. Underlying antiphospholipid syndrome. On ASA. 3. Bilat COVID-19 pneumonia. He?s now on Solumedrol 40 mg daily. Had two doses of ivermectin without any apparent benefit. 4. Acute respiratory failure. Secondary to above. With rising pCO2, prognosis is grave. Given the low renal indices, we?ll continue the Lasix drip. He?s definitely dryer, but it hasn?t made a difference in his oxygenation or ventilation indices. 5. Anticoagulation/DVT prophylaxis: Currently on ASA and Lovenox 40mg daily. 6. Hyperglycemia. On insulin SS SQ. 7. ID: Febrile with leukocytosis. Earlier had a 7-day course of doxycycline, which had no effect on anything (fever or WBC). Recultured 01/12, all negative. The A-line was pulled 01/14. By definition, he has viral sepsis. Started a 48 hr trial of empiric vanco and Zosyn yesterday to see if it makes any difference. So far, fever is down. 8. Nutrition: Full dose tube feeds. 9. Neuropsych: We can?t tell what?s going on, and hasn?t been stable enough to go for CT. 10. Metabolic: Replete K+. Continuing Diamox. Prognosis is very grave. I see no avenue to survival. I spoke with the granddaughter Carmita after the episode on January 04 and indicated to her that survival was very unlikely, and I quoted a 1% chance of survival to her. She was very realisitic. AZEB Bauer subsequently spoke to the patient?s and family that night, and as of that night, the family had been thinking of comfort measures. However, they subsequently decided to continue with full support. On 01/14 I had a long talk here with his son Valente, with his other son Dru conferenced in by telephone. From what they told me, it seems to me that they had been getting equivocal messages that their father was making some progress. I made it very clear to them that that was not the case, and that the progressive hypercarbia was a clear and definite sign that he was not going to survive. I made it absolutely clear to them that this was going to be fatal. They indicated to me that they would all talk further. AZEB Bauer spoke with them subsequently, they indicated that the patient?s is hesitant to transition to comfort measures status. He will speak with family again tonight. Critical care time: 50 min. Physical Exam Vital Signs: Vital Signs: Last Vital Signs Temp 100.8 F H 01/18/21 17:50 Pulse 91 01/18/21 17:50 Resp 30 H 01/18/21 17:50 BP 109/58 L 01/18/21 17:50 Pulse Ox 92 01/18/21 17:50 Oxygen Flow Rate 15 12/23/20 19:00 Body Mass Index 30.2 Objective Data Labs CBC & Chem 7: 01/18/21 05:25 01/18/21 05:25 Labs: Laboratory Results - last 24 hr 01/17/21 01/18/21 01/18/21 16:07 00:14 05:25 WBC 19.8 H RBC 2.61 L Hgb 7.5 L Hct 26.3 L MCV 100.8 H MCH 28.7 MCHC 28.5 L RDW 19.8 H Plt Count 258 MPV 11.6 Immature Gran % (Auto) Cancelled Neut % (Auto) Cancelled Lymph % (Auto) Cancelled [place] % (Auto) Cancelled Eos % (Auto) Cancelled Baso % (Auto) Cancelled Lymph # (Auto) Cancelled [place] # (Auto) Cancelled Eos # (Auto) Cancelled Baso # (Auto) Cancelled Abs Immat Gran (auto) Cancelled Absolute Neuts (auto) Cancelled Absolute Nucleated RBC 2.160 H Nucleated RBC % (auto) 10.9 H Neutrophils % (Manual) 65 Band Neutrophils % 4 Lymphocytes % (Manual) 16 L Monocytes % (Manual) 1 L Eosinophils % (Manual) 11 H Basophils % (Manual) 1 Metamyelocytes % 1 Myelocytes % 1 Abs Neuts (Manual) 13.7 H Lymphocytes # (Manual) 3.2 Monocytes # (Manual) 0.2 Eosinophils # (Manual) 2.2 H Basophils # (Manual) 0.2 Metamyelocytes # 0.2 Myelocytes # 0.2 Nucleated RBCs 10 H Platelet Estimate NORMAL Large Platelets PRESENT Plt Morphology Comment NORMAL RBC Morphology NOTED Polychromasia 2+ (3-5) Hypochromasia 1+ (5-14) Basophilic Stippling 1+ (0-2) Microcytosis 1+ (5-14) Macrocytosis 1+ (5-14) Target Cells 1+ (5-14) Ovalocytes 1+ (5-14) Stomatocytes 1+ (5-14) [place] Bodies PRESENT Schistocytes 1+ (0-2) D-Dimer VBG pH VBG pCO2 VBG pO2 VBG HCO3 VBG O2 Saturation VBG Base Excess Sodium Potassium Chloride Carbon Dioxide Anion Gap BUN Creatinine Estim Creat Clear Calc Estimated GFR POC Glucose 217 H Random Glucose Calcium Phosphorus Magnesium Ferritin C-Reactive Protein Procalcitonin Urine RBC 10-14 H Urine WBC 0-2 Ur Squamous Epith Cells TRACE Urine Bacteria NONE 01/18/21 01/18/21 01/18/21 05:25 05:25 05:25 WBC RBC Hgb Hct MCV MCH MCHC RDW Plt Count MPV Immature Gran % (Auto) Neut % (Auto) Lymph % (Auto) [place] % (Auto) Eos % (Auto) Baso % (Auto) Lymph # (Auto) [place] # (Auto) Eos # (Auto) Baso # (Auto) Abs Immat Gran (auto) Absolute Neuts (auto) Absolute Nucleated RBC Nucleated RBC % (auto) Neutrophils % (Manual) Band Neutrophils % Lymphocytes % (Manual) Monocytes % (Manual) Eosinophils % (Manual) Basophils % (Manual) Metamyelocytes % Myelocytes % Abs Neuts (Manual) Lymphocytes # (Manual) Monocytes # (Manual) Eosinophils # (Manual) Basophils # (Manual) Metamyelocytes # Myelocytes # Nucleated RBCs Platelet Estimate Large Platelets Plt Morphology Comment RBC Morphology Polychromasia Hypochromasia Basophilic Stippling Microcytosis Macrocytosis Target Cells Ovalocytes Stomatocytes [place] Bodies Schistocytes D-Dimer 4623 VBG pH VBG pCO2 VBG pO2 VBG HCO3 VBG O2 Saturation VBG Base Excess Sodium 141 Potassium 3.0 L Chloride 93 L Carbon Dioxide 42 H* Anion Gap 9 L BUN 14 Creatinine 0.49 L Estim Creat Clear Calc 155.7 Estimated GFR > 60 POC Glucose Random Glucose 196 H Calcium 7.8 L Phosphorus 3.4 Magnesium 2.1 Ferritin 426 H C-Reactive Protein 3.84 H Procalcitonin 0.24 Urine RBC Urine WBC Ur Squamous Epith Cells Urine Bacteria 01/18/21 01/18/21 01/18/21 05:25 11:33 17:58 WBC RBC Hgb Hct MCV MCH MCHC RDW Plt Count MPV Immature Gran % (Auto) Neut % (Auto) Lymph % (Auto) [place] % (Auto) Eos % (Auto) Baso % (Auto) Lymph # (Auto) [place] # (Auto) Eos # (Auto) Baso # (Auto) Abs Immat Gran (auto) Absolute Neuts (auto) Absolute Nucleated RBC Nucleated RBC % (auto) Neutrophils % (Manual) Band Neutrophils % Lymphocytes % (Manual) Monocytes % (Manual) Eosinophils % (Manual) Basophils % (Manual) Metamyelocytes % Myelocytes % Abs Neuts (Manual) Lymphocytes # (Manual) Monocytes # (Manual) Eosinophils # (Manual) Basophils # (Manual) Metamyelocytes # Myelocytes # Nucleated RBCs Platelet Estimate Large Platelets Plt Morphology Comment RBC Morphology Polychromasia Hypochromasia Basophilic Stippling Microcytosis Macrocytosis Target Cells Ovalocytes Stomatocytes [place] Bodies Schistocytes D-Dimer VBG pH 7.37 VBG pCO2 88 VBG pO2 51 VBG HCO3 51 H VBG O2 Saturation 81.0 VBG Base Excess 22.2 Sodium Potassium Chloride Carbon Dioxide Anion Gap BUN Creatinine Estim Creat Clear Calc Estimated GFR POC Glucose 265 H 218 H Random Glucose Calcium Phosphorus Magnesium Ferritin C-Reactive Protein Procalcitonin Urine RBC Urine WBC Ur Squamous Epith Cells Urine Bacteria Microbiology Microbiology Results: Microbiology 01/17/21 15:20 Blood - Venous Blood Culture - Preliminary No growth after 24 hours. 01/17/21 15:15 Blood - Venous Blood Culture - Preliminary No growth after 24 hours. 01/17/21 16:07 Urine [place] Urine Culture - Preliminary No growth to date. 01/17/21 16:07 Sputum - Suctioned Gram Stain - Final 01/17/21 16:07 Sputum - Suctioned Sputum Culture - Preliminary Culture in progress. 01/12/21 18:25 Blood - Venous Blood Culture - Final No growth after 5 days. 01/12/21 18:25 Blood - Venous Blood Culture - Final No growth after 5 days. 01/12/21 18:40 Urine [place] Urine Culture - Final No growth. 01/12/21 18:40 Sputum - Suctioned Gram Stain - Final 01/12/21 18:40 Sputum - Suctioned Sputum Culture - Final 12/27/20 15:58 Bronch, Not Specified Fungal Identification - Preliminary No growth after 2 weeks. 01/05/21 09:05 Blood - Venous Blood Culture - Final No growth after 5 days. 01/05/21 09:05 Blood - Venous Blood Culture - Final No growth after 5 days. 01/05/21 08:50 Sputum - Suctioned Gram Stain - Final 01/05/21 08:50 Sputum - Suctioned Sputum Culture - Final 12/30/20 20:45 Blood - Venous Blood Culture - Final No growth after 5 days. 12/30/20 20:43 Blood - Venous Blood Culture - Final No growth after 5 days. 12/30/20 21:30 Urine [place] Urine Culture - Final No growth. 12/27/20 15:57 Bronch, Not Specified Direct Acid Fast Bacilli Smear - Final 12/27/20 15:58 Bronch, Not Specified Gram Stain - Final 12/27/20 15:58 Bronch, Not Specified - Final Staphylococcus aureus 12/23/20 20:10 Blood - Venous Blood Culture - Final No growth after 5 days. 12/23/20 19:46 Blood - Venous Blood Culture - Final No growth after 5 days. Critical Care Time Critical Care Time (minutes): 60
[2021-01-19] VITALS (39 sets, daily range): BP systolic 87–130; BP diastolic 43–74; PULSE 98–144; RESP 15–39; TEMP 38.3–39.6; O2SAT 85–95
[2021-01-19] MEDS: propofoL 1,000 MG/100 ML VIAL 25.5 MG IVCONT ×4 (00:10→10:40)
[2021-01-19] MEDS: Insulin Lispro 100 UNIT/ML 3 ML VIAL SUBCUT ×4 (00:13→17:27)
--- NOTE | 2021-01-19 01:10 | P.ACPN_ITS ---
Documented by User: AZEB Thomas 01/19/21 01:14 Advanced Care Planning Note Advanced Care Planning Note Discussed with: family member(s) (Son Dru ) Time spent (in minutes): 45 Narrative: Over the course of this week, I have had several telephone conversations about this patient's clinical scenario, discussed with the patient's son in detail the different daily findings and whether not there has been any type of improvement or recovery, although the patient has not significantly worsened, he has not shown any signs of improvement. His prognosis is overall poor, several discussions have been held in regards to the possibility of making the patient comfortable, however despite of multiple talks throughout this week with the patient and the patient's who is at a local rehab facility after COVID infection. Is worth noting that this information was also discussed with her in [place] by me due to her inability to understand [place]. I was initially told that by yesterday Tuesday01/18/2021 they would have a final decision on how to proceed with the patient's care, however upon talking to the son again last night, he stated that the patient's grandchild was also appointed as a contact, had called into the hospital and was told that they were drawing labs and doing x-rays, apparently these gave them hope and are now questioning again the possibility of stopping caring making him [employer]AD[employer] ARCHITECT. I reached out once again to Dru for the 2nd time last night and they still had no decision, he stated that he would like to discuss it tomorrow morning with his mother and go from there. In addition they are considering arranging a visit to the hospital to say their goodbyes to his father. For now the patient remains DNR and no further decision has been made by the family. They understand that they will be no other medical providers who speaks [place] and in this case it is most likely that the patient's granddaughter Carmita who does speak [place] will be the point of contact. Total amount of spent with this patient's family in regards to goals of care 45 minutes ([id number]) Problems Discussed (1) Subcutaneous emphysema, non-traumatic: (2) Pneumomediastinum: (3) Acute respiratory distress syndrome (ARDS) due to COVID-19 virus: (4) Asplenia after surgical procedure: (5) Antiphospholipid antibody positive: (6) Mixed connective tissue disease: (7) Acute respiratory failure with hypoxia: (8) NAFL (nonalcoholic fatty liver):
[2021-01-19 01:15] LABS: Glucose, Whole Blood 170 mg/dL (60-115)
[2021-01-19] MEDS: fentaNYL citrate/NS 1,000 MCG/100 ML PLAST..BAG 20 MCG IVCONT ×4 (02:34→16:19)
[2021-01-19] MEDS: acetaZOLAMIDE sodium 500 MG VIAL 250 MG IVPUSH ×2 (03:16→08:03)
[2021-01-19] MEDS: Acetaminophen 325 MG TABLET 650 MG G-TUBE ×2 (03:17→22:12)
[2021-01-19] MEDS: HYDROmorphone HCl 2 MG/ML VIAL IVPUSH ×3 (03:17→19:34)
[2021-01-19] MEDS: Piperacillin Sodium/Tazobactam 4.5 GM in 0.9 % Sodium Chloride 100 ML IV ×4 (03:17→22:15)
[2021-01-19 03:26] LABS: Vancomycin Trough 16.9 mcg/mL (10.0-20.0)
[2021-01-19] MEDS: vancomycin HCL 1,250 MG in 0.9 % Sodium Chloride 250 ML 166.67 MG IV ×2 (04:05→16:48)
[2021-01-19 05:27] LABS: VBG Base Excess 23.8 mmol/L; VBG HCO3 53 mmol/L (22-26); VBG pCO2 88 mmHg; VBG pH 7.38 (7.32-7.43); VBG pO2 45 mmHg
[2021-01-19 05:45] LABS: Hematocrit 27.2 % (42-52); Hemoglobin 7.7 g/dl (14.0-18.0); Mean Corpuscular HGB Conc 28.3 g/dl (31.0-36.0); Mean Corpuscular Hemoglobin 28.5 pg (27.0-33.0); Mean Corpuscular Volume 100.7 fL (80-98); Mean Platelet Volume 11.5 fL (9.4-12.4); Platelet Count 301 X10*3/uL (160-400)
[2021-01-19 05:50] LABS: NRBC Pct Auto 11.6 /100WBC (0.0-0.2); WBC ABN SCTR FOR CBC 1; White Blood Count 21.5 X10*3/uL (4.8-10.8)
[2021-01-19 05:52] LABS: Venous Blood Gas Refer to POC result
[2021-01-19 06:11] LABS: Alanine Aminotransferase 42 U/L (0-40); Alkaline Phosphatase 54 U/L (39-117); Anion Gap 10 (12-20); Aspartate Amino Transferase 40 U/L (5-37); Bilirubin Total 0.7 mg/dL (0.0-1.0); Blood Urea Nitrogen 17 mg/dL (9-16); C Reactive Protein 2.35 mg/dL (< or = 0.50); Carbon Dioxide 44 mmol/L (22-29); Chloride 92 mmol/L (96-108); Creatinine Clr Calc Pharmacy 138.7; Estimated Glomerular Filt Rate > 60; Glucose Random 175 mg/dL (60-115); Phosphorus 3.5 mg/dL (2.7-4.5); Sodium 143 mmol/L (135-145); Total Protein 5.5 g/dL (6.5-8.0)
[2021-01-19 06:22] LABS: Band Neutrophils Percent 4 % (3-5); Basophils Abs Manual 0.4 X10*3/uL (0.0-0.3); Basophils Percent Manual 2 % (0-1); Eosinophils Absolute Manual 2.2 X10*3/UL (0.0-0.8); Eosinophils Percent Manual 10 % (0-4); Lymphocytes Absolute Manual 2.8 X10*3/uL (0.6-4.8); Lymphocytes Percent Manual 13 % (20-40); Metamyelocytes Absolute 0.2 X10*3/uL; Metamyelocytes Percent 1 %; Monocytes Absolute Manual 0.6 X10*3/uL (0.0-1.2); Monocytes Percent Manual 3 % (2-11); Myelocytes Absolute 0.2 X10*/uL; Myelocytes Percent 1 %; Neutrophils Absolute Manual 15.1 X10*3/uL (2.2-7.9); Neutrophils Percent Manual 66 % (45-73); Nucleated Red Blood Cells 10 /100WBC (0-0)
--- NOTE | 2021-01-19 06:22 | PC.NURSE ---
pt on propofol and fentanyl for sedation. Unarrousable,pupils sluggish, flaccid, no response to pain . Increase FiO2 to 100% for desat to 79-80%. No inline secretions. Pt occasionally asynchronous with vent, given prn Dilaudid per emar. On lasix gtt, u/o 100-150/hr, SR/ST on tele. Promote running at 40ml/hr, water flushes given. Repo q2hr as tolerate, barrier cream applied, bath given, prevalon mattress, and airloss bed used
[2021-01-19 06:23] LABS: Basophilic Stippling 1+ (0-2) /OIF; Howell Jolly Bodies PRESENT; Hypochromasia 1+ (5-14) /OIF; Macrocytosis 1+ (5-14) /OIF; Microcytosis 1+ (5-14) /OIF; Polychromasia 2+ (3-5) /OIF; RBC Morphology NOTED; Schistocytes 1+ (0-2) /OIF; Target Cells 1+ (5-14) /OIF
[2021-01-19 06:24] LABS: Ovalocytes 1+ (5-14) /OIF; Platelet Estimate NORMAL (NORMAL)
[2021-01-19 06:25] LABS: Large Platelet PRESENT; Platelet Morphology Comment NORMAL; Stomatocytes 1+ (5-14) /OIF
[2021-01-19 06:28] LABS: Ferritin 322 ng/mL (20-250)
[2021-01-19] MEDS: Esmolol HCl/NaCl Iso 2,500 MG/250 ML IV.SOLN 12.75 MG IVCONT (06:36)
[2021-01-19 07:52] LABS: D Dimer 4704 NG/ML
[2021-01-19] MEDS: methylPREDNISolone Sod Succ 125 MG/2 ML VIAL 40 MG IVPUSH (08:03)
[2021-01-19] MEDS: Aspirin 81 MG TAB.CHEW G-TUBE (08:03)
[2021-01-19] MEDS: Famotidine/PF 20 MG/2 ML VIAL IVPUSH (08:03)
[2021-01-19] MEDS: Hydroxychloroquine Sulfate 200 MG TABLET PO (08:03)
[2021-01-19] MEDS: Chlorhexidine Gluc Oral Rinse 15 ML MOUTHWASH BUCCAL ×3 (08:03→20:28)
[2021-01-19] MEDS: Bacitracin Oint 14 GM TUBE 1 APPL TOPICAL ×3 (08:37→20:27)
--- NOTE | 2021-01-19 11:39 | MHC.CLN ---
F/U PT CURRENTLY TOLERATING PROMOTE AT MAX GOAL RATE 40CC/HR AND 30CC PROSOURCE WITH 240CC FREE WATER FLUSHES Q 6HRS TO PROVIDE 1020KCALS (1693KCALS WITH SEDATION; 23.5KCALS/KG), 75G PROTEIN (1.0G/KG), 1765CC FREE WATER FROM FORMULA AND FLUSHES (25CC/KG) RECOMMEND INCREASING PROSOURCE TO BID TO PROVIDE AN ADDITIONAL 60KCALS, 15G PROTEIN (90G PROTEIN; 1.2G/KG FOR WOUND HEALING) CONTINUE TO MONITOR TOLERANCE, RESIDUALS AND LYTES
[2021-01-19] MEDS: Potassium Chloride Packet 20 MEQ PACKET 40 MEQ PO (11:41)
[2021-01-19 12:02] LABS: Glucose, Whole Blood 265 mg/dL (60-115)
--- NOTE | 2021-01-19 13:04 | PM.CCPN ---
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 and has underlying mixed connective tissue disease on immunosuppressant therapy and currently methylprednisolone presented with acute hypoxic respiratory failure with ARDS from bilateral COVID-19 pneumonitis now intubated for 3 and half weeks with the original central line for 3 and half weeks all cultures to date negative but has developed a low-grade temperature productive sputum has extensive bilateral infiltrate/fibrosis on chest x-ray spontaneous pneumomediastinum with subcutaneous emphysema and remains on 100% FiO2 with pCO2 of 88 so minute ventilations very poor as well with sinus tachycardia 140 oxygen saturation 88% blood pressure 120/60 respiratory rate still 29 with high minute ventilatory requirement And I had a long discussion with his son expressing my views about this having a very negative prognosis and discussing the options between comfort measures now that were 3 and half weeks out on of 100% oxygen FiO2 verses more time and an attempt at tracheostomy and PEG which I explained might be somewhat more risky for him He is on vancomycin and piperacillin covering him for the above findings Physical Exam Vital Signs: Vital Signs: Last Vital Signs Temp 102.0 F H 01/19/21 12:56 Pulse 142 H 01/19/21 12:56 Resp 25 H 01/19/21 12:56 BP 126/62 01/19/21 12:56 Pulse Ox 88 L 01/19/21 12:56 Oxygen Flow Rate 15 12/23/20 19:00 Body Mass Index 30.2 Const: Other: Sedated and intubated and right now unresponsive and therefore we are weaning his sedation to assess cognitive function and because of the extensive length of time of propofol Reported gag reflex and pupils are equal reactive to light Cardiac exam with sinus tachycardia but no neck vein distension and adequate bilateral carotid upstrokes Chest with very coarse bilateral ventilatory sounds Abdomen tolerating feedings positive bowel sounds soft no organomegaly Skin with no livedo or acrocyanosis Objective Data Labs CBC & Chem 7: 01/19/21 05:22 01/19/21 05:22 Labs: Laboratory Results - last 24 hr 01/18/21 01/19/21 01/19/21 17:58 00:11 02:48 WBC RBC Hgb Hct MCV MCH MCHC RDW Plt Count MPV Immature Gran % (Auto) Neut % (Auto) Lymph % (Auto) [place] % (Auto) Eos % (Auto) Baso % (Auto) Lymph # (Auto) [place] # (Auto) Eos # (Auto) Baso # (Auto) Abs Immat Gran (auto) Absolute Neuts (auto) Absolute Nucleated RBC Nucleated RBC % (auto) Neutrophils % (Manual) Band Neutrophils % Lymphocytes % (Manual) Monocytes % (Manual) Eosinophils % (Manual) Basophils % (Manual) Metamyelocytes % Myelocytes % Abs Neuts (Manual) Lymphocytes # (Manual) Monocytes # (Manual) Eosinophils # (Manual) Basophils # (Manual) Metamyelocytes # Myelocytes # Nucleated RBCs Platelet Estimate Large Platelets Plt Morphology Comment RBC Morphology Polychromasia Hypochromasia Basophilic Stippling Microcytosis Macrocytosis Target Cells Ovalocytes Stomatocytes [place] Bodies Schistocytes D-Dimer VBG pH VBG pCO2 VBG pO2 VBG HCO3 VBG O2 Saturation VBG Base Excess Sodium Potassium Chloride Carbon Dioxide Anion Gap BUN Creatinine Estim Creat Clear Calc Estimated GFR POC Glucose 218 H 170 H Random Glucose Calcium Phosphorus Ferritin Total Bilirubin AST ALT Alkaline Phosphatase C-Reactive Protein Total Protein Albumin Vancomycin Trough 16.9 01/19/21 01/19/21 01/19/21 05:21 05:22 05:22 WBC 21.5 H RBC 2.70 L Hgb 7.7 L Hct 27.2 L MCV 100.7 H MCH 28.5 MCHC 28.3 L RDW 20.0 H Plt Count 301 MPV 11.5 Immature Gran % (Auto) Cancelled Neut % (Auto) Cancelled Lymph % (Auto) Cancelled [place] % (Auto) Cancelled Eos % (Auto) Cancelled Baso % (Auto) Cancelled Lymph # (Auto) Cancelled [place] # (Auto) Cancelled Eos # (Auto) Cancelled Baso # (Auto) Cancelled Abs Immat Gran (auto) Cancelled Absolute Neuts (auto) Cancelled Absolute Nucleated RBC 2.490 H Nucleated RBC % (auto) 11.6 H Neutrophils % (Manual) 66 Band Neutrophils % 4 Lymphocytes % (Manual) 13 L Monocytes % (Manual) 3 Eosinophils % (Manual) 10 H Basophils % (Manual) 2 H Metamyelocytes % 1 Myelocytes % 1 Abs Neuts (Manual) 15.1 H Lymphocytes # (Manual) 2.8 Monocytes # (Manual) 0.6 Eosinophils # (Manual) 2.2 H Basophils # (Manual) 0.4 H Metamyelocytes # 0.2 Myelocytes # 0.2 Nucleated RBCs 10 H Platelet Estimate NORMAL Large Platelets PRESENT Plt Morphology Comment NORMAL RBC Morphology NOTED Polychromasia 2+ (3-5) Hypochromasia 1+ (5-14) Basophilic Stippling 1+ (0-2) Microcytosis 1+ (5-14) Macrocytosis 1+ (5-14) Target Cells 1+ (5-14) Ovalocytes 1+ (5-14) Stomatocytes 1+ (5-14) [place] Bodies PRESENT Schistocytes 1+ (0-2) D-Dimer 4704 VBG pH 7.38 VBG pCO2 88 VBG pO2 45 VBG HCO3 53 H VBG O2 Saturation 74.0 VBG Base Excess 23.8 Sodium Potassium Chloride Carbon Dioxide Anion Gap BUN Creatinine Estim Creat Clear Calc Estimated GFR POC Glucose Random Glucose Calcium Phosphorus Ferritin Total Bilirubin AST ALT Alkaline Phosphatase C-Reactive Protein Total Protein Albumin Vancomycin Trough 01/19/21 01/19/21 05:22 11:42 WBC RBC Hgb Hct MCV MCH MCHC RDW Plt Count MPV Immature Gran % (Auto) Neut % (Auto) Lymph % (Auto) [place] % (Auto) Eos % (Auto) Baso % (Auto) Lymph # (Auto) [place] # (Auto) Eos # (Auto) Baso # (Auto) Abs Immat Gran (auto) Absolute Neuts (auto) Absolute Nucleated RBC Nucleated RBC % (auto) Neutrophils % (Manual) Band Neutrophils % Lymphocytes % (Manual) Monocytes % (Manual) Eosinophils % (Manual) Basophils % (Manual) Metamyelocytes % Myelocytes % Abs Neuts (Manual) Lymphocytes # (Manual) Monocytes # (Manual) Eosinophils # (Manual) Basophils # (Manual) Metamyelocytes # Myelocytes # Nucleated RBCs Platelet Estimate Large Platelets Plt Morphology Comment RBC Morphology Polychromasia Hypochromasia Basophilic Stippling Microcytosis Macrocytosis Target Cells Ovalocytes Stomatocytes [place] Bodies Schistocytes D-Dimer VBG pH VBG pCO2 VBG pO2 VBG HCO3 VBG O2 Saturation VBG Base Excess Sodium 143 Potassium 3.0 L Chloride 92 L Carbon Dioxide 44 H* Anion Gap 10 L BUN 17 H Creatinine 0.55 Estim Creat Clear Calc 138.7 Estimated GFR > 60 POC Glucose 265 H Random Glucose 175 H Calcium 8.0 L Phosphorus 3.5 Ferritin 322 H Total Bilirubin 0.7 AST 40 H ALT 42 H Alkaline Phosphatase 54 C-Reactive Protein 2.35 H Total Protein 5.5 L Albumin 3.0 L Vancomycin Trough Microbiology Microbiology Results: Microbiology 12/27/20 15:58 Bronch, Not Specified Fungal Identification - Preliminary No growth after 3 weeks. 01/17/21 16:07 Sputum - Suctioned Gram Stain - Final 01/17/21 16:07 Sputum - Suctioned Sputum Culture - Final 01/17/21 16:07 Urine [place] Urine Culture - Final No growth. 01/17/21 15:20 Blood - Venous Blood Culture - Preliminary No growth after 24 hours. 01/17/21 15:15 Blood - Venous Blood Culture - Preliminary No growth after 24 hours. 01/12/21 18:25 Blood - Venous Blood Culture - Final No growth after 5 days. 01/12/21 18:25 Blood - Venous Blood Culture - Final No growth after 5 days. 01/12/21 18:40 Urine [place] Urine Culture - Final No growth. 01/12/21 18:40 Sputum - Suctioned Gram Stain - Final 01/12/21 18:40 Sputum - Suctioned Sputum Culture - Final 01/05/21 09:05 Blood - Venous Blood Culture - Final No growth after 5 days. 01/05/21 09:05 Blood - Venous Blood Culture - Final No growth after 5 days. 01/05/21 08:50 Sputum - Suctioned Gram Stain - Final 01/05/21 08:50 Sputum - Suctioned Sputum Culture - Final 12/30/20 20:45 Blood - Venous Blood Culture - Final No growth after 5 days. 12/30/20 20:43 Blood - Venous Blood Culture - Final No growth after 5 days. 12/30/20 21:30 Urine [place] Urine Culture - Final No growth. 12/27/20 15:57 Bronch, Not Specified Direct Acid Fast Bacilli Smear - Final 12/27/20 15:58 Bronch, Not Specified Gram Stain - Final 12/27/20 15:58 Bronch, Not Specified - Final Staphylococcus aureus 12/23/20 20:10 Blood - Venous Blood Culture - Final No growth after 5 days. 12/23/20 19:46 Blood - Venous Blood Culture - Final No growth after 5 days. 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 procedure: Status: Acute (6) Antiphospholipid antibody positive: Status: Acute (7) Mixed connective tissue disease: Status: Acute (8) Acute respiratory failure with hypoxia: Status: Acute (9) Precordial chest pain: Status: Acute (10) SOB (shortness of breath): Status: Acute (11) Patella fracture: Status: Acute (12) Pneumonia due to 2019-nCoV: Status: Acute (13) Hypoxia: Status: Acute (14) Chest pain: Status: Acute (15) Pain management: Problem details: cont current regimen; 20 min reviewing chart evaluating patient and documenting Status: Acute (16) Dysphagia: Status: Acute (17) History of adenomatous polyp of colon: Problem details: Five adenomatous colon polyps were removed during last colonoscopy in [place] [address] Mary. Repeat colonoscopy is advised in 3 years and will be due in September 2020. Status: Acute (18) GERD (gastroesophageal reflux disease): Problem details: on pantoprazole 40 mg twice daily Status: Acute (19) NAFL (nonalcoholic fatty liver): Status: Acute Assessment and Plan: At this point per family request I will speak with a grandson and they will discuss current status with his and come to a conclusion about possible comfort measures in terminal extubation at this point But of wanting more time they would probably need to consent to tracheostomy PEG tube and I would need to change that central venous line to the opposite side Will continue with Zosyn and vancomycin coverage given the sputum report and these nonspecific infiltrates on chest x-ray
[2021-01-19] MEDS: Midazolam HCl/NS 50 MG/50 ML PLAST..BAG IVCONT (16:19)
[2021-01-19] MEDS: Midazolam HCl/PF 2 MG/2 ML VIAL 4 MG IVPUSH (16:19)
[2021-01-19 17:42] LABS: Glucose, Whole Blood 202 mg/dL (60-115)
[2021-01-19] MEDS: Metoprolol Tartrate 5 MG/5 ML VIAL IVPUSH (22:43)
[2021-01-19] MEDS: fentaNYL citrate/NS 1,000 MCG/100 ML PLAST..BAG 12.5 MCG IVCONT (23:05)
[2021-01-19] MEDS: Midazolam HCl/NS 50 MG/50 ML PLAST..BAG 8 MG IVCONT (23:08)
[2021-01-20] VITALS (38 sets, daily range): BP systolic 92–124; BP diastolic 45–70; PULSE 86–130; RESP 29–83; TEMP 36.8–39.5; O2SAT 82–96
[2021-01-20] MEDS: Insulin Lispro 100 UNIT/ML 3 ML VIAL SUBCUT ×4 (00:38→17:29)
[2021-01-20] MEDS: propofoL 1,000 MG/100 ML VIAL 25.5 MG IVCONT ×7 (01:30→22:50)
[2021-01-20 01:40] LABS: Glucose, Whole Blood 167 mg/dL (60-115)
[2021-01-20] MEDS: Piperacillin Sodium/Tazobactam 4.5 GM in 0.9 % Sodium Chloride 100 ML IV ×4 (04:07→21:36)
[2021-01-20] MEDS: HYDROmorphone HCl 2 MG/ML VIAL IVPUSH (04:08)
[2021-01-20] MEDS: vancomycin HCL 1,250 MG in 0.9 % Sodium Chloride 250 ML 166.67 MG IV (04:08)
[2021-01-20] MEDS: Metoprolol Tartrate 5 MG/5 ML VIAL IVPUSH (04:30)
[2021-01-20] MEDS: fentaNYL citrate/NS 1,000 MCG/100 ML PLAST..BAG 15 MCG IVCONT ×3 (05:17→14:33)
[2021-01-20 05:19] LABS: VBG Base Excess 18.4 mmol/L; VBG HCO3 45 mmol/L (22-26); VBG pCO2 70 mmHg; VBG pH 7.41 (7.32-7.43); VBG pO2 44 mmHg
[2021-01-20 05:27] LABS: Venous Blood Gas Refer to POC result
[2021-01-20 05:46] LABS: Hematocrit 24.2 % (42-52); Mean Corpuscular HGB Conc 28.5 g/dl (31.0-36.0); Mean Corpuscular Hemoglobin 28.3 pg (27.0-33.0); Mean Corpuscular Volume 99.2 fL (80-98); Mean Platelet Volume 11.3 fL (9.4-12.4); Platelet Count 303 X10*3/uL (160-400); Red Blood Count 2.44 X10*6/uL (4.60-5.80); Red Cell Distribution Width 20.1 % (11.0-16.0)
[2021-01-20 05:46] LABS: Glucose, Whole Blood 167 mg/dL (60-115)
[2021-01-20 05:53] LABS: INTERNATIONAL NORM RATIO 1.1 (0.9-1.1); Prothrombin Time 13.3 SEC (10.8-13.0)
[2021-01-20 05:55] LABS: Partial Thromboplastin Time 25.6 SEC (24.1-38.0)
[2021-01-20 05:58] LABS: NRBC Pct Auto 16.1 /100WBC (0.0-0.2); WBC ABN SCTR FOR CBC 1; White Blood Count 19.8 X10*3/uL (4.8-10.8)
[2021-01-20 06:00] LABS: Hemoglobin 6.9 g/dl (14.0-18.0)
--- NOTE | 2021-01-20 06:10 | PC.NURSE ---
tmax 103.3, VSS on levophed gtt. Sedation changed to propofol and fentanyl and titrated per emar.Pupils sluggish, no response to pain, flaccid, no cough/gag, does not move extremities. Pt satting 80-84%; PA aware, Vent settings changed to PI of 24, peep of 12, 100% fio2. scant cream colored inline secretions. Sinus tach on monitor up to 140s, PRN lopressor ordered and given. Promote running at max of 40ml/hr, covered per sliding scale and water flushes given. Bath given, repo q2hr as pt tolerated, prevalon mattress used, barrier cream applied.
[2021-01-20 06:12] LABS: D Dimer 4276 NG/ML
[2021-01-20 06:24] LABS: Alanine Aminotransferase 40 U/L (0-40); Albumin Level 2.9 g/dL (3.5-5.0); Alkaline Phosphatase 53 U/L (39-117); Anion Gap 9 (12-20); Aspartate Amino Transferase 39 U/L (5-37); Bilirubin Total 0.9 mg/dL (0.0-1.0); Blood Urea Nitrogen 16 mg/dL (9-16); Calcium 7.9 mg/dL (8.4-10.2); Carbon Dioxide 40 mmol/L (22-29); Chloride 95 mmol/L (96-108); Creatinine Clr Calc Pharmacy 162.3; Estimated Glomerular Filt Rate > 60; Glucose Random 158 mg/dL (60-115); Magnesium 2.2 mg/dL (1.6-2.6); Phosphorus 2.5 mg/dL (2.7-4.5); Potassium 2.9 mmol/L (3.3-5.1); Sodium 141 mmol/L (135-145)
[2021-01-20 06:57] LABS: Basophils Abs Manual 0.2 X10*3/uL (0.0-0.3); Basophils Percent Manual 1 % (0-1); Eosinophils Absolute Manual 1.6 X10*3/UL (0.0-0.8); Eosinophils Percent Manual 8 % (0-4); Lymphocytes Absolute Manual 4.4 X10*3/uL (0.6-4.8); Lymphocytes Percent Manual 22 % (20-40); Monocytes Absolute Manual 0.6 X10*3/uL (0.0-1.2); Monocytes Percent Manual 3 % (2-11); Myelocytes Absolute 0.2 X10*/uL; Myelocytes Percent 1 %; Neutrophils Percent Manual 64 % (45-73); Nucleated Red Blood Cells 22 /100WBC (0-0); Promyelocytes Absolute 0.2 X10*3/uL; Promyelocytes Percent 1 %; RBC Morphology NOTED
[2021-01-20 06:58] LABS: Acanthocytes 1+ (0-2) /OIF; Band Neutrophils Percent 0 % (3-5); Basophilic Stippling 2+ (3-5) /OIF; Howell Jolly Bodies PRESENT; Macrocytosis 1+ (5-14) /OIF; Neutrophils Absolute Manual 12.7 X10*3/uL (2.2-7.9); Ovalocytes 1+ (5-14) /OIF; Platelet Estimate NORMAL (NORMAL); Platelet Morphology Comment NORMAL; Polychromasia 2+ (3-5) /OIF; Target Cells 1+ (5-14) /OIF; Tear Drop Cells 1+ (0-2) /OIF; Toxic Vacuolation PRESENT
[2021-01-20] MEDS: Potassium Chloride Packet 20 MEQ PACKET 40 MEQ PO ×3 (07:56→14:32)
[2021-01-20] MEDS: Chlorhexidine Gluc Oral Rinse 15 ML MOUTHWASH BUCCAL ×3 (07:57→19:38)
[2021-01-20] MEDS: Aspirin 81 MG TAB.CHEW G-TUBE (07:57)
[2021-01-20] MEDS: Acetaminophen 325 MG TABLET 650 MG G-TUBE (07:58)
[2021-01-20] MEDS: Famotidine/PF 20 MG/2 ML VIAL IVPUSH (07:58)
[2021-01-20] MEDS: Bacitracin Oint 14 GM TUBE 1 APPL TOPICAL ×3 (07:59→19:38)
[2021-01-20] MEDS: methylPREDNISolone Sod Succ 40 MG/ML VIAL 35 MG IVPUSH (07:59)
[2021-01-20 12:24] LABS: Glucose, Whole Blood 260 mg/dL (60-115)
[2021-01-20 15:46] LABS: Vancomycin Trough 12.2 mcg/mL (10.0-20.0)
--- NOTE | 2021-01-20 15:47 | PM.CCPN ---
Subjective Subjective Date of Service: 01/20/21 Interval History: 65-year-old male with underlying immunosuppressive disease due to autoimmune mixed connective tissue and on steroids with acute hypoxic respiratory failure from COVID-19 pneumonitis/ARDS and now intubated for 3 and half weeks and remains on 100% FiO2 high peep of 12 and remains sedated and intubated Persistent temperatures of up to 102 with multiple cultures done repeatedly thus far without guidance we still have concerns of secondary infection and covering for most likely organisms but had with had extensive conversations with the son and grandson in the hopes of their explaining to the patient's the good the Gram aspect of his prognosis for recovery at this point and that it decisions remain either comfort measure as entailing extubation and I have explained extensively what that would look like but given the very dismal probability that he would return to meaningful function with life quality it would be a viable decision verses more time and therefore of a fairly immediate need for tracheostomy and PEG tube changing his central IV line and also today the need for transfusion came up as well for hemoglobin of 6.9 but the family wished to confer with each other to decide before anything is done including the transfusion and so we await their decision Physical Exam Vital Signs: Vital Signs: Last Vital Signs Temp 102.6 F H 01/20/21 15:00 Pulse 120 H 01/20/21 15:00 Resp 30 H 01/20/21 15:00 BP 110/65 01/20/21 15:00 Pulse Ox 94 01/20/21 15:00 Oxygen Flow Rate 15 12/23/20 19:00 Body Mass Index 30.2 Const: Other: Remains sedated and intubated still with high minutes ventilatory requirement although compensated he is stuck on 100% FiO2 with saturations ranging between 80 4 and 91% with stable vital signs and stable lab work Abdomen benign with no organomegaly and tolerating his feedings Cardiac exam stable with no neck vein distension and good bilateral carotid upstrokes Objective Data Labs CBC & Chem 7: 01/20/21 05:15 01/20/21 05:15 Labs: Laboratory Results - last 24 hr 01/19/21 01/20/21 01/20/21 17:25 00:12 05:13 WBC RBC Hgb Hct MCV MCH MCHC RDW Plt Count MPV Immature Gran % (Auto) Neut % (Auto) Lymph % (Auto) [place] % (Auto) Eos % (Auto) Baso % (Auto) Lymph # (Auto) [place] # (Auto) Eos # (Auto) Baso # (Auto) Abs Immat Gran (auto) Absolute Neuts (auto) Absolute Nucleated RBC Nucleated RBC % (auto) Neutrophils % (Manual) Band Neutrophils % Lymphocytes % (Manual) Monocytes % (Manual) Eosinophils % (Manual) Basophils % (Manual) Myelocytes % Promyelocytes % Abs Neuts (Manual) Lymphocytes # (Manual) Monocytes # (Manual) Eosinophils # (Manual) Basophils # (Manual) Myelocytes # Promyelocytes # Nucleated RBCs Toxic Vacuolation Platelet Estimate Plt Morphology Comment RBC Morphology Polychromasia Basophilic Stippling Macrocytosis Target Cells Tear Drop Cells Ovalocytes [place] Bodies Acanthocytes (Spur) PT INR APTT D-Dimer VBG pH 7.41 VBG pCO2 70 VBG pO2 44 VBG HCO3 45 H VBG O2 Saturation 74.0 VBG Base Excess 18.4 Sodium Potassium Chloride Carbon Dioxide Anion Gap BUN Creatinine Estim Creat Clear Calc Estimated GFR POC Glucose 202 H 167 H Random Glucose Calcium Phosphorus Magnesium Total Bilirubin AST ALT Alkaline Phosphatase Total Protein Albumin Vancomycin Trough Blood Type Antibody Screen Crossmatch 01/20/21 01/20/21 01/20/21 05:15 05:15 05:15 WBC 19.8 H RBC 2.44 L Hgb 6.9 L* Hct 24.2 L MCV 99.2 H MCH 28.3 MCHC 28.5 L RDW 20.1 H Plt Count 303 MPV 11.3 Immature Gran % (Auto) Cancelled Neut % (Auto) Cancelled Lymph % (Auto) Cancelled [place] % (Auto) Cancelled Eos % (Auto) Cancelled Baso % (Auto) Cancelled Lymph # (Auto) Cancelled [place] # (Auto) Cancelled Eos # (Auto) Cancelled Baso # (Auto) Cancelled Abs Immat Gran (auto) Cancelled Absolute Neuts (auto) Cancelled Absolute Nucleated RBC 3.190 H Nucleated RBC % (auto) 16.1 H Neutrophils % (Manual) 64 Band Neutrophils % 0 L Lymphocytes % (Manual) 22 Monocytes % (Manual) 3 Eosinophils % (Manual) 8 H Basophils % (Manual) 1 Myelocytes % 1 Promyelocytes % 1 Abs Neuts (Manual) 12.7 H Lymphocytes # (Manual) 4.4 Monocytes # (Manual) 0.6 Eosinophils # (Manual) 1.6 H Basophils # (Manual) 0.2 Myelocytes # 0.2 Promyelocytes # 0.2 Nucleated RBCs 22 H Toxic Vacuolation PRESENT Platelet Estimate NORMAL Plt Morphology Comment NORMAL RBC Morphology NOTED Polychromasia 2+ (3-5) Basophilic Stippling 2+ (3-5) Macrocytosis 1+ (5-14) Target Cells 1+ (5-14) Tear Drop Cells 1+ (0-2) Ovalocytes 1+ (5-14) [place] Bodies PRESENT Acanthocytes ([place]) 1+ (0-2) PT 13.3 H INR 1.1 APTT 25.6 D-Dimer 4276 VBG pH VBG pCO2 VBG pO2 VBG HCO3 VBG O2 Saturation VBG Base Excess Sodium 141 Potassium 2.9 L Chloride 95 L Carbon Dioxide 40 H* Anion Gap 9 L BUN 16 Creatinine 0.47 L Estim Creat Clear Calc 162.3 Estimated GFR > 60 POC Glucose Random Glucose 158 H Calcium 7.9 L Phosphorus 2.5 L Magnesium 2.2 Total Bilirubin 0.9 AST 39 H ALT 40 Alkaline Phosphatase 53 Total Protein 5.0 L Albumin 2.9 L Vancomycin Trough Blood Type Antibody Screen Crossmatch 01/20/21 01/20/21 01/20/21 05:39 07:42 12:07 WBC RBC Hgb Hct MCV MCH MCHC RDW Plt Count MPV Immature Gran % (Auto) Neut % (Auto) Lymph % (Auto) [place] % (Auto) Eos % (Auto) Baso % (Auto) Lymph # (Auto) [place] # (Auto) Eos # (Auto) Baso # (Auto) Abs Immat Gran (auto) Absolute Neuts (auto) Absolute Nucleated RBC Nucleated RBC % (auto) Neutrophils % (Manual) Band Neutrophils % Lymphocytes % (Manual) Monocytes % (Manual) Eosinophils % (Manual) Basophils % (Manual) Myelocytes % Promyelocytes % Abs Neuts (Manual) Lymphocytes # (Manual) Monocytes # (Manual) Eosinophils # (Manual) Basophils # (Manual) Myelocytes # Promyelocytes # Nucleated RBCs Toxic Vacuolation Platelet Estimate Plt Morphology Comment RBC Morphology Polychromasia Basophilic Stippling Macrocytosis Target Cells Tear Drop Cells Ovalocytes [place] Bodies Acanthocytes ([place]) PT INR APTT D-Dimer VBG pH VBG pCO2 VBG pO2 VBG HCO3 VBG O2 Saturation VBG Base Excess Sodium Potassium Chloride Carbon Dioxide Anion Gap BUN Creatinine Estim Creat Clear Calc Estimated GFR POC Glucose 167 H 260 H Random Glucose Calcium Phosphorus Magnesium Total Bilirubin AST ALT Alkaline Phosphatase Total Protein Albumin Vancomycin Trough Blood Type A Positive Antibody Screen NEGATIVE Crossmatch See Detail 01/20/21 15:07 WBC RBC Hgb Hct MCV MCH MCHC RDW Plt Count MPV Immature Gran % (Auto) Neut % (Auto) Lymph % (Auto) [place] % (Auto) Eos % (Auto) Baso % (Auto) Lymph # (Auto) [place] # (Auto) Eos # (Auto) Baso # (Auto) Abs Immat Gran (auto) Absolute Neuts (auto) Absolute Nucleated RBC Nucleated RBC % (auto) Neutrophils % (Manual) Band Neutrophils % Lymphocytes % (Manual) Monocytes % (Manual) Eosinophils % (Manual) Basophils % (Manual) Myelocytes % Promyelocytes % Abs Neuts (Manual) Lymphocytes # (Manual) Monocytes # (Manual) Eosinophils # (Manual) Basophils # (Manual) Myelocytes # Promyelocytes # Nucleated RBCs Toxic Vacuolation Platelet Estimate Plt Morphology Comment RBC Morphology Polychromasia Basophilic Stippling Macrocytosis Target Cells Tear Drop Cells Ovalocytes [place] Bodies Acanthocytes ([place]) PT INR APTT D-Dimer VBG pH VBG pCO2 VBG pO2 VBG HCO3 VBG O2 Saturation VBG Base Excess Sodium Potassium Chloride Carbon Dioxide Anion Gap BUN Creatinine Estim Creat Clear Calc Estimated GFR POC Glucose Random Glucose Calcium Phosphorus Magnesium Total Bilirubin AST ALT Alkaline Phosphatase Total Protein Albumin Vancomycin Trough 12.2 Blood Type Antibody Screen Crossmatch Microbiology Microbiology Results: Microbiology 01/17/21 15:20 Blood - Venous Blood Culture - Preliminary No growth after 48 hours. 01/17/21 15:15 Blood - Venous Blood Culture - Preliminary No growth after 48 hours. 12/27/20 15:58 Bronch, Not Specified Fungal Identification - Preliminary No growth after 3 weeks. 01/17/21 16:07 Sputum - Suctioned Gram Stain - Final 01/17/21 16:07 Sputum - Suctioned Sputum Culture - Final 01/17/21 16:07 Urine [place] Urine Culture - Final No growth. 01/12/21 18:25 Blood - Venous Blood Culture - Final No growth after 5 days. 01/12/21 18:25 Blood - Venous Blood Culture - Final No growth after 5 days. 01/12/21 18:40 Urine [place] Urine Culture - Final No growth. 01/12/21 18:40 Sputum - Suctioned Gram Stain - Final 01/12/21 18:40 Sputum - Suctioned Sputum Culture - Final 01/05/21 09:05 Blood - Venous Blood Culture - Final No growth after 5 days. 01/05/21 09:05 Blood - Venous Blood Culture - Final No growth after 5 days. 01/05/21 08:50 Sputum - Suctioned Gram Stain - Final 01/05/21 08:50 Sputum - Suctioned Sputum Culture - Final 12/30/20 20:45 Blood - Venous Blood Culture - Final No growth after 5 days. 12/30/20 20:43 Blood - Venous Blood Culture - Final No growth after 5 days. 12/30/20 21:30 Urine [place] Urine Culture - Final No growth. 12/27/20 15:57 Bronch, Not Specified Direct Acid Fast Bacilli Smear - Final 12/27/20 15:58 Bronch, Not Specified Gram Stain - Final 12/27/20 15:58 Bronch, Not Specified - Final Staphylococcus aureus 12/23/20 20:10 Blood - Venous Blood Culture - Final No growth after 5 days. 12/23/20 19:46 Blood - Venous Blood Culture - Final No growth after 5 days. 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 procedure: Status: Acute (6) Antiphospholipid antibody positive: Status: Acute (7) Mixed connective tissue disease: Status: Acute (8) Acute respiratory failure with hypoxia: Status: Acute (9) Precordial chest pain: Status: Acute (10) SOB (shortness of breath): Status: Acute (11) Patella fracture: Status: Acute (12) Pneumonia due to 2019-nCoV: Status: Acute (13) Hypoxia: Status: Acute (14) Chest pain: Status: Acute (15) Pain management: Problem details: cont current regimen; 20 min reviewing chart evaluating patient and documenting Status: Acute (16) Dysphagia: Status: Acute (17) GERD (gastroesophageal reflux disease): Problem details: on pantoprazole 40 mg twice daily Status: Acute (18) History of adenomatous polyp of colon: Problem details: Five adenomatous colon polyps were removed during last colonoscopy in [place] [address] Mary. Repeat colonoscopy is advised in 3 years and will be due in September 2020. Status: Acute (19) NAFL (nonalcoholic fatty liver): Status: Acute (20) Anemia: Status: Acute Assessment and Plan: So at this point nothing hit has been done although he was typed and crossed for 1 unit of packed cells the family asked to hold off on any decision making until they reach a consensus and then they will get back to us and he remains supported
[2021-01-20] MEDS: vancomycin HCL 1,500 MG in 0.9 % Sodium Chloride 500 ML 333.33 MG IV (17:29)
[2021-01-20 18:17] LABS: Glucose, Whole Blood 174 mg/dL (60-115)
[2021-01-20] MEDS: fentaNYL citrate/NS 1,000 MCG/100 ML PLAST..BAG 20 MCG IVCONT (19:53)
[2021-01-21] VITALS (35 sets, daily range): BP systolic 98–147; BP diastolic 48–77; PULSE 80–142; RESP 20–33; TEMP 36.8–37.5; O2SAT 79–95
[2021-01-21] MEDS: Insulin Lispro 100 UNIT/ML 3 ML VIAL SUBCUT ×4 (00:14→17:57)
[2021-01-21 01:02] LABS: Glucose, Whole Blood 182 mg/dL (60-115)
[2021-01-21] MEDS: fentaNYL citrate/NS 1,000 MCG/100 ML PLAST..BAG 20 MCG IVCONT ×6 (01:02→23:56)
[2021-01-21] MEDS: propofoL 1,000 MG/100 ML VIAL 25.5 MG IVCONT ×2 (01:02→06:24)
[2021-01-21] MEDS: Piperacillin Sodium/Tazobactam 4.5 GM in 0.9 % Sodium Chloride 100 ML IV ×4 (02:40→22:13)
[2021-01-21] MEDS: vancomycin HCL 1,500 MG in 0.9 % Sodium Chloride 500 ML 333 MG IV ×2 (02:40→15:54)
[2021-01-21 05:43] LABS: VBG Base Excess 12.6 mmol/L; VBG HCO3 38 mmol/L (22-26); VBG pCO2 58 mmHg; VBG pH 7.42 (7.32-7.43); VBG pO2 44 mmHg
[2021-01-21 06:02] LABS: Glucose, Whole Blood 166 mg/dL (60-115)
[2021-01-21 06:05] LABS: Hematocrit 23.4 % (42-52); Mean Corpuscular HGB Conc 28.6 g/dl (31.0-36.0); Mean Corpuscular Hemoglobin 28.8 pg (27.0-33.0); Mean Corpuscular Volume 100.4 fL (80-98); Mean Platelet Volume 11.3 fL (9.4-12.4); Platelet Count 286 X10*3/uL (160-400); Red Blood Count 2.33 X10*6/uL (4.60-5.80); Red Cell Distribution Width 20.5 % (11.0-16.0)
[2021-01-21 06:20] LABS: NRBC Pct Auto 11.6 /100WBC (0.0-0.2); WBC ABN SCTR FOR CBC 1; White Blood Count 18.6 X10*3/uL (4.8-10.8)
[2021-01-21 06:33] LABS: Hemoglobin 6.7 g/dl (14.0-18.0)
[2021-01-21 06:34] LABS: Alanine Aminotransferase 47 U/L (0-40); Albumin Level 2.7 g/dL (3.5-5.0); Alkaline Phosphatase 50 U/L (39-117); Anion Gap 8 (12-20); Aspartate Amino Transferase 41 U/L (5-37); Bilirubin Total 0.8 mg/dL (0.0-1.0); Blood Urea Nitrogen 13 mg/dL (9-16); Calcium 7.9 mg/dL (8.4-10.2); Carbon Dioxide 34 mmol/L (22-29); Chloride 102 mmol/L (96-108); Creatinine Clr Calc Pharmacy 190.7; Estimated Glomerular Filt Rate > 60; Glucose Random 170 mg/dL (60-115); Magnesium 2.1 mg/dL (1.6-2.6); Phosphorus 2.4 mg/dL (2.7-4.5); Potassium 3.8 mmol/L (3.3-5.1); Sodium 140 mmol/L (135-145); Total Protein 4.8 g/dL (6.5-8.0)
[2021-01-21 06:37] LABS: Band Neutrophils Percent 3 % (3-5); Eosinophils Absolute Manual 2.4 X10*3/UL (0.0-0.8); Eosinophils Percent Manual 13 % (0-4); Lymphocytes Absolute Manual 2.2 X10*3/uL (0.6-4.8); Lymphocytes Percent Manual 12 % (20-40); Monocytes Absolute Manual 0.2 X10*3/uL (0.0-1.2); Monocytes Percent Manual 1 % (2-11); Myelocytes Absolute 0.2 X10*/uL; Myelocytes Percent 1 %; Neutrophils Absolute Manual 13.6 X10*3/uL (2.2-7.9); Neutrophils Percent Manual 70 % (45-73); Nucleated Red Blood Cells 10 /100WBC (0-0)
[2021-01-21 06:38] LABS: Macrocytosis 1+ (5-14) /OIF; Microcytosis 1+ (5-14) /OIF; RBC Morphology NOTED
[2021-01-21 06:39] LABS: Howell Jolly Bodies PRESENT; Hypochromasia 1+ (5-14) /OIF; Ovalocytes 1+ (5-14) /OIF; Polychromasia 2+ (3-5) /OIF; Target Cells 1+ (5-14) /OIF
[2021-01-21 06:40] LABS: Large Platelet PRESENT; Platelet Estimate NORMAL (NORMAL); Platelet Morphology Comment NORMAL
--- NOTE | 2021-01-21 06:43 | PC.NURSE ---
Shift eval 7p-7a: Patient sedated w/ prop & fentanyl - asynchronous w/ vent when changing drips. Tolerating Pressure control settings - ETT cuff has consistent leak, but still getting volumes - >400, min vol >11-13. Vianca BOWIE aware of leak. ETT 8.5 @ 25cm - RT at bedside checking cuff pressure during vent checks. In-line suctioning scant cream. Temp down to 98.4 to 98.6. H&h low yesterday & today labs - awaiting family decision about blood. No active bleeding noted. Levo running for BP support - did not have to titrate. Repos Q2H, linen changed, shaved facial hair. Patient flaccid, no facial grimacing. Tolerating tube feed. O2sat down to 80's for periods during sedation med changes - recovered to high 80's - Vianca BOWIE & Dr Jimenez aware - 100% FIO2.
[2021-01-21 06:55] LABS: Partial Thromboplastin Time 24.9 SEC (24.1-38.0)
[2021-01-21 06:56] LABS: Prothrombin Time 11.8 SEC (10.8-13.0)
[2021-01-21 07:06] LABS: D Dimer 4218 NG/ML
--- NOTE | 2021-01-21 07:19 | P.CDIC_ITS ---
[facility] Concurrent Query Service Date: 12/23/21 Documentation Clarification: Please clarify if you are treating a probable/suspected/likely or confirmed: Continuation of documentation within the medical record: Would this diagnosis be considered: Viral Sepsis Viral Sepsis - POA, yes or no, treating or ruled out Please specify if known or undertermined Provider Response: Sepsis Other Diagnosis: Agree with diagnosis of viral sepsis PLEASE DO NOT DELETE/MODIFY EXISTING CONTENT Additional information is needed in order to code to the highest accuracy and appropriate Severity of Illness (SOI). Please clarify the information noted below in your progress notes and discharge summary. Risk Factors/Clinical Indicators/Treatments Query response ICU 12/30 - By Definition, he has VIRAL SEPSIS PN: 12/29 - possible atypical pneumonia or opportunistic infection or Covid 19 ID: febrile with leukocytosis, explainable from steroids, with the new fever the patient was started on empiric antibiotics. The staph aureus is most certainly a colonizer, may well be MRSA. Temp 101.1 (12/27/2020) HR 110 RR 31 LA 2.6 wbc 19.8 PN: ICU 12/30 - ICU transfer spiked temp that day 12/27, intubated, IV cefepime & doxycycline CDS: Chaparrita Garg CCS, [facility] Contact Number: [phone] Please Review the information above and exercise your independent professional judgment in responding to the query. If you concur, pleas document in the PROGRESS NOTES and DISCHARGE SUMMARY. If you do not agree with the query, pl ease document in the query above. THIS QUERY IS PART OF THE PERMANENT MEDICAL RECORD
[2021-01-21] MEDS: methylPREDNISolone Sod Succ 40 MG/ML VIAL 35 MG IVPUSH (07:44)
[2021-01-21] MEDS: Famotidine/PF 20 MG/2 ML VIAL IVPUSH (07:44)
[2021-01-21] MEDS: Bacitracin Oint 14 GM TUBE 1 APPL TOPICAL ×3 (07:45→19:40)
[2021-01-21] MEDS: Aspirin 81 MG TAB.CHEW G-TUBE (07:45)
[2021-01-21] MEDS: Chlorhexidine Gluc Oral Rinse 15 ML MOUTHWASH BUCCAL ×3 (07:45→19:39)
[2021-01-21 07:49] LABS: Venous Blood Gas Refer to POC result
[2021-01-21] MEDS: Midazolam HCl/NS 50 MG/50 ML PLAST..BAG IVCONT ×3 (08:17→23:56)
[2021-01-21] MEDS: Midazolam HCl/PF 2 MG/2 ML VIAL 4 MG IVPUSH (08:17)
[2021-01-21] MEDS: Rocuronium Bromide 50 MG/5 ML VIAL 40 MG IVPUSH ×2 (08:17→09:58)
--- NOTE | 2021-01-21 10:21 | MHC.CLN ---
F/U PT CURRENTLY TOLERATING PROMOTE AT MAX GOAL RATE 40CC/HR AND 30CC PROSOURCE BID WITH 240CC FREE WATER FLUSHES Q 6HRS TO PROVIDE 1080KCALS (1753KCALS WITH SEDATION; 23.5KCALS/KG), 90G PROTEIN (1.2G/KG), 1765CC FREE WATER FROM FORMULA AND FLUSHES (25CC/KG) CONTINUE TO MONITOR TOLERANCE, RESIDUALS AND LYTES
--- NOTE | 2021-01-21 11:55 | MHC.CM.PN ---
Addendum entered by Cherrie Gardner 01/21/21 15:07: Augustine Hobson contact number [phone]: Director, ANIKA Mckenzie Addendum entered by Cherrie Gardner 01/21/21 14:32: [facility] is able to provide pt's , Haleigh with a facility iPad and access to Zoom/Skype if she is not allowed to physically visit. Her son, Dru will be the only family member allowed to physically visit pt here and can assist with video conferencing. Still awaiting callback from SNF administrators. ICU staff updated. Original Note: LUMA Morris [id number] 01/21/21 11:44 - Case Mgmt Progress Note by Cherrie Gardner Per discussion with MD at ICU rounds, family has not returned calls regarding plans/goals of care including consent for blood transfusion. ? Employing an ethics committee for assistance with pt continuation of care. All 3 ICU MD's and PA's have documented the poor/terminal prognosis for the patient and the need for FRONT END DEVELOPER DESIGNER status. Received call from pt's RN - she was able to speak with pts /HCP, Haleigh and her son via phone and commutator undercutter. Haleigh is presently at [facility] for [facility] following her own bout of COVID ([place] [facility] [place] Haleigh would like to see pt before she consents to FRONT END DEVELOPER DESIGNER status. Call placed to [facility]: spoke with Adult Basic Education Manager to inform him of the situation. D/T policy issues re: COVID and the pt not yet being vaccinated, he will need to obtain permission for Haleigh to leave [facility] for [facility] with the [employer] Shop Supervisor and Infectious Disease coordinator. Informed him that pt would be in full PPE at the time of entry to [facility] and that pt is no longer actively infectious. Updated TMR TEACHER on above: will wait for call back from [facility]. Pt's son will transport her from [facility] to [facility] with portable O2 supplied by [facility] if permission is granted.
[2021-01-21 12:10] LABS: Glucose, Whole Blood 236 mg/dL (60-115)
--- NOTE | 2021-01-21 14:15 | PC.NURSE ---
S/E Afebrile; WBC 18.6; continued on Vanco & Zosyn Sedation switched from Propofol to Versed at set rate of 5mg/hr Versed 4mg IVP bolus and Rocuronium 40mg IVP X2 doses administered for vent synchrony/hypoxia Pupils 2mm, sluggish, equal; no pain response; absent cough or gag HR 110-120's, sinus, no ectopy; Levophed titrated per med order; CVP 9 R IJ TLC patent - placed 12/27 - MD aware LS dim throughout ; scant thick cream inline secretions; SQ emphysema bilateral neck ETT 8.5, 25cm @ lip ; vent settings changed: AC 20/500/10/100 O2 sat maintaining 79-89% - MD aware; CXR ordered and obtained - see report Keofeed tube patent; tolerating tube feeds well; 240 H2O q6; no BM Urine output 40-50cc/hr, concentrated Hemoglobin 6.7 - blood consent obtained from HCP - 1 unit PRBC administered Multiple skin integrity concerns - air loss bed & prevlon pad in place, repo q2hr, barrier cream, bathed This RN & MD spoke with HCP Haleigh over phone w/ [place] Kimepdary Oneill regarding patients status/prognosis Plan for HCP & son Ailyn to either visit or video call prior to deciding plan of care/possible ALLOPATHIC DOCTOR
--- NOTE | 2021-01-21 15:55 | PM.CCPN ---
Subjective Subjective Date of Service: 01/21/21 Interval History: 65-year-old male with background history of mixed connective tissue disease and antiphospholipid antibody positivity who was on immunosuppressive so as an outpatient presented with acute hypoxic respiratory failure from COVID-19 pneumonitis and ARDS came to me in extremis acutely encephalopathic from profound hypoxia and promptly intubated with placement of central line and now we are 3 and half weeks out from that time and he still remains on 100% FiO2 has had a spontaneous pneumomediastinum and his situation remains intractable and currently covered with vancomycin because of sputum Gram stain indicating Gram-positive rods and cocci but still just demonstrating a mixed normal kevin no particular organism and oxygen saturations have been as low as 79% and as high as 91% today requiring a lot of sedation in order to keep him synchronous with the machine because he had desats when he is dyssynchronous and he periodically requires rocuronium to help us in that effort but we have been reaching out to the family and have spoken now individually on a number of occasions with the son and grandson who organ Actos translators and then ultimately today with the explaining how dismal the prognosis is and I think it possibly leaning towards comfort measures and the latest in that effort is that were going to try to do a face time involving both the son and the so they could visualize the situation as well and come to a decision In the interim because of the hemoglobin drop we did get permission for 1 unit of red cell transfusion which he received without complication and I did note that there was no anticoagulation prophylaxis besides aspirin so I added Lovenox 40 mg apparently it had been previously discontinued because of hematuria and mouth bleeding and then subsequently reinstated without difficulty but seems not to have been on the list this time Physical Exam Vital Signs: Vital Signs: Last Vital Signs Temp 99.3 F 01/21/21 13:53 Pulse 124 H 01/21/21 14:57 Resp 28 H 01/21/21 14:57 BP 136/77 01/21/21 14:57 Pulse Ox 87 L 01/21/21 14:57 Oxygen Flow Rate 15 12/23/20 19:00 Body Mass Index 30.2 Const: Other: Is unchanged and he is sedated and intubated currently There are multiple areas of skin breakdown without and evidence of cellulitis Tolerating feedings and abdomen benign with good bowel sounds and no organomegaly Cardiac exam without neck vein distension and has good bilateral carotid upstrokes and no gallops Chest with coarse bilateral ventilatory sounds Objective Data Labs CBC & Chem 7: 01/21/21 05:35 01/21/21 05:35 Labs: Laboratory Results - last 24 hr 01/20/21 01/20/21 01/21/21 07:42 17:26 00:09 WBC RBC Hgb Hct MCV MCH MCHC RDW Plt Count MPV Immature Gran % (Auto) Neut % (Auto) Lymph % (Auto) [place] % (Auto) Eos % (Auto) Baso % (Auto) Lymph # (Auto) [place] # (Auto) Eos # (Auto) Baso # (Auto) Abs Immat Gran (auto) Absolute Neuts (auto) Absolute Nucleated RBC Nucleated RBC % (auto) Neutrophils % (Manual) Band Neutrophils % Lymphocytes % (Manual) Monocytes % (Manual) Eosinophils % (Manual) Myelocytes % Abs Neuts (Manual) Lymphocytes # (Manual) Monocytes # (Manual) Eosinophils # (Manual) Myelocytes # Nucleated RBCs Platelet Estimate Large Platelets Plt Morphology Comment RBC Morphology Polychromasia Hypochromasia Microcytosis Macrocytosis Target Cells Ovalocytes Cordero-Washburn Bodies PT INR APTT D-Dimer VBG pH VBG pCO2 VBG pO2 VBG HCO3 VBG O2 Saturation VBG Base Excess Sodium Potassium Chloride Carbon Dioxide Anion Gap BUN Creatinine Estim Creat Clear Calc Estimated GFR POC Glucose 174 H 182 H Random Glucose Calcium Phosphorus Magnesium Total Bilirubin AST ALT Alkaline Phosphatase Total Protein Albumin Blood Type A Positive Antibody Screen NEGATIVE Crossmatch See Detail 01/21/21 01/21/21 01/21/21 05:35 05:35 05:35 WBC 18.6 H RBC 2.33 L Hgb 6.7 L* Hct 23.4 L MCV 100.4 H MCH 28.8 MCHC 28.6 L RDW 20.5 H Plt Count 286 MPV 11.3 Immature Gran % (Auto) Cancelled Neut % (Auto) Cancelled Lymph % (Auto) Cancelled [place] % (Auto) Cancelled Eos % (Auto) Cancelled Baso % (Auto) Cancelled Lymph # (Auto) Cancelled [place] # (Auto) Cancelled Eos # (Auto) Cancelled Baso # (Auto) Cancelled Abs Immat Gran (auto) Cancelled Absolute Neuts (auto) Cancelled Absolute Nucleated RBC 2.150 H Nucleated RBC % (auto) 11.6 H Neutrophils % (Manual) 70 Band Neutrophils % 3 Lymphocytes % (Manual) 12 L Monocytes % (Manual) 1 L Eosinophils % (Manual) 13 H Myelocytes % 1 Abs Neuts (Manual) 13.6 H Lymphocytes # (Manual) 2.2 Monocytes # (Manual) 0.2 Eosinophils # (Manual) 2.4 H Myelocytes # 0.2 Nucleated RBCs 10 H Platelet Estimate NORMAL Large Platelets PRESENT Plt Morphology Comment NORMAL RBC Morphology NOTED Polychromasia 2+ (3-5) Hypochromasia 1+ (5-14) Microcytosis 1+ (5-14) Macrocytosis 1+ (5-14) Target Cells 1+ (5-14) Ovalocytes 1+ (5-14) Cordero-Washburn Bodies PRESENT PT 11.8 INR 1.0 APTT 24.9 D-Dimer 4218 VBG pH VBG pCO2 VBG pO2 VBG HCO3 VBG O2 Saturation VBG Base Excess Sodium 140 Potassium 3.8 D Chloride 102 Carbon Dioxide 34 H Anion Gap 8 L BUN 13 Creatinine 0.40 L Estim Creat Clear Calc 190.7 Estimated GFR > 60 POC Glucose Random Glucose 170 H Calcium 7.9 L Phosphorus 2.4 L Magnesium 2.1 Total Bilirubin 0.8 AST 41 H ALT 47 H Alkaline Phosphatase 50 Total Protein 4.8 L Albumin 2.7 L Blood Type Antibody Screen Crossmatch 01/21/21 01/21/21 01/21/21 05:36 05:56 11:55 WBC RBC Hgb Hct MCV MCH MCHC RDW Plt Count MPV Immature Gran % (Auto) Neut % (Auto) Lymph % (Auto) [place] % (Auto) Eos % (Auto) Baso % (Auto) Lymph # (Auto) [place] # (Auto) Eos # (Auto) Baso # (Auto) Abs Immat Gran (auto) Absolute Neuts (auto) Absolute Nucleated RBC Nucleated RBC % (auto) Neutrophils % (Manual) Band Neutrophils % Lymphocytes % (Manual) Monocytes % (Manual) Eosinophils % (Manual) Myelocytes % Abs Neuts (Manual) Lymphocytes # (Manual) Monocytes # (Manual) Eosinophils # (Manual) Myelocytes # Nucleated RBCs Platelet Estimate Large Platelets Plt Morphology Comment RBC Morphology Polychromasia Hypochromasia Microcytosis Macrocytosis Target Cells Ovalocytes Cordero-Washburn Bodies PT INR APTT D-Dimer VBG pH 7.42 VBG pCO2 58 VBG pO2 44 VBG HCO3 38 H VBG O2 Saturation 75.0 VBG Base Excess 12.6 Sodium Potassium Chloride Carbon Dioxide Anion Gap BUN Creatinine Estim Creat Clear Calc Estimated GFR POC Glucose 166 H 236 H Random Glucose Calcium Phosphorus Magnesium Total Bilirubin AST ALT Alkaline Phosphatase Total Protein Albumin Blood Type Antibody Screen Crossmatch Microbiology Microbiology Results: Microbiology 01/17/21 15:20 Blood - Venous Blood Culture - Preliminary No growth after 48 hours. 01/17/21 15:15 Blood - Venous Blood Culture - Preliminary No growth after 48 hours. 12/27/20 15:58 Bronch, Not Specified Fungal Identification - Preliminary No growth after 3 weeks. 01/17/21 16:07 Sputum - Suctioned Gram Stain - Final 01/17/21 16:07 Sputum - Suctioned Sputum Culture - Final 01/17/21 16:07 Urine [place] Urine Culture - Final No growth. 01/12/21 18:25 Blood - Venous Blood Culture - Final No growth after 5 days. 01/12/21 18:25 Blood - Venous Blood Culture - Final No growth after 5 days. 01/12/21 18:40 Urine [place] Urine Culture - Final No growth. 01/12/21 18:40 Sputum - Suctioned Gram Stain - Final 01/12/21 18:40 Sputum - Suctioned Sputum Culture - Final 01/05/21 09:05 Blood - Venous Blood Culture - Final No growth after 5 days. 01/05/21 09:05 Blood - Venous Blood Culture - Final No growth after 5 days. 01/05/21 08:50 Sputum - Suctioned Gram Stain - Final 01/05/21 08:50 Sputum - Suctioned Sputum Culture - Final 12/30/20 20:45 Blood - Venous Blood Culture - Final No growth after 5 days. 12/30/20 20:43 Blood - Venous Blood Culture - Final No growth after 5 days. 12/30/20 21:30 Urine [place] Urine Culture - Final No growth. 12/27/20 15:57 Bronch, Not Specified Direct Acid Fast Bacilli Smear - Final 12/27/20 15:58 Bronch, Not Specified Gram Stain - Final 12/27/20 15:58 Bronch, Not Specified - Final Staphylococcus aureus 12/23/20 20:10 Blood - Venous Blood Culture - Final No growth after 5 days. 12/23/20 19:46 Blood - Venous Blood Culture - Final No growth after 5 days. Progress Note: A&P Assessment and plan (1) Anemia: Status: Acute (2) Hematuria: Status: Acute (3) Subcutaneous emphysema, non-traumatic: Status: Acute (4) Pneumomediastinum: Status: Acute (5) Acute respiratory distress syndrome (ARDS) due to COVID-19 virus: Status: Acute (6) Asplenia after surgical procedure: Status: Acute (7) Antiphospholipid antibody positive: Status: Acute (8) Mixed connective tissue disease: Status: Acute (9) Acute respiratory failure with hypoxia: Status: Acute (10) Precordial chest pain: Status: Acute (11) SOB (shortness of breath): Status: Acute (12) Patella fracture: Status: Acute (13) Pneumonia due to 2019-nCoV: Status: Acute (14) Hypoxia: Status: Acute (15) Chest pain: Status: Acute (16) Dysphagia: Status: Acute (17) History of adenomatous polyp of colon: Problem details: Five adenomatous colon polyps were removed during last colonoscopy in September [address] Mary. Repeat colonoscopy is advised in 3 years and will be due in September 2020. Status: Acute (18) GERD (gastroesophageal reflux disease): Problem details: on pantoprazole 40 mg twice daily Status: Acute (19) NAFL (nonalcoholic fatty liver): Status: Acute Assessment and Plan: So as of today he received 1 unit of packed red cells and a repeat CBC is pending we will check for stool guaiac due to the acute aspect of the anemia reinstate the DVT prophylaxis with Lovenox at 40 mg continue his antibiotic and his ventilator support and again tried to have the family face time and make a final decision about comfort measures because without that decision we stressed the need for tracheostomy and PEG tube placement Prognosis is absolutely grave and my personal feeling about him was that unlikely to have any meaningful recovery given the persistence and at an FiO2 for almost 1 month now of 100%
[2021-01-21] MEDS: Enoxaparin Sodium 40 MG/0.4 ML SYRINGE SUBCUT (16:52)
[2021-01-21 17:57] LABS: Glucose, Whole Blood 190 mg/dL (60-115)
[2021-01-21] MEDS: Metoprolol Tartrate 5 MG/5 ML VIAL IVPUSH (22:14)
[2021-01-22] VITALS (21 sets, daily range): BP systolic 87–150; BP diastolic 48–85; PULSE 92–133; RESP 14–26; TEMP 37.3–38; O2SAT 79–90
[2021-01-22 00:17] LABS: Glucose, Whole Blood 143 mg/dL (60-115)
[2021-01-22 03:38] LABS: Vancomycin Trough 11.9 mcg/mL (10.0-20.0)
[2021-01-22] MEDS: Piperacillin Sodium/Tazobactam 4.5 GM in 0.9 % Sodium Chloride 100 ML IV ×2 (04:10→09:25)
[2021-01-22] MEDS: vancomycin HCL 1,500 MG in 0.9 % Sodium Chloride 500 ML 250 MG IV (04:10)
[2021-01-22] MEDS: Metoprolol Tartrate 5 MG/5 ML VIAL IVPUSH (04:11)
[2021-01-22] MEDS: fentaNYL citrate/NS 1,000 MCG/100 ML PLAST..BAG 20 MCG IVCONT ×2 (04:44→09:26)
[2021-01-22 05:31] LABS: VBG HCO3 42 mmol/L (22-26); VBG pCO2 67 mmHg; VBG pH 7.41 (7.32-7.43); VBG pO2 39 mmHg
[2021-01-22 05:32] LABS: Venous Blood Gas Refer to POC result
[2021-01-22 05:34] LABS: Glucose, Whole Blood 157 mg/dL (60-115)
[2021-01-22 05:35] LABS: Hematocrit 27.2 % (42-52); Hemoglobin 7.8 g/dl (14.0-18.0); Mean Corpuscular HGB Conc 28.7 g/dl (31.0-36.0); Mean Corpuscular Hemoglobin 28.6 pg (27.0-33.0); Mean Corpuscular Volume 99.6 fL (80-98); Platelet Count 270 X10*3/uL (160-400); Red Blood Count 2.73 X10*6/uL (4.60-5.80); Red Cell Distribution Width 20.1 % (11.0-16.0)
[2021-01-22 05:44] LABS: NRBC Pct Auto 30.9 /100WBC (0.0-0.2)
[2021-01-22 05:45] LABS: INTERNATIONAL NORM RATIO 1.1 (0.9-1.1); Prothrombin Time 12.5 SEC (10.8-13.0); WBC ABN SCTR FOR CBC 1
[2021-01-22 05:47] LABS: Partial Thromboplastin Time 26.5 SEC (24.1-38.0)
[2021-01-22] MEDS: Insulin Lispro 100 UNIT/ML 3 ML VIAL SUBCUT (05:52)
[2021-01-22] MEDS: HYDROmorphone HCl 2 MG/ML VIAL IVPUSH ×2 (05:55→08:06)
[2021-01-22 06:16] LABS: Alanine Aminotransferase 39 U/L (0-40); Albumin Level 2.7 g/dL (3.5-5.0); Alkaline Phosphatase 52 U/L (39-117); Anion Gap 9 (12-20); Aspartate Amino Transferase 32 U/L (5-37); Bilirubin Total 1.2 mg/dL (0.0-1.0); Blood Urea Nitrogen 12 mg/dL (9-16); Calcium 7.9 mg/dL (8.4-10.2); Carbon Dioxide 36 mmol/L (22-29); Chloride 100 mmol/L (96-108); Creatinine Clr Calc Pharmacy 195.6; Estimated Glomerular Filt Rate > 60; Glucose Random 167 mg/dL (60-115); Phosphorus 2.1 mg/dL (2.7-4.5); Potassium 3.9 mmol/L (3.3-5.1); Sodium 141 mmol/L (135-145); Total Protein 4.8 g/dL (6.5-8.0)
[2021-01-22 06:29] LABS: Band Neutrophils Percent 5 % (3-5); Eosinophils Percent Manual 10 % (0-4); Lymphocytes Percent Manual 13 % (20-40); Macrocytosis 1+ (5-14) /OIF; Metamyelocytes Percent 2 %; Microcytosis 1+ (5-14) /OIF; Monocytes Percent Manual 5 % (2-11); Myelocytes Percent 2 %; Neutrophils Percent Manual 63 % (45-73); Nucleated Red Blood Cells 40 /100WBC (0-0); RBC Morphology NOTED
[2021-01-22 06:31] LABS: Howell Jolly Bodies PRESENT; Hypochromasia 1+ (5-14) /OIF; Ovalocytes 1+ (5-14) /OIF; Polychromasia 2+ (3-5) /OIF; Stomatocytes 1+ (5-14) /OIF; Target Cells 1+ (5-14) /OIF
[2021-01-22 06:32] LABS: Large Platelet PRESENT; Platelet Estimate NORMAL (NORMAL); Platelet Morphology Comment NORMAL
[2021-01-22 06:33] LABS: Schistocytes 1+ (0-2) /OIF
[2021-01-22 06:34] LABS: Eosinophils Absolute Manual 1.8 X10*3/UL (0.0-0.8); Lymphocytes Absolute Manual 2.4 X10*3/uL (0.6-4.8); Metamyelocytes Absolute 0.4 X10*3/uL; Monocytes Absolute Manual 0.9 X10*3/uL (0.0-1.2); Myelocytes Absolute 0.4 X10*/uL; Neutrophils Absolute Manual 12.4 X10*3/uL (2.2-7.9); White Blood Count 18.3 X10*3/uL (4.8-10.8)
[2021-01-22] MEDS: Lactulose 20 GM/30 ML SOLUTION OG-TUBE (06:51)
[2021-01-22] MEDS: Potassium Chloride Packet 20 MEQ PACKET PO (06:51)
[2021-01-22] MEDS: Furosemide 20 MG/2 ML VIAL IVPUSH (06:51)
[2021-01-22 07:12] LABS: D Dimer 4357 NG/ML
--- NOTE | 2021-01-22 07:40 | MHC.CM.PN ---
L/M for Jonah Salazar, zipper setter lockstitch at [facility] asking for an urgent callback re: allowing pt's spouse, Haleigh to come to [facility] to visit pt. Alternative plan is for a Zoom/Facetime visit. Pt remains vented and is showing clinical signs of organ failure/system shut down. Haleigh is the pt's only documented HCP and can make the determination of SHAG TRUCK DRIVER/extubation.
--- NOTE | 2021-01-22 07:47 | MHC.CM.PN ---
Spoke with pt's son, Dru: reiterated the seriousness of his father's clinical condition, informed him of plans to obtain permission for Haleigh to come visit pt and made decision on KITCHENHAND vs arranging a Zoom/Facetime call. He will update his siblings/family and await CM call back for determination
[2021-01-22] MEDS: methylPREDNISolone Sod Succ 40 MG/ML VIAL 30 MG IVPUSH (08:05)
[2021-01-22] MEDS: Famotidine/PF 20 MG/2 ML VIAL IVPUSH (08:05)
[2021-01-22] MEDS: Chlorhexidine Gluc Oral Rinse 15 ML MOUTHWASH BUCCAL (08:06)
[2021-01-22] MEDS: Bacitracin Oint 14 GM TUBE 1 APPL TOPICAL (08:06)
[2021-01-22] MEDS: Aspirin 81 MG TAB.CHEW G-TUBE (08:06)
--- NOTE | 2021-01-22 09:08 | MHC.CM.PN ---
Addendum entered by Cherrie Gardner 01/22/21 11:55: Pt's / HCP Haleigh was able to visit with pt along with their son Dru. They opted to make pt CARPENTER REPAIRER after conversation with RN and MD using interpreting services. Pt will be extubated today. Addendum entered by Cherrie Gardner 01/22/21 09:38: Haleigh will be transported to [facility] by maya Gonsales: [facility] supervisory staff aware and will meet Haleigh in the main lobby to assist with PPE application. ICU staff prepared for visit. Original Note: Received call back from ANIKA Guerrero at [facility] Haleigh has authorization to visit spouse in ICU providing the following criteria are met Full PPE upon arrival to [facility] including O2 tank shroud/covering 15 minute visit limit Full disinfection of Haleigh including O2 cannula change upon leaving [facility] Call placed to ICU to update: Call placed to Dru who is making arrangements for pt to be transported to [facility]
[2021-01-22] MEDS: Midazolam HCl/NS 50 MG/50 ML PLAST..BAG IVCONT (09:26)
[2021-01-22] MEDS: Rocuronium Bromide 50 MG/5 ML VIAL 40 MG IVPUSH (10:35)
--- NOTE | 2021-01-22 11:21 | PC.NURSE ---
This RN & MD had conversation, with [place] IntreperFong, with patient HCP Haleigh & son Dru regarding patients current status/prognosis. Patient decided for terminal extubation/SPECIAL EDUCATION PROFESSIONAL. [employer] consulted and patient denied - ref # [id number].
--- NOTE | 2021-01-22 12:12 | PM.DS ---
DS: Providers Provider Date of Service: 01/22/21 Date of admission: 12/23/20 23:32 Primary care physician: Unknown Physician Consults: 12/24/20 01:35 Consult to Infectious Diseases Routine Consulting Provider: Sandra Sanchez Reason for consultation: covid Has provider been notified: No 01/06/21 15:58 Consult to Wound Care Routine Consulting Provider: Seema Fernandez Reason for consultation: stage 2 coccyx - small wound. DS: Diagnosis Discharge Diagnosis (1) Anemia: Status: Acute (2) Hematuria: Status: Acute (3) Subcutaneous emphysema, non-traumatic: Status: Acute (4) Pneumomediastinum: Status: Acute (5) Acute respiratory distress syndrome (ARDS) due to COVID-19 virus: Status: Acute (6) Asplenia after surgical procedure: Status: Acute (7) Antiphospholipid antibody positive: Status: Acute (8) Mixed connective tissue disease: Status: Acute (9) Acute respiratory failure with hypoxia: Status: Acute (10) Precordial chest pain: Status: Acute (11) SOB (shortness of breath): Status: Acute (12) Patella fracture: Status: Acute (13) Pneumonia due to 2019-nCoV: Status: Acute (14) Hypoxia: Status: Acute (15) Chest pain: Status: Acute (16) Dysphagia: Status: Acute (17) History of adenomatous polyp of colon: Status: Acute Problem details: Five adenomatous colon polyps were removed during last colonoscopy in [place] [address] Mary. Repeat colonoscopy is advised in 3 years and will be due in September 2020. (18) GERD (gastroesophageal reflux disease): Status: Acute Problem details: on pantoprazole 40 mg twice daily (19) NAFL (nonalcoholic fatty liver): Status: Acute DS: Medications Discharge Medications Home Medications: Home Medications Medication Instructions Recorded Confirmed calcium carbonate 600 mg (1,500 1 tab PO BID 06/27/20 12/23/20 mg)-vitamin D3 400 unit tablet folic acid 1 mg tablet 1 mg PO DAILY 06/27/20 12/23/20 hydroxychloroquine 200 mg tablet 200 mg PO BID 06/27/20 12/23/20 sennosides 8.6 mg tablet 17.2 mg PO BEDTIME PRN 06/27/20 12/23/20 albuterol sulfate 90 mcg/actuation 1 puff INHALATION Q4H PRN 07/15/20 12/23/20 aerosol inhaler alendronate 70 mg tablet 70 mg PO QWEEK 11/17/20 12/23/20 aspirin 81 mg tablet,delayed 81 mg PO DAILY 12/11/20 12/23/20 release diclofenac sodium 2 g TOPICAL QID PRN 12/23/20 12/23/20 methotrexate sodium (PF) 25 mg QWEEK 12/23/20 12/23/20 oxycodone-acetaminophen 1 tab PO QID PRN 12/23/20 12/23/20 pantoprazole 40 mg PO BID@0630,1630 12/23/20 12/23/20 prednisone 1 tab PO DAILY 12/23/20 12/23/20 sarilumab [Kevzara] 200 mg SUBCUT Q2W 12/23/20 12/23/20 sucralfate [Carafate] 10 ml PO BID 12/23/20 12/23/20 Previous Rx's Medication Instructions Recorded zolpidem 10 mg tablet 10 mg PO BEDTIME PRN #90 tab 08/01/20 linaclotide 145 mcg capsule 145 mcg PO QAM 30 Days #30 cap 09/01/20 lorazepam 1 mg tablet 1 mg PO BID #60 tab 12/16/20 DS: Summary Hospital Course Hospital Course: 65-year-old male with underlying mixed connective tissue disease with features most resembling lupus on immunosuppressants including I AL 6 inhibitor and steroids and methotrexate presents with acute hypoxic respiratory failure from COVID-19 pneumonitis and ARDS then developed a severe agitated delirium with profound hypoxia on maximum noninvasive support and presented for intubation nearly 1 month ago and has remained ever since on the ventilator requiring FiO2 of 100% with ever diminishing capacity and inability to maintain oxygen saturations clearly demonstrating grim prognosis with no capability for meaningful recovery we have been having discussions for the last 4 days with the family and the family came in today to review him and make final decision and after lengthy discussion they decided on comfort measures only which entail terminal extubation while remaining on the fentanyl drip he became immediately profoundly hypoxic and then over the course of minutes asystolic and at 12:05 p.m. he was pronounced Time Spent with Patient Time attestation: Total time spent providing and/or coordinating discharge services: 45 minutes Discharge coordination time: Greater than 30 minutes Specific discharge activities: Lengthy discussion with the family that included son and and answering all questions and comforting and then proceeded with terminal extubation and pronouncement Physical Exam Vital Signs: Vital Signs: Last Vital Signs Temp 100.2 F 01/22/21 11:00 Pulse 133 H 01/22/21 11:00 Resp 14 01/22/21 11:00 BP 150/66 H 01/22/21 11:00 Pulse Ox 79 L 01/22/21 11:00 Oxygen Flow Rate 15 12/23/20 19:00 Body Mass Index 30.2 Terminal extubation with almost immediate profound hypoxia and then gradual sinus bradycardia and increased AV block and then asystole clearly noting on the CVP curve that there was no evidence of myocardial activity and patient was pronounced at 12:05 p.m. DS: Data Data Completed and Pending Labs on day of discharge: Laboratory Results - last 24 hr 01/20/21 01/21/21 01/21/21 07:42 17:51 23:58 WBC RBC Hgb Hct MCV MCH MCHC RDW Plt Count MPV Immature Gran % (Auto) Neut % (Auto) Lymph % (Auto) Patrick % (Auto) Eos % (Auto) Baso % (Auto) Lymph # (Auto) Patrick # (Auto) Eos # (Auto) Baso # (Auto) Abs Immat Gran (auto) Absolute Neuts (auto) Absolute Nucleated RBC Nucleated RBC % (auto) Neutrophils % (Manual) Band Neutrophils % Lymphocytes % (Manual) Monocytes % (Manual) Eosinophils % (Manual) Metamyelocytes % Myelocytes % Abs Neuts (Manual) Lymphocytes # (Manual) Monocytes # (Manual) Eosinophils # (Manual) Metamyelocytes # Myelocytes # Nucleated RBCs Platelet Estimate Large Platelets Plt Morphology Comment RBC Morphology Polychromasia Hypochromasia Microcytosis Macrocytosis Target Cells Ovalocytes Stomatocytes [place] Bodies Schistocytes PT INR APTT D-Dimer VBG pH VBG pCO2 VBG pO2 VBG HCO3 VBG O2 Saturation VBG Base Excess Sodium Potassium Chloride Carbon Dioxide Anion Gap BUN Creatinine Estim Creat Clear Calc Estimated GFR POC Glucose 190 H 143 H Random Glucose Calcium Phosphorus Magnesium Total Bilirubin AST ALT Alkaline Phosphatase Total Protein Albumin Vancomycin Trough Crossmatch See Detail 01/22/21 01/22/21 01/22/21 03:01 05:25 05:25 WBC 18.3 H RBC 2.73 L Hgb 7.8 L Hct 27.2 L MCV 99.6 H MCH 28.6 MCHC 28.7 L RDW 20.1 H Plt Count 270 MPV 11.0 Immature Gran % (Auto) Cancelled Neut % (Auto) Cancelled Lymph % (Auto) Cancelled Patrick % (Auto) Cancelled Eos % (Auto) Cancelled Baso % (Auto) Cancelled Lymph # (Auto) Cancelled Patrick # (Auto) Cancelled Eos # (Auto) Cancelled Baso # (Auto) Cancelled Abs Immat Gran (auto) Cancelled Absolute Neuts (auto) Cancelled Absolute Nucleated RBC 5.640 H Nucleated RBC % (auto) 30.9 H Neutrophils % (Manual) 63 Band Neutrophils % 5 Lymphocytes % (Manual) 13 L Monocytes % (Manual) 5 Eosinophils % (Manual) 10 H Metamyelocytes % 2 Myelocytes % 2 Abs Neuts (Manual) 12.4 H Lymphocytes # (Manual) 2.4 Monocytes # (Manual) 0.9 Eosinophils # (Manual) 1.8 H Metamyelocytes # 0.4 Myelocytes # 0.4 Nucleated RBCs 40 H Platelet Estimate NORMAL Large Platelets PRESENT Plt Morphology Comment NORMAL RBC Morphology NOTED Polychromasia 2+ (3-5) Hypochromasia 1+ (5-14) Microcytosis 1+ (5-14) Macrocytosis 1+ (5-14) Target Cells 1+ (5-14) Ovalocytes 1+ (5-14) Stomatocytes 1+ (5-14) [place] Bodies PRESENT Schistocytes 1+ (0-2) PT 12.5 INR 1.1 APTT 26.5 D-Dimer 4357 VBG pH VBG pCO2 VBG pO2 VBG HCO3 VBG O2 Saturation VBG Base Excess Sodium Potassium Chloride Carbon Dioxide Anion Gap BUN Creatinine Estim Creat Clear Calc Estimated GFR POC Glucose Random Glucose Calcium Phosphorus Magnesium Total Bilirubin AST ALT Alkaline Phosphatase Total Protein Albumin Vancomycin Trough 11.9 Crossmatch 01/22/21 01/22/21 01/22/21 05:25 05:26 05:28 WBC RBC Hgb Hct MCV MCH MCHC RDW Plt Count MPV Immature Gran % (Auto) Neut % (Auto) Lymph % (Auto) Patrick % (Auto) Eos % (Auto) Baso % (Auto) Lymph # (Auto) Patrick # (Auto) Eos # (Auto) Baso # (Auto) Abs Immat Gran (auto) Absolute Neuts (auto) Absolute Nucleated RBC Nucleated RBC % (auto) Neutrophils % (Manual) Band Neutrophils % Lymphocytes % (Manual) Monocytes % (Manual) Eosinophils % (Manual) Metamyelocytes % Myelocytes % Abs Neuts (Manual) Lymphocytes # (Manual) Monocytes # (Manual) Eosinophils # (Manual) Metamyelocytes # Myelocytes # Nucleated RBCs Platelet Estimate Large Platelets Plt Morphology Comment RBC Morphology Polychromasia Hypochromasia Microcytosis Macrocytosis Target Cells Ovalocytes Stomatocytes [place] Bodies Schistocytes PT INR APTT D-Dimer VBG pH 7.41 VBG pCO2 67 VBG pO2 39 VBG HCO3 42 H VBG O2 Saturation 72.0 VBG Base Excess TNP Sodium 141 Potassium 3.9 Chloride 100 Carbon Dioxide 36 H Anion Gap 9 L BUN 12 Creatinine 0.39 L Estim Creat Clear Calc 195.6 Estimated GFR > 60 POC Glucose 157 H Random Glucose 167 H Calcium 7.9 L Phosphorus 2.1 L Magnesium 2.0 Total Bilirubin 1.2 H AST 32 ALT 39 Alkaline Phosphatase 52 Total Protein 4.8 L Albumin 2.7 L Vancomycin Trough Crossmatch Preliminary micro results at discharge 01/17/21 15:20 Blood Culture - Preliminary Blood - Venous No growth after 48 hours. 01/17/21 15:15 Blood Culture - Preliminary Blood - Venous No growth after 48 hours. 12/27/20 15:58 Fungal Identification - Preliminary Bronch, Not Specified No growth after 3 weeks. Discharge Plan Discharge Date/Time: 01/22/21 12:18 Patient Disposition: Referrals: Physician,Unknown [Primary Care Provider] - 1 Week Discharge Medications: No Action zolpidem 10 mg tablet 10 mg PO BEDTIME PRN (Reason: insomnia) Qty: 90 RF: 5 Linzess 145 mcg capsule 145 mcg PO QAM 30 Days Qty: 30 RF: 3 prednisone 10 mg tablet 1 tab PO DAILY RF: 0 sucralfate [Carafate] 100 mg/mL suspension 10 ml PO BID RF: 0 methotrexate sodium (PF) 25 mg/mL solution 25 mg QWEEK RF: 0 diclofenac sodium 1 % gel 2 g topical QID PRN (Reason: Pain (Scale Score 1-3)) RF: 0 Kevzara 200 mg/1.14 mL syringe 200 mg subcut Q2W RF: 0 oxycodone-acetaminophen 10-325 mg tablet 1 tab PO QID PRN (Reason: Pain (Scale Score 4-6)) RF: 0 pantoprazole 40 mg tablet,delayed release (DR/EC) 40 mg PO BID@0630,1630 RF: 0 albuterol sulfate 90 mcg/actuation HFA aerosol inhaler 1 puff inhalation Q4H PRN (Reason: Shortness Of Breath) RF: 0 alendronate 70 mg tablet 70 mg PO QWEEK RF: 0 lorazepam 1 mg tablet 1 mg PO BID Qty: 60 RF: 5 hydroxychloroquine 200 mg tablet 200 mg PO BID RF: 0 folic acid 1 mg tablet 1 mg PO DAILY RF: 0 sennosides 8.6 mg tablet 17.2 mg PO BEDTIME PRN (Reason: Constipation) RF: 0 calcium carbonate-vitamin D3 600 mg(1,500mg) -400 unit tablet 1 tab PO BID RF: 0 aspirin [Adult Aspirin Regimen] 81 mg tablet,delayed release (DR/EC) 81 mg PO DAILY RF: 0 Discharge Orders: Discharge Order (Routine); Ordered 01/22/21 Ordered By: Milad Jimenez
--- NOTE | 2021-01-28 05:18 | MHC.CDI.RETR ---
Documented by User: Chaparrita Garg CCS, CDIS 01/28/21 05:24 Retrospective Query Please clarify if you have treated a probable/suspected/likely or confirmed: Viral Sepsis due to Covid-19 Pneumonia w ARDS (POA) Please specify if known or undetermined PLEASE DO NOT DELETE/MODIFY EXISTING CONTENT Additional information is needed in order to code to the highest accuracy and appropriate Severity of Illness (SOI). Please clarify the information noted below in your progress notes and discharge summary. Risk Factors/Clinical Indicators/Treatments Query ICU response 12/30- By Definition he has VIRAL SEPSIS Temp 101.1 HR 110 RR 31 LA 2.6 2.5 WBC 19.8 IV antibiotics, Oxygen Presents to Hospital with shortness of breath, cough and found to be hypoxic with Covid-19 positive. ID Consult. CDS: Chaparrita Garg CCS, CDIS Contact Number: [phone] Please Review the information above and exercise your independent professional judgment in responding to the query. If you concur, pleas document in the PROGRESS NOTES and DISCHARGE SUMMARY. If you do not agree with the query, please document in the query above. THIS QUERY IS PART OF THE PERMANENT MEDICAL RECORD Documented by User: Mario Doan MD 02/09/21 15:50 Retrospective Query Provider Response: Other (Viral sepsis secondary to acute COVID-19 infection)
== END 2021-01-22 12:36 | disposition expired | DRG 870 ==
LOC: HO.ED 22:47 → HO.EDOVER 23:38 → HO.IMC 12-24 04:47 → HO.ICU 12-27 08:24
PROVIDERS: Internal Medicine; Internal Medicine Cardiovascular Disease; Internal Medicine Pulmonary Disease; Physician Assistant; Physician Assistant Medical; Registered Nurse Community Health; Student in an Organized Health Care Education/Training Program; Admitting Provider Internal Medicine; Emergency Provider Internal Medicine; Visit Provider Anesthesiology
DX: A41.89 Other specified sepsis (principal); U07.1 COVID-19; J12.82 Pneumonia due to coronavirus disease 2019; J80 Acute respiratory distress syndrome; D68.61 Antiphospholipid syndrome; E87.3 Alkalosis; G93.40 Encephalopathy, unspecified; F41.9 Anxiety disorder, unspecified; K21.9 Gastro-esophageal reflux disease without esophagitis; R31.9 Hematuria, unspecified; J98.2 Interstitial emphysema; K76.0 Fatty (change of) liver, not elsewhere classified; I95.9 Hypotension, unspecified; M35.9 Systemic involvement of connective tissue, unspecified; Z86.010 Personal history of colon polyps; R73.9 Hyperglycemia, unspecified; Z79.82 Long term (current) use of aspirin; Z79.891 Long term (current) use of opiate analgesic; Z79.899 Other long term (current) drug therapy; Z51.5 Encounter for palliative care
CPT/HCPCS: 36415; 36600; 71045; 71275; 80048; 80053; 80076; 80202; 81001; 81003; 82040; 82728; 82803; 82947; 83605; 83615; 83735; 83880; 84100; 84145; 84484; 85007; 85025; 85027; 85379; 85610; 85730; 86140; 86850; 86900; 86901; 86923; 87040; 87070; 87071; 87081; 87086; 87102; 87116; 87205; 87449; 87635; 87798; 93005; 93970; 94002; 94003; 94799; 96365; 96366; 96368; 96375; 99284; 99291; C1758; J0610; J0692; J0696; J1100; J1170; J1650; J1940; J2250; J2543; J2920; J2930; J3010; J3370; J3475; J3490; P9016; Q9967